=== PATIENT | male | born 1945 | race Caucasian/White ===

== ENCOUNTER 2016-07-10 12:30 | Emergency (ER) | payer OTHER ==
[~2016-07-10] VITALS: Ht 177.8 cm; Wt 77.1 kg
[~2016-07-10 12:30] MED LIST: /MIRT30TA OR; ALLE25CA OR; AMBI10TA OR; ATEN50TA2 OR; CELE40TA OR; CLARITIN; CLARITIN OR; COLA100C2 OR; FLEXERIL PO; HYDR10TA2 OR; HYDR25TA6 OR; LISI40TA OR; MELOPOW XX; METH750T OR; MILKSUS OR; MULTIVIT PO; NICO21DI4 TD; OMEP20TA7 OR; PREVPACK; RISP3TAB16 OR; SENO8.6T5 OR; TERA10CA3 OR; TRAZ50TA OR; VICO5TAB OR; VITAMIN B12 PO; ZITH250T OR; gabapentin PO; tramadol PO
[2016-07-10] MEDS ORDERED: TERA10CA3 PO (12:51)
[2016-07-10] MEDS ORDERED: VITA50003 PO (12:51)
[2016-07-10] MEDS ORDERED: AMLO5TAB2 PO (12:51)
[2016-07-10] MEDS ORDERED: SIMV20TA2 PO (12:51)
[2016-07-10] MEDS ORDERED: VITA100072 PO (12:51)
[2016-07-10] MEDS ORDERED: STOO100C PO (12:51)
[2016-07-10] MEDS ORDERED: RISPERIDONE (12:51)
[2016-07-10] MEDS ORDERED: METOCLOPRAMIDE 10 MG TAB PO ONE (13:30)
[2016-07-10 13:51] LABS: BASO % 0.2 % (0.0-1.0); EOS # 0.1 K/mm3 (0.0-0.50); EOS % 1.6 % (0.0-3.0); LARGE UNSTAINED CELL # 0.1 K/mm3 (0.0-0.4); LARGE UNSTAINED CELL % 1.9 % (0.0-4.0); LYMPH # 1.6 K/mm3 (1.5-4.5); LYMPH % 22.6 % (24.0-44.0); MEAN CORPUSCULAR HEMOGLOBIN 32.8 pg (27.0-33.0); MEAN CORPUSCULAR HGB CONC 33.1 g/dl (32.0-36.5); MEAN CORPUSCULAR VOLUME 99.2 fl (80.0-96.0); MONO # 0.4 K/mm3 (0.0-0.8); MONO % 5.3 % (0.0-5.0); NEUTROPHILS # 4.5 K/mm3 (1.8-7.7); NEUTROPHILS % 68.3 % (36.0-66.0); PLATELET COUNT, AUTOMATED 237 k/mm3 (150-450); RED CELL DISTRIBUTION WIDTH 13.3 % (11.5-14.5); WHITE BLOOD COUNT 6.6 K/mm3 (4.0-10.0)
[2016-07-10 14:06] LABS: ANION GAP 5 MEQ/L (8-16); BLOOD UREA NITROGEN 11 MG/DL (7-18); CALCIUM LEVEL 8.2 MG/DL (8.8-10.2); CARBON DIOXIDE LEVEL 29 MEQ/L (21-32); CHLORIDE LEVEL 103 MEQ/L (98-107); CREATININE FOR GFR 0.68 MG/DL (0.70-1.30); GLOMERULAR FILTRATION RATE > 60.0 (>49); GLUCOSE, FASTING 158 MG/DL (80-110); POTASSIUM SERUM 3.9 MEQ/L (3.5-5.1); SODIUM LEVEL 137 MEQ/L (136-145)
[2016-07-10 14:09] LABS: ALBUMIN 3.8 GM/DL (3.2-5.2); ALBUMIN/GLOBULIN RATIO 1.41 (1.00-1.93); ALKALINE PHOSPHATASE 117 U/L (45-117); ALT/SGPT 21 U/L (12-78); AST/SGOT 14 U/L (15-37); BILIRUBIN,DIRECT < 0.1 MG/DL (0.0-0.2); BILIRUBIN,TOTAL 0.2 MG/DL (0.2-1.0); TOTAL PROTEIN 6.5 GM/DL (6.4-8.2)
--- NOTE | 2016-07-10 15:02 | REP ---
REASON: Abdominal pain. Comparison chest 04/11/2010 The accompanying frontal view of the chest showed marked emphysematous changes which have worsened from the prior exam with a large bulla on the right lower lobe. There is a new nodule in the right lower lobe but this could be secondary to compressive changes due to the large right lower lobe bullous changes. Supine and upright views of the abdomen show the intestinal gas pattern to be nonspecific. Gas and stool is seen throughout the colon and within the rectosigmoid region. There is no evidence of intestinal obstruction or free air. A few scattered, nondilated, gas-filled bowel loops are seen in no particular fashion. The osseous structures show the bones to be demineralized with chronic changes. IMPRESSION: Pulmonary findings as described above. There is no evidence of acute intra-abdominal disease. Consider chest CT to better assess the small nodule in the right lung field. Signed by Larry Nichole DO 07/10/2016 03:52 P
[2016-07-10] MEDS ORDERED: ZOFR4TAB3 PO (15:12)
[2016-07-10 15:20] VITALS: BP 160/80
--- NOTE | 2016-07-10 16:37 | ED PDOC ---
Post-Departure Follow-Up dr bj bernabe faxed formal report of abdl series for fu taylorg Inna Mora MD Jul 10, 2016 16:37
== END 2016-07-10 15:25 | disposition home or self-care (01) ==
LOC: M ED 13:46
DX: R53.81 Other malaise (principal)
CPT/HCPCS: 36415; 74022; 80048; 80076; 85025; 99282; G0480

== ENCOUNTER 2017-05-18 08:33 | Emergency (ER) | payer OTHER ==
[2017-05-18 10:32] LABS: HEMATOCRIT 36.7 % (42.0-52.0); HEMOGLOBIN 12.7 g/dl (14.0-18.0); MEAN CORPUSCULAR HEMOGLOBIN 34.4 pg (27.0-33.0); MEAN CORPUSCULAR HGB CONC 34.6 g/dl (32.0-36.5); MEAN CORPUSCULAR VOLUME 99.5 fl (80.0-96.0); PLATELET COUNT, AUTOMATED 204 10^3/uL (150-450); RED BLOOD COUNT 3.69 10^6/uL (4.30-6.10); RED CELL DISTRIBUTION WIDTH 12.9 % (11.5-14.5); WHITE BLOOD COUNT 7.8 10^3/uL (4.0-10.0)
[2017-05-18 11:14] LABS: ACETAMINOPHEN LEVEL 2.8 UG/ML (10.0-30.0); ALBUMIN 3.8 GM/DL (3.2-5.2); ALBUMIN/GLOBULIN RATIO 1.52 (1.00-1.93); ALKALINE PHOSPHATASE 80 U/L (45-117); ALT/SGPT 19 U/L (12-78); ANION GAP 7 MEQ/L (8-16); AST/SGOT 14 U/L (7-37); BILIRUBIN,DIRECT 0.1 MG/DL (0.0-0.2); BILIRUBIN,TOTAL 0.3 MG/DL (0.2-1.0); BLOOD UREA NITROGEN 17 MG/DL (7-18); CALCIUM LEVEL 8.3 MG/DL (8.8-10.2); CARBON DIOXIDE LEVEL 28 MEQ/L (21-32); CHLORIDE LEVEL 105 MEQ/L (98-107); CREATININE FOR GFR 0.66 MG/DL (0.70-1.30); GLOMERULAR FILTRATION RATE > 60.0 (>42); GLUCOSE, FASTING 122 MG/DL (70-100); SODIUM LEVEL 140 MEQ/L (136-145); TOTAL PROTEIN 6.3 GM/DL (6.4-8.2)
[2017-05-18 11:21] LABS: ETHYL ALCOHOL (ETHANOL) < 0.003 % (0.000-0.010)
[2017-05-18 13:38] LABS: AMPHETAMINES LEVEL URINE NEGATIVE (NEGATIVE); BARBITURATES URINE NEGATIVE (NEGATIVE); BENZODIAZEPINES URINE NEGATIVE (NEGATIVE); CANNABINOIDS URINE NEGATIVE (NEGATIVE); COCAINE METABOLITE URINE NEGATIVE (NEGATIVE); METHADONE URINE NEGATIVE (NEGATIVE); OPIATES URINE NEGATIVE (NEGATIVE); PHENCYCLIDINE URINE NEGATIVE (NEGATIVE)
== END 2017-05-18 15:16 | disposition home or self-care (01) ==
LOC: M ED 08:33
DX: F34.1 Dysthymic disorder (principal); F31.9 Bipolar disorder, unspecified; I10 Essential (primary) hypertension; J44.9 Chronic obstructive pulmonary disease, unspecified; F17.210 Nicotine dependence, cigarettes, uncomplicated; Z79.899 Other long term (current) drug therapy; Z88.8 Allergy status to other drugs, medicaments and biological substances; Z86.2 Personal history of diseases of the blood and blood-forming organs and certain disorders involving the immune mechanism
CPT/HCPCS: G0480

== ENCOUNTER 2018-01-02 09:38 | Emergency (ER) | payer OTHER ==
[2018-01-02] MEDS: NS 1,000 ML IV (10:00)
[2018-01-02 10:38] LABS: BASO % 0.2 % (0.0-1.0); EOS # 0.1 10^3/uL (0.0-0.50); EOS % 1.1 % (0.0-3.0); HEMATOCRIT 37.4 % (42.0-52.0); HEMOGLOBIN 12.8 g/dl (13.5-17.5); IMMATURE GRANULOCYTE % 0.2 % (0-3.0); LYMPH # 0.8 10^3/uL (1.5-4.5); MEAN CORPUSCULAR HEMOGLOBIN 32.4 pg (27.0-33.0); MEAN CORPUSCULAR HGB CONC 34.2 g/dl (32.0-36.5); MEAN CORPUSCULAR VOLUME 94.7 fl (80.0-96.0); MONO # 0.6 10^3/uL (0.0-0.8); MONO % 9.7 % (0.0-5.0); NEUTROPHILS # 4.8 10^3/uL (1.8-7.7); NEUTROPHILS % 75.8 % (36.0-66.0); PLATELET COUNT, AUTOMATED 288 10^3/uL (150-450); RED BLOOD COUNT 3.95 10^6/uL (4.30-6.10); RED CELL DISTRIBUTION WIDTH 13.8 % (11.5-14.5); WHITE BLOOD COUNT 6.3 10^3/uL (4.0-10.0)
[2018-01-02 11:14] LABS: MAGNESIUM LEVEL 2.3 MG/DL (1.8-2.4)
[2018-01-02 11:14] LABS: ETHYL ALCOHOL (ETHANOL) < 0.003 % (0.000-0.010); FOLATE > 24.0 NG/ML (>5.4)
[2018-01-02] MEDS: ACETAMINOPHEN 325 MG TAB PO (11:18)
[2018-01-02] MEDS: LIDOCAINE 5% (LIDODERM) PATCH TD (11:18)
[2018-01-02 12:34] LABS: ALBUMIN 3.7 GM/DL (3.2-5.2); ALBUMIN/GLOBULIN RATIO 1.12 (1.00-1.93); ALKALINE PHOSPHATASE 122 U/L (45-117); ALT/SGPT 23 U/L (12-78); ANION GAP 6 MEQ/L (8-16); AST/SGOT 19 U/L (7-37); BILIRUBIN,DIRECT 0.1 MG/DL (0.0-0.2); BILIRUBIN,TOTAL 0.4 MG/DL (0.2-1.0); BLOOD UREA NITROGEN 12 MG/DL (7-18); CARBON DIOXIDE LEVEL 28 MEQ/L (21-32); CHLORIDE LEVEL 97 MEQ/L (98-107); CPK CREATINE PHOSPHOKINASE 47 U/L (39-308); CREATININE FOR GFR 0.65 MG/DL (0.70-1.30); FREE THYROXINE INDEX 3.6 % (1.4-3.8); GLOMERULAR FILTRATION RATE > 60.0 (>42); GLUCOSE, FASTING 117 MG/DL (70-100); LIPASE 102 U/L (73-393); MB/CK RELATIVE INDEX 2.34 (< OR =4); POTASSIUM SERUM 4.2 MEQ/L (3.5-5.1); SODIUM LEVEL 131 MEQ/L (136-145); T UPTAKE 37 % (33-40); THYROXINE (T4) 9.6 UG/DL (4.5-12.0); TROPONIN I < 0.02 NG/ML (< 0.10)
[2018-01-02 13:28] LABS: AMPHETAMINES LEVEL URINE NEGATIVE (NEGATIVE)
[2018-01-02 13:29] LABS: BARBITURATES URINE NEGATIVE (NEGATIVE); BENZODIAZEPINES URINE NEGATIVE (NEGATIVE); CANNABINOIDS URINE NEGATIVE (NEGATIVE); COCAINE METABOLITE URINE NEGATIVE (NEGATIVE); METHADONE URINE NEGATIVE (NEGATIVE); OPIATES URINE NEGATIVE (NEGATIVE); PHENCYCLIDINE URINE NEGATIVE (NEGATIVE)
[2018-01-02] MEDS: LABETALOL HCL 100 MG/20 ML VIAL IV (14:11)
[2018-01-02] MEDS: NS 500 ML IV (15:15)
[2018-01-02] MEDS ORDERED: **NOTE PATIENT COMMENT** MISC XX (21:00)
== END 2018-01-02 15:41 | disposition home or self-care (01) ==
LOC: M ED 09:38
DX: I10 Essential (primary) hypertension (principal); R53.81 Other malaise; R53.83 Other fatigue; K59.04 Chronic idiopathic constipation; M54.9 Dorsalgia, unspecified; M51.9 Unspecified thoracic, thoracolumbar and lumbosacral intervertebral disc disorder; G62.9 Polyneuropathy, unspecified; Z87.891 Personal history of nicotine dependence; Z87.19 Personal history of other diseases of the digestive system; Z88.6 Allergy status to analgesic agent; Z79.899 Other long term (current) drug therapy
CPT/HCPCS: 71046

== ENCOUNTER 2018-10-06 15:01 | Inpatient (IN) | payer OTHER ==
[~2018-10-06] VITALS: Ht 177.8 cm; Wt 80.5 kg
[~2018-10-06 15:01] MED LIST changes: -/MIRT30TA OR; +AMLO5TAB6 PO; +MIRT1TAB21 OR; +MM S100C PO; +RISPERIDONE; +SIMV20TA2 PO; +TERA10CA3 PO; +VITA100018 PO; +VITA50005 PO; +ZOFR4TAB14 PO
[2018-10-06] MEDS ORDERED: PERCOCET 5MG/325MG TAB PO ONE (19:00)
[2018-10-06 19:19] LABS: BASO % 0.3 % (0.0-1.0); EOS # 0.1 10^3/uL (0.0-0.50); EOS % 1.3 % (0.0-3.0); HEMATOCRIT 36.5 % (42.0-52.0); HEMOGLOBIN 12.4 g/dl (13.5-17.5); LYMPH # 2.1 10^3/uL (1.5-4.5); LYMPH % 21.6 % (24.0-44.0); MEAN CORPUSCULAR HEMOGLOBIN 33.9 pg (27.0-33.0); MEAN CORPUSCULAR VOLUME 99.7 fl (80.0-96.0); MONO # 0.9 10^3/uL (0.0-0.8); MONO % 8.9 % (0.0-5.0); NEUTROPHILS # 6.4 10^3/uL (1.8-7.7); NEUTROPHILS % 67.7 % (36.0-66.0); PLATELET COUNT, AUTOMATED 250 10^3/uL (150-450); RED BLOOD COUNT 3.66 10^6/uL (4.30-6.10); WHITE BLOOD COUNT 9.5 10^3/uL (4.0-10.0)
[2018-10-06 20:00] LABS: ALBUMIN 3.8 GM/DL (3.2-5.2); ALT/SGPT 18 U/L (12-78); BILIRUBIN,DIRECT 0.1 MG/DL (0.0-0.2); BILIRUBIN,TOTAL 0.4 MG/DL (0.2-1.0); BLOOD UREA NITROGEN 17 MG/DL (7-18); CALCIUM LEVEL 8.6 MG/DL (8.8-10.2); CARBON DIOXIDE LEVEL 29 MEQ/L (21-32); CHLORIDE LEVEL 105 MEQ/L (98-107); CK-MB VALUE MASS < 1.0 NG/ML (<3.6); CPK CREATINE PHOSPHOKINASE 54 U/L (39-308); CREATININE FOR GFR 0.83 MG/DL (0.70-1.30); GLOMERULAR FILTRATION RATE > 60.0 (>42); GLUCOSE, FASTING 82 MG/DL (70-100); LIPASE 84 U/L (73-393); MB/CK RELATIVE INDEX 1.85 (< OR =4); POTASSIUM SERUM 4.1 MEQ/L (3.5-5.1); SODIUM LEVEL 138 MEQ/L (136-145); TOTAL PROTEIN 6.5 GM/DL (6.4-8.2); TROPONIN I < 0.02 NG/ML (< 0.10)
--- NOTE | 2018-10-06 20:20 | REPVR ---
EXAM: CT Lumbar Spine Without Contrast EXAM DATE/TIME: 10/06/2018 7:47 PM CLINICAL HISTORY: 72 years old, male; Low back pain TECHNIQUE: Imaging protocol: Axial computed tomography images of the lumbar spine without intravenous contrast. Coronal and sagittal reformatted images were created and reviewed. Radiation optimization: All CT scans at this facility use at least one of these dose optimization techniques: automated exposure control; mA and/or kV adjustment per patient size (includes targeted exams where dose is matched to clinical indication); or iterative reconstruction. COMPARISON: No relevant prior studies available. FINDINGS: Vertebrae: The sclerotic area in the right pedicle of L5 with brush borders consistent with a bone island. L1-L2: Mild interspace narrowing with degenerative vacuum phenomenon in mild retrolisthesis. There is minimal facet arthropathy and no spinal stenosis. There is borderline right neural foraminal stenosis. L2-L3: Moderate interspace narrowing with degenerative vacuum phenomenon and mild retrolisthesis and minimal facet arthropathy. There is low normal size of the spinal canal and mild bilateral neural foraminal stenosis. L3-L4: Mild interspace narrowing degenerative vacuum phenomenon and slight retrolisthesis with minimal disc bulge. There is mild facet arthropathy and borderline spinal and right neural foraminal stenosis. L4-L5: Slight interspace narrowing degenerative disc change and vacuum phenomenon with minimal broad-based posterior protrusion. There is mild facet arthropathy and borderline spinal stenosis and borderline bilateral neural foraminal stenosis. L5-S1: Slight interspace narrowing with minimal posterior protrusion and minimal facet arthropathy. The spinal canal is of adequate size. There is borderline left and mild right neural foraminal stenosis. Soft tissues: Unremarkable. IMPRESSION: 1. Multilevel degenerative changes with some borderline spinal stenosis and varying degrees of neural foraminal stenosis as described. 2. No acute fracture or subluxation. Electronically signed by: Jay Jay Espinal On 10/06/2018 20:20:45 PM
[2018-10-06] MEDS ORDERED: KETOROLAC 30 MG/ML VIAL (J1885) IV ONE (20:45)
[2018-10-06] MEDS: RAMELTEON 8 MG TAB (ROZEREM) PO SCH (21:00)
[2018-10-06] MEDS ORDERED: **hydrALAZINE HCL** 25 MG TAB PO ONE (22:45)
[2018-10-06] MEDS ORDERED: oxyCODONE 5MG TAB PO ONE (23:15)
[2018-10-07] MEDS ORDERED: GABA600T4 PO (01:06)
[2018-10-07] MEDS ORDERED: TERA10CA3 PO (01:06)
[2018-10-07] MEDS ORDERED: LATU120T PO (01:06)
[2018-10-07] MEDS ORDERED: MIRA3350 PO (01:06)
[2018-10-07] MEDS ORDERED: SENN1TAB8 PO (01:06)
[2018-10-07] MEDS ORDERED: OMEP20CA4 PO (01:06)
[2018-10-07] MEDS ORDERED: DOCU100T8 PO (01:06)
[2018-10-07] MEDS ORDERED: FINA5TAB2 PO (01:06)
[2018-10-07] MEDS ORDERED: MULTTAB62 PO (01:06)
[2018-10-07] MEDS ORDERED: LIDO5OIN19 TOP (01:06)
[2018-10-07] MEDS ORDERED: DICL50TAB PO (01:06)
[2018-10-07] MEDS ORDERED: VENTAER INH (01:06)
[2018-10-07] MEDS ORDERED: MELATAB2 PO (01:06)
[2018-10-07] MEDS ORDERED: SERT-138 PO (01:06)
[2018-10-07] MEDS ORDERED: QC A650T3 PO (01:06)
[2018-10-07] MEDS ORDERED: PATIENT COMMENTS (01:08)
[2018-10-07] MEDS ORDERED: ALBUTEROL 90 MCG/ACT 8GM HFA INHALER INH PRN (01:15)
--- NOTE | 2018-10-07 03:26 | HPEPDOC ---
General Date of Admission Oct 07, 2018 at 01:15 Date of Service: Oct 07, 2018 Chief Complaint The patient is a 72-year-old male admitted with a reason for visit of Back Pain. History of Present Illness 72-year-old male with past medical history of hypertension, arthritis, BPH, peripheral neuropathy, and chronic back pain presents to the ER with a chief complaint of worsening back pain. The patient states that he lives by himself, and that over the last several weeks he has had more difficulty caring for himself as his back pain precludes him from performing activities of daily living. He denies any recent trauma, or strains. He states that it is getting harder for him to walk with a single-point cane, and that his current medication regimen is not alleviating his discomfort. He denies any complaints of numbness in his genital area, fecal/urinary incontinence or retention, or any other signs of cauda equina. In the ER, the patient had difficulty ambulating, and was unable to be discharged home. He will be admitted to the hospitalist service for further evaluation and management. Home Medications Scheduled Docusate Sodium (Docusate Sodium) 100 Mg Tablet, 100 MG PO BID, (Reported) Finasteride (Finasteride) 5 Mg Tablet, 5 MG PO DAILY, (Reported) Gabapentin (Gabapentin) 600 Mg Tablet, 600 MG PO TID, (Reported) Lidocaine (Lidocaine) 120 Gm Oint...g., 1 APPLIC TOP BID, (Reported) APPLY TO AFFECTED AREAS Lurasidone HCl (Latuda) 120 Mg Tablet, 120 MG PO QPM, (Reported) Multivitamin with Minerals (Multivitamins with Minerals) 1 Each Tablet, 1 TAB PO DAILY, (Reported) Omeprazole (Omeprazole) 20 Mg Capsule.dr, 20 MG PO DAILY, (Reported) Polyethylene Glycol 3350 (Miralax) 119 Gm Powder, 17 GRAM PO DAILY, (Reported) Sennosides (Senna) 8.6 Mg Tablet, 17.2 MG PO BID, (Reported) Sertraline HCl (Sertraline HCl) 100 Mg Tablet, 200 MG PO DAILY, (Reported) Terazosin Hcl (Terazosin HCl) 10 Mg Capsule, 20 MG PO QHS, (Reported) Scheduled PRN Acetaminophen (Acetaminophen 8 Hour) 650 Mg Tablet.er, 650 MG PO Q6H PRN for PAIN, (Reported) Albuterol Sulfate (Ventolin Hfa) 18 Gm Hfa.aer.ad, 2 PUFF INH DAILY PRN for wheezing, (Reported) Diclofenac Sodium (Diclofenac Sodium) 50 Mg Tablet.dr, 50 MG PO BID PRN for PAIN, (Reported) Melatonin (Melatonin) 3 Mg Tablet, 6 MG PO QHS PRN for INSOMNIA, (Reported) Miscellaneous Medications [Patient Comments] , (Reported) PATIENT DID NOT APPEAR TO KNOW HIS MEDICATIONS. ACTIVE MEDICATION LIST [facility]IFIED WITH [facility] [place] Allergies Coded Allergies: aspirin (Verified Allergy, Unknown, 10/06/18) Past Medical History Medical History As noted in HPI. Surgical History Appendectomy Social History * Smoker: Denies Alcohol: Denies Drugs: denies Review of Systems Other systems 10 point review of systems negative unless otherwise specified in HPI. Physical Examination General Exam: Positive: Alert, Cooperative, Mild Distress (2/2 back pain) ENT Exam: Positive: Atraumatic, Mucous membr. moist/pink Neck Exam: Negative: JVD Chest Exam: Positive: Clear to auscultation, Normal air movement Heart Exam: Positive: Rate Normal, Normal S1, Normal S2 Abdomen Exam: Positive: Soft; Negative: Tenderness Extremity Exam: Negative: Tenderness, Swelling Neuro Exam: Positive: Strength at 5/5 X4 ext, Normal Tone, Sensation Intact, Other (range of motion limited on back extension/flexion due to pain. Patient with difficulty with leg raising test.) Psych Exam: Positive: Oriented x 3 Vital Signs Vital Signs Date Time Temp Pulse Resp B/P (MAP) Pulse Ox O2 Delivery O2 Flow Rate FiO2 10/07/18 01:31 53 18 96 Room Air 10/07/18 00:11 98.7 186/84 (118) Laboratory Data Labs 24H Laboratory Tests 2 10/06/18 19:05: Immature Granulocyte % (Auto) 0.2, White Blood Count 9.5, Red Blood Count 3.66L, Hemoglobin 12.4L, Hematocrit 36.5L, Mean Corpuscular Volume 99.7H, Mean Corpuscular Hemoglobin 33.9H, Mean Corpuscular Hemoglobin Concent 34.0, Red Cell Distribution Width 13.8, Platelet Count 250, Neutrophils (%) (Auto) 67.7H, Lymphocytes (%) (Auto) 21.6L, Monocytes (%) (Auto) 8.9H, Eosinophils (%) (Auto) 1.3, Basophils (%) (Auto) 0.3, Neutrophils # (Auto) 6.4, Lymphocytes # (Auto) 2.1, Monocytes # (Auto) 0.9H, Eosinophils # (Auto) 0.1, Basophils # (Auto) 0.0, Nucleated Red Blood Cells % (auto) 0.0, Urine Color STRAW, Urine Appearance CLEAR, Urine pH 7.0, Urine Specific [place] 1.006, Urine Protein NEGATIVE, Urine Glucose (UA) NEGATIVE, Urine Ketones NEGATIVE, Urine Blood NEGATIVE, Urine Nitrite NEGATIVE, Urine Bilirubin NEGATIVE, Urine Urobilinogen 0.2, Urine Leukocyte Esterase NEGATIVE, Urine WBC (Auto) 1, Urine RBC (Auto) 3, Urine Hyaline Casts (Auto) 0, Urine Bacteria (Auto) 1+H, Urine Squamous Epithelial Cells 0, Urine Sperm (Auto) , Anion Gap 4L, Glomerular Filtration Rate > 60.0, Calcium Level 8.6L, Aspartate Amino Transf (AST/SGOT) 19, Alanine Am inotransferase (ALT/SGPT) 18, Alkaline Phosphatase 92, Total Bilirubin 0.4, Direct Bilirubin 0.1, Total Creatine Kinase 54, Creatine Kinase MB < 1.0, Creatine Kinase MB Relative Index 1.85, Troponin I < 0.02, Total Protein 6.5, Albumin 3.8, Albumin/Globulin Ratio 1.41, Lipase 84 CBC/BMP Laboratory Tests 10/06/18 19:05 Red Blood Count 3.66 L, Mean Corpuscular Volume 99.7 H, Mean Corpuscular Hemoglobin 33.9 H, Mean Corpuscular Hemoglobin Concent 34.0, Red Cell Distribution Width 13.8, Neutrophils (%) (Auto) 67.7 H, Lymphocytes (%) (Auto) 21.6 L, Monocytes (%) (Auto) 8.9 H, Eosinophils (%) (Auto) 1.3, Basophils (%) (Auto) 0.3, Neutrophils # (Auto) 6.4, Lymphocytes # (Auto) 2.1, Monocytes # (Auto) 0.9 H, Eosinophils # (Auto) 0.1, Basophils # (Auto) 0.0 Plan / VTE VTE Prophylaxis Ordered?: Yes Plan Plan Acute on Chronic Back Pain CT L-Spine with no acute findings No signs or symptoms to suggest cauda equina PT/OT ordered for functional optimization Pain medications as ordered We'll continue to monitor the patient's progress Accelerated hypertension Continue Terazosin Hydralazine prn ordered Anxiety/depression Continue sertraline, Latuda Neuropathy Continue gabapentin GERD PPI DVT prophylaxis Lovenox subcutaneous LELAND JIMENEZ MD Oct 07, 2018 03:26
[2018-10-07] MEDS: ENOXAPARIN 40 MG/0.4 ML SYRINGE (J1650) SC SCH (05:12)
[2018-10-07] MEDS: **hydrALAZINE HCL** 25 MG TAB PO SCH ×2 (05:13→09:02)
[2018-10-07] MEDS: PERCOCET 5MG/325MG TAB PO PRN ×3 (05:13→20:40)
[2018-10-07] MEDS ORDERED: hydrALAZINE INJ 20 MG/ML VIAL IV STA (08:06)
[2018-10-07] MEDS: SENNA 8.6 MG TAB (SENOKOT) PO SCH ×2 (09:00→20:41)
[2018-10-07] MEDS: DOCUSATE SODIUM 100 MG CAP PO SCH ×3 (09:00→20:41)
[2018-10-07] MEDS: OMEPRAZOLE 20 MG CAP PO SCH (09:01)
[2018-10-07] MEDS: GABAPENTIN 300 MG CAP PO SCH ×3 (09:02→20:40)
[2018-10-07] MEDS: FINASTERIDE 5 MG TAB PO SCH (09:12)
[2018-10-07] MEDS: SERTRALINE 100 MG TAB PO SCH (09:14)
[2018-10-07] MEDS: LIDOCAINE 5% (LIDODERM) PATCH TD SCH (09:14)
[2018-10-07] MEDS ORDERED: METOPROLOL 5 MG/5 ML VIAL IV STA (11:00)
[2018-10-07 14:19] VITALS: BP 170/68
[2018-10-07] MEDS: traMADol 50 MG TAB PO PRN (14:49)
[2018-10-07] MEDS: METHOCARBAMOL 500 MG TAB PO SCH ×2 (16:14→21:36)
[2018-10-07] MEDS: LISINOPRIL 5 MG TAB PO SCH (16:16)
--- NOTE | 2018-10-07 16:31 | IPNPDOC ---
Text Note Date of Service The patient was seen on 10/07/18. NOTE SUBJECTIVE: Patient examined at bedside, continues to have low back pain and requesting assistance with home placement. Otherwise denies chest pain, shortness breath, nausea, vomiting, fevers, chills. No new neuropathy or deficits. No urine/fecal incontinence. OBJECTIVE PHYSICAL EXAMINATION: VITAL SIGNS: Please see below. GENERAL: A&O3, resting comfortably in bed, sitting up speaking in complete sentences no acute distress] HEENT: [Moist mucous membranes no elevation in CVP] CARDIOVASCULAR: [S1 S2 regular no additional heart sounds appreciated.] RESPIRATORY: [Clear to auscultation bilaterally.] ABDOMINAL: [Bowel sounds present abdomen soft and non-tender] EXTREMITIES: [No clubbing cyanosis or edema] NEUROLOGICAL: [Spontaneously moves all 4 extremities cranial 2 through 12 grossly intact no gross focal deficits appreciated] MUSCULOSKELETAL: Strength intact in all extremities. Tenderness to lumbar spine. Ambulating room without difficulty PSYCHOLOGICAL: [Appropriate] LABORATORY DATA, MICROBIOLOGY: Please see below. IMAGING STUDIES: 10/06/[address]: 1. Multilevel degenerative changes with some borderline spinal stenosis and varying degrees of neural foraminal stenosis as described. 2. No acute fracture or subluxation. ASSESSMENT AND PLAN: This is a 72-year-old male with worsening chronic low back pain and social living situation. PROBLEMS: 1. Worsening chronic lumbago. Patient denies any recent injuries, however admits to multiple falls with a past few years. Continue pain control with lidocaine patch, muscle relaxant, gabapentin, tramadol, Percocet. Encourage working with PT. Will likely require placement, for which PFS has been consulted. 2. Hypertension: Continue Terazosin. BP uncontrolled. I suspect this is partially due to his pain. Will add Lisinopril and monitor. Currently asymptomatic otherwise. 3. Depression: Continue sertraline & Latuda. 4. GERD: Continue home PPI. 5. BPH: Continue Proscar DVT prophylaxis: Lovenox subcutaneous DISPOSITION: Pending PT and PFS. Will likely require long-term placement.. VS,Fishbone, I+O VS, Fishbone, I+O Laboratory Tests 10/06/18 19:05 Red Blood Count 3.66 L, Mean Corpuscular Volume 99.7 H, Mean Corpuscular Hemoglobin 33.9 H, Mean Corpuscular Hemoglobin Concent 34.0, Red Cell Distribution Width 13.8, Neutrophils (%) (Auto) 67.7 H, Lymphocytes (%) (Auto) 21.6 L, Monocytes (%) (Auto) 8.9 H, Eosinophils (%) (Auto) 1.3, Basophils (%) (Auto) 0.3, Neutrophils # (Auto) 6.4, Lymphocytes # (Auto) 2.1, Monocytes # (Auto) 0.9 H, Eosinophils # (Auto) 0.1, Basophils # (Auto) 0.0 Vital Signs Date Time Temp Pulse Resp B/P (MAP) Pulse Ox O2 Delivery O2 Flow Rate FiO2 10/07/18 16:16 176/74 10/07/18 15:49 16 10/07/18 14:19 97.0 60 96 10/07/18 14:03 Room Air PINO BAUMAN Oct 07, 2018 16:31
[2018-10-07] MEDS: RAMELTEON 8 MG TAB (ROZEREM) PO SCH (20:40)
[2018-10-07] MEDS: **NOTE PATIENT COMMENT** MISC XX SCH (21:08)
[2018-10-07] MEDS: LURASIDONE HCL 40 MG TAB (LATUDA) PO SCH (21:36)
[2018-10-07] MEDS: TERAZOSIN 5 MG CAP PO SCH (21:37)
[2018-10-07 22:00] VITALS: BP 179/80
[2018-10-08 02:00] VITALS: BP 114/54
[2018-10-08] MEDS: PERCOCET 5MG/325MG TAB PO PRN ×2 (05:18→15:29)
[2018-10-08] MEDS: ENOXAPARIN 40 MG/0.4 ML SYRINGE (J1650) SC SCH (05:18)
[2018-10-08 05:57] LABS: HEMOGLOBIN 12.1 g/dl (13.5-17.5); MEAN CORPUSCULAR HEMOGLOBIN 34.7 pg (27.0-33.0); MEAN CORPUSCULAR HGB CONC 33.6 g/dl (32.0-36.5); MEAN CORPUSCULAR VOLUME 103.2 fl (80.0-96.0); PLATELET COUNT, AUTOMATED 207 10^3/uL (150-450); RED BLOOD COUNT 3.49 10^6/uL (4.30-6.10)
[2018-10-08 06:00] VITALS: BP 148/70
[2018-10-08 06:26] LABS: BLOOD UREA NITROGEN 22 MG/DL (7-18); CALCIUM LEVEL 8.6 MG/DL (8.8-10.2); CARBON DIOXIDE LEVEL 28 MEQ/L (21-32); CHLORIDE LEVEL 103 MEQ/L (98-107); CREATININE FOR GFR 0.81 MG/DL (0.70-1.30); GLOMERULAR FILTRATION RATE > 60.0 (>42); GLUCOSE, FASTING 103 MG/DL (70-100); MAGNESIUM LEVEL 2.1 MG/DL (1.8-2.4); POTASSIUM SERUM 3.6 MEQ/L (3.5-5.1); SODIUM LEVEL 138 MEQ/L (136-145)
[2018-10-08] MEDS: LIDOCAINE 5% (LIDODERM) PATCH TD SCH (08:08)
[2018-10-08] MEDS: GABAPENTIN 300 MG CAP PO SCH ×3 (08:09→20:10)
[2018-10-08] MEDS: LISINOPRIL 5 MG TAB PO SCH (08:09)
[2018-10-08] MEDS: OMEPRAZOLE 20 MG CAP PO SCH (08:09)
[2018-10-08] MEDS: FINASTERIDE 5 MG TAB PO SCH (08:10)
[2018-10-08] MEDS: DOCUSATE SODIUM 100 MG CAP PO SCH ×2 (08:10→20:10)
[2018-10-08] MEDS: METHOCARBAMOL 500 MG TAB PO SCH ×3 (08:10→20:10)
[2018-10-08] MEDS: SENNA 8.6 MG TAB (SENOKOT) PO SCH ×2 (08:10→20:08)
[2018-10-08] MEDS: ACETAMINOPHEN TAB 650MG DOSE (2X325MG) PO PRN ×2 (08:11→15:29)
[2018-10-08] MEDS: SERTRALINE 100 MG TAB PO SCH (08:13)
[2018-10-08] MEDS: traMADol 50 MG TAB PO PRN (09:50)
[2018-10-08] MEDS: DICLOFENAC EPOLAMINE 1.3 % PATCH TOP SCH ×2 (12:00→20:08)
[2018-10-08 14:00] VITALS: BP 178/77
[2018-10-08] MEDS: LURASIDONE HCL 40 MG TAB (LATUDA) PO SCH (20:10)
[2018-10-08] MEDS: RAMELTEON 8 MG TAB (ROZEREM) PO SCH (20:10)
[2018-10-08] MEDS: TERAZOSIN 5 MG CAP PO SCH (20:19)
[2018-10-08] MEDS: **NOTE PATIENT COMMENT** MISC XX SCH (20:20)
[2018-10-08 22:00] VITALS: BP_SYST 120; BP_SYST 134; BP_DIAS 60; BP_DIAS 71
--- NOTE | 2018-10-09 00:32 | IPNPDOC ---
Subjective Date Seen The patient was seen on 10/08/18. Subjective Chief Complaint/HPI Today patient complains of low back pain and neck pain. This he says worsened after working with PT. Denies any fever or chills, denies any abdominal pain , nausea or vomiting or diarrhea. Says has problem in bending forward and has difficulty in walking with a cane. Is being evaluated by PT. Objective Physical Examination General Exam: Positive: Alert, Cooperative, Mild Distress (2/2 back pain) ENT Exam: Positive: Atraumatic, Mucous membr. moist/pink Neck Exam: Negative: JVD Chest Exam: Positive: Clear to auscultation, Normal air movement Heart Exam: Positive: Rate Normal, Normal S1, Normal S2 Abdomen Exam: Positive: Soft; Negative: Tenderness Extremity Exam: Negative: Tenderness, Swelling Neuro Exam: Positive: Strength at 5/5 X4 ext, Normal Tone, Sensation Intact, Other (range of motion limited on back extension/flexion due to pain. Patient with difficulty with leg raising test.) Psych Exam: Positive: Oriented x 3 Assessment /Plan Assessment 72-year-old male with past medical history of hypertension, arthritis, BPH, peripheral neuropathy, and chronic back pain presents to the ER with a chief complaint of worsening back pain. The patient states that he lives by himself, and that over the last several weeks he has had more difficulty caring for himself as his back pain precludes him from performing activities of daily living. He was admitted for back pain and difficulty in ambulation. Worsening chronic lumbago. CT lumber spine personally visualized, and report reviewed shows degenerative changes and some foraminal stenosis in different levels. Patient denies any recent injuries, however admits to multiple falls with a past few years. Continue pain control with lidocaine patch, muscle relaxant, gabapentin, tramadol, Percocet. Encourage working with PT. PFS consulted as will probably need services or placement in [place] situation. will also add diclofenac patch. Continue PT and OT Hypertension: Better controlled today Continue Terazosin, lisinopril. Depression: Continue sertraline & Latuda. GERD: Continue home PPI. BPH: Continue Proscar, terazosin Plan/VTE VTE Prophylaxis Ordered?: Yes VS, I&O, 24H, Fishbone Vital Signs/I&O Vital Signs Date Time Temp Pulse Resp B/P (MAP) Pulse Ox O2 Delivery O2 Flow Rate FiO2 10/08/18 10:50 16 10/08/18 08:09 145/66 10/08/18 06:00 97.0 54 95 10/07/18 14:03 Room Air I&O- Last 24 Hours up to 6 AM 10/08/18 06:00 Intake Total 560 ml Output Total 150 ml Balance 410 ml Laboratory Data 24H LABS Laboratory Tests 2 10/08/18 05:45: Nucleated Red Blood Cells % (auto) 0.0, Anion Gap 7L, Glomerular Filtration Rate > 60.0, Blood Urea Nitrogen 22H, Creatinine 0.81, Sodium Level 138, Potassium Level 3.6, Chloride Level 103, Carbon Dioxide Level 28, Calcium Level 8.6L, Magnesium Level 2.1 CBC/BMP Laboratory Tests 10/08/18 05:45 Red Blood Count 3.49 L, Mean Corpuscular Volume 103.2 H, Mean Corpuscular Hemoglobin 34.7 H, Mean Corpuscular Hemoglobin Concent 33.6, Red Cell Distribution Width 14.0, Calcium Level 8.6 L JIGNESH RUFFIN MD Oct 08, 2018 12:25
[2018-10-09] MEDS: ENOXAPARIN 40 MG/0.4 ML SYRINGE (J1650) SC SCH (04:45)
[2018-10-09] MEDS: PERCOCET 5MG/325MG TAB PO PRN (04:45)
[2018-10-09 06:00] VITALS: BP 99/50
[2018-10-09] MEDS: OMEPRAZOLE 20 MG CAP PO SCH (08:03)
[2018-10-09] MEDS: DOCUSATE SODIUM 100 MG CAP PO SCH (08:03)
[2018-10-09] MEDS: FINASTERIDE 5 MG TAB PO SCH (08:03)
[2018-10-09] MEDS: SENNA 8.6 MG TAB (SENOKOT) PO SCH (08:03)
[2018-10-09 08:06] VITALS: BP 120/60
[2018-10-09] MEDS: LISINOPRIL 5 MG TAB PO SCH (08:06)
[2018-10-09] MEDS: SERTRALINE 100 MG TAB PO SCH (08:06)
[2018-10-09] MEDS: GABAPENTIN 300 MG CAP PO SCH (08:06)
[2018-10-09] MEDS: DICLOFENAC EPOLAMINE 1.3 % PATCH TOP SCH (08:06)
[2018-10-09] MEDS: LIDOCAINE 5% (LIDODERM) PATCH TD SCH (08:07)
[2018-10-09] MEDS: METHOCARBAMOL 500 MG TAB PO SCH (11:59)
[2018-10-09] MEDS ORDERED: LISI-542 PO (13:09)
[2018-10-09] MEDS ORDERED: METH1TAB40 PO ×2 (13:09→13:42)
--- NOTE | 2018-10-09 18:04 | DS.PDOC ---
Discharge Summary General Date of Admission Oct 07, 2018 at 01:15 Date of Discharge 10/09/18 Attending Physician: JIGNESH RUFFIN MD Discharge Summary PROCEDURES PERFORMED DURING STAY: None ADMITTING DIAGNOSES: 1. Worsening chronic lumbago DISCHARGE DIAGNOSES: 1. Worsening chronic lumbago 2. Deconditioning 3. Uncontrolled HTN 4. Anxiety/depression 5. Neuropathy 6. GERD 7. BPH COMPLICATIONS/CHIEF COMPLAINT: Back Pain. HISTORY OF PRESENT ILLNESS: 71-year-old male with chronic low back pain presents to the ER stating he is unable to care for himself due to his worsening low back pain. Denies any recent injuries or falls, however has a history of multiple falls at home with loss of balance. No fevers chills nausea vomiting or new paresthesias. No loss of bowel bladder. HOSPITAL COURSE: In the ER, patient had difficulty ambulating, thus admitted. Imaging was negative for any acute concerns. Patient worked with PT and OT, clearing both. pharmacy services director consulted for possible home nursing versus long-term placement, however patient refused both. He has a history of turning [facility] home services in the past, and thus per PT, OT, PFS, patient was recommended to be discharged home. Patient on medically stable. His brother requested to take Mr. Guillen home and oversee his care, as pt refused adult living. Of note, he was noted to have elevated blood pressures during his stay that improved after the sample was added to his turn Zosyn. Pain medication and Lisinopril were sent to pharmacy. DISCHARGE MEDICATIONS: Please see below. ALLERGIES: Please see below. PHYSICAL EXAMINATION ON DISCHARGE: VITAL SIGNS: Please see below. GENERAL: NAD, A&Ox3 HEENT: nc, at, EOMI NECK: supple, no JVD CARDIOVASCULAR EXAMINATION: RRR, normal S1 S2 RESPIRATORY EXAMINATION: CTAB, no w/r/r ABDOMINAL EXAMINATION: soft, nt/nd, normoactive bowel sounds EXTREMITIES: 2+ pulses b/l, no cyanosis or edema SKIN: no visible rash or lesions, warm, dry NEUROLOGICAL EXAMINATION: no focal deficits, able to move all extremities LABORATORY DATA: Please see below. IMAGIN10/06/[address]: 1. Multilevel degenerative changes with some borderline spinal stenosis and varying degrees of neural foraminal stenosis as described. 2. No acute fracture or subluxation. PROGNOSIS: good ACTIVITY: As tolerated. DIET: 2g sodium DISPOSITION: home DISCHARGE INSTRUCTIONS: 1. Follow-up with PCP within a week 2. Return to ER for emergency DISCHARGE CONDITION: Stable. TIME SPENT ON DISCHARGE: Greater than 35 minutes. Vital Signs/I&Os Vital Signs Date Time Temp Pulse Resp B/P (MAP) Pulse Ox O2 Delivery O2 Flow Rate FiO2 10/09/18 08:06 120/60 10/09/18 06:00 97.1 61 18 94 10/07/18 14:03 Room Air I&O- Last 24 Hours up to 6 AM 10/09/18 06:00 Intake Total 870 ml Balance 870 ml Laboratory Data Labs 24H Laboratory Tests 2 10/09/18 05:28: Bedside Glucose (Misc Panel) 118H FSBS Laboratory Tests Test 10/09/18 05:28 Range/Units Bedside Glucose (Misc Panel) 118 83-110 MG/DL Discharge Medications Scheduled Docusate Sodium (Docusate Sodium) 100 Mg Tablet, 100 MG PO BID, (Reported) Finasteride (Finasteride) 5 Mg Tablet, 5 MG PO DAILY, (Reported) Gabapentin (Gabapentin) 600 Mg Tablet, 600 MG PO TID, (Reported) Lidocaine (Lidocaine) 120 Gm Oint...g., 1 APPLIC TOP BID, (Reported) APPLY TO AFFECTED AREAS Lisinopril (Lisinopril) 5 Mg Tablet, 15 MG PO DAILY Lurasidone HCl (Latuda) 120 Mg Tablet, 120 MG PO QPM, (Reported) Methocarbamol (Methocarbamol) 500 Mg Tablet, 500 MG PO TID Methocarbamol (Methocarbamol) 500 Mg Tablet, 500 MG PO TID Multivitamin with Minerals (Multivitamins with Minerals) 1 Each Tablet, 1 TAB PO DAILY, (Reported) Omeprazole (Omeprazole) 20 Mg Capsule.dr, 20 MG PO DAILY, (Reported) Polyethylene Glycol 3350 (Miralax) 119 Gm Powder, 17 GRAM PO DAILY, (Reported) Sennosides (Senna) 8.6 Mg Tablet, 17.2 MG PO BID, (Reported) Sertraline HCl (Sertraline HCl) 100 Mg Tablet, 200 MG PO DAILY, (Reported) Terazosin Hcl (Terazosin HCl) 10 Mg Capsule, 20 MG PO QHS, (Reported) Scheduled PRN Acetaminophen (Acetaminophen 8 Hour) 650 Mg Tablet.er, 650 MG PO Q6H PRN for PAIN, (Reported) Albuterol Sulfate (Ventolin Hfa) 18 Gm Hfa.aer.ad, 2 PUFF INH DAILY PRN for wheezing, (Reported) Diclofenac Sodium (Diclofenac Sodium) 50 Mg Tablet.dr, 50 MG PO BID PRN for PAIN, (Reported) Melatonin (Melatonin) 3 Mg Tablet, 6 MG PO QHS PRN for INSOMNIA, (Reported) Miscellaneous Medications [Patient Comments] , (Reported) PATIENT DID NOT APPEAR TO KNOW HIS MEDICATIONS. ACTIVE MEDICATION LIST VERIFIED WITH [facility] Allergies Coded Allergies: aspirin (Verified Allergy, Unknown, 10/06/18) GME ATTESTATION GME ATTESTATION My faculty preceptor for this patient encounter was physically present during the encounter and was fully available. All aspects of the patient interview, examination, medical decision making process, and medical care plan development were reviewed and approved by the faculty preceptor. The faculty preceptor is aware and concurs with the plan as stated in the body of this note and will attest to such by his/her cosignature. ATTENDING NOTE I saw and examined the patient. I agree with the finding and the plan of care as documented in the resident's note. I spent 35 mins in counselling the patient and coordinating his discharge. PINO BAUMAN DO Oct 09, 2018 18:04 JIGNESH RUFFIN MD Oct 10, 2018 00:16
== END 2018-10-09 13:38 | disposition home or self-care (01) | DRG 552 ==
LOC: M ED 15:01 → M ED INP 10-07 01:15 → M MSPAV 10-07 14:26
PROVIDERS: ADMIT Internal Medicine; ATTEND Internal Medicine Nephrology
DX: M54.5 Low back pain (principal); I10 Essential (primary) hypertension; G62.9 Polyneuropathy, unspecified; M19.90 Unspecified osteoarthritis, unspecified site; F32.9 Major depressive disorder, single episode, unspecified; F41.9 Anxiety disorder, unspecified; K21.9 Gastro-esophageal reflux disease without esophagitis; N40.0 Benign prostatic hyperplasia without lower urinary tract symptoms; M54.2 Cervicalgia; M48.061 Spinal stenosis, lumbar region without neurogenic claudication; M51.36 Other intervertebral disc degeneration, lumbar region; Z88.6 Allergy status to analgesic agent; Z79.899 Other long term (current) drug therapy; Z90.49 Acquired absence of other specified parts of digestive tract

== ENCOUNTER 2018-11-08 15:15 | Observation (INO) | payer OTHER ==
[~2018-11-08] VITALS: Ht 177.8 cm; Wt 75.2 kg
[~2018-11-08 15:15] MED LIST changes: +DICL50TAB PO; +DOCU100T8 PO; +FINA5TAB2 PO; +GABA600T4 PO; +LATU120T PO; +LIDO5OIN19 TOP; +LISI-542 PO; +MELATAB2 PO; +METH1TAB40 PO; +MIRA3350 PO; +MULTTAB62 PO; +OMEP20CA4 PO; +PATIENT COMMENTS; +QC A650T3 PO; +SENN1TAB8 PO; +SERT-138 PO; +VENTAER INH
[2018-11-08] MEDS ORDERED: CYCLOBENZAPRINE 5MG TABLET PO ONE (17:30)
[2018-11-08] MEDS ORDERED: NS 1,000 ML IV ONE (17:45)
[2018-11-08 18:37] LABS: HEMATOCRIT 35.2 % (42.0-52.0); HEMOGLOBIN 11.9 g/dl (13.5-17.5); MEAN CORPUSCULAR HEMOGLOBIN 35.5 pg (27.0-33.0); MEAN CORPUSCULAR HGB CONC 33.8 g/dl (32.0-36.5); MEAN CORPUSCULAR VOLUME 105.1 fl (80.0-96.0); PLATELET COUNT, AUTOMATED 198 10^3/uL (150-450); RED BLOOD COUNT 3.35 10^6/uL (4.30-6.10)
[2018-11-08 19:23] LABS: ACETAMINOPHEN LEVEL 2.2 UG/ML (10.0-30.0); ALBUMIN 3.4 GM/DL (3.2-5.2); ALT/SGPT 24 U/L (12-78); BILIRUBIN,DIRECT < 0.1 MG/DL (0.0-0.2); BILIRUBIN,TOTAL < 0.1 MG/DL (0.2-1.0); ETHYL ALCOHOL (ETHANOL) < 0.003 % (0.000-0.010); SALICYLATE LEVEL < 1.7 MG/DL (5.0-30.0); THYROID STIMULATING HORMONE 0.391 uIU/ML (0.358-3.740); TOTAL PROTEIN 6.5 GM/DL (6.4-8.2)
[2018-11-08] MEDS ORDERED: PERCOCET 5MG/325MG TAB PO ONE (20:15)
[2018-11-08 20:35] LABS: AMPHETAMINES LEVEL URINE NEGATIVE (NEGATIVE); BARBITURATES URINE NEGATIVE (NEGATIVE); BENZODIAZEPINES URINE NEGATIVE (NEGATIVE); CANNABINOIDS URINE NEGATIVE (NEGATIVE); COCAINE METABOLITE URINE NEGATIVE (NEGATIVE); METHADONE URINE NEGATIVE (NEGATIVE); OPIATES URINE NEGATIVE (NEGATIVE); PHENCYCLIDINE URINE NEGATIVE (NEGATIVE)
[2018-11-08] MEDS ORDERED: amLODIPine 5 MG TAB PO ONE (20:45)
--- NOTE | 2018-11-08 22:40 | HPEPDOC ---
[facility] Medical History & Physical Date of Admission Nov 08, 2018 Date of Service: Nov 09, 2018 Primary Care Physician: A Other Provider Chiara Pearson Attending Physician: TELLY NGUYEN MD History and Physical Time of service 12:05 AM CHIEF COMPLAINT: Back pain HISTORY OF PRESENT ILLNESS: Mr. Guillen is a 73-year-old male who presents with complaints of "progressively worsening "back pain that makes it difficult for him to eat him to sleep. As a result of the pain he fell down 3 times yesterday and reports hitting his head. He came to the ED primarily to get help in managing his back pain. His brother helps him with his medications but only comes once a day in the morning. He also endorses having chest pain at his breast bone, which he attributes to the position that his lying down in, dyspnea, weakness, lightheadedness, headaches caused by neck pain, blurry vision, and weight loss. Per discussion with the ED attending the patient's blood pressure is been very high with a systolic greater than 200. He received amlodipine and cyclobenzaprine with minimal effect. REVIEW OF SYSTEMS: Point review of systems negative except as listed in HPI PAST MEDICAL /SURGICAL HISTORY: 1. Chronic hypertension 2. Chronic back and neck pain. 3. BPH. 4. Peripheral neuropathy 5. History of chronic macrocytic anemia. 6. History of exploratory laparotomy SOCIAL HISTORY: Current smoker. 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 Diabetes ALLERGIES: Please see below. HOME MEDICATIONS: Please see below. PHYSICAL EXAMINATION: VITAL SIGNS: Temperature 90.2, pulse 54, respiratory rate 18, blood pressure 200 2406, pulse oximetry 94% room air GENERAL APPEARANCE: Well-nourished, well-developed, does not appear in acute distress, does not appear toxic INTEGUMENT: The patient has multiple tattoos HEENT: No cephalic, atraumatic, mucous members are moist and pink CARDIOVASCULAR: Regular rate and rhythm, no murmurs, rubs or gallops, no pulses are bounding him a left sternal chest pain is reproducible with palpation of the chest LUNGS: Equal air entry bilaterally, the lungs are clear to auscultation bilaterally, the patient developed dyspnea after readjusting himself in the bed ABDOMEN: Hypoactive bowel sounds, abdomen is soft and nontender on palpation EXTREMITIES: There is left lotion edema NEUROLOGICAL: Numerous 2-12 grossly intact. Speech is not dysarthric PSYCHIATRIC: Alert and oriented, able to understand and follow commands LABORATORY DATA: CBC is remarkable for hemoglobin of 11.9 with MCV 105 Chemistries remarkable for a BUN of 32, creatinine 1.4, glucose of 110, and AST 101. Tox screen is negative IMAGING: None MICROBIOLOGY: Please see below. ASSESSMENT: Mr. Guillen is a 73-year-old male with a past medical history of hypertension, chronic back and neck pain, peripheral neuropathy, and prior history of GI bleed who is admitted for management of hypertensive urgency . PLAN: 1. Hypertensive Urgency The patient is complaining of pleuritic chest pain and worsening of his chronic back pain is difficult to determine if these symptoms are due to hypertensive urgency or missing some of his medications. Plan: Admit to PCU/follow-up troponin, EKG, and chest x-ray/add amlodipine and chlorthalidone / consult clinical application specialist disease with [facility] clinical [facility] to help this patient obtain a home RN and home health aide, the patient reports his brother helps him manage his medications, but is unable to answer questions about whether he has missed any doses of his meds recently, based on the reconciled list there are not any anti-hypertensives / will consult Pharmacy to see if they can reach out to the [facility] pharmac[facility] to double check the patient's meds 2. Chest pain. Likely musculoskeletal in nature as is reproducible with palpation of the chest. Plan: Follow up chest x-ray to rule out fracture/resume home pain meds / able to give aspirin because of allergy/follow-up troponin and EKG 3. Multiple falls / Chronic Back Pain Plan: Follow up CT of the head to rule out stroke and x-ray of the cervical spine / Physical therapy / resume home meds 4.KATH Baseline creatine is 0.81, today it is 1.4 Plan: f/u UA & ulytes for FENa or FEUrea, renal US /will hold off IVF bc of high BP / hold NSAIDs (meloxican) 5 .Chronic Macrocytic Anemia Plan follow-up CBC 6.Obesity BMI 33.1 Plan: can f/u w PCP for bore mill operator for plastic consult / recommend cardiovascular exercise for 40 min 4-5 days a week DVT prophylaxis with SCDs. Disposition pending clinical course Vital Signs Vital Signs Date Time Temp Pulse Resp B/P (MAP) Pulse Ox O2 Delivery O2 Flow Rate FiO2 11/08/18 22:31 64 18 224/106 (145) 94 Room Air 11/08/18 15:26 98.2 Laboratory Data CBC/BMP Laboratory Tests 11/08/18 18:27 Red Blood Count 3.35 L, Mean Corpuscular Volume 105.1 H, Mean Corpuscular Hemoglobin 35.5 H, Mean Corpuscular Hemoglobin Concent 33.8, Red Cell Distribution Width 13.4 Home Medications Scheduled Docusate Sodium (Docusate Sodium) 100 Mg Tablet, 100 MG PO BID Finasteride (Finasteride) 5 Mg Tablet, 5 MG PO DAILY Gabapentin (Gabapentin) 600 Mg Tablet, 600 MG PO TID Lurasidone HCl (Latuda) 120 Mg Tablet, 120 MG PO QHS Melatonin (Melatonin) 3 Mg Tablet, 6 MG PO QHS Meloxicam (Meloxicam) 15 Mg Tablet, 15 MG PO DAILY Multivitamin with Minerals (Multivitamins with Minerals) 1 Each Tablet, 1 TAB PO DAILY Nicotine (Nicotine Patch) 21 Mg/24 Hr Patch.td24, 21 MG TD DAILY HAS NOT STARTED YET Omeprazole (Omeprazole) 20 Mg Capsule.dr, 20 MG PO DAILY Polyethylene Glycol 3350 (Miralax) 17 Gm Powd.pack, 17 GM PO DAILY Sennosides (Senna) 8.6 Mg Tablet, 2 TAB PO BID Sertraline HCl (Sertraline HCl) 100 Mg Tablet, 200 MG PO DAILY Terazosin Hcl (Terazosin HCl) 10 Mg Capsule, 20 MG PO QHS Scheduled PRN Acetaminophen (Acetaminophen 8 Hour) 650 Mg Tablet.er, 650 MG PO Q6H PRN for PAIN Diclofenac Sodium (Diclofenac Sodium) 50 Mg Tablet.dr, 50 MG PO BID PRN for PAIN Nicotine Polacrilex (Nicotine Gum) 4 Mg Gum, 4 MG PO Q2H PRN for SMOKING CESSATION HAS NOT STARTED YET Allergies Coded Allergies: aspirin (Verified Allergy, Unknown, 10/06/18) A-FIB/CHADSVASC A-FIB History Current/History of A-Fib/PAF?: No Current PO Anticoag Therapy: No TELLY NGUYEN MD Nov 08, 2018 22:40
[2018-11-08] MEDS: amLODIPine 5 MG TAB PO SCH (23:09)
[2018-11-08] MEDS: CHLORTHALIDONE 12.5MG PER 1/2 TABLET PO SCH (23:09)
[2018-11-08] MEDS ORDERED: MIRA1POW3 PO (23:44)
[2018-11-08] MEDS ORDERED: NICO1DIS11 TD (23:45)
[2018-11-08] MEDS ORDERED: SENN8.6T58 PO (23:45)
[2018-11-08] MEDS ORDERED: MELO15TA28 PO (23:45)
[2018-11-08] MEDS ORDERED: NICO4GUM29 PO (23:45)
[2018-11-09] MEDS ORDERED: NICOTINE POLACRILEX 2 MG GUM PO PRN (02:15)
[2018-11-09] MEDS: ACETAMINOPHEN 500 MG TAB PO PRN ×2 (02:59→16:18)
[2018-11-09 03:30] VITALS: BP 192/88
[2018-11-09] MEDS ORDERED: SLF 3 ML SYR IV PRN (04:15)
[2018-11-09] MEDS ORDERED: **hydrALAZINE HCL** 25 MG TAB PO ONE (05:15)
[2018-11-09] MEDS: SLF 3 ML SYR IV SCH ×3 (05:25→21:38)
[2018-11-09] MEDS ORDERED: traMADol 50 MG TAB PO ONE (05:30)
[2018-11-09 06:30] VITALS: BP 162/80
[2018-11-09 07:59] LABS: BLOOD UREA NITROGEN 20 MG/DL (7-18); CALCIUM LEVEL 8.2 MG/DL (8.8-10.2); CARBON DIOXIDE LEVEL 31 MEQ/L (21-32); CHLORIDE LEVEL 105 MEQ/L (98-107); CREATININE FOR GFR 0.85 MG/DL (0.70-1.30); GLOMERULAR FILTRATION RATE > 60.0 (>42); GLUCOSE, FASTING 105 MG/DL (70-100); POTASSIUM SERUM 3.5 MEQ/L (3.5-5.1); SODIUM LEVEL 142 MEQ/L (136-145)
[2018-11-09 08:00] VITALS: BP 169/84
[2018-11-09 08:12] LABS: HEMATOCRIT 37.7 % (42.0-52.0); HEMOGLOBIN 12.6 g/dl (13.5-17.5); MEAN CORPUSCULAR HEMOGLOBIN 35.2 pg (27.0-33.0); MEAN CORPUSCULAR HGB CONC 33.4 g/dl (32.0-36.5); MEAN CORPUSCULAR VOLUME 105.3 fl (80.0-96.0); PLATELET COUNT, AUTOMATED 212 10^3/uL (150-450); RED BLOOD COUNT 3.58 10^6/uL (4.30-6.10); WHITE BLOOD COUNT 6.8 10^3/uL (4.0-10.0)
[2018-11-09] MEDS: CHLORTHALIDONE 12.5MG PER 1/2 TABLET PO SCH (08:25)
[2018-11-09] MEDS: OMEPRAZOLE 20 MG CAP PO SCH (08:26)
[2018-11-09] MEDS: FINASTERIDE 5 MG TAB PO SCH (08:26)
[2018-11-09] MEDS: SERTRALINE 100 MG TAB PO SCH (08:26)
[2018-11-09] MEDS: SENNA 8.6 MG TAB (SENOKOT) PO SCH ×2 (08:26→21:34)
[2018-11-09] MEDS: GABAPENTIN 300 MG CAP PO SCH ×3 (08:27→21:33)
[2018-11-09] MEDS: amLODIPine 5 MG TAB PO SCH (08:27)
[2018-11-09] MEDS: ENOXAPARIN 40 MG/0.4 ML SYRINGE (J1650) SC SCH (08:27)
[2018-11-09] MEDS: DOCUSATE SODIUM 100 MG CAP PO SCH ×2 (08:27→21:34)
[2018-11-09] MEDS: MIRALAX *UNIT DOSE* 17GM PACKET PO SCH (08:28)
[2018-11-09] MEDS ORDERED: MELOXICAM (MOBIC) 7.5 MG TAB PO SCH (09:00)
[2018-11-09 09:35] LABS: BLOOD UREA NITROGEN 18 MG/DL (7-18); CARBON DIOXIDE LEVEL 32 MEQ/L (21-32); CHLORIDE LEVEL 104 MEQ/L (98-107); CREATININE FOR GFR 0.77 MG/DL (0.70-1.30); GLOMERULAR FILTRATION RATE > 60.0 (>42); GLUCOSE, FASTING 112 MG/DL (70-100); POTASSIUM SERUM 3.3 MEQ/L (3.5-5.1); SODIUM LEVEL 141 MEQ/L (136-145)
[2018-11-09 09:36] LABS: CALCIUM LEVEL 8.5 MG/DL (8.8-10.2); TROPONIN I < 0.02 NG/ML (< 0.10)
--- NOTE | 2018-11-09 10:38 | REP ---
REASON FOR EXAM: Pleuritic chest pain. Chronic lung field changes are present status quo. There is evidence of emphysematous change and fibrotic change which appears stable. No acute patchy parenchymal opacities or pleural effusions have developed on this limited single frontal view of the chest. Chronic changes are again seen involving the imaged spine status quo. Limited evaluation of the osseous structures showed no significant changes from the prior exam. IMPRESSION:Stable appearing chronic changes as described above. Electronically Signed by Larry Nichole DO 11/09/2018 03:29 P
--- NOTE | 2018-11-09 10:48 | REP ---
AXIAL CT OF THE HEAD WITHOUT CONTRAST: Clinical indication: Fall, evaluate for CVA. Comparison: None Findings: There is no visible soft tissue swelling or calvarial fracture. There is no evidence of acute intracranial hemorrhage, midline shift or mass effect. There is no hydrocephalus. Cunningham-white matter differentiation is maintained. There is symmetric hyperdensity involving the vascular structures, likely representing calcification. There is calcification of the cavernous carotid arteries. There is asymmetric hypodensity within the right cerebellar hemisphere, parallel to the right transverse sinus, which may be artifactual secondary to beam hardening. There is no extra-axial fluid collection. The orbital contents are intact. Visualized paranasal sinuses are clear. Impression: 1. No acute intracranial hemorrhage. 2. Linear hypodensity within the right cerebellar hemisphere which could be secondary to beam hardening artifact or infarct. MRI is recommended for further evaluation as indicated. Electronically Signed by Ophelia Florez MD 11/09/2018 01:54 P
--- NOTE | 2018-11-09 11:10 | REP ---
REASON FOR EXAM: Fall. Limited plain film examination of the cervical spine shows flexion and extension to be limited radiographically. Hypertrophic degenerative facet and uncovertebral joint changes are present bilaterally. There is disc space narrowing posteriorly at every level. There is an anterolisthesis of C5 on C6 of approximately 6 mm which does not appear to change significantly during flexion, however, extension reduces this to approximately 4 mm. The facet joints appear to remain in line bilaterally. There is mild foraminal narrowing at every level. Plain radiography cannot rule out a cervical spine fracture compared to CT. In addition, the dens cannot be adequately evaluated due to the superimposition of osseous structures on all views. IMPRESSION: 1. The exam is abnormal. I cannot rule out an acute cervical spine fracture. CT is recommended. Neurosurgical consultation is recommended due to the anterolisthesis. A phone call was placed to Lyla Hurtado to discuss these findings and to inform her that a CT is recommended. Electronically Signed by Larry Nichole DO 11/09/2018 03:30 P
[2018-11-09 12:00] VITALS: BP 158/82
[2018-11-09] MEDS ORDERED: LIDOCAINE 5% (LIDODERM) PATCH TD ONE (14:00)
[2018-11-09] MEDS ORDERED: MORPHINE 4 MG/ML 1ML VIAL/SYRINGE (J2270) IV ONE (14:00)
--- NOTE | 2018-11-09 14:10 | IPNPDOC ---
Date Seen The patient was seen on 11/09/18. Progress Note SUBJECTIVE: Patient is a 73-year-old white male with past medical history of chronic hypertension, chronic back and neck pain, BPH, Peripheral neuropathy, history of chronic macrocytic anemia presented to the ER with back pain. Patient states that this back pain has become progressively worse and has made it difficult for him to sleep and eat. Mr. Guillen states that he fell down 3 times yesterday because the pain was so bad. He had also had chest pain around his breast bone; this pain is made worse when he lies down. He had a high blood pressure on admission with SBP >200. Mr. Guillen received amlodipine and cyclobenzaprine in the ER. Patient examined at bedside. He states that he is currently experiencing 10/10 lower back pain. He states that his pain has been so intense that he does not sleep more than 3 hours a night. Patient denies having chest pain unless he is laying on his side. He has shortness of breath during ambulation and attributes this to his extensive smoking history. He smokes 1/2 pack a day and dips chewing tobacco. There was no papilledema noted on examination. He does admit to feeling confused yesterday and attributes this to the pain he has been experiencing. When he gets tired, his eyes begin to tear up excessively and he states that he loses vision in both eyes and only regains vision if he places a warm cloth over his eyes. He admits to having night sweats and chills. He denies nausea, vomiting, diarrhea, or syncope. OBJECTIVE PHYSICAL EXAMINATION: VITAL SIGNS: Please see below. GENERAL: A 73 year old male sitting on the side of his bed. He is speaking comfortably in full sentences but is in pain due to his back. HEENT: NC, AT. No papilledema noted. Poor dentition appreciated. Mucous membranes moist. CARDIOVASCULAR: regular rate and rhythm. Tender to palpation over sternum. RESPIRATORY: equal air intake bilaterally, patient became dizzy while auscultating his lungs. ABDOMINAL: soft, normal bowel sounds. 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 no cyanosis or clubbing noted. Intact sensation bilaterally. NEUROLOGICAL: no focal deficits PSYCHOLOGICAL: appropriate affect LABORATORY DATA, IMAGING STUDIES, MICROBIOLOGY: Please see below. 1. Cervical spine x-ray 11/09/18: 1. The exam is abnormal. I cannot rule out an acute cervical spine fracture. CT is recommended. Neurosurgical consultation is recommended due to the anterolisthesis. 2. Chest x-ray 11/09/18: Chronic lung field changes are present status quo. There is evidence of emphysematous change and fibrotic change which appears stable. No acute patchy parenchymal opacities or pleural effusions have developed on this limited single frontal view of the chest. Chronic changes are again seen involving the imaged spine status quo. Limited evaluation of the osseous structures showed no significant changes from the prior exam. 3. Head CT 11/09/18: 1. No acute intracranial hemorrhage. 2. Hypodensity within the right cerebellar hemisphere which could be artifactual or represent an infarct. Recommend MRI for further evaluation. 4. Renal ultrasound 11/09/18: No evidence of renal artery stenosis. Echogenic focus in the lower pole right kidney could be a tiny intrarenal calculus. No hydronephrosis seen. DVT prophylaxis ordered?: Yes, Lovenox ASSESSMENT AND PLAN: Patient is a 73-year-old white male with past medical his tory of chronic hypertension, chronic back and neck pain, BPH, Peripheral neuropathy, history of chronic macrocytic anemia PROBLEMS: 1. Hypertensive Urgency -highest recorded BP: 236/102; BP Today is 158/82 -On 2 gram sodium diet -given chlorthalidone, hydralazine, and amlodipine in ER -Chest x-ray had no significant changes from previous imaging 2. Chest pain -trending troponin: 0.02 today -48 hour telemetry 3. Falls/ back pain -CT of head results above. An MRI is recommended -c/w lidocaine patch and acetaminophen for pain -scheduled for a brain MRI without contrast. 4. Acute Kidney injury -creatinine currently 0.77 5. Chronic hypertension -blood pressure currently 158/82 6. BPH -c/w terazosin 7. Peripheral neuropathy -c/w gabapentin 8. Chronic macrocytic anemia -MCV 105.3 9. Chronic smoker -c/w nicotine patch 10. Hypokalemia -potassium 3.3 today DISPOSITION: Patient is stable and prognosis is fair. Patient is scheduled for a brain MRI without contrast. Patient working with PT and OT. assurance services manager health care has been contacted to aid in living arrangements. I saw and evaluated the patient. I agree with the findings and plan of care as documented in the above note VS, I&O, 24H, [facility] Vital Signs/I&O Vital Signs Date Time Temp Pulse Resp B/P (MAP) Pulse Ox O2 Delivery O2 Flow Rate FiO2 11/09/18 12:00 96.4 61 18 158/82 (107) 98 1.0 11/09/18 00:15 Room Air I&O- Last 24 Hours up to 6 AM 11/09/18 06:00 Intake Total 1000 ml Balance 1000 ml Laboratory Data 24H LABS Laboratory Tests 2 11/08/18 16:46: POC Glucose (Misc Panel) 110H, POC Sodium (Misc Panel) 140, POC Potassium (Misc Panel) 3.8, POC Chloride (Misc Panel) 101, POC Total CO2 (Misc Panel) 26.0, POC Blood Urea Nitrogen (Misc Panel 32H, POC Ionized Calcium (Misc Panel) 4.7, POC Creatinine (Misc Panel) 1.4H, POC Hematocrit (Misc Panel) 35.0L 11/08/18 18:27: Nucleated Red Blood Cells % (auto) 0.0, Aspartate Amino Transf (AST/SGOT) 101H, Alanine Aminotransferase (ALT/SGPT) 24, Alkaline Phosphatase 87, Total Bilirubin < 0.1L, Direct Bilirubin < 0.1, Total Protein 6.5, Albumin 3.4, Albumin/Globulin Ratio 1.10, Thyroid Stimulating Hormone (TSH) 0.391, Salicylates Level < 1.7L, Acetaminophen Level 2.2L, Ethyl Alcohol Level < 0.003 11/08/18 20:05: Urine Amphetamines Screen NEGATIVE, Urine Benzodiazepines Screen NEGATIVE, Urine Opiates Screen NEGATIVE, Urine Methadone Screen NEGATIVE, Urine Barbiturates Screen NEGATIVE, Urine Phencyclidine Screen NEGATIVE, Urine Cocaine Metabolite Screen NEGATIVE, Urine Cannabinoids Screen NEGATIVE 11/09/18 03:58: Nucleated Red Blood Cells % (auto) 0.0, Anion Gap 6L, Glomerular Filtration Rate > 60.0, Blood Urea Nitrogen 20H, Creatinine 0.85, Sodium Level 142, Potassium Level 3.5, Chloride Level 105, Carbon Dioxide Level 31, Calcium Level 8.2L, Magnesium Level 2.0, Troponin I < 0.02 11/09/18 07:53: Anion Gap 5L, Glomerular Filtration Rate > 60.0, Blood Urea Nitrogen 18, Creatinine 0.77, Sodium Level 141, Potassium Level 3.3L, Chloride Level 104, Carbon Dioxide Level 32, Calcium Level 8.5L, Troponin I < 0.02 CBC/BMP Laboratory Tests 11/08/18 18:27 Red Blood Count 3.35 L, Mean Corpuscular Volume 105.1 H, Mean Corpuscular Hemoglobin 35.5 H, Mean Corpuscular Hemoglobin Concent 33.8, Red Cell Distribution Width 13.4 11/09/18 03:58 Red Blood Count 3.58 L, Mean Corpuscular Volume 105.3 H, Mean Corpuscular Hemoglobin 35.2 H, Mean Corpuscular Hemoglobin Concent 33.4, Red Cell Distribution Width 13.2, Calcium Level 8.2 L 11/09/18 07:53 Calcium Level 8.5 L RICK LIGHT S-3 Nov 09, 2018 14:10 GERRY FREEMAN MD Nov 11, 2018 16:06
--- NOTE | 2018-11-09 14:39 | REP ---
RENAL SONOGRAPHY AND RENAL ARTERY DOPPLER FLOW ASSESSMENT: HISTORY: Acute renal insufficiency, accelerated hypertension. MORPHOLOGIC FINDINGS: Renal cortical echogenicity pattern is normal and contours are smooth. No hydronephrosis is seen. Right kidney measures 11.5 x 5.2 x 5.8 cm left renal dimensions are 10.7 x 6.0 x 5.7 cm. There is a 3 mm echogenic focus at the corticomedullary junction of the lower pole on the right which could be a tiny intrarenal calculus. RENAL ARTERY DOPPLER FLOW ASSESSMENT: Peak systolic flow velocity in the abdominal aorta at the level of the main renal arteries is normal at 123 cm/s. Peak systolic flow velocity in the left main renal artery is 81 cm/s and that in the right 104 cm/s. Renal to aortic flow velocity ratios are therefore normal and 0.8 on the right and 0.7 on the left. Resistive indices and acceleration times are measured in the upper, mid and lower pole arteries of each kidney and these values are normal bilaterally. IMPRESSION: No evidence of renal artery stenosis. Echogenic focus in the lower pole right kidney could be a tiny intrarenal calculus. No hydronephrosis seen. Electronically Signed by Royal Valadez MD 11/09/2018 05:34 P
--- NOTE | 2018-11-09 15:22 | REP ---
CT OF THE CERVICAL SPINE WITHOUT CONTRAST: INDICATION: Fall. COMPARISON: Eight view cervical spine series 11/09/2018. TECHNIQUE: Axial CT of the cervical spine was performed without contrast. Bone reformatted images in the axial, coronal and sagittal planes are provided. FINDINGS: There is diffuse bone demineralization. There is no acute fracture. There is exaggeration cervical lordosis. There is 2 mm anterolisthesis of C5 on C6. There is levoscoliotic curvature of the cervical spine. There is disc osteophyte formation and facet joint hypertrophy. There is multilevel disc vacuum disc phenomenon. There is endplate irregularity at C6 superiorly. Degenerative changes result in spinal canal stenosis and neural foraminal narrowing, most notably at C5-C6 and C6-C7. IMPRESSION: 1. No acute fracture of the cervical spine. 2. Grade 1 anterolisthesis of C5 on C6. 3. Multilevel cervical spondylosis, most notably at C5-C6 and C6-C7 with spinal canal stenosis and neural foraminal narrowing. 4. Irregular endplate irregularity at superior endplate of C6 may be due to degenerative changes however, an inflammatory or infectious process could have a similar appearance. Electronically Signed by Ophelia Florez MD 11/09/2018 05:50 P
[2018-11-09 16:00] VITALS: BP 146/86
[2018-11-09 19:09] VITALS: BP 167/79
[2018-11-09] MEDS ORDERED: TERAZOSIN 5 MG CAP PO SCH (21:00)
[2018-11-09] MEDS ORDERED: **NOTE PATIENT COMMENT** MISC XX SCH (21:00)
[2018-11-09] MEDS ORDERED: LURASIDONE HCL 40 MG TAB (LATUDA) PO SCH (21:00)
[2018-11-10] VITALS: BP 160/78
[2018-11-10 04:00] VITALS: BP 120/60
--- NOTE | 2018-11-10 04:37 | CR ---
DATE OF CONSULTATION: 11/09/2018 REASON FOR CONSULT: Dr. Charles requested consult concerning chronic low back pain with radiculopathy. HISTORY OF PRESENT ILLNESS: 73-year-old male presented to the emergency room (ER) with complaints of worsening back pain. He states that he has fallen x 3, and has difficulty eating and sleeping related to the pain. When asked, the patient admits to being on Vicodin in the past to help manage his pain and that this was helpful. PAST MEDICAL HISTORY: Significant for hypertension, back and neck pain, benign prostatic hypertrophy (BPH), peripheral neuropathy and macrocytic anemia. SURGICAL HISTORY: Significant for exploratory laparotomy. ALLERGIES: He does have allergies to aspirin. REVIEW OF SYSTEMS: Denies abdominal pain, nausea, vomiting, diarrhea, does endorse headaches with sensitivity to light, low back pain with radiculopathy, shortness of breath at times related to cigarette smoking. PHYSICAL EXAMINATION: Alert and oriented with a pleasant affect. Heart rate regular, lung sounds are diminished, point tender along lumbar spine, surrounding skin showed no erythema, ecchymosis, increased warmth and/or skin eruptions. PLAN: Given presenting symptoms and results of physical examination, recommended the use of Vicodin 7.5/325 three times a day as needed for pain. Thank you for allowing us to participate in the care of your patient. Should you have any questions or concerns, please feel free to contact us at the pain center.
[2018-11-10] MEDS: SLF 3 ML SYR IV SCH ×2 (06:01→08:38)
[2018-11-10] MEDS ORDERED: POTASSIUM CHLORIDE 10 MEQ SR TABLET PO ONE (07:00)
[2018-11-10 08:00] VITALS: BP 116/59
[2018-11-10] MEDS: CHLORTHALIDONE 12.5MG PER 1/2 TABLET PO SCH (08:35)
[2018-11-10] MEDS: SERTRALINE 100 MG TAB PO SCH (08:36)
[2018-11-10] MEDS: OMEPRAZOLE 20 MG CAP PO SCH (08:36)
[2018-11-10] MEDS: SENNA 8.6 MG TAB (SENOKOT) PO SCH (08:36)
[2018-11-10] MEDS: FINASTERIDE 5 MG TAB PO SCH (08:36)
[2018-11-10] MEDS: GABAPENTIN 300 MG CAP PO SCH (08:36)
[2018-11-10 08:37] VITALS: BP 120/60
[2018-11-10] MEDS: ENOXAPARIN 40 MG/0.4 ML SYRINGE (J1650) SC SCH (08:37)
[2018-11-10] MEDS: DOCUSATE SODIUM 100 MG CAP PO SCH (08:37)
[2018-11-10] MEDS: MIRALAX *UNIT DOSE* 17GM PACKET PO SCH (08:37)
[2018-11-10] MEDS: amLODIPine 5 MG TAB PO SCH (08:37)
--- NOTE | 2018-11-10 11:11 | REP ---
MRI OF THE BRAIN WITHOUT CONTRAST: CLINICAL INDICATION: Abnormal CT head, infarct. COMPARISON: CT head without contrast of 11/09/2018. TECHNIQUE: MRI of the brain was performed without contrast utilizing sagittal T1 FLAIR, axial T1, T2, FLAIR, DWI and GRE imaging. FINDINGS: There is no restricted diffusion to suggest acute ischemia or infarction. The ventricles and sulci are symmetric. There are scattered T2 hyperintensities within the periventricular subcortical white matter, which is nonspecific but suggestive of moderate small vessel ischemic disease. There is no evidence of hemorrhage. There is no extra-axial fluid collection. The visualized flow voids are patent. The orbital contents are intact. The visualized paranasal sinuses are clear. There is minimal fluid within the mastoid air cells bilaterally. IMPRESSION: 1. No acute intracranial abnormality. Abnormality seen on CT head consistent with artifact. 2. Nonspecific white matter changes suggestive of moderate microvascular ischemic disease. Electronically Signed by Ophelia Florez MD 11/10/2018 11:23 A
[2018-11-10 12:00] VITALS: BP 124/89
[2018-11-10] MEDS ORDERED: CHLO125TA PO (12:07)
[2018-11-10] MEDS ORDERED: AMLO5TAB6 PO (12:07)
[2018-11-10] MEDS ORDERED: VICO7.5T11 PO (12:08)
--- NOTE | 2018-11-10 13:44 | DS.PDOC ---
Discharge Summary General Date of Admission Nov 08, 2018 at 15:16 Date of Discharge 11/10/2018 Discharge Summary DISCHARGE DIAGNOSIS: Hypertensive urgency SECONDARY DIAGNOSIS: 1. Noncompliance 2.Chronic back pain 3.BPH 4. Peripheral neuropathy 5 macrocytic anemia 6 tobacco abuse PROCEDURES PERFORMED DURING STAY: None. CONSULTANTS: Pain clinic HOSPITAL COURSE: Patient is a 73-year-old man who was recently hospitalized for chronic back pain and hypertensive urgency at the time his blood pressure was easily controlled with by mouth medications and he was cleared by physical therapy occupational therapy for disposition home he was quite independent at that time. During his stay here he complained of back pain once again as well as difficulties with falls he was once again demonstrated to be quite independent in the room. Patient appears to have been simply noncompliant with medical therapies and recommendations once again he was easily controlled on by mouth medications once again. In regards to his chronic back pain he had numerous imaging studies completed none of which revealed significant new findings he was seen by pain management who recommended Vicodin 3 times a day which will be discharged with. Given [facility] them in the past PFS did see the patient will begin working on a Medicaid potential application for him for potential future services. He is interested in assisted living facilities and will pursue that on the outpatient setting with his family one possibility is [facility] DISCHARGE MEDICATIONS: Please see below. ALLERGIES: Please see below. SUBJECTIVE: Patient reports his back pain is improved at this time he is a reasonable to easily ambulate and is eager to learn more about potential placement options for him in the outpatient setting otherwise patient denies chest pain, shortness, breath, nausea, vomiting, fevers, chills OBJECTIVE: PHYSICAL EXAMINATION: VITAL SIGNS: Please see below. GENERAL: Pleasant disheveled elderly man sitting up in bed awake alert oriented speaking in complete sentences no acute distress he appears quite poor hygiene HEENT: Moist mucous membranes no elevation and CVP CARDIOVASCULAR: S1 S2 regular no additional heart sounds appreciated. RESPIRATORY: Clear to auscultation bilaterally. ABDOMINAL: Bowel sounds present abdomen soft and nontender EXTREMITIES: No clubbing, cyanosis, edema NEUROLOGICAL: Spontaneously moves all 4 extremities cranial 2 through 12 grossly intact, no gross focal deficits appreciated PSYCHOLOGICAL: Appropriate LABORATORY DATA, MICROBIOLOGY: Please see below. IMAGING STUDIES: Renal ultrasound:No evidence of renal artery stenosis. Echogenic focus in the lower pole right kidney could be a tiny intrarenal calculus. No hydronephrosis seen. CT head:1. No acute intracranial hemorrhage. 2. Linear hypodensity within the right cerebellar hemisphere which could be secondary to beam hardening artifact or infarct. MRI is recommended for further evaluation as indicated. Chest x-ray:Stable appearing chronic changes as described above. Cervical spine x-ray:1. The exam is abnormal. I cannot rule out an acute cervical spine fracture. CT is recommended. Neurosurgical consultation is recommended due to the anterolisthesis. A phone call was placed to Lyla Hurtado to discuss these findings and to inform her that a CT is recommended. Cervical spine CT:1. No acute fracture of the cervical spine. 2. Grade 1 anterolisthesis of C5 on C6. 3. Multilevel cervical spondylosis, most notably at C5-C6 and C6-C7 with spinal canal stenosis and neural foraminal narrowing. 4. Irregular endplate irregularity at superior endplate of C6 may be due to degenerative changes however, an inflammatory or infectious process could have a similar appearance. Brain MRI:1. No acute intracranial abnormality. Abnormality seen on CT head consistent with artifact. 2. Nonspecific white matter changes suggestive of moderate microvascular ischemic disease. DVT prophylaxis ordered: Lovenox ASSESSMENT AND PLAN: This is a 73-year-old man with hypertensive urgency. PROBLEMS: 1. Hypertensive urgency: Fairly easily controlled with amlodipine 5 mg daily and chlorthalidone 12-1/2 mg daily. Strict compliance and adherence was described as the patient. He is normotensive with advised him to have a 2 g sodium diet 2. Chest pain: Possibly secondary to his hypertensive urgency his troponins were unremarkable as was his telemetry chest pain resolved with control of his blood pressure. 3. Chronic back pain: And long-standing for many years complains of falls but demonstrates good independence in the room but easily ambulation throughout the halls once again recently worked with an cleared physical therapy occupational therapy. Was recently evaluated by numerous custodial facilities reportedly felt to be a candidate for custodial placement however potentially future resident at [facility]. Pain management consult appreciated to be discharged on Vicodin 4. Acute kidney injury: Unlikely reveal was a [id number] test which was abnormal repeats on a regular basic metabolic panel were within normal limits 5. BPH: Continue with Zosyn. 6. Peripheral neuropathy: Continue with gabapentin 7. Tobacco abuse: Cessation counseling provided DISPOSITION: Home to self-care. DISCHARGE CONDITION: Improved and Stable. [FOLLOW UP: PCP within 7 days pain clinic within 1 month ACTIVITY: As prior to admission. DIET: As prior to admission TIME SPENT ON DISCHARGE: 50 minutes Vital Signs/I&Os Vital Signs Date Time Temp Pulse Resp B/P (MAP) Pulse Ox O2 Delivery O2 Flow Rate FiO2 11/10/18 12:00 97.8 64 18 124/89 (101) 91 11/09/18 19:09 1.0 11/09/18 00:15 Room Air I&O- Last 24 Hours up to 6 AM 11/10/18 06:00 Intake Total 620 ml Output Total 1400 ml Balance -780 ml Discharge Medications Scheduled Amlodipine Besylate (Amlodipine Besylate) 5 Mg Tablet, 5 MG PO DAILY Chlorthalidone (Chlorthalidone) 25 Mg Tablet, 12.5 MG PO DAILY Docusate Sodium (Docusate Sodium) 100 Mg Tablet, 100 MG PO BID, (Reported) Finasteride (Finasteride) 5 Mg Tablet, 5 MG PO DAILY, (Reported) Gabapentin (Gabapentin) 600 Mg Tablet, 600 MG PO TID, (Reported) Lurasidone HCl (Latuda) 120 Mg Tablet, 120 MG PO QHS, (Reported) Melatonin (Melatonin) 3 Mg Tablet, 6 MG PO QHS, (Reported) Meloxicam (Meloxicam) 15 Mg Tablet, 15 MG PO DAILY, (Reported) Multivitamin with Minerals (Multivitamins with Minerals) 1 Each Tablet, 1 TAB PO DAILY, (Reported) Nicotine (Nicotine Patch) 21 Mg/24 Hr Patch.td24, 21 MG TD DAILY, (Reported) HAS NOT STARTED YET Omeprazole (Omeprazole) 20 Mg Capsule.dr, 20 MG PO DAILY, (Reported) Polyethylene Glycol 3350 (Miralax) 17 Gm Powd.pack, 17 GM PO DAILY, (Reported) Sennosides (Senna) 8.6 Mg Tablet, 2 TAB PO BID, (Reported) Sertraline HCl (Sertraline HCl) 100 Mg Tablet, 200 MG PO DAILY, (Reported) Terazosin Hcl (Terazosin HCl) 10 Mg Capsule, 20 MG PO QHS, (Reported) Scheduled PRN Acetaminophen (Acetaminophen 8 Hour) 650 Mg Tablet.er, 650 MG PO Q6H PRN for PAIN, (Reported) Diclofenac Sodium (Diclofenac Sodium) 50 Mg Tablet.dr, 50 MG PO BID PRN for PAIN, (Reported) Hydrocodone/Acetaminophen (Vicodin Es 7.5-300 mg Tablet) 1 Each Tablet, 1 TAB PO TIDP PRN for PAIN OR DYSPNEA Nicotine Polacrilex (Nicotine Gum) 4 Mg Gum, 4 MG PO Q2H PRN for SMOKING CESSATION, (Reported) HAS NOT STARTED YET Allergies Coded Allergies: aspirin (Verified Allergy, Unknown, 10/06/18) GERRY FREEMAN MD Nov 10, 2018 13:44
[2018-11-10] MEDS: ACETAMINOPHEN 500 MG TAB PO PRN (14:13)
[2018-11-10] MEDS ORDERED: LURASIDONE HCL 40 MG TAB (LATUDA) PO SCH (18:00)
== END 2018-11-10 15:32 | disposition home or self-care (01) ==
LOC: EDBD 15:15 → M ED 15:15 → M ED INP 15:16 → M PCU 11-09 03:25
PROVIDERS: ADMIT Internal Medicine; ATTEND Internal Medicine
DX: I16.0 Hypertensive urgency (principal); Z91.14 Patient's other noncompliance with medication regimen; N17.9 Acute kidney failure, unspecified; I10 Essential (primary) hypertension; M54.16 Radiculopathy, lumbar region; M54.2 Cervicalgia; N40.0 Benign prostatic hyperplasia without lower urinary tract symptoms; Z91.81 History of falling; G62.9 Polyneuropathy, unspecified; F17.210 Nicotine dependence, cigarettes, uncomplicated; D50.8 Other iron deficiency anemias; Z79.899 Other long term (current) drug therapy
CPT/HCPCS: 36415; 70450; 70551; 71045; 72052; 72125; 76775; 80047; 80048; 80076; 80307; 83735; 84443; 84484; 85027; 93975; 96361; 96372; 96374; 99285; G0378; G0480; J1650; J2270

== ENCOUNTER 2018-11-16 13:41 | Observation (INO) | payer OTHER ==
[~2018-11-16] VITALS: Ht 180.3 cm; Wt 77.1 kg
[~2018-11-16 13:41] MED LIST changes: +CHLO125TA PO; +MELO15TA28 PO; +MIRA1POW3 PO; +NICO1DIS11 TD; +NICO4GUM29 PO; +SENN8.6T58 PO; +VICO7.5T11 PO
--- NOTE | 2018-11-16 14:38 | REP ---
PA and lateral chest: Comparison is 01/02/2018. There are focal areas of chronic parenchymal scarring, unchanged. There are no infiltrates or pleural effusions. There are no masses or nodules. Cardiac size is normal. The eunice, mediastinum, skeletal structures are unchanged. Impression: There are no acute cardiopulmonary findings. There are zones of chronic parenchymal scarring, unchanged. There is no free subdiaphragmatic air. Electronically Signed by Mykel Patel MD 11/16/2018 02:29 P
[2018-11-16] MEDS ORDERED: LIDOCAINE 5% (LIDODERM) PATCH TD ONE (15:00)
[2018-11-16] MEDS ORDERED: ACETAMINOPHEN 500 MG TAB PO ONE (15:00)
[2018-11-16 15:02] LABS: BASO % 0.2 % (0.0-1.0); EOS # 0.1 10^3/uL (0.0-0.50); EOS % 1.2 % (0.0-3.0); HEMATOCRIT 34.7 % (42.0-52.0); HEMOGLOBIN 12.1 g/dl (13.5-17.5); LYMPH % 15.3 % (24.0-44.0); MEAN CORPUSCULAR HEMOGLOBIN 35.5 pg (27.0-33.0); MEAN CORPUSCULAR HGB CONC 34.9 g/dl (32.0-36.5); MEAN CORPUSCULAR VOLUME 101.8 fl (80.0-96.0); MONO # 0.7 10^3/uL (0.0-0.8); MONO % 11.4 % (0.0-5.0); NEUTROPHILS # 4.6 10^3/uL (1.8-7.7); NEUTROPHILS % 71.7 % (36.0-66.0); PLATELET COUNT, AUTOMATED 242 10^3/uL (150-450); RED BLOOD COUNT 3.41 10^6/uL (4.30-6.10); WHITE BLOOD COUNT 6.4 10^3/uL (4.0-10.0)
[2018-11-16 15:12] LABS: INR 0.99; PROTHROMBIN TIME 12.8 SECONDS (11.8-14.0)
[2018-11-16 15:13] LABS: PARTIAL THROMBOPLASTIN TIME 34.6 SECONDS (25.0-38.4)
[2018-11-16] MEDS ORDERED: NS 1,000 ML IV ONE (15:15)
[2018-11-16 15:33] LABS: ALBUMIN 3.7 GM/DL (3.2-5.2); ALT/SGPT 19 U/L (12-78); BILIRUBIN,DIRECT < 0.1 MG/DL (0.0-0.2); BILIRUBIN,TOTAL 0.2 MG/DL (0.2-1.0); BLOOD UREA NITROGEN 18 MG/DL (7-18); CALCIUM LEVEL 8.7 MG/DL (8.8-10.2); CARBON DIOXIDE LEVEL 28 MEQ/L (21-32); CHLORIDE LEVEL 103 MEQ/L (98-107); CK-MB VALUE MASS < 1.0 NG/ML (<3.6); CPK CREATINE PHOSPHOKINASE 43 U/L (39-308); CREATININE FOR GFR 0.84 MG/DL (0.70-1.30); FREE T4 1.02 NG/DL (0.76-1.46); GLOMERULAR FILTRATION RATE > 60.0 (>42); GLUCOSE, FASTING 117 MG/DL (70-100); MB/CK RELATIVE INDEX 2.33 (< OR =4); POTASSIUM SERUM 3.8 MEQ/L (3.5-5.1); SODIUM LEVEL 137 MEQ/L (136-145); THYROID STIMULATING HORMONE 0.653 uIU/ML (0.358-3.740); TOTAL PROTEIN 6.3 GM/DL (6.4-8.2); TROPONIN I < 0.02 NG/ML (< 0.10)
[2018-11-16] MEDS ORDERED: KETAMINE IV ONE (19:30)
[2018-11-16] MEDS ORDERED: GABAPENTIN 300 MG CAP PO ONE (19:30)
[2018-11-16] MEDS ORDERED: DILUENT IV ONE (19:30)
[2018-11-16] MEDS ORDERED: NACL IV ONE (19:30)
[2018-11-16] MEDS ORDERED: NICOTINE 21MG/24HR 1 EA TRANSDERMAL TD ONE (20:30)
[2018-11-16] MEDS ORDERED: MULTIVITAMINS/MINERALS THERAP 1 TAB PO ONE (20:30)
[2018-11-16] MEDS: LURASIDONE HCL 40 MG TAB (LATUDA) PO SCH (21:00)
[2018-11-16 23:05] VITALS: BP 250/96
[2018-11-16] MEDS ORDERED: hydrALAZINE INJ 20 MG/ML VIAL IV STA (23:41)
[2018-11-16] MEDS ORDERED: NORCO, ANEXSIA 5/325MG TABLET (HYDROcodone/ACETAMINOPHEN) PO ONE (23:45)
[2018-11-17] VITALS (11 sets, daily range): BP systolic 105–234; BP diastolic 59–98
[2018-11-17] MEDS: **hydrALAZINE** 50 MG TAB PO SCH ×4 (00:17→21:24)
[2018-11-17] MEDS: SENNA 8.6 MG TAB (SENOKOT) PO SCH ×3 (00:21→21:24)
[2018-11-17] MEDS: GABAPENTIN 300 MG CAP PO SCH ×4 (00:21→21:24)
[2018-11-17] MEDS: DOCUSATE SODIUM 100 MG CAP PO SCH ×3 (00:22→21:24)
[2018-11-17] MEDS: TERAZOSIN 5 MG CAP PO SCH ×2 (00:37→21:23)
--- NOTE | 2018-11-17 03:09 | HPEPDOC ---
[facility] Medical History & Physical Date of Admission Nov 16, 2018 Date of Service: Nov 16, 2018 History and Physical CHIEF COMPLAINT: [intractable back pain ] HISTORY OF PRESENT ILLNESS: [This is a 73 yo male who was recently dc from our hospital for back pain, who came back because his back pain 10/10 radiate down both legs, sharp in nature. He denied urinary and bowel symptoms. denied fever, chills, chest pain or sob] PAST MEDICAL /SURGICAL HISTORY: 1. Chronic hypertension 2. Chronic back and neck pain. 3. BPH. 4. Peripheral neuropathy 5. History of chronic macrocytic anemia. 6. History of exploratory laparotomy 7. dm2 not on meds 8. 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 Diabetes ALLERGIES: Please see below. HOME MEDICATIONS: Please see below. LABORATORY DATA: See below. IMAGING: [ PA and lateral chest: Comparison is 01/02/2018. There are focal areas of chronic parenchymal scarring, unchanged. There are no infiltrates or pleural effusions. There are no masses or nodules. Cardiac size is normal. The eunice, mediastinum, skeletal structures are unchanged. Impression: There are no acute cardiopulmonary findings. There are zones of chronic parenchymal scarring, unchanged. There is no free subdiaphragmatic air.] MICROBIOLOGY: Please see below. ROS - all 10 point review of system is negative except for whats listed in HPI Physical exam Gen: NAD, healthy appearing , HEENT: normocephalic, atraumatic, no discharge from ears or nose, no orophary ngeal erythema or exudate, neck is supple, no lymphadenopathy, trachea midline CVS: RRR, normal S1n S2, no murmur, rubs, or gallops, no edema, no jvd Resp: LCTAB, no rhonchi, wheezes or crackles Abd : soft nontender, normal bowel sounds, no rebound tenderness or guarding MSK: no swelling, full range of motion, strength 5/5, positive straight leg raise b/l Neuro: AOAx3, no confusion, no focal deficit Psych: normal mood and affect, good judgment ASSESSMENT AND PLAN Intractable back pain -c/o of 10/10 lower back pain, - but not much pain elicited on palpation of back, but moderate on straight leg raise test b/l -vicodin - x1 -rehab/PT eval -c/w gabapentin HTN urgency patient said he took his morning meds - bp could be 2/2 pain - c/w home meds - started hydralazine 50mg tid - stat hydralazine 10mg iv - monitor in pcu dvt ppx gi ppx said he wants to be full code now, was dnr/dni in the past but would like it change it Vital Signs Vital Signs Date Time Temp Pulse Resp B/P (MAP) Pulse Ox O2 Delivery O2 Flow Rate FiO2 11/17/18 00:40 69 186/88 (120) 11/17/18 00:18 18 96 11/17/18 00:00 97.3 11/16/18 13:54 Room Air Laboratory Data Labs 24H Laboratory Tests 2 11/16/18 14:32: Immature Granulocyte % (Auto) 0.2, White Blood Count 6.4, Red Blood Count 3.41L, Hemoglobin 12.1L, Hematocrit 34.7L, Mean Corpuscular Volume 101.8H, Mean Corpuscular Hemoglobin 35.5H, Mean Corpuscular Hemoglobin Concent 34.9, Red Cell Distribution Width 12.8, Platelet Count 242, Neutrophils (%) (Auto) 71.7H, Lymphocytes (%) (Auto) 15.3L, Monocytes (%) (Auto) 11.4H, Eosinophils (%) (Auto) 1.2, Basophils (%) (Auto) 0.2, Neutrophils # (Auto) 4.6, Lymphocytes # (Auto) 1.0L, Monocytes # (Auto) 0.7, Eosinophils # (Auto) 0.1, Basophils # (Auto) 0.0, Nucleated Red Blood Cells % (auto) 0.0, Prothrombin Time 12.8, Prothromb Time International Ratio 0.99, Activated Partial Thromboplast Time 34.6, Anion Gap 6L, Glomerular Filtration Rate > 60.0, Calcium Level 8.7L, Aspartate Amino Transf (AST/SGOT) 16, Alanine Aminotransferase (ALT/SGPT) 19, Alkaline Phosphatase 89, Total Bilirubin 0.2, Direct Bilirubin < 0.1, Total Creatine Kinase 43, Creatine Kinase MB < 1.0, Creatine Kinase MB Relative Index 2.33, Troponin I < 0.02, Total Protein 6.3L, Albumin 3.7, Albumin/Globulin Ratio 1.42, Prealbumin 30.0, Thyroid Stimulating Hormone (TSH) 0.653, Free Thyroxine 1.02 11/16/18 17:07: Urine Color YELLOW, Urine Appearance CLEAR, Urine pH 6.0, Urine Specific Schurz 1.017, Urine Protein NEGATIVE, Urine Glucose (UA) NEGATIVE, Urine Ketones NEGATIVE, Urine Blood NEGATIVE, Urine Nitrite NEGATIVE, Urine Bilirubin NEGATIVE, Urine Urobilinogen 0.2, Urine Leukocyte Esterase NEGATIVE, Urine WBC (Auto) 1, Urine RBC (Auto) 1, Urine Hyaline Casts (Auto) 0, Urine Bacteria (Auto) NEGATIVE, Urine Squamous Epithelial Cells 0, Urine Mucus (Auto) SMALL, Urine Sperm (Auto) CBC/BMP Laboratory Tests 11/16/18 14:32 Red Blood Count 3.41 L, Mean Corpuscular Volume 101.8 H, Mean Corpuscular Hemoglobin 35.5 H, Mean Corpuscular Hemoglobin Concent 34.9, Red Cell Distribution Width 12.8, Neutrophils (%) (Auto) 71.7 H, Lymphocytes (%) (Auto) 15.3 L, Monocytes (%) (Auto) 11.4 H, Eosinophils (%) (Auto) 1.2, Basophils (%) (Auto) 0.2, Neutrophils # (Auto) 4.6, Lymphocytes # (Auto) 1.0 L, Monocytes # (Auto) 0.7, Eosinophils # (Auto) 0.1, Basophils # (Auto) 0.0 Home Medications Scheduled Amlodipine Besylate (Amlodipine Besylate) 5 Mg Tablet, 5 MG PO DAILY Chlorthalidone (Chlorthalidone) 25 Mg Tablet, 12.5 MG PO DAILY Docusate Sodium (Docusate Sodium) 100 Mg Tablet, 100 MG PO BID Finasteride (Finasteride) 5 Mg Tablet, 5 MG PO DAILY Gabapentin (Gabapentin) 600 Mg Tablet, 600 MG PO TID Lurasidone HCl (Latuda) 120 Mg Tablet, 120 MG PO QHS Melatonin (Melatonin) 3 Mg Tablet, 6 MG PO QHS Meloxicam (Meloxicam) 15 Mg Tablet, 15 MG PO DAILY Multivitamin with Minerals (Multivitamins with Minerals) 1 Each Tablet, 1 TAB PO DAILY Nicotine (Nicotine Patch) 21 Mg/24 Hr Patch.td24, 21 MG TD DAILY APPLIED TO LEFT SHOULDER Omeprazole (Omeprazole) 20 Mg Capsule.dr, 20 MG PO DAILY Polyethylene Glycol 3350 (Miralax) 17 Gm Powd.pack, 17 GM PO DAILY Sennosides (Senna) 8.6 Mg Tablet, 2 TAB PO BID Sertraline HCl (Sertraline HCl) 100 Mg Tablet, 200 MG PO DAILY Terazosin Hcl (Terazosin HCl) 10 Mg Capsule, 20 MG PO QHS Scheduled PRN Acetaminophen (Acetaminophen 8 Hour) 650 Mg Tablet.er, 650 MG PO Q6H PRN for PAIN Diclofenac Sodium (Diclofenac Sodium) 50 Mg Tablet.dr, 50 MG PO BID PRN for PAIN Nicotine Polacrilex (Nicotine Gum) 4 Mg Gum, 4 MG PO Q2H PRN for SMOKING CESSATION Allergies Coded Allergies: aspirin (Verified Allergy, Unknown, 10/06/18) A-FIB/CHADSVASC A-FIB History Current/History of A-Fib/PAF?: No Current PO Anticoag Therapy: No Age/Risk Factor Scoring CHADSVASC: CHADSVASC Response (Comments) Value Age Risk Factor Age 65-74 years old 1 Gender Risk Factor Male 0 Hx of HTN No 0 Hx of Stroke/TIA/or VTE No 0 Hx of Diabetes Yes 1 Hx of Vascular Disease No 0 Total 2 Treatment Treatment ordered: NONE ALAYNA GOMES MD Nov 17, 2018 02:34
--- NOTE | 2018-11-17 05:16 | ECGEPIP ---
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
[2018-11-17] MEDS: HEPARIN SOD (PORCINE) 5000 UNITS/ML VIAL SC SCH ×3 (05:36→21:22)
[2018-11-17 05:52] LABS: HEMATOCRIT 34.5 % (42.0-52.0); HEMOGLOBIN 11.8 g/dl (13.5-17.5); MEAN CORPUSCULAR HEMOGLOBIN 33.8 pg (27.0-33.0); MEAN CORPUSCULAR HGB CONC 34.2 g/dl (32.0-36.5); MEAN CORPUSCULAR VOLUME 98.9 fl (80.0-96.0); PLATELET COUNT, AUTOMATED 243 10^3/uL (150-450); RED BLOOD COUNT 3.49 10^6/uL (4.30-6.10); WHITE BLOOD COUNT 5.8 10^3/uL (4.0-10.0)
[2018-11-17 06:24] LABS: BLOOD UREA NITROGEN 14 MG/DL (7-18); CALCIUM LEVEL 8.3 MG/DL (8.8-10.2); CARBON DIOXIDE LEVEL 28 MEQ/L (21-32); CHLORIDE LEVEL 105 MEQ/L (98-107); CREATININE FOR GFR 0.72 MG/DL (0.70-1.30); GLOMERULAR FILTRATION RATE > 60.0 (>42); GLUCOSE, FASTING 102 MG/DL (70-100); POTASSIUM SERUM 3.1 MEQ/L (3.5-5.1); SODIUM LEVEL 137 MEQ/L (136-145)
[2018-11-17] MEDS: ACETAMINOPHEN TAB 650MG DOSE (2X325MG) PO PRN ×2 (07:32→15:58)
--- NOTE | 2018-11-17 09:17 | ECGEPIP ---
[facility] Test Date: 2018-11-17 Pat Name: KIERRA VILLELA Department: Room: [place] [address] Gender: Male Department Clinician: : 1945 Requested By: ALAYNA GOMES Order Number: [id number] Reading MD: Mahamed Morgan Measurements Intervals [place] Rate: 57 P: MO: 0 QRS: -30 QRSD: 91 T: 25 QT: 431 QTc: 423 Interpretive Statements SINUS BRADYCARDIA WITH FIRST DEGREE AV BLOCK WITH PAC'S BORDERLINE LEFT AXIS DEVIATION NONSPECIFIC T-WAVE ABNORMALITY ABNORMAL RHYTHM ECG SIMILAR TO 11/16/18 Electronically Signed on 11-17-2018 9:16:44 EDT by Mahamed Morgan
[2018-11-17] MEDS: SERTRALINE 100 MG TAB PO SCH (09:26)
[2018-11-17] MEDS: CHLORTHALIDONE 12.5MG PER 1/2 TABLET PO SCH (09:26)
[2018-11-17] MEDS: FINASTERIDE 5 MG TAB PO SCH (09:26)
[2018-11-17] MEDS: amLODIPine 5 MG TAB PO SCH (09:27)
[2018-11-17] MEDS: OMEPRAZOLE 20 MG CAP PO SCH (09:27)
[2018-11-17] MEDS: MELOXICAM (MOBIC) 7.5 MG TAB PO SCH (09:28)
[2018-11-17] MEDS ORDERED: POTASSIUM CHLORIDE 10 MEQ SR TABLET PO ONE (10:00)
[2018-11-17] MEDS: NICOTINE 21MG/24HR 1 EA TRANSDERMAL TD SCH (10:42)
[2018-11-17] MEDS ORDERED: SLF 3 ML SYR IV PRN (12:30)
[2018-11-17] MEDS: SLF 3 ML SYR IV SCH ×2 (15:06→21:25)
--- NOTE | 2018-11-17 17:47 | IPNPDOC ---
Text Note Date of Service The patient was seen on 11/17/18. NOTE Armando Guillen is readmitted with ongoing back pain and reported inability to take care of himself. He lives alone. Physical exam HENT: Neck is supple, no adenopathy or thyromegaly, oral mucosa is moist. Cardiovascular exam: Regular rate and rhythm with a normal S1 and S2 and no appreciable murmur or bruit. Respiratory: Clear to auscultation with good air movement. Abdomen: Soft, flat, nontender, bowel tones are present. Back: I do not elicit pain to palpation of the vertebral spine, I do elicit minimal right sided sacroiliac muscle spasm. Extremities: No peripheral edema, pedal pulses palpable. Neuro: No focal neuromotor deficit, any mobility is limited by pain Psych: Depressed affect. Skin: No acute lesions or jaundice, patient has some tattoos Assessment/plan: I do not identify any acute clinical process. His pain appears chronic. He has not had any acute injury. Pain relief. We will increase his mobility most likely. Patient states he is looking for placement. Initial discussion with case management indicates this may not be possible as he does not qualify. VS,Fishbone, I+O VS, Fishbone, I+O Laboratory Tests 11/17/18 05:33 Red Blood Count 3.49 L, Mean Corpuscular Volume 98.9 H, Mean Corpuscular Hemoglobin 33.8 H, Mean Corpuscular Hemoglobin Concent 34.2, Red Cell Distribution Width 12.7, Calcium Level 8.3 L Vital Signs Date Time Temp Pulse Resp B/P (MAP) Pulse Ox O2 Delivery O2 Flow Rate FiO2 11/17/18 15:10 97.2 72 18 153/59 (90) 98 11/16/18 13:54 Room Air I&O- Last 24 Hours up to 6 AM 11/17/18 06:00 Intake Total 1000 ml Output Total 0 ml Balance 1000 ml HILARIO MOSQUERA MD Nov 17, 2018 17:47
[2018-11-17] MEDS: LIDOCAINE 5% (LIDODERM) PATCH TD SCH (17:53)
[2018-11-17] MEDS: LURASIDONE HCL 40 MG TAB (LATUDA) PO SCH (21:24)
[2018-11-17] MEDS: **NOTE PATIENT COMMENT** MISC XX SCH (21:25)
[2018-11-18 04:00] VITALS: BP 138/63
[2018-11-18] MEDS: HEPARIN SOD (PORCINE) 5000 UNITS/ML VIAL SC SCH ×3 (06:14→21:18)
[2018-11-18] MEDS: **hydrALAZINE** 50 MG TAB PO SCH ×3 (06:14→21:17)
[2018-11-18] MEDS: SLF 3 ML SYR IV SCH ×3 (06:15→21:19)
[2018-11-18 08:00] VITALS: BP 143/65
[2018-11-18] MEDS: CHLORTHALIDONE 12.5MG PER 1/2 TABLET PO SCH (08:38)
[2018-11-18] MEDS: SENNA 8.6 MG TAB (SENOKOT) PO SCH ×2 (08:38→21:00)
[2018-11-18] MEDS: DOCUSATE SODIUM 100 MG CAP PO SCH ×2 (08:38→21:15)
[2018-11-18] MEDS: FINASTERIDE 5 MG TAB PO SCH (08:38)
[2018-11-18] MEDS: OMEPRAZOLE 20 MG CAP PO SCH (08:38)
[2018-11-18] MEDS: GABAPENTIN 300 MG CAP PO SCH ×3 (08:38→21:16)
[2018-11-18] MEDS: SERTRALINE 100 MG TAB PO SCH (08:38)
[2018-11-18] MEDS: LIDOCAINE 5% (LIDODERM) PATCH TD SCH (08:39)
[2018-11-18] MEDS: NICOTINE 21MG/24HR 1 EA TRANSDERMAL TD SCH (08:39)
[2018-11-18] MEDS: MELOXICAM (MOBIC) 7.5 MG TAB PO SCH (08:39)
[2018-11-18] MEDS: amLODIPine 5 MG TAB PO SCH (08:39)
[2018-11-18] MEDS: ACETAMINOPHEN TAB 650MG DOSE (2X325MG) PO PRN ×2 (10:07→17:36)
[2018-11-18 12:00] VITALS: BP 114/55
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
[2018-11-18] MEDS ORDERED: TUBERCULIN PPD 5 UNITS/0.1 ML ID ONE (17:00)
[2018-11-18 20:00] VITALS: BP 156/68
[2018-11-18] MEDS: TERAZOSIN 5 MG CAP PO SCH (21:16)
[2018-11-18] MEDS: **NOTE PATIENT COMMENT** MISC XX SCH (21:18)
[2018-11-18] MEDS: LURASIDONE HCL 40 MG TAB (LATUDA) PO SCH (21:18)
[2018-11-19 04:00] VITALS: BP 123/59
[2018-11-19] MEDS: HEPARIN SOD (PORCINE) 5000 UNITS/ML VIAL SC SCH ×3 (05:50→22:38)
[2018-11-19] MEDS: **hydrALAZINE** 50 MG TAB PO SCH ×3 (05:51→22:00)
[2018-11-19] MEDS: SLF 3 ML SYR IV SCH ×3 (05:51→22:39)
[2018-11-19 08:00] VITALS: BP 149/67
[2018-11-19] MEDS: OMEPRAZOLE 20 MG CAP PO SCH (08:35)
[2018-11-19] MEDS: amLODIPine 5 MG TAB PO SCH (08:35)
[2018-11-19] MEDS: SENNA 8.6 MG TAB (SENOKOT) PO SCH ×2 (08:35→20:32)
[2018-11-19] MEDS: ACETAMINOPHEN TAB 650MG DOSE (2X325MG) PO PRN ×3 (08:35→22:38)
[2018-11-19] MEDS: DOCUSATE SODIUM 100 MG CAP PO SCH ×2 (08:36→20:32)
[2018-11-19] MEDS: CHLORTHALIDONE 12.5MG PER 1/2 TABLET PO SCH (08:36)
[2018-11-19] MEDS: NICOTINE 21MG/24HR 1 EA TRANSDERMAL TD SCH (08:36)
[2018-11-19] MEDS: GABAPENTIN 300 MG CAP PO SCH ×3 (08:36→20:32)
[2018-11-19] MEDS: SERTRALINE 100 MG TAB PO SCH (08:36)
[2018-11-19] MEDS: FINASTERIDE 5 MG TAB PO SCH (08:36)
[2018-11-19] MEDS: MELOXICAM (MOBIC) 7.5 MG TAB PO SCH (08:36)
[2018-11-19] MEDS: LIDOCAINE 5% (LIDODERM) PATCH TD SCH (08:37)
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
[2018-11-19 16:00] VITALS: BP 131/60
[2018-11-19 20:00] VITALS: BP 152/6
[2018-11-19] MEDS: LURASIDONE HCL 40 MG TAB (LATUDA) PO SCH (20:32)
[2018-11-19] MEDS: TERAZOSIN 5 MG CAP PO SCH (20:33)
[2018-11-19] MEDS: **NOTE PATIENT COMMENT** MISC XX SCH (20:35)
[2018-11-20 04:00] VITALS: BP 165/82
[2018-11-20] MEDS: **hydrALAZINE** 50 MG TAB PO SCH ×3 (06:13→21:07)
[2018-11-20] MEDS: HEPARIN SOD (PORCINE) 5000 UNITS/ML VIAL SC SCH ×3 (06:13→21:07)
[2018-11-20] MEDS: SLF 3 ML SYR IV SCH ×3 (06:13→21:08)
[2018-11-20 08:00] VITALS: BP 136/62
[2018-11-20] MEDS: DOCUSATE SODIUM 100 MG CAP PO SCH ×2 (08:47→21:04)
[2018-11-20] MEDS: MELOXICAM (MOBIC) 7.5 MG TAB PO SCH (08:47)
[2018-11-20] MEDS: CHLORTHALIDONE 12.5MG PER 1/2 TABLET PO SCH (08:47)
[2018-11-20] MEDS: amLODIPine 5 MG TAB PO SCH (08:48)
[2018-11-20] MEDS: GABAPENTIN 300 MG CAP PO SCH ×3 (08:48→21:04)
[2018-11-20] MEDS: OMEPRAZOLE 20 MG CAP PO SCH (08:49)
[2018-11-20] MEDS: SENNA 8.6 MG TAB (SENOKOT) PO SCH ×2 (08:49→21:04)
[2018-11-20] MEDS: LIDOCAINE 5% (LIDODERM) PATCH TD SCH (08:49)
[2018-11-20] MEDS: SERTRALINE 100 MG TAB PO SCH (08:49)
[2018-11-20] MEDS: FINASTERIDE 5 MG TAB PO SCH (08:49)
[2018-11-20] MEDS: NICOTINE 21MG/24HR 1 EA TRANSDERMAL TD SCH (08:50)
[2018-11-20] MEDS: ACETAMINOPHEN TAB 650MG DOSE (2X325MG) PO PRN ×2 (08:51→14:26)
[2018-11-20 12:00] VITALS: BP 142/74
[2018-11-20 16:00] VITALS: BP 152/82
[2018-11-20] MEDS ORDERED: PPD DOCUMENTATION ENTRY MISC XX ONE (17:00)
--- NOTE | 2018-11-20 20:46 | IPNPDOC ---
Text Note Date of Service The patient was seen on 11/20/18. NOTE Subjective: Continues to endorse pain, is occasionally ambulatory with his walker. Requesting placement. Blood pressure noted to be slightly uncontrolled. GEN: elderly male, in bed, NAD HEENT: EOMI, MMM Cardio: RRR, no m/r/ Lungs: CTA b/l Abd: s, nd, nd, bs present Ext: tenderness to palpation of right hip Neuro No focal deficits MSK: no edema, pulses palpable. ASSESSMENT/PLAN: Assessment/Plan: The patient has a history of chronic back and neck pain. Peripheral neuropathy is contributory. The patient has otherwise not had any acute injury or event. He remains hopeful of placement. PT/OT eval. HTN: Amlodipine increased to 10mg daily. PPD has been placed to his right upper extremity. It is nonreactive thus far. The patient does have uzl-smrpgmm-eqjwekhdo diabetes mellitus. He has reasonably good control, will continue current management. The patient does have tobacco dependency and is making use of nicotine patch while in the hospital. Vital Signs Date Time Temp Pulse Resp B/P (MAP) Pulse Ox O2 Delivery O2 Flow Rate FiO2 11/20/18 16:00 97.5 81 18 152/82 (105) 98 11/20/18 14:06 145/77 11/20/18 12:00 97.0 66 17 142/74 (96) 93 11/20/18 08:48 73 136/62 11/20/18 08:00 97.4 62 18 136/62 (86) 91 11/20/18 06:13 165/82 11/20/18 04:00 97.6 60 20 165/82 (109) 94 11/19/18 22:00 113/58 Intake & Output 11/20/18 06:00 Intake Total 780 ml Output Total 500 ml Balance 280 ml Current Medications Medications (Trade) Dose Ordered Sig/Danilo Route PRN Reason Start Time Stop Time Status Last Admin Dose Admin Acetaminophen (Tylenol Tab) 650 mg Q4H PRN PO PAIN OR FEVER 11/16/18 20:30 11/20/18 14:26 650 MG Chlorthalidone (Hygroton, Chlorthalidone) 12.5 mg DAILY PO 11/17/18 09:00 11/20/18 08:47 12.5 MG Docusate Sodium (Colace) 100 mg BID PO 11/16/18 21:00 11/20/18 08:47 100 MG Finasteride (Proscar) 5 mg DAILY PO 11/17/18 09:00 11/20/18 08:49 5 MG Gabapentin (Neurontin) 600 mg TID PO 11/16/18 21:00 11/20/18 16:44 600 MG Heparin Sodium (Porcine) (Heparin) 5,000 units Q8H SC 11/17/18 06:00 11/20/18 14:06 5,000 UNITS Hydralazine HCl (Apresoline) 50 mg Q8H PO 11/16/18 22:00 11/20/18 14:06 50 MG Lidocaine (Lidoderm Patch) 1 patch DAILY TD 11/17/18 09:00 11/20/18 08:49 1 PATCH Lurasidone HCl (Latuda) 120 mg QHS PO 11/16/18 21:00 11/19/18 20:32 120 MG Meloxicam (Mobic) 15 mg DAILY PO 11/17/18 09:00 11/20/18 08:47 15 MG Nicotine (Nicoderm Cq 21mg) 1 patch DAILY TD 11/17/18 09:00 11/20/18 08:50 1 PATCH Non-Formulary Medication ( See Comment Field Below ) REMOVE LIDODERM PATCH DAILY@21 XX 11/17/18 21:00 11/18/18 21:18 1 Omeprazole (PriLOSEC) 20 mg DAILY PO 11/17/18 09:00 11/20/18 08:49 20 MG Senna (Senokot) 2 tab BID PO 11/16/18 21:00 11/20/18 08:49 2 TAB Sertraline HCl (Zoloft) 200 mg DAILY PO 11/17/18 09:00 11/20/18 08:49 200 MG Sodium Chloride (Saline Lock Flush) 2 ml SLF IV 11/17/18 14:00 11/20/18 14:06 2 ML Terazosin HCl (Hytrin) 20 mg QHS PO 11/16/18 21:00 11/19/18 20:33 20 MG VS,Fishbone, I+O VS, Fishbone, I+O Vital Signs Date Time Temp Pulse Resp B/P (MAP) Pulse Ox O2 Delivery O2 Flow Rate FiO2 11/20/18 16:00 97.5 81 18 152/82 (105) 98 11/16/18 13:54 Room Air I&O- Last 24 Hours up to 6 AM 11/20/18 06:00 Intake Total 780 ml Output Total 500 ml Balance 280 ml MONIE TALBOT MD Nov 20, 2018 20:46
[2018-11-20] MEDS: **NOTE PATIENT COMMENT** MISC XX SCH (21:08)
[2018-11-20] MEDS: TERAZOSIN 5 MG CAP PO SCH (21:17)
[2018-11-20] MEDS: LURASIDONE HCL 40 MG TAB (LATUDA) PO SCH (21:17)
[2018-11-20 23:59] VITALS: BP 150/72
[2018-11-21] MEDS: HEPARIN SOD (PORCINE) 5000 UNITS/ML VIAL SC SCH (05:41)
[2018-11-21] MEDS: **hydrALAZINE** 50 MG TAB PO SCH (05:43)
[2018-11-21] MEDS: SLF 3 ML SYR IV SCH (05:44)
[2018-11-21 08:00] VITALS: BP 144/82
[2018-11-21] MEDS: CHLORTHALIDONE 12.5MG PER 1/2 TABLET PO SCH (08:49)
[2018-11-21] MEDS: MELOXICAM (MOBIC) 7.5 MG TAB PO SCH (08:49)
[2018-11-21] MEDS: DOCUSATE SODIUM 100 MG CAP PO SCH (08:49)
[2018-11-21 08:50] VITALS: BP 146/77
[2018-11-21] MEDS: FINASTERIDE 5 MG TAB PO SCH (08:50)
[2018-11-21] MEDS: GABAPENTIN 300 MG CAP PO SCH (08:50)
[2018-11-21] MEDS: SENNA 8.6 MG TAB (SENOKOT) PO SCH (08:50)
[2018-11-21] MEDS: OMEPRAZOLE 20 MG CAP PO SCH (08:50)
[2018-11-21] MEDS: LIDOCAINE 5% (LIDODERM) PATCH TD SCH (08:51)
[2018-11-21] MEDS: NICOTINE 21MG/24HR 1 EA TRANSDERMAL TD SCH (08:51)
[2018-11-21] MEDS: SERTRALINE 100 MG TAB PO SCH (08:51)
[2018-11-21] MEDS: ACETAMINOPHEN TAB 650MG DOSE (2X325MG) PO PRN (08:52)
[2018-11-21] MEDS ORDERED: amLODIPine 10 MG TAB PO SCH (09:00)
[2018-11-21 09:30] LABS: HEMOGLOBIN 11.5 g/dl (13.5-17.5); MEAN CORPUSCULAR HEMOGLOBIN 35.5 pg (27.0-33.0); MEAN CORPUSCULAR HGB CONC 33.8 g/dl (32.0-36.5); MEAN CORPUSCULAR VOLUME 104.9 fl (80.0-96.0); PLATELET COUNT, AUTOMATED 203 10^3/uL (150-450); RED BLOOD COUNT 3.24 10^6/uL (4.30-6.10); WHITE BLOOD COUNT 4.4 10^3/uL (4.0-10.0)
[2018-11-21 10:01] LABS: BLOOD UREA NITROGEN 25 MG/DL (7-18); CALCIUM LEVEL 8.4 MG/DL (8.8-10.2); CARBON DIOXIDE LEVEL 31 MEQ/L (21-32); CHLORIDE LEVEL 104 MEQ/L (98-107); CREATININE FOR GFR 0.75 MG/DL (0.70-1.30); GLOMERULAR FILTRATION RATE > 60.0 (>42); GLUCOSE, FASTING 112 MG/DL (70-100); POTASSIUM SERUM 4.1 MEQ/L (3.5-5.1); SODIUM LEVEL 140 MEQ/L (136-145)
--- NOTE | 2018-11-22 07:38 | DS.PDOC ---
Discharge Summary General Date of Admission Nov 16, 2018 at 13:42 Date of Discharge 11/21/18 Attending Physician: VAHE NETTLES DO Discharge Summary PROCEDURES PERFORMED DURING STAY: none ADMITTING DIAGNOSES: 1. chronic back and neck pain. 2. Peripheral neuropathy 3. HTN DISCHARGE DIAGNOSES: 1. chronic back and neck pain. 2. Peripheral neuropathy 3. essential HTN 4. NIDDM - not on intermediate project manager insulin 5. tobacco dependency COMPLICATIONS/CHIEF COMPLAINT: Chronic Back Pain/ Orthostsatic Hypotension. HISTORY OF PRESENT ILLNESS: This is a 73 yo male who was recently dc from our hospital for back pain, who came back because his back pain 10/10 radiate down both legs, sharp in nature. He denied urinary and bowel symptoms. denied fever, chills, chest pain or sob HOSPITAL COURSE: Patient was placed under observation. PT/OT consulted and w orked with patient while in hospital. Patient has been cleared by PT/OT. He does not meet acute rehab needs. He is being discharged home with services DISCHARGE MEDICATIONS: Please see below. ALLERGIES: Please see below. PHYSICAL EXAMINATION ON DISCHARGE: VITAL SIGNS: Please see below. GENERAL: pleasant, NAD AAOx3 HRRR LCTA LABORATORY DATA: Please see below. ACTIVITY: as tolerated DIET: consistent carb DISCHARGE PLAN: home with services DISCHARGE INSTRUCTIONS: 1. follow up with PCP in 5-7 days DISCHARGE CONDITION: stable and improved TIME SPENT ON DISCHARGE: 25 minutes. Vital Signs/I&Os Vital Signs Date Time Temp Pulse Resp B/P (MAP) Pulse Ox O2 Delivery O2 Flow Rate FiO2 11/21/18 08:50 79 146/77 11/21/18 08:00 97.5 20 93 11/16/18 13:54 Room Air I&O- Last 24 Hours up to 6 AM 11/21/18 06:00 Intake Total 1000 ml Output Total 650 ml Balance 350 ml Laboratory Data Labs 24H Laboratory Tests 2 11/21/18 09:15: Nucleated Red Blood Cells % (auto) 0.0, Anion Gap 5L, Glomerular Filtration Rate > 60.0, Blood Urea Nitrogen 25H, Creatinine 0.75, Sodium Level 140, Potassium Level 4.1, Chloride Level 104, Carbon Dioxide Level 31, Calcium Level 8.4L CBC/BMP Laboratory Tests 11/21/18 09:15 Red Blood Count 3.24 L, Mean Corpuscular Volume 104.9 H, Mean Corpuscular Hemoglobin 35.5 H, Mean Corpuscular Hemoglobin Concent 33.8, Red Cell Distribution Width 13.5, Calcium Level 8.4 L Discharge Medications Scheduled Amlodipine Besylate (Amlodipine Besylate) 5 Mg Tablet, 5 MG PO DAILY Chlorthalidone (Chlorthalidone) 25 Mg Tablet, 12.5 MG PO DAILY Docusate Sodium (Docusate Sodium) 100 Mg Tablet, 100 MG PO BID, (Reported) Finasteride (Finasteride) 5 Mg Tablet, 5 MG PO DAILY, (Reported) Gabapentin (Gabapentin) 600 Mg Tablet, 600 MG PO TID, (Reported) Lurasidone HCl (Latuda) 120 Mg Tablet, 120 MG PO QHS, (Reported) Melatonin (Melatonin) 3 Mg Tablet, 6 MG PO QHS, (Reported) Meloxicam (Meloxicam) 15 Mg Tablet, 15 MG PO DAILY, (Reported) Multivitamin with Minerals (Multivitamins with Minerals) 1 Each Tablet, 1 TAB PO DAILY, (Reported) Nicotine (Nicotine Patch) 21 Mg/24 Hr Patch.td24, 21 MG TD DAILY, (Reported) APPLIED TO LEFT SHOULDER Omeprazole (Omeprazole) 20 Mg Capsule.dr, 20 MG PO DAILY, (Reported) Polyethylene Glycol 3350 (Miralax) 17 Gm Powd.pack, 17 GM PO DAILY, (Reported) Sennosides (Senna) 8.6 Mg Tablet, 2 TAB PO BID, (Reported) Sertraline HCl (Sertraline HCl) 100 Mg Tablet, 200 MG PO DAILY, (Reported) Terazosin Hcl (Terazosin HCl) 10 Mg Capsule, 20 MG PO QHS, (Reported) Scheduled PRN Acetaminophen (Acetaminophen 8 Hour) 650 Mg Tablet.er, 650 MG PO Q6H PRN for PAIN, (Reported) Diclofenac Sodium (Diclofenac Sodium) 50 Mg Tablet.dr, 50 MG PO BID PRN for PAIN, (Reported) Nicotine Polacrilex (Nicotine Gum) 4 Mg Gum, 4 MG PO Q2H PRN for SMOKING CESSATION, (Reported) Allergies Coded Allergies: aspirin (Verified Allergy, Unknown, 10/06/18) VAHE NETTLES DO Nov 21, 2018 10:33
== END 2018-11-21 12:50 | disposition home health service (06) ==
LOC: M ED 13:41 → EDBD 13:41 → M ED INP 13:42 → UNDOADMOB 20:28 → M MSPAV 23:05 → M PCU 23:55
PROVIDERS: ADMIT Internal Medicine; ATTEND Family Medicine
DX: M54.9 Dorsalgia, unspecified (principal); G89.29 Other chronic pain; I16.0 Hypertensive urgency; G62.9 Polyneuropathy, unspecified; E11.9 Type 2 diabetes mellitus without complications; F17.200 Nicotine dependence, unspecified, uncomplicated; N40.0 Benign prostatic hyperplasia without lower urinary tract symptoms; D53.9 Nutritional anemia, unspecified; H26.9 Unspecified cataract; I95.1 Orthostatic hypotension; Z79.899 Other long term (current) drug therapy; Z88.6 Allergy status to analgesic agent
CPT/HCPCS: 36415; 71046; 80048; 80076; 81001; 82550; 82553; 83735; 84134; 84439; 84443; 84484; 85025; 85027; 85610; 85730; 93005; 93041; 94760; 96372; 96374; 96375; 97116; 97161; 97165; 99285; G0378

== ENCOUNTER 2019-02-12 13:32 | Inpatient (IN) | payer OTHER ==
[~2019-02-12] VITALS: Ht 177.8 cm; Wt 74.8 kg
[2019-02-12] MEDS: LURASIDONE HCL 40 MG TAB (LATUDA) PO SCH (01:00)
[~2019-02-12 13:32] MED LIST changes: -VICO7.5T11 PO; +VICO7.5T12 PO
[2019-02-12] MEDS ORDERED: IPRATROPIUM 0.5MG/ALBUTEROL 2.5MG INH SOL UD 3ML (DUONEB)(J7620) NEB ONE (14:15)
[2019-02-12] MEDS ORDERED: dexameTHASONE 20 MG/5 ML VIAL (J1100) IV ONE (14:15)
[2019-02-12] MEDS ORDERED: ALBUTEROL SULFATE 2.5 MG/0.5 ML INH NEB SOLN INH ONE (14:15)
--- NOTE | 2019-02-12 15:18 | REP ---
Single view chest: 02/12/2019. Indication: Dyspnea. Cough. Comparison: 11/16/2018. Findings: Prominent interstitial markings and small right middle and left lower lobe scarring are redemonstrated. There are no areas of airspace consolidation, pleural effusion or pneumothorax. The lungs are hyperinflated. Cardiac silhouette is unremarkable. Impression: New no acute cardiopulmonary process. Chronic interstitial changes and scarring. Stable. Electronically Signed by Celso Johnson DO 02/12/2019 03:09 P
[2019-02-12 15:43] LABS: BASO % 0.5 % (0.0-1.0); EOS # 0.1 10^3/uL (0.0-0.5); EOS % 1.1 % (0.0-3.0); HEMATOCRIT 35.2 % (42.0-52.0); HEMOGLOBIN 11.5 g/dl (13.5-17.5); LYMPH # 1.3 10^3/uL (1.5-5.0); LYMPH % 23.3 % (24.0-44.0); MEAN CORPUSCULAR HEMOGLOBIN 33.8 pg (27.0-33.0); MEAN CORPUSCULAR HGB CONC 32.7 g/dl (32.0-36.5); MEAN CORPUSCULAR VOLUME 103.5 fl (80.0-96.0); MONO # 0.5 10^3/uL (0.0-0.8); MONO % 9.1 % (0.0-5.0); NEUTROPHILS # 3.7 10^3/uL (1.5-8.5); NEUTROPHILS % 65.8 % (36.0-66.0); PLATELET COUNT, AUTOMATED 251 10^3/uL (150-450); WHITE BLOOD COUNT 5.6 10^3/uL (4.0-10.0)
[2019-02-12 16:14] LABS: BLOOD UREA NITROGEN 21 MG/DL (7-18); CALCIUM LEVEL 8.6 MG/DL (8.8-10.2); CARBON DIOXIDE LEVEL 27 MEQ/L (21-32); CHLORIDE LEVEL 102 MEQ/L (98-107); CK-MB VALUE MASS 1.1 NG/ML (<3.6); CPK CREATINE PHOSPHOKINASE 33 U/L (39-308); CREATININE FOR GFR 0.85 MG/DL (0.70-1.30); GLOMERULAR FILTRATION RATE > 60.0 (>42); GLUCOSE, FASTING 100 MG/DL (70-100); MB/CK RELATIVE INDEX 3.33 (< OR =4); NT-PRO BNP 450 PG/ML (<125); POTASSIUM SERUM 3.7 MEQ/L (3.5-5.1); SODIUM LEVEL 137 MEQ/L (136-145); TROPONIN I < 0.02 NG/ML (< 0.10)
[2019-02-12 16:52] VITALS: O2SAT 95
[2019-02-12] MEDS ORDERED: ACETAMINOPHEN TAB 650MG DOSE (2X325MG) PO ONE (17:15)
[2019-02-12] MEDS ORDERED: PRED10TA2 PO (17:34)
[2019-02-12] MEDS ORDERED: KETOROLAC 30 MG/ML VIAL (J1885) IV ONE (18:00)
--- NOTE | 2019-02-12 18:46 | ECGEPIP ---
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
[2019-02-12] MEDS ORDERED: FUROSEMIDE 40 MG/4 ML VIAL (J1940) IV ONE (19:30)
[2019-02-12] MEDS ORDERED: ENALAPRILAT INJ 2.5MG/2ML VIAL IV ONE (19:45)
[2019-02-12] MEDS ORDERED: NITROGLYCERIN 2% OINT 1 GM *U/D* PKT TOP ONE (19:45)
[2019-02-12] MEDS ORDERED: LIDO4CRE4 TOP (19:56)
[2019-02-12 20:34] LABS: VENOUS BASE EXCESS 1.3 (-2.0-2.0); VENOUS O2 SATURATION 89.8 % (60.0-80.0); VENOUS PARTIAL PRESSURE CO2 41.5 mmHg (38.0-50.0); VENOUS PARTIAL PRESSURE O2 54.3 mmHg (30.0-50.0); VENOUS PH 7.415 UNITS (7.330-7.430); VENOUS STANDARD HCO3 25.5 MEQ/L; VENOUS TOTAL CO2 27.3 MEQ/L (24.0-28.0)
[2019-02-12 20:41] LABS: PHOSPHORUS LEVEL 3.7 MG/DL (2.5-4.9)
[2019-02-12] MEDS ORDERED: NICOTINE POLACRILEX 2 MG GUM PO PRN (20:45)
[2019-02-12] MEDS ORDERED: amLODIPine 5 MG TAB PO ONE (22:00)
--- NOTE | 2019-02-12 22:00 | HPEPDOC ---
General Date of Admission Feb 12, 2019 at 19:43 Date of Service: Feb 12, 2019 Other Providers PCP: Dr. Montejo Psychiatrist: Dr. Garcia Attending Physician: TELLY NGUYEN MD Chief Complaint Dyspnea. History of Present Illness 73-year-old male presenting to the ER for gradually worsening shortness of breath has progressed over the past 1 week. He reports being diagnosed with a chest cold 1 week ago at an urgent care center, was given amoxicillin and in haler, which he reports having used on and off without any improvement. He reports increasing yellow phlegm, wheezing, chills, along with fatigue for the past 6 months. He reports "I'm too tired to do anything." Also reports mid chest tightness, rhinorrhea, sore throat, sinus congestion, headache over the past 1 week as well. His brother and [id number] also had a cold around the same time. He denies any outside travels, recent changes in meds, or long period of immobilization. Home Medications Scheduled Docusate Sodium (Docusate Sodium) 100 Mg Tablet, 100 MG PO DAILY, (Reported) Finasteride (Finasteride) 5 Mg Tablet, 5 MG PO DAILY, (Reported) Gabapentin (Gabapentin) 600 Mg Tablet, 600 MG PO TID, (Reported) Lurasidone HCl (Latuda) 120 Mg Tablet, 120 MG PO QHS, (Reported) Melatonin (Melatonin) 3 Mg Tablet, 6 MG PO QHS, (Reported) Meloxicam (Meloxicam) 15 Mg Tablet, 15 MG PO DAILY, (Reported) Multivitamin with Minerals (Multivitamins with Minerals) 1 Each Tablet, 1 TAB PO DAILY, (Reported) Nicotine (Nicotine Patch) 21 Mg/24 Hr Patch.td24, 21 MG TD DAILY, (Reported) APPLIED TO LEFT SHOULDER Omeprazole (Omeprazole) 20 Mg Capsule.dr, 20 MG PO DAILY, (Reported) Sennosides (Senna) 8.6 Mg Tablet, 2 TAB PO BID, (Reported) Sertraline HCl (Sertraline HCl) 100 Mg Tablet, 200 MG PO DAILY, (Reported) UNABLE TO VERIFY IF PATIENT IS STILL TAKING THIS MEDICATION Terazosin Hcl (Terazosin HCl) 10 Mg Capsule, 20 MG PO QHS, (Reported) UNABLE TO VERIFY IF PATIENT IS STILL TAKING THIS MEDICATION Scheduled PRN Acetaminophen (Acetaminophen 8 Hour) 650 Mg Tablet.er, 650 MG PO Q6H PRN for PAIN, (Reported) Diclofenac Sodium (Diclofenac Sodium) 50 Mg Tablet.dr, 50 MG PO DAILY PRN for PAIN, (Reported) Lidocaine (Lidocaine) 15 Gm Cream..g., 1 DOSE TOP DAILY PRN for PAIN, (Reported) Nicotine Polacrilex (Nicotine Gum) 4 Mg Gum, 4 MG PO Q2H PRN for SMOKING CESSATION, (Reported) Polyethylene Glycol 3350 (Miralax) 17 Gm Powd.pack, 17 GM PO DAILY PRN for CONSTIPATION, (Reported) Allergies Coded Allergies: aspirin (Verified Allergy, Unknown, 10/06/18) Past Medical History Medical History Chronic low back & neck pain Chronic HTN Bipolar disorder, depression Gastritis BPH Peripheral Neuropathy hx of noncompliance Surgical History s/p appendectomy s/p ex lap Family History Reports cancer and heart disease in both sides, however unable to further clarify Social History Smokes half pack to 1 pack per day since age of 20 Rare alcohol usage Denies ever using illicit substances or IV drugs 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 DNR/DNI status A-FIB/CHADSVASC A-FIB History Current/History of A-Fib/PAF?: No Current PO Anticoag Therapy: No Review of Systems Other systems Constitutional: Denies fever, night sweats. Admits weight loss over past 6 months-unable to quantify. Admits fatigue & chills Eyes: Denies eye pain, vision change ENT: Admits headaches, rhinorrhea, sore throat, nasal congestion. Denies ear pain, dysphagia Pulmonary: Admits productive cough yellow sputum, shortness of breath, and wheezing Cardiac: Denies chest pain, palpitations, orthopnea, PND, edema, lightheadedness GI: Denies nausea, vomiting, abdominal pain, diarrhea, constipation, melena, hematochezia Endocrine: Denies heat or cold intolerance MSK: Admits chronic low back pain and diffuse arthralgias Neurologic: Admits to generalized weakness, no numbness/tingling Psych: Admits history of depression and psych disorders Physical Examination Other physical findings General exam: Alert and cooperative, A&O 3, NAD, disheveled Eye exam: PERRLA, EOMI, anicteric sclera ENT: Atraumatic, normocephalic, mucous membranes moist, poor dentition Neck: Supple, no adenopathy or thyromegaly Cardiac: RRR, normal S1 & S2, no murmurs Respiratory: CTAB, decreased air entry bilaterally, no wheezing, rhonchi, or rales, there are decreased breath sounds bilateraly Abdomen: soft, normoactive bowel sounds, nontender, nondistended, no pulsations or masses Extremity: 2+ radial and dorsalis pedis pulses, no edema, clubbing, cyanosis, or tenderness Skin: [place], warm, dry, no jaundice Neuro: no focal deficit, sensation equal & intact MSK: equal 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 strength b/l, refusing to participate in remainder exam stating he feels too weak, but noted to be independent with activity Psych: flat affect, apathetic Vital Signs Vital Signs Date Time Temp Pulse Resp B/P (MAP) Pulse Ox O2 Delivery O2 Flow Rate FiO2 02/12/19 20:04 188/88 02/12/19 16:52 95 Room Air 02/12/19 13:44 99.1 64 20 Laboratory Data Labs 24H Laboratory Tests 2 02/12/19 15:32: Immature Granulocyte % (Auto) 0.2, Neutrophils (%) (Auto) 65.8, Lymphocytes (%) (Auto) 23.3L, Monocytes (%) (Auto) 9.1H, Eosinophils (%) (Auto) 1.1, Basophils (%) (Auto) 0.5, Neutrophils # (Auto) 3.7, Lymphocytes # (Auto) 1.3L, Monocytes # (Auto) 0.5, Eosinophils # (Auto) 0.1, Basophils # (Auto) 0.0, Nucleated Red Blood Cells % (auto) 0.0, Anion Gap 8, Glomerular Filtration Rate > 60.0, Calcium Level 8.6L, Phosphorus Level 3.7, Magnesium Level 2.0, Total Creatine Kinase 33L, Creatine Kinase MB 1.1, Creatine Kinase MB Relative Index 3.33, Troponin I < 0.02, XT-Rye-U-Type Natriuretic Peptide 450H 02/12/19 20:24: D-Dimer, Quantitative 279.16, Blood Gas Puncture Site UNKNOWN, Blood Gas Bicarbonate Standard 25.5, Venous Blood pH 7.415, Venous Blood Partial Pressure CO2 41.5, Venous Blood Partial Pressure O2 54.3H, Venous Blood Total Carbon Inocencio xide 27.3, Venous Blood HCO3 26.0, Venous Blood Oxygen Saturation 89.8H, Venous Blood Base Excess 1.3 CBC/BMP Laboratory Tests 02/12/19 15:32 Microbiology Microbiology 02/12/19 Blood Culture, Received Pending 02/12/19 Blood Culture, Received Pending Assessment/Plan is a 73 yr old M w a PMH of Chronic HTN, BPH, GERD, Chronic Back pain and Peripheral neuropathy who will be admitted for evaluation of dyspnea. Dyspnea Likely viral, positive sick contact with family members positive for cold vs 2/2 flash pulm edema in the setting of hypertensive crisis afebrile, no leukocytosis, VBG acceptable, CXR without infiltrate or effusion, d-dimer and cardiac markers normal. Cardiac and Pulmonary exam benign Respiratory panel, VBG sputum culture Continue supportive care, Acapella, and incentive spirometer Hypertensive Crisis BP 180s over 90s on admission, patient reports not having taken his meds today Asymptomatic Received IV enalaprilat and nitro in the ER Started on amlodipine, continue close monitoring Generalized malaise and fatigue With reported decreased appetite and unqualifiable weight loss over the past 6 months Patient unsure about his screening and preventative care. This warrants further investigation and workup, including colonoscopy, lung cancer and other malignancy screening Continue supportive care, PT OT Deconditioning Lives alone at home and states he feels too weak to continue ADLs Placed on fall risk precautions PFS consulted for assistance, PT and OT Chronic low neck & back pain Takes daily meloxicam, however has history of gastritis. Place on hold Topical lidocaine, PT, OT, gabapentin Chronic gastritis Continue daily PPI. H&H stable Bipolar Disorder/Depression Continue home Latuda & Sertraline No thoughts to harm self or others Elevated BNP He doesn't have signs of fluid overload The chest xray showed hyperinflation of the lungs and flattening of the ribs but no pulmonary edema He can follow up with his PCP for an Echo on an out patient basis Tobacco use disorder 26.5 pack-year history Smoking cessation discussed with patient Continue nicotine patch and gum and lung cancer screening BPH Continue home meds DVT prophylaxis: Lovenox CODE STATUS: DNR/DNI Disposition: Admit to general medical floor, pending results. Will require PT, OT, PFS assistance, requiring >2 midnights. Plan / VTE VTE Prophylaxis Ordered?: Yes GME ATTESTATION GME ATTESTATION My faculty preceptor for this patient encounter was physically present during the encounter and was fully available. All aspects of the patient interview, examination, medical decision making process, and medical care plan development were reviewed and approved by the faculty preceptor. The faculty preceptor is aware and concurs with the plan as stated in the body of this note and will attest to such by his/her cosignature. ATTENDING NOTE I examined Mr. Guillen, at 7:58 PM, discussed as the case with Dr. Horton and agreed her findings as documented PINO HORTON DO Feb 12, 2019 21:59 TELLY NGUYEN MD Feb 12, 2019 23:34
[2019-02-12 22:40] VITALS: BP 160/61
[2019-02-12] MEDS: NICOTINE 21MG/24HR 1 EA TRANSDERMAL TD SCH (23:00)
[2019-02-12] MEDS: ENOXAPARIN 40 MG/0.4 ML SYRINGE (J1650) SC SCH (23:14)
[2019-02-12] MEDS: LIDOCAINE 5% (LIDODERM) PATCH TD SCH (23:14)
[2019-02-13] MEDS: ACETAMINOPHEN 650MG ER TAB (TYLENOL ARTHRITIS) PO PRN ×2 (03:47→13:26)
[2019-02-13 06:00] VITALS: BP 149/65
[2019-02-13 06:46] LABS: HEMATOCRIT 35.5 % (42.0-52.0); HEMOGLOBIN 11.9 g/dl (13.5-17.5); MEAN CORPUSCULAR HEMOGLOBIN 33.7 pg (27.0-33.0); MEAN CORPUSCULAR HGB CONC 33.5 g/dl (32.0-36.5); MEAN CORPUSCULAR VOLUME 100.6 fl (80.0-96.0); PLATELET COUNT, AUTOMATED 291 10^3/uL (150-450); RED BLOOD COUNT 3.53 10^6/uL (4.30-6.10); WHITE BLOOD COUNT 4.7 10^3/uL (4.0-10.0)
[2019-02-13 07:17] LABS: BLOOD UREA NITROGEN 18 MG/DL (7-18); CALCIUM LEVEL 8.7 MG/DL (8.8-10.2); CARBON DIOXIDE LEVEL 28 MEQ/L (21-32); CHLORIDE LEVEL 103 MEQ/L (98-107); CK-MB VALUE MASS < 1.0 NG/ML (<3.6); CPK CREATINE PHOSPHOKINASE 27 U/L (39-308); CREATININE FOR GFR 0.81 MG/DL (0.70-1.30); GLOMERULAR FILTRATION RATE > 60.0 (>42); GLUCOSE, FASTING 97 MG/DL (70-100); SODIUM LEVEL 137 MEQ/L (136-145); THYROID STIMULATING HORMONE 0.316 uIU/ML (0.358-3.740); TROPONIN I < 0.02 NG/ML (< 0.10)
--- NOTE | 2019-02-13 08:14 | IPNPDOC ---
Subjective Date Seen The patient was seen on 02/13/19. Subjective Chief Complaint/HPI Patient doesn't feel well, positive coughing, reports sinus pressure Objective Physical Examination Other physical findings PHYSICAL EXAMINATION: VITAL SIGNS: Please see below. GENERAL: No distress HEENT: Normocephalic, atraumatic, moist mucous membranes, tenderness to palpation in the frontal and maxillary sinuses bilaterally NECK: Supple CARDIOVASCULAR EXAMINATION: S1, S2 RESPIRATORY EXAMINATION: Diminished breath sounds bilaterally ABDOMINAL EXAMINATION: Soft, nontender, nondistended, positive bowel sounds EXTREMITIES: no edema SKIN: No rash NEUROLOGICAL EXAMINATION: Alert and oriented 3, no focal deficits PSYCHIATRIC EXAMINATION: Calm and cooperative, flat affect Assessment /Plan Assessment Pt is a 73 yoM w/ PMH of Chronic HTN, BPH, GERD, Chronic Back pain and Peripheral neuropathy who will be admitted for evaluation of dyspnea and found to be positive for human rhinovisus/enterovirus. # human rhinovisus/enterovirus: Continue symptomatic treatment #sinusitis: pt reports sinusitis for more than 10 days and was treated with amoxicillin, will treat with Augmentin for 10 days. #HTN: not on home BP meds, Cr wnl, received IV enalaprilat and nitro in the ER, started on amlodipine 5mg QD, consider increasing to 10mg at DC vs outpt manag ement #Generalized malaise and fatigue with weight loss, follow-up as outpt, pts current symptoms, likely secondary to infection, pt declined PT x2, home health vs rehab, continue fall precautions #Chronic low neck & back pain: hold home meloxicam due to gastritis, continue home topical lidocaine, gabapentin #Chronic gastritis: Continue home PPI #Bipolar Disorder/Depression: Continue home Latuda & Sertraline #Elevated BNP,450, asx, neg CXR f/u outpt #Tobacco use disorder, 26.5 pack-year history, possible underlying COPD, counselled on Smoking cessation, Continue nicotine patch and gum, outpt f/u on lung cancer screening #BPH: Continue home meds DVT prophylaxis: Lovenox CODE STATUS: DNR/DNI Disposition: consider dc home health vs rehab, f/u with PT 02/14 Plan/VTE VTE Prophylaxis Ordered?: Yes VS, I&O, 24H, Fishbone Vital Signs/I&O Vital Signs Date Time Temp Pulse Resp B/P (MAP) Pulse Ox O2 Delivery O2 Flow Rate FiO2 02/13/19 06:00 98.4 80 19 149/65 (93) 95 02/12/19 22:40 Room Air I&O- Last 24 Hours up to 6 AM 02/13/19 06:00 Intake Total 0 ml Output Total 0 ml Balance 0 ml Laboratory Data 24H LABS Laboratory Tests 2 02/12/19 15:32: Immature Granulocyte % (Auto) 0.2, Neutrophils (%) (Auto) 65.8, Lymphocytes (%) (Auto) 23.3L, Monocytes (%) (Auto) 9.1H, Eosinophils (%) (Auto) 1.1, Basophils (%) (Auto) 0.5, Neutrophils # (Auto) 3.7, Lymphocytes # (Auto) 1.3L, Monocytes # (Auto) 0.5, Eosinophils # (Auto) 0.1, Basophils # (Auto) 0.0, Nucleated Red Blood Cells % (auto) 0.0, Anion Gap 8, Glomerular Filtration Rate > 60.0, Calcium Level 8.6L, Phosphorus Level 3.7, Magnesium Level 2.0, Total Creatine Kinase 33L, Creatine Kinase MB 1.1, Creatine Kinase MB Relative Index 3.33, Troponin I < 0.02, VP-Uyn-N-Type Natriuretic Peptide 450H 02/12/19 20:24: D-Dimer, Quantitative 279.16, Blood Gas Puncture Site UNKNOWN, Blood Gas Bicarbonate Standard 25.5, Venous Blood pH 7.415, Venous Blood Partial Pressure CO2 41.5, Venous Blood Partial Pressure O2 54.3H, Venous Blood Total Carbon Dioxide 27.3, Venous Blood HCO3 26.0, Venous Blood Oxygen Saturation 89.8H, Venous Blood Base Excess 1.3 02/13/19 06:19: Nucleated Red Blood Cells % (auto) 0.0, Anion Gap 6L, Glomerular Filtration Rate > 60.0, Calcium Level 8.7L, Total Creatine Kinase 27L, Creatine Kinase MB < 1.0, Creatine Kinase MB Relative Index 3.70, Troponin I < 0.02, Thyroid Stimulating Hormone (TSH) 0.316L CBC/BMP Laboratory Tests 02/12/19 15:32 02/13/19 06:19 Microbiology Microbiology 02/12/19 Blood Culture, Received Pending 02/12/19 Blood Culture, Received Pending GAVIN DRAPER MD Feb 13, 2019 08:14
[2019-02-13] MEDS: NICOTINE 21MG/24HR 1 EA TRANSDERMAL TD SCH (08:18)
[2019-02-13] MEDS: DOCUSATE SODIUM 100 MG CAP PO SCH (08:28)
[2019-02-13] MEDS: OMEPRAZOLE 20 MG CAP PO SCH (08:28)
[2019-02-13] MEDS: amLODIPine 5 MG TAB PO SCH (08:28)
[2019-02-13] MEDS: GABAPENTIN 300 MG CAP PO SCH ×3 (08:29→20:30)
[2019-02-13] MEDS: **NOTE PATIENT COMMENT** MISC XX SCH (08:29)
[2019-02-13] MEDS: FINASTERIDE 5 MG TAB PO SCH (08:29)
[2019-02-13] MEDS: AUGMENTIN 875 MG TAB PO SCH ×2 (13:26→20:30)
[2019-02-13] MEDS: guaiFENesin ER 600 MG TAB PO SCH ×2 (13:27→20:30)
[2019-02-13 14:00] VITALS: BP 167/70
[2019-02-13] MEDS: IPRATROPIUM 0.5MG/ALBUTEROL 2.5MG INH SOL UD 3ML (DUONEB)(J7620) NEB PRN (15:12)
[2019-02-13] MEDS: LURASIDONE HCL 40 MG TAB (LATUDA) PO SCH (20:30)
[2019-02-13] MEDS: LIDOCAINE 5% (LIDODERM) PATCH TD SCH (20:31)
[2019-02-13] MEDS: ENOXAPARIN 40 MG/0.4 ML SYRINGE (J1650) SC SCH (20:31)
[2019-02-13 21:45] VITALS: BP 145/70
[2019-02-14 06:00] VITALS: BP 139/68
[2019-02-14 06:49] LABS: HEMATOCRIT 37.8 % (42.0-52.0); HEMOGLOBIN 12.2 g/dl (13.5-17.5); MEAN CORPUSCULAR HEMOGLOBIN 33.4 pg (27.0-33.0); MEAN CORPUSCULAR HGB CONC 32.3 g/dl (32.0-36.5); MEAN CORPUSCULAR VOLUME 103.6 fl (80.0-96.0); PLATELET COUNT, AUTOMATED 290 10^3/uL (150-450); RED BLOOD COUNT 3.65 10^6/uL (4.30-6.10); WHITE BLOOD COUNT 4.9 10^3/uL (4.0-10.0)
[2019-02-14 07:16] LABS: BLOOD UREA NITROGEN 32 MG/DL (7-18); CALCIUM LEVEL 8.4 MG/DL (8.8-10.2); CARBON DIOXIDE LEVEL 28 MEQ/L (21-32); CHLORIDE LEVEL 103 MEQ/L (98-107); CREATININE FOR GFR 0.88 MG/DL (0.70-1.30); GLOMERULAR FILTRATION RATE > 60.0 (>42); GLUCOSE, FASTING 96 MG/DL (70-100); POTASSIUM SERUM 4.3 MEQ/L (3.5-5.1); SODIUM LEVEL 137 MEQ/L (136-145)
[2019-02-14] MEDS: NICOTINE 21MG/24HR 1 EA TRANSDERMAL TD SCH (09:30)
[2019-02-14] MEDS: DOCUSATE SODIUM 100 MG CAP PO SCH (09:30)
[2019-02-14 09:31] VITALS: BP 139/68
[2019-02-14] MEDS: guaiFENesin ER 600 MG TAB PO SCH (09:31)
[2019-02-14] MEDS: FINASTERIDE 5 MG TAB PO SCH (09:31)
[2019-02-14] MEDS: amLODIPine 5 MG TAB PO SCH (09:31)
[2019-02-14] MEDS: AUGMENTIN 875 MG TAB PO SCH (09:31)
[2019-02-14] MEDS: OMEPRAZOLE 20 MG CAP PO SCH (09:31)
[2019-02-14] MEDS: GABAPENTIN 300 MG CAP PO SCH (09:31)
[2019-02-14] MEDS: **NOTE PATIENT COMMENT** MISC XX SCH (09:32)
[2019-02-14] MEDS: IPRATROPIUM 0.5MG/ALBUTEROL 2.5MG INH SOL UD 3ML (DUONEB)(J7620) NEB PRN (09:55)
[2019-02-14] MEDS ORDERED: MUCI600T31 PO (11:33)
[2019-02-14] MEDS ORDERED: AMOX875T2 PO (11:33)
--- NOTE | 2019-02-14 11:34 | DS.PDOC ---
Discharge Summary General Date of Admission Feb 12, 2019 at 19:43 Date of Discharge 02/14/19 Discharge Summary PROCEDURES PERFORMED DURING STAY: Echo: EF 70s%. ADMITTING DIAGNOSES: 1., Generalized weakness. DISCHARGE DIAGNOSES: 1. Rhinovirus/enterovirus/bacterial sinusitis. COMPLICATIONS/CHIEF COMPLAINT: Dyspnea. HISTORY OF PRESENT ILLNESS: Pt is a 73 yoM w/ PMH of Chronic HTN, BPH, GERD, Chronic Back pain and Peripheral neuropathy who will be admitted for evaluation of dyspnea and found to be positive for human rhinovisus/enterovirus. Patient did not require physical therapy, still reports fatigue, but is ready to go home for systematic treatment. Educated patient on systematic treatment, will discharge patient home with 10 day course of Augmentin for bacterial sinusitis. Patient is to follow up with his primary care physician in one to 2 weeks. All questions were answered. DISCHARGE MEDICATIONS: Please see below. ALLERGIES: Please see below. PHYSICAL EXAMINATION ON DISCHARGE: VITAL SIGNS: Please see below. GENERAL: No distress HEENT: Normocephalic, atraumatic, moist mucous membranes, tenderness to palpation in the frontal and maxillary sinuses NECK: Supple CARDIOVASCULAR EXAMINATION: S1, S2 RESPIRATORY EXAMINATION: CTAB ABDOMINAL EXAMINATION: Soft, nontender, nondistended, positive bowel sounds EXTREMITIES: no edema, bruising on lateral hips, nontender to palpation SKIN: No rash NEUROLOGICAL EXAMINATION: Alert and oriented 3, no focal deficits PSYCHIATRIC EXAMINATION: Patient has capacity LABORATORY DATA: Please see below. IMAGING: CXR: no acute findings PROGNOSIS: good ACTIVITY: As tolerated. DIET: heart healthy DISCHARGE PLAN: home DISPOSITION: home. DISCHARGE INSTRUCTIONS: 1. see above. ITEMS TO FOLLOWUP ON ON OUTPATIENT: 1. see above. DISCHARGE CONDITION: Stable. TIME SPENT ON DISCHARGE: 35 minutes. Vital Signs/I&Os Vital Signs Date Time Temp Pulse Resp B/P (MAP) Pulse Ox O2 Delivery O2 Flow Rate FiO2 02/14/19 09:31 64 139/68 02/14/19 06:00 98.0 20 95 Room Air I&O- Last 24 Hours up to 6 AM 02/14/19 06:00 Intake Total 1570 ml Output Total 525 ml Balance 1045 ml Laboratory Data Labs 24H Laboratory Tests 2 02/14/19 06:22: Nucleated Red Blood Cells % (auto) 0.0, Anion Gap 6L, Glomerular Filtration Rate > 60.0, Calcium Level 8.4L CBC/BMP Laboratory Tests 02/14/19 06:22 Microbiology Microbiology 02/13/19 Respiratory Virus Panel (PCR) ([facility]) - Final, Complete Human Rhinovirus/Enterovirus 02/12/19 Blood Culture - Preliminary, Resulted No growth after 24 hours . All specim... 02/12/19 Blood Culture - Preliminary, Resulted No growth after 24 hours . All specim... Discharge Medications Scheduled Amoxicillin/Potassium Clav (Amox-Clav 875-125 mg Tablet) 1 Each Tablet, 875 MG PO BID Docusate Sodium (Docusate Sodium) 100 Mg Tablet, 100 MG PO DAILY, (Reported) Finasteride (Finasteride) 5 Mg Tablet, 5 MG PO DAILY, (Reported) Gabapentin (Gabapentin) 600 Mg Tablet, 600 MG PO TID, (Reported) Guaifenesin (Mucinex) 600 Mg Tab.er.12h, 600 MG PO BID prn Lurasidone HCl (Latuda) 120 Mg Tablet, 120 MG PO QHS, (Reported) Melatonin (Melatonin) 3 Mg Tablet, 6 MG PO QHS, (Reported) Meloxicam (Meloxicam) 15 Mg Tablet, 15 MG PO DAILY, (Reported) Multivitamin with Minerals (Multivitamins with Minerals) 1 Each Tablet, 1 TAB PO DAILY, (Reported) Nicotine (Nicotine Patch) 21 Mg/24 Hr Patch.td24, 21 MG TD DAILY, (Reported) APPLIED TO LEFT SHOULDER Omeprazole (Omeprazole) 20 Mg Capsule.dr, 20 MG PO DAILY, (Reported) Sennosides (Senna) 8.6 Mg Tablet, 2 TAB PO BID, (Reported) Sertraline HCl (Sertraline HCl) 100 Mg Tablet, 200 MG PO DAILY, (Reported) UNABLE TO VERIFY IF PATIENT IS STILL TAKING THIS MEDICATION Terazosin Hcl (Terazosin HCl) 10 Mg Capsule, 20 MG PO QHS, (Reported) UNABLE TO VERIFY IF PATIENT IS STILL TAKING THIS MEDICATION Scheduled PRN Acetaminophen (Acetaminophen 8 Hour) 650 Mg Tablet.er, 650 MG PO Q6H PRN for PAIN, (Reported) Diclofenac Sodium (Diclofenac Sodium) 50 Mg Tablet.dr, 50 MG PO DAILY PRN for PAIN, (Reported) Lidocaine (Lidocaine) 15 Gm Cream..g., 1 DOSE TOP DAILY PRN for PAIN, (Reported) Nicotine Polacrilex (Nicotine Gum) 4 Mg Gum, 4 MG PO Q2H PRN for SMOKING CESSATION, (Reported) Polyethylene Glycol 3350 (Miralax) 17 Gm Powd.pack, 17 GM PO DAILY PRN for CONSTIPATION, (Reported) Allergies Coded Allergies: aspirin (Verified Allergy, Unknown, 10/06/18) GAVIN DRAPER MD Feb 14, 2019 11:34
--- NOTE | 2019-02-14 16:03 | ECHO ---
DATE OF PROCEDURE: 02/13/2019 AGE: 73. GENDER: Male. HEIGHT: 66 inches. WEIGHT: 108 pounds. BODY SURFACE AREA: 1.54 sq m. [facility]: [id number]. REFERRING PHYSICIAN: Dr. Stan Lugo INDICATION: Dyspnea. MEASUREMENTS: 2D measurements: RV - 4.0 cm LV - 4.3 cm Septum 1.2 cm Posterior wall 1.1 cm Aortic root 3.8 cm LA - 3.9 cm LVEF 75% Doppler measurements: AV - 1.34 m/s LVOT - 0.93 m/s LVOT diameter 2.3 cm MV-E 65, A 112 E/A ratio 0.6 Early mitral deceleration time 313 ms E prime medial 6.4 A prime medial 10.4 E prime lateral 6.5 E/E prime average 10 PCWP 14.4 mmHg PV - 0.8 m/s Pulmonary artery acceleration time 152 ms PASP: 9 mmHg IVC - 1.6 cm COMMENTS: Normal sinus rhythm without intraventricular conduction disturbance. M-mode and two-dimensional echocardiography was performed with pulsed, continuous wave, color flow and tissue Doppler studies. Left ventricular size upper limits of normal with hyperkinetic wall motion. Left atrial size upper limits of normal with grade one LV diastolic dysfunction and mildly elevated estimated mean left atrial pressure. Normal right heart chamber sizes and motion and estimated pulmonary arterial pressure. Normal IVC size and collapse against an elevated central venous pressure. Mild aortic valvular sclerosis without functional abnormality. Moderately severe mitral annular calcification without inflow tract obstruction and no more than trace insufficiency. Normal appearing and functioning tricuspid valve. No apparent intracardiac mass or pericardial effusion. Normal aortic dimensions.
== END 2019-02-14 14:20 | disposition home or self-care (01) | DRG 153 ==
LOC: M ED 13:32 → M ED INP 19:43 → M MSPAV 22:38 → M MS5PR 02-13 21:41
PROVIDERS: ADMIT Internal Medicine; ATTEND Family Medicine
DX: J32.9 Chronic sinusitis, unspecified (principal); Z79.899 Other long term (current) drug therapy; Z88.6 Allergy status to analgesic agent; I10 Essential (primary) hypertension; Z91.19 Patient's noncompliance with other medical treatment and regimen; N40.0 Benign prostatic hyperplasia without lower urinary tract symptoms; F31.9 Bipolar disorder, unspecified; M54.5 Low back pain; M54.2 Cervicalgia; G62.9 Polyneuropathy, unspecified; F17.200 Nicotine dependence, unspecified, uncomplicated; K21.9 Gastro-esophageal reflux disease without esophagitis; Z66 Do not resuscitate; B97.10 Unspecified enterovirus as the cause of diseases classified elsewhere; B97.89 Other viral agents as the cause of diseases classified elsewhere

== ENCOUNTER → 2019-07-18 | Outpatient (REF) | payer OTHER ==
[~2019-07-18] MED LIST changes: +AMOX875T2 PO; +LIDO4CRE4 TOP; +MUCI600T31 PO; +OMEP1CAP73 PO; -OMEP20CA4 PO; +PRED10TA2 PO; +SENN-80 PO; -SENN1TAB8 PO; -SIMV20TA2 PO; +SIMV20TA22 PO
[2019-07-19 15:03] LABS: APPEARANCE, URINE CLEAR (CLEAR); BACTERIA, URINE AUTO 1+ (NEGATIVE); BILIRUBIN, URINE AUTO NEGATIVE (NEGATIVE); BLOOD, URINE BLOOD NEGATIVE (NEGATIVE); COLOR, URINE STRAW (YELLOW); GLUCOSE, URINE (UA) AUTO 1+ mg/dL (NEGATIVE); KETONE, URINE AUTO NEGATIVE (NEGATIVE); LEUKOCYTE ESTERASE, URINE AUTO NEGATIVE (NEGATIVE); MUCUS, URINE SMALL (NEGATIVE); NITRITE, URINE AUTO NEGATIVE (NEGATIVE); PROTEIN, URINE AUTO NEGATIVE (NEGATIVE); RBC, URINE AUTO 0 /HPF (0-3); SPECIFIC GRAVITY URINE AUTO 1.006 (1.002-1.035); SQUAMOUS EPITHELIAL CELL UR AU 0 /HPF (0-6); UROBILINOGEN, URINE AUTO 0.2 mg/dL (0.0-2.0); WBC, URINE AUTO 0 /HPF (0-3)
== END ==
LOC: M SMT 14:25
PROVIDERS: ATTEND Nurse Practitioner Women's Health
DX: R35.0 Frequency of micturition (principal)
CPT/HCPCS: 51798; 81001; 87086; G0463

== ENCOUNTER 2019-08-31 10:48 | Emergency (ER) | payer OTHER ==
[~2019-08-31] VITALS: Ht 177.8 cm; Wt 63.8 kg
[~2019-08-31 10:48] MED LIST changes: -NICO4GUM29 PO; +[UNRECOGNIZED DRUG - CODE] PO
[2019-08-31] MEDS ORDERED: VENTAER INH (11:37)
[2019-08-31] MEDS ORDERED: GABA-843 PO (11:37)
[2019-08-31] MEDS ORDERED: CELE100C PO (11:37)
[2019-08-31] MEDS ORDERED: DOCU100C16 PO (11:37)
[2019-08-31] MEDS ORDERED: LISI10TA4 PO (11:37)
[2019-08-31 11:51] LABS: BASO % 0.2 % (0.0-1.0); EOS % 0.7 % (0.0-3.0); HEMATOCRIT 39.9 % (42.0-52.0); HEMOGLOBIN 13.4 g/dl (13.5-17.5); LYMPH # 0.8 10^3/uL (1.5-5.0); LYMPH % 15.2 % (24.0-44.0); MEAN CORPUSCULAR HEMOGLOBIN 33.3 pg (27.0-33.0); MEAN CORPUSCULAR HGB CONC 33.6 g/dl (32.0-36.5); MONO # 0.4 10^3/uL (0.0-0.8); MONO % 6.6 % (0.0-5.0); NEUTROPHILS # 4.1 10^3/uL (1.5-8.5); NEUTROPHILS % 77.1 % (36.0-66.0); PLATELET COUNT, AUTOMATED 220 10^3/uL (150-450); RED BLOOD COUNT 4.03 10^6/uL (4.30-6.10); WHITE BLOOD COUNT 5.3 10^3/uL (4.0-10.0)
[2019-08-31 12:17] LABS: ALBUMIN 3.8 GM/DL (3.2-5.2); ALT/SGPT 23 U/L (12-78); BILIRUBIN,DIRECT 0.1 MG/DL (0.0-0.2); BILIRUBIN,TOTAL 0.5 MG/DL (0.2-1.0); BLOOD UREA NITROGEN 15 MG/DL (7-18); CARBON DIOXIDE LEVEL 30 MEQ/L (21-32); CHLORIDE LEVEL 101 MEQ/L (98-107); CREATININE FOR GFR 0.72 MG/DL (0.70-1.30); GLOMERULAR FILTRATION RATE > 60.0 (>42); GLUCOSE, FASTING 141 MG/DL (70-100); POTASSIUM SERUM 3.9 MEQ/L (3.5-5.1); SODIUM LEVEL 137 MEQ/L (136-145); TOTAL PROTEIN 6.7 GM/DL (6.4-8.2)
[2019-08-31 15:08] VITALS: BP 160/73
== END 2019-08-31 15:45 | disposition home or self-care (01) ==
LOC: M ED 10:48
DX: G89.29 Other chronic pain (principal); M54.9 Dorsalgia, unspecified; H81.10 Benign paroxysmal vertigo, unspecified ear; F17.200 Nicotine dependence, unspecified, uncomplicated; Z79.51 Long term (current) use of inhaled steroids; Z79.899 Other long term (current) drug therapy; Z88.6 Allergy status to analgesic agent

== ENCOUNTER 2020-05-07 17:30 | Inpatient (IN) | payer OTHER ==
[~2020-05-07] VITALS: Ht 170.2 cm; Wt 71.3 kg
[~2020-05-07 17:30] MED LIST changes: +AMLO1TAB24 PO; -AMLO5TAB6 PO; +CELE100C PO; +DOCU100C16 PO; +GABA-282 PO; -LISI-542 PO; +LISI-898 PO; +LISI10TA22 PO; +MELA3TAB10 PO; -MELATAB2 PO; +METH-1164 PO; -METH1TAB40 PO
--- OUTSIDE RECORDS SUMMARY | 2020-05-07 17:38 | CCD ---
Author Author [facility] Organization [facility] Address Unknown Phone Unavailable Support Name Relationship Address Phone KIERRA VILLELA Next [place] [address] [place] [address] DISABLED Next Of Kin Unknown Unavailable CARLOS VILLELA Next Of Kin [address] [place] [address] RE Next Of Kin Unknown Unavailable YUE VILLELA Next Of Kin [address] [place] [address] TIKAMILLIE MAJOR Next Of Kin [address] [place] [address] TIKAYUE MAJOR [facility] [address] [place] [address] Unavailable Re-disclosure Warning The records that you are about to access may contain information from federally-assisted alcohol or drug abuse programs. If such information is present, then the following federally mandated warning applies: This information has been disclosed to you from records protected by federal confidentiality rules (42 CFR part 2). The federal rules prohibit you from making any further disclosure of this information unless further disclosure is expressly permitted by the written consent of the person to whom it pertains or as otherwise permitted by 42 CFR part 2. A general authorization for the release of medical or other information is NOT sufficient for this purpose. The Federal rules restrict any use of the information to criminally investigate or prosecute any alcohol or drug abuse patient.The records that you are about to access may contain highly sensitive health information, the redisclosure of which is protected by Article 27-F of the [facility] Public Health law. If you continue you may have access to information: Regarding HIV / AIDS; Provided by facilities licensed or operated by the [facility] Office of Mental Health; or Provided by the [facility] Office for People With Developmental Disabilities. If such information is present, then the following [facility] mandated warning applies: This information has been disclosed to you from confidential records which are protected by state law. State law prohibits you from making any further disclosure of this information without the specific written consent of the person to whom it pertains, or as otherwise permitted by law. Any unauthorized further disclosure in violation of state law may result in a fine or mcfp sentence or both. A general authorization for the release of medical or other information is NOT sufficient authorization for further disc losure. Allergies and Adverse Reactions Type Description Substance Reaction Status Data Source(s ) Aspirin Aspirin Aspirin bleeding ulcer Active eCW1 ([facility]) Encounters Encounter Providers Location Date Indications Data Source(s ) [facility] Urology [address] [place] [phone] 07/20/2019 12:00:00 AM EDT eCW1 (Critical access hospital) [facility] Urology [address] [place] [phone] 07/18/2019 12:00:00 AM EDT eCW1 (Critical access hospital) [facility] Urology [address] [place] [phone] 07/18/2019 12:00:00 AM EDT eCW1 (Critical access hospital) Outpatient 04/24/2019 09:00:00 AM EST [facility] Medications Medication Brand Name Start Date Product Form Dose Route Admi nistrative Instructions Pharmacy Instructions Status Indications Reaction Description Data Source(s) Sulfamethoxazole 800 MG / Trimethoprim 1 60 MG Oral Tablet [Bactrim] Bactrim DS 800-160 MG Bactrim DS 800-160 MG 07/18/2019 12:00:00 AM EDT active 1 tablet eCW1 ([facility] hospital) Insurance Providers Payer name Policy type / Coverage type Policy ID Covered libertarian ID Covered libertarian's relationship to fang Policy Fang Plan Information 'S ADMINISTRATION [id number] SP [id number] [facility] [id number] SP [id number] [facility] [id number] SP [id number] [facility] O [id number] S [id number] 52 'S ADMINISTRATION [id number] SP [id number] [facility] O [id number] S [id number] [address] [id number] SP [id number] SELF PAY UNAVAILABLE SP UNAVAILA BLE [address] [id number] SP [id number] Problems, Conditions, and Diagnoses Code Display Name Description Problem Type Effective Dates Data Source(s) N40.0 Benign prostatic hypertrophy without out flow obstruction Benign prostatic hyperplasia without lower urinary tract symptoms Problem 07/17 12:00:00 AM EDT eCW1 ([facility]) Surgeries/Procedures Procedure Description Date Indications Data Source(s) US URINE CAPACITY MEASURE 07/18/2019 12:00:00 AM EDT eCW1 ([facility]) Vital Signs ID Date Data Source UNK Name Value Range Interpretation Code Description Data Source(s) Diastolic blood pressure 92 mm[Hg] 92 mm[Hg] eCW1 ([facility]) Systolic blood pressure 170 mm[Hg] 170 mm[Hg] e CW1 ([facility]) Body temperature 95.0 [degF] 95.0 [degF] eCW1 ( [facility]) Respiratory rate 20 /min 20 /min eCW1 ([facility]) Heart rate 66 /min 66 /min eCW1 ([facility]) Body mass index (BMI) [Ratio] 23.24 kg/m2 23.24 kg/m2 W1 ([facility]) Body height 70 [in_us] 70 [in_us] eCW1 ([facility]) Body weight Measured 162 [lb_av] 162 [lb_av] eC W1 ([facility]) Patient Treatment Plan of Care Planned Activity Planned Date Details Description Data Source (s) Sulfamethoxazole 800 MG / Trimethoprim 160 MG Oral Tab let [Bactrim] 07/18/2019 12:00:00 AM EDT eCW1 ([facility])
[2020-05-07 18:28] LABS: ABG BASE EXCESS -0.5 (-2.0-2.0); ABG HCO3 24.9 MEQ/L (22.0-26.0); ABG O2 SATURATION 95.5 % (95.0-99.0); ABG PARTIAL PRESSURE O2 78.4 mmHg (75.0-100.0); ABG TOTAL CO2 26.3 MEQ/L (23.0-31.0); ABG pH (ARTERIAL) 7.371 UNITS (7.350-7.450)
[2020-05-07 18:58] LABS: BASO % 0.1 % (0.0-1.0); EOS % 0.1 % (0.0-3.0); HEMATOCRIT 36.6 % (42.0-52.0); LYMPH # 0.6 10^3/uL (1.5-5.0); LYMPH % 4.8 % (24.0-44.0); MEAN CORPUSCULAR HEMOGLOBIN 32.2 pg (27.0-33.0); MEAN CORPUSCULAR HGB CONC 32.8 g/dl (32.0-36.5); MEAN CORPUSCULAR VOLUME 98.1 fl (80.0-96.0); MONO # 0.6 10^3/uL (0.0-0.8); MONO % 5.1 % (0.0-5.0); NEUTROPHILS # 11.1 10^3/uL (1.5-8.5); NEUTROPHILS % 89.5 % (36.0-66.0); PLATELET COUNT, AUTOMATED 261 10^3/uL (150-450); RED BLOOD COUNT 3.73 10^6/uL (4.30-6.10); WHITE BLOOD COUNT 12.4 10^3/uL (4.0-10.0)
[2020-05-07 19:10] LABS: INR 0.92; PROTHROMBIN TIME 12.6 SECONDS (12.5-14.3)
[2020-05-07 19:28] LABS: ALBUMIN 3.7 GM/DL (3.2-5.2); ALT/SGPT 23 U/L (12-78); BILIRUBIN,DIRECT 0.1 MG/DL (0.0-0.2); BILIRUBIN,TOTAL 0.3 MG/DL (0.2-1.0); BLOOD UREA NITROGEN 32 MG/DL (7-18); CALCIUM LEVEL 8.8 MG/DL (8.8-10.2); CARBON DIOXIDE LEVEL 27 MEQ/L (21-32); CHLORIDE LEVEL 101 MEQ/L (98-107); CK-MB VALUE MASS 2.3 NG/ML (<3.6); CPK CREATINE PHOSPHOKINASE 53 U/L (39-308); CREATININE FOR GFR 1.25 MG/DL (0.70-1.30); FREE T4 1.08 NG/DL (0.76-1.46); GLOMERULAR FILTRATION RATE > 60.0 (>42); GLUCOSE, FASTING 124 MG/DL (70-100); LIPASE 47 U/L (73-393); MB/CK RELATIVE INDEX 4.34 (< OR =4); NT-PRO BNP 1358 PG/ML (<125); POTASSIUM SERUM 4.4 MEQ/L (3.5-5.1); SODIUM LEVEL 136 MEQ/L (136-145); THYROID STIMULATING HORMONE 0.649 uIU/ML (0.358-3.740); TOTAL PROTEIN 6.7 GM/DL (6.4-8.2); TROPONIN I < 0.02 NG/ML (< 0.10)
--- NOTE | 2020-05-07 19:56 | REP ---
INDICATION: CHEST PAIN COMPARISON: 02/12/2019 TECHNIQUE: Portable AP view of the chest FINDINGS: Large left tension pneumothorax with contralateral mediastinal shift. Underlying diffuse chronic interstitial changes. No effusion. Cardiac silhouette is normal. IMPRESSION: Large left tension pneumothorax. <Electronically signed by Magnus Ott > 05/07/201951
--- NOTE | 2020-05-07 20:03 | ECGEPIP ---
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
[2020-05-07] MEDS ORDERED: MORPHINE 2 MG/ML 1ML VIAL (J2270) IV ONE (20:30)
--- NOTE | 2020-05-07 20:34 | REPVR ---
PROCEDURE INFORMATION: Exam: CT Cervical Spine Without Contrast Exam date and time: 05/07/2020 8:02 PM Age: 74 years old Clinical indication: Injury or trauma; Fall; Blunt trauma TECHNIQUE: Imaging protocol: Computed tomography images of the cervical spine without contrast. Radiation optimization: All CT scans at this facility use at least one of these dose optimization techniques: automated exposure control; mA and/or kV adjustment per patient size (includes targeted exams where dose is matched to clinical indication); or iterative reconstruction. COMPARISON: CT Spine,cervical w/o contrast 11/09/2018 2:37 PM FINDINGS: Bones/joints: Grade 1 anterolisthesis of C5 on C6. Vertebral body heights are preserved. Moderate degenerative change about the dens. Mild to moderate prevertebral osteophytosis. There are facet joint degenerative changes greater on the right. Discs/Spinal canal/Neural foramina: Central canal stenosis greatest at C4-C5, at least mild. Lungs: Lung apices are normal. Pleural spaces: Left-sided pneumothorax is incompletely visualized. Soft tissues: Soft tissue gas involving the left neck. IMPRESSION: 1. No acute cervical spine fracture. 2. Large left-sided pneumothorax, incompletely visualized. Electronically signed by: Deniz Zhang On 05/07/2020 20:34:01 PM
--- NOTE | 2020-05-07 20:37 | REPVR ---
PROCEDURE INFORMATION: Exam: CT Head Without Contrast Exam date and time: 05/07/2020 8:02 PM Age: 74 years old Clinical indication: Injury or trauma; Fall; Blunt trauma (contusions or hematomas) TECHNIQUE: Imaging protocol: Computed tomography of the head without contrast. Radiation optimization: All CT scans at this facility use at least one of these dose optimization techniques: automated exposure control; mA and/or kV adjustment per patient size (includes targeted exams where dose is matched to clinical indication); or iterative reconstruction. COMPARISON: CT Head without contrast 11/09/2018 9:23 AM FINDINGS: Limitations: Patient motion. Brain: Decreased attenuation of the supratentorial white matter is likely secondary to chronic microvascular ischemia. No definite acute intracranial hemorrhage. Cerebral ventricles: Ventricular and subarachnoid spaces are age appropriate. Bones/joints: No definite acute calvarial fracture. Paranasal sinuses: Visualized sinuses are unremarkable. No fluid levels. Mastoid air cells: Visualized mastoid air cells are well aerated. Vasculature: Intracranial vascular calcification. Soft tissues: Unremarkable. IMPRESSION: Patient motion without definite acute intracranial abnormality. Electronically signed by: Deniz Zhang On 05/07/2020 20:37:03 PM
--- OUTSIDE RECORDS SUMMARY | 2020-05-07 20:55 | CCD ---
Author Author [facility] Organization [facility] Address Unknown Phone Unavailable Support Name Relationship Address Phone KIERRA VILLELA Next Of Kin [address] [place] [address] DISABLED Next Of Kin Unknown Unavailable CARLOS VILLELA Next Of Kin [address] [place] [address] RE Next Of Kin Unknown Unavailable YUE VILLELA Next Of Kin [address] [place] [address] TIKAMILLIE MAJOR Next Of Kin [address] [place] [address] TIKAYUE MAJOR [facility] [address] [place] [address] Unavailable Re-disclosure Warning The records that you [...] is protected by Article 27-F of the [facility] Public Health law. If you continue you may have access to information: Regarding HIV / AIDS; Provided by facilities licensed or operated by the [facility] Office of Mental Health; or Provided by the [facility] Office for People With Developmental Disabilities. If such information is present, then the following [facility] mandated warning applies: This information has been [...] law may result in a fine or alf sentence or both. A general authorization for the release of medical or other information is NOT sufficient authorization for further disc losure. Allergies and Adverse Reactions Type Description Substance Reaction Status Data Source(s ) Aspirin Aspirin Aspirin bleeding ulcer Active eCW1 ([facility]) Encounters Encounter Providers Location Date Indications Data Source(s ) [facility] Urology [address] [place] [phone] 07/20/2019 12:00:00 AM EDT eCW1 ([facility]) [facility] Urology [address] [place] [phone] 07/18/2019 12:00:00 AM EDT eCW1 ([facility]) [facility] Urology [address] [place] [phone] 07/18/2019 12:00:00 AM EDT eCW1 ([facility]) Outpatient 04/24/2019 09:00:00 AM EST [facility] Medications Medication Brand Name Start Date Product Form Dose Route Admi nistrative Instructions Pharmacy Instructions Status Indications Reaction Description Data Source(s) Sulfamethoxazole 800 MG / Trimethoprim 1 60 MG Oral Tablet [Bactrim] Bactrim DS 800-160 MG Bactrim DS 800-160 MG 07/18/2019 12:00:00 AM EDT active 1 tablet eCW1 ([facility]) Insurance Providers Payer name Policy type / Coverage type Policy ID Covered libertarian ID Covered libertarian's relationship to fang Policy Fang Plan Information 'S ADMINISTRATION [id number] SP [id number] [facility] [id number] SP [id number] [facility] [id number] SP [id number] [facility] O [id number] S [id number] 52 'S ADMINISTRATION [id number] SP [id number] [facility] O [id number] S [id number] [address] [id number] SP [id number] SELF PAY UNAVAILABLE SP UNAVAILA BLE [address] [id number] SP [id number] Problems, Conditions, and Diagnoses Code Display Name Description Problem Type Effective Dates Data Source(s) N40.0 Benign prostatic hypertrophy without out flow obstruction Benign prostatic hyperplasia without lower urinary tract symptoms Problem 07/17 12:00:00 AM EDT eCW1 ([facility]) Surgeries/Procedures Procedure Description Date Indications Data Source(s) US URINE CAPACITY MEASURE 07/18/2019 12:00:00 AM EDT eCW1 ([facility]) Vital Signs ID Date Data Source UNK Name Value Range Interpretation Code Description Data Source(s) Diastolic blood pressure 92 mm[Hg] 92 mm[Hg] eCW1 ([facility]) Systolic blood pressure 170 mm[Hg] 170 mm[Hg] e CW1 ([facility]) Body temperature 95.0 [degF] 95.0 [degF] eCW1 ( [facility]) Respiratory rate 20 /min 20 /min eCW1 ([facility]) Heart rate 66 /min 66 /min eCW1 ([facility]) Body mass index (BMI) [Ratio] 23.24 kg/m2 23.24 kg/m2 W1 ([facility]) Body height 70 [in_us] 70 [in_us] eCW1 ([facility]) Body weight Measured 162 [lb_av] 162 [lb_av] eC W1 ([facility]) Patient Treatment Plan of Care Planned Activity Planned Date Details Description Data Source (s) Sulfamethoxazole 800 MG / Trimethoprim 160 MG Oral Tab let [Bactrim] 07/18/2019 12:00:00 AM EDT eCW1 ([facility])
[2020-05-07 20:56] VITALS: BP 136/62
--- OUTSIDE RECORDS SUMMARY | 2020-05-07 20:56 | CCD ---
Author Author [facility] Organization [facility] Address Unknown Phone Unavailable Support Name Relationship Address Phone KIERRA VILLELA Next Of Kin [address] [place] [address] DISABLED Next Of Kin Unknown Unavailable CARLOS VILLELA Next Of Kin [address] [place] [address] RE Next Of Kin Unknown Unavailable YUE VILLELA Next Of Kin [address] [place] [address] TIKAMILLIE MAJOR Next Of Kin [address] [place] [address] TIKAYUE MAJOR [facility] [address] [place] [address] Unavailable Re-disclosure Warning The records that you [...] is protected by Article 27-F of the [facility] Public Health law. If you continue you may have access to information: Regarding HIV / AIDS; Provided by facilities licensed or operated by the [facility] Office of Mental Health; or Provided by the [facility] Office for People With Developmental Disabilities. If such information is present, then the following [facility] mandated warning applies: This information has [...] law may result in a fine or longterm sentence or both. A general authorization for the release of medical or other information is NOT sufficient authorization for further disc losure. Allergies and Adverse Reactions Type Description Substance Reaction Status Data Source(s ) Aspirin Aspirin Aspirin bleeding ulcer Active eCW1 ([facility]) Encounters Encounter Providers Location Date Indications Data Source(s ) [facility] [address] [place] [id number] 07/20/2019 12:00:00 AM EDT eCW1 ([facility]) [facility] [address] [place] [id number] 07/18/2019 12:00:00 AM EDT eCW1 ([facility]) [facility] [address] [place] [phone] 07/18/2019 12:00:00 AM EDT eCW1 ([facility]) Outpatient 04/24/2019 09:00:00 AM EST [facility] Medications Medication Brand Name Start Date Product Form Dose Route Admi nistrative Instructions Pharmacy Instructions Status Indications Reaction Description Data Source(s) Sulfamethoxazole 800 MG / Trimethoprim 1 60 MG Oral Tablet [Bactrim] Bactrim DS 800-160 MG Bactrim DS 800-160 MG 07/18/2019 12:00:00 AM EDT active 1 tablet eCW1 ([facility]) Insurance Providers Payer name Policy type / Coverage type Policy ID Covered green party ID Covered green party's relationship to fang Policy Fang Plan Information 'S ADMINISTRATION [id number] SP [id number] [facility] [id number] SP [id number] [facility] [id number] SP [id number] [facility] O [id number] S [id number] 'S ADMINISTRATION [id number] SP [id number] [facility] O [id number] S [id number] [address] [id number] SP [id number] SELF PAY UNAVAILABLE SP UNAVAILA BLE [address] [id number] SP [id number] Problems, Conditions, and Diagnoses Code Display Name Description Problem Type Effective Dates Data Source(s) N40.0 Benign prostatic hypertrophy without out flow obstruction Benign prostatic hyperplasia without lower urinary tract symptoms Problem 07/17 12:00:00 AM EDT eCW1 ([facility]) Surgeries/Procedures Procedure Description Date Indications Data Source(s) US URINE CAPACITY MEASURE 07/18/2019 12:00:00 AM EDT eCW1 ([facility]) Vital Signs ID Date Data Source UNK Name Value Range Interpretation Code Description Data Source(s) Diastolic blood pressure 92 mm[Hg] 92 mm[Hg] eCW1 ([facility]) Systolic blood pressure 170 mm[Hg] 170 mm[Hg] e CW1 ([facility]) Body temperature 95.0 [degF] 95.0 [degF] eCW1 ( [facility]) Respiratory rate 20 /min 20 /min eCW1 ([facility]) Heart rate 66 /min 66 /min eCW1 ([facility]) Body mass index (BMI) [Ratio] 23.24 kg/m2 23.24 kg/m2 W1 ([facility]) Body height 70 [in_us] 70 [in_us] eCW1 ([facility]) Body weight Measured 162 [lb_av] 162 [lb_av] eC W1 ([facility]) Patient Treatment Plan of Care Planned Activity Planned Date Details Description Data Source (s) Sulfamethoxazole 800 MG / Trimethoprim 160 MG Oral Tab let [Bactrim] 07/18/2019 12:00:00 AM EDT eCW1 ([facility])
[2020-05-07] MEDS ORDERED: GABAPENTIN 300 MG CAP PO SCH (21:00)
[2020-05-07] MEDS ORDERED: TERAZOSIN 5 MG CAP PO SCH (21:00)
[2020-05-07] MEDS: LURASIDONE HCL 40 MG TAB (LATUDA) PO SCH (21:00)
[2020-05-07] MEDS ORDERED: flumazeniL 0.5 MG/5 ML VIAL As Ordered ONE (21:05)
[2020-05-07] MEDS ORDERED: LIDOCAINE 1% MDV 20ML VIAL As Ordered ONE (21:06)
[2020-05-07] MEDS ORDERED: MIDAZOLAM INJ 2MG/2ML VIAL (J2250 PER 1MG) As Ordered ONE (21:06)
[2020-05-07] MEDS ORDERED: ZOLO100T PO (21:15)
[2020-05-07 21:33] VITALS: BP 162/74
[2020-05-07 21:35] VITALS: BP 145/68
[2020-05-07 21:37] VITALS: BP 139/70
[2020-05-07 21:39] VITALS: BP 146/71
[2020-05-07 21:41] VITALS: BP 129/65
[2020-05-07] MEDS ORDERED: ACETAMINOPHEN TAB 650MG DOSE (2X325MG) PO PRN (21:45)
[2020-05-07] MEDS ORDERED: LEVALBUTEROL 1.25 MG/0.5 ML CONCENTRATE NEB NEB PRN (21:45)
[2020-05-07] MEDS ORDERED: ONDANSETRON 4MG/2ML VIAL IV PRN (21:45)
[2020-05-07] MEDS ORDERED: BISACODYL 10 MG SUPP PR PRN (21:45)
[2020-05-07] MEDS ORDERED: KCL 20MEQ IN D5/NS 1000ML 1,000 ML IV SCH (21:45)
[2020-05-07] MEDS ORDERED: ASPI-264 PO (22:42)
[2020-05-07] MEDS ORDERED: LIDO1PAD TOP (22:42)
--- NOTE | 2020-05-07 22:42 | HPEPDOC ---
General Date of Admission May 07, 2020 at 20:46 Date of Service: May 07, 2020 Chief Complaint The patient is a 74-year-old male admitted with a reason for visit of Dyspnea,Fall,Hypoxia,Orthostatic Hypotension,Pneum. Source: Patient Exam Limitations: Mild cognitive slowing, Garbled speech, Other (memory) Timing/Duration: Day(s) (1) Severity: Moderate Associated Symptoms: Malaise, Shortness of breath, Weakness, Dizziness, Mechanical fall History of Present Illness Patient is a 74 yo male with hx of HTN, bipolar disorder, and reported COPD presented to [facility] due to dyspnea after 2 falls today. He reported that he has generalized weakness starting this morning, reported that he measured his blood pressure at home, and the blood pressure was low. However patient was unable to recall the blood pressure measurement. He reported that he is taking the medications as prescribed. Denies any recent medication changes. He reported that he also feel dizzy, and felt that he was going to pass out but denied actually having syncope event. Lightheadedness worse with standing. He reported that he fell twice today, once in the bedroom(AM) and once in the bathroom. He reported with the falls he only hit left rib cage and did not hit any other parts of his body. He reported that he usually uses either a cane/walker at home, and he was using a walker today. He reported shortly after the fall, he started having dyspnea, and reported having hyperventilation. Pt also reported having sweating and hot flashes, he reported productive cough with phlegm without blood in sputum. Home Medications Scheduled Aspirin (Aspirin) 325 Mg Tablet, 162.5 MG PO DAILY, (Reported) Celecoxib (Celebrex) 100 Mg Capsule, 100 MG PO BID, (Reported) Docusate Sodium (Docusate Sodium) 100 Mg Capsule, 100 MG PO DAILY, (Reported) Finasteride (Finasteride) 5 Mg Tablet, 5 MG PO DAILY, (Reported) Gabapentin (Gabapentin) 300 Mg Capsule, 600 MG PO TID, (Reported) Lisinopril (Lisinopril) 10 Mg Tablet, 10 MG PO DAILY, (Reported) Lurasidone HCl (Latuda) 120 Mg Tablet, 120 MG PO QHS, (Reported) Melatonin (Melatonin) 3 Mg Tablet, 6 MG PO QHS, (Reported) Multivitamin with Minerals (Multivitamins with Minerals) 1 Each Tablet, 1 TAB PO DAILY, (Reported) Omeprazole (Omeprazole) 20 Mg Capsule.dr, 20 MG PO DAILY, (Reported) Sennosides (Senna) 8.6 Mg Tablet, 2 TAB PO BID, (Reported) Sertraline Hcl (Zoloft) 100 Mg Tablet, 200 MG PO DAILY, (Reported) Terazosin Hcl (Terazosin HCl) 10 Mg Capsule, 20 MG PO QHS, (Reported) Scheduled PRN Albuterol Sulfate (Ventolin Hfa) 18 Gm Hfa.aer.ad, 2 PUFFS INH Q4H PRN for SHORTNESS OF BREATH, (Reported) Lidocaine (Lidocaine) 5% Adh..patch, 1 PATCH TOP DAILY PRN for PAIN, (Reported) USES ON BACK Allergies Coded Allergies: aspirin (Verified Adverse Reaction, Unknown, BLEEDING ULCER, 08/31/19) Past Medical History Medical History BPH DM type 2(not on medications) GERD Peripheral neuropathy Hypertension back and neck pain macrocytic anemia Surgical History Appendectomy 1970s exploratory laparotomy Social History * Smoker: current smoker Alcohol: Denies (Reported very occasional drink with his last drink was years ago) A-FIB/CHADSVASC A-FIB History Current/History of A-Fib/PAF?: No Review of Systems Constitutional: Reports: Weakness, Fatigue; Denies: Chills, Fever Eyes: Reports: Other (cataracts) ENT: Reports: Sore Throat (reported as scratchy) Skin: Reports: Lesions (Left shoulder sore) Pulmonary: Reports: Dyspnea, Cough Cardiovascular: Reports: Chest Pain (chest wall pain 2/2 fall) Gastrointestinal: Denies: Nausea, Vomiting, Abdominal Pain Genitourinary: Reports: Dysuria Hematologic: Denies: Bruising Neurological: Denies: Numbness Psych: Reports: Anxiety, Depression Physical Examination General Exam: Positive: Alert, Cooperative, Mild Distress Eye Exam: Positive: Conjunctiva & lids normal, EOMI; Negative: Sclera icteric ENT Exam: Positive: Atraumatic, Mucous membr. moist/pink Chest Exam: Positive: Diminished, Other (mildly restricted air movement due to pain. Chest tube in place in left sided chest wall); Negative: Rales, Rhonchi, Wheezing Heart Exam: Positive: Rate Normal, Regular Rhythm, Normal S1, Normal S2 Abdomen Exam: Positive: Normal bowel sounds, Soft; Negative: Tenderness Extremity Exam: Negative: Cyanosis, Edema, Swelling Skin Exam: Positive: Nl turgor and temperature Neuro Exam: Positive: Strength at 5/5 X4 ext, Normal Tone, Cranial Nerves 3-12 NL, Other (garbled/slurred speech) Psych Exam: Positive: Mental status NL, Mood NL, Memory Intact Vital Signs Vital Signs Date Time Temp Pulse Resp B/P (MAP) Pulse Ox O2 Delivery O2 Flow Rate FiO2 05/07/20 20:28 20 Nasal Cannula 2.0 05/07/20 19:30 85 131/58 (82) 96 05/07/20 17:30 97.1 Laboratory Data Labs 24H Laboratory Tests 2 05/07/20 18:16: Blood Gas Bicarbonate Standard 24.0, Arterial Blood pH 7.371, Arterial Blood Partial Pressure CO2 44.0, Arterial Blood Partial Pressure O2 78.4, Arterial Blood Total CO2 26.3, Arterial Blood HCO3 24.9, Arterial Blood Base Excess -0.5, Arterial Blood Oxygen Saturation 95.5 05/07/20 18:25: Immature Granulocyte % (Auto) 0.4, Neutrophils (%) (Auto) 89.5H, Lymphocytes (%) (Auto) 4.8L, Monocytes (%) (Auto) 5.1H, Eosinophils (%) (Auto) 0.1, Basophils (%) (Auto) 0.1, Neutrophils # (Auto) 11.1H, Lymphocytes # (Auto) 0.6L, Monocytes # (Auto) 0.6, Eosinophils # (Auto) 0.0, Basophils # (Auto) 0.0, Nucleated Red Blood Cells % (auto) 0.0, Prothrombin Time 12.6, Prothromb Time International Ratio 0.92, Activated Partial Thromboplast Time 33.0, Anion Gap 8, Glomerular Filtration Rate > 60.0, Calcium Level 8.8, Total Bilirubin 0.3, Direct Bilirubin 0.1, Aspartate Amino Transf (AST/SGOT) 19, Alanine Aminotransferase (ALT/SGPT) 23, Alkaline Phosphatase 133H, Total Creatine Kinase 53, Creatine Kinase MB 2.3, Creatine Kinase MB Relative Index 4.34H, Troponin I < 0.02, ER-Izn-C-Type Natriuretic Peptide 1358H, Total Protein 6.7, Albumin 3.7, Albumin/Globulin Ratio 1.2, Lipase 47L, Thyroid Stimulating Hormone (TSH) 0.649, Free Thyroxine 1.08 05/07/20 18:33: Influenza A Immunofluorescence NEGATIVE, Influenza B Immunofluorescence NEGATIVE CBC/BMP Laboratory Tests 05/07/20 18:25 Microbiology Microbiology 05/07/20 Respiratory Virus Panel (PCR) ([facility]) - Final, Complete Assessment/Plan 1. Large left side tension pneumothorax, s/p chest tube insertion -Xopenex, incentive spirometry. Follow up with CXR and ABG. CT chest w/o contrast 05/08/2020 AM -Tylenol/pain control 2. Fall due to weakness/near syncope. -Patient is noted to be orthostatic hypotensive. Possibly 2/2 to pneumothorax vs medications (terazosin) -D/c gabapentin, terazosin, lisinopril -PT, fall precaution -IVF -Orthostatic vitals in AM 3. HTN. Discontinue terazosin and lisinopril. May need to add lisinopril back if blood pressure increases. 4. Bipolar Disorder. Continue home Latuda and Zoloft 5. Tobacco use. Tobacco cessation counseling. May consider nicotine replacement patch 6. BPH. Continue Finasteride. Hold Terazosin due to orthostatic hypotension 7. DM type 2. Patient reported not on outpatient DM medication. Will have patient on glucose checks, insulin SS, hypoglycemia protocols. DVT ppx: SCD Plan / VTE VTE Prophylaxis Ordered?: Yes GME ATTESTATION My faculty preceptor for this patient encounter was physically present during the encounter and was fully available. All aspects of the patient interview, examination, medical decision making process, and medical care plan development were reviewed and approved by the faculty preceptor. The faculty preceptor is a evans and concurs with the plan as stated in the body of this note and will attest to such by his/her cosignature. ATTENDING NOTE I, Randy Verdin DO, performed a history and physical examination of the patient and discussed his/her management with the resident, Tariq Stallworth DO. I reviewed the resident's note and agree with the documented findings and plan of care TARIQ STALLWORTH DO May 07, 2020 22:42 RANDY VERDIN DO May 08, 2020 05:47
[2020-05-07] MEDS ORDERED: LIDOCAINE 5% (LIDODERM) PATCH TOP PRN (23:00)
[2020-05-08] VITALS (19 sets, daily range): BP systolic 106–160; BP diastolic 54–80; O2SAT 80–97
[2020-05-08] MEDS: KETOROLAC 30 MG/ML 1ML VIAL IV SCH ×5 (00:20→21:05)
[2020-05-08] MEDS: RAMELTEON 8 MG TAB (ROZEREM) PO SCH ×2 (00:21→20:53)
[2020-05-08] MEDS: DOCUSATE SODIUM 100MG CAPSULE PO SCH ×3 (00:21→20:53)
[2020-05-08] MEDS: SENNA 8.6 MG TAB (SENOKOT) PO SCH ×3 (00:21→20:53)
[2020-05-08] MEDS: PERCOCET 5MG/325MG TAB PO PRN ×2 (00:22→12:17)
[2020-05-08] MEDS ORDERED: MIDAZOLAM INJ 2MG/2ML VIAL (J2250 PER 1MG) IV STA (00:43)
[2020-05-08] MEDS ORDERED: LIDOCAINE 1% MDV 20ML VIAL SC ONE (00:45)
[2020-05-08] MEDS ORDERED: GLUCAGON INJ 1MG VIAL SC PRN (02:30)
[2020-05-08] MEDS ORDERED: GLUCOSE 4GM CHEW TABLET PO PRN (02:30)
[2020-05-08] MEDS ORDERED: DEXTROSE 50% 50 ML SYRINGE IV PRN (02:30)
[2020-05-08 05:28] LABS: BASO % 0.2 % (0.0-1.0); EOS % 0.3 % (0.0-3.0); HEMATOCRIT 31.4 % (42.0-52.0); HEMOGLOBIN 10.4 g/dl (13.5-17.5); LYMPH # 1.1 10^3/uL (1.5-5.0); LYMPH % 10.5 % (24.0-44.0); MEAN CORPUSCULAR HEMOGLOBIN 32.4 pg (27.0-33.0); MEAN CORPUSCULAR HGB CONC 33.1 g/dl (32.0-36.5); MEAN CORPUSCULAR VOLUME 97.8 fl (80.0-96.0); MONO % 9.8 % (0.0-5.0); NEUTROPHILS % 78.8 % (36.0-66.0); PLATELET COUNT, AUTOMATED 216 10^3/uL (150-450); RED BLOOD COUNT 3.21 10^6/uL (4.30-6.10)
[2020-05-08 05:33] LABS: WHITE BLOOD COUNT 10.1 10^3/uL (4.0-10.0)
[2020-05-08 05:52] LABS: CREATININE FOR GFR 1.33 MG/DL (0.70-1.30); GLOMERULAR FILTRATION RATE 56.1 (>42); POTASSIUM SERUM 4.2 MEQ/L (3.5-5.1)
[2020-05-08 06:30] LABS: ABG BASE EXCESS -0.3 (-2.0-2.0); ABG HCO3 24.6 MEQ/L (22.0-26.0); ABG O2 SATURATION 98.1 % (95.0-99.0); ABG PARTIAL PRESSURE CO2 41.2 mmHg (35.0-45.0); ABG STANDARD HCO3 24.3 MEQ/L (22.0-26.0); ABG TOTAL CO2 25.9 MEQ/L (23.0-31.0); ABG pH (ARTERIAL) 7.394 UNITS (7.350-7.450)
[2020-05-08] MEDS: LEVALBUTEROL 1.25 MG/0.5 ML CONCENTRATE NEB NEB SCH ×3 (07:20→19:54)
[2020-05-08] MEDS ORDERED: HumaLOG INSULIN (NovoLOG) PER UNIT SC SCH ×2 (07:30→21:00)
--- NOTE | 2020-05-08 07:49 | REP ---
INDICATION: Chest tube Placement, Will call when ready COMPARISON: 05/07/2020 TECHNIQUE: Portable AP view of the chest FINDINGS: Left-sided chest tube has been placed and the left-sided pneumothorax is significantly improved now measuring roughly 10-15% volume and with re-establishment of normal mediastinal position. Underlying diffuse chronic fibrosis and emphysematous changes again noted bilaterally along with areas of atelectasis in the left upper lobe and possible small amount of right basilar atelectasis/pleural reaction. IMPRESSION: 1. Decreased left pneumothorax with normal repositioning to the mediastinum. 2. Left upper lobe and right basilar atelectasis and possible small right pleural reaction. 3. Underlying chronic emphysematous changes and scattered fibrosis. <Electronically signed by Magnus Ott > 05/08/20 [id number]
--- NOTE | 2020-05-08 08:17 | REP ---
INDICATION: pneumothorax COMPARISON: 05/07/2020 TECHNIQUE: PA and lateral. FINDINGS: The left-sided pneumothorax has now increased from prior examination measuring roughly 40-50% volume. Underlying bilateral chronic emphysematous changes/fibrosis and superimposed perihilar and lower lobe atelectasis noted. IMPRESSION: Enlargement of the left pneumothorax from 05/07/2020 <Electronically signed by Magnus Ott > 05/08/20 [id number]
--- NOTE | 2020-05-08 08:32 | REP ---
INDICATION: pneumothorax s/p chest tube insertion on left COMPARISON: None TECHNIQUE: Axial noncontrast images from the thoracic inlet to the upper abdomen with coronal and sagittal reformations. This CT examination was performed using the following dose reduction techniques: Automated exposure control, adjustment of mA and/or kv according to the patient's size, and use of iterative reconstruction technique. FINDINGS: A left-sided chest tube is identified extending to the anterior mid pleural space with a small residual anterior apical pneumothorax significantly improved when compared with x-ray dated 05/08/2020 at 7:51 a.m.. There is complete collapse to the left upper lobe. Chronic advanced COPD/emphysematous changes with scattered fibrosis and scarring including small area of somewhat nodular/linear scarring in the right lower lobe with a small central nodular component measuring roughly 17 mm. No pleural effusion. The mediastinum demonstrates atherosclerotic changes to the thoracic aorta and coronary arteries without aortic aneurysm or cardiomegaly. No pericardial effusion. No obvious axillary, hilar, or mediastinal adenopathy appreciated. Surrounding musculoskeletal structures demonstrate age-related changes. Moderate amount of subcutaneous emphysema along the left chest wall related to chest tube placement. IMPRESSION: 1. Complete collapse to the left upper lobe. 2. Small residual left anterofundal apical pneumothorax. 3. Diffuse advanced COPD/emphysematous changes with fibrosis and scarring as described above. <Electronically signed by Magnus Ott > 05/08/20 [id number]
[2020-05-08] MEDS ORDERED: PANTOPRAZOLE 40MG TAB (PROTONIX) PO SCH (09:00)
[2020-05-08] MEDS: HEPARIN SOD (PORCINE) 5000UNITS/ML 1ML VIAL/SYRINGE SC SCH ×2 (09:13→20:54)
[2020-05-08] MEDS: MOM 30ML SUSPENSION UDC PO SCH (09:14)
[2020-05-08] MEDS: MULTIVITAMINS/MINERALS THERAP 1 TAB PO SCH (09:14)
[2020-05-08] MEDS: FINASTERIDE 5 MG TAB PO SCH (09:14)
[2020-05-08] MEDS: SERTRALINE 100 MG TAB PO SCH (09:14)
[2020-05-08] MEDS: OMEPRAZOLE 20 MG CAP PO SCH (09:14)
[2020-05-08] MEDS: ASPIRIN 81 MG CHEW TABLET PO SCH (09:14)
--- NOTE | 2020-05-08 09:22 | RO ---
OPERATIVE NOTE DATE OF OPERATION: 05/07/2020 PREOPERATIVE DIAGNOSIS: Left pneumothorax, 100% with mediastinal shift. POSTOPERATIVE DIAGNOSIS: Left pneumothorax, 100% with mediastinal shift. PROCEDURE: Insertion of left lateral chest tube. SURGEON: Dr. Adolfo Peralta FINDINGS: The patient has insisted on keeping his hips flexed, and I really could not get good visualization of the 1st intercostal space above the 2nd rib anteriorly, and therefore I placed a left lateral chest tube aimed anteriorly. DESCRIPTION OF PROCEDURE: Under satisfactory monitored sedation achieved with 2 mg of Versed, patient was prepped and draped in the usual sterile fashion. The approximate 6th intercostal space was infiltrated with 1% lidocaine from the skin to the pleura. Incision was made, and a tunnel was created in the chest without difficulty. A #24 chest tube was placed and aimed anteriorly. Chest tube was secured to the chest wall with a #2 Tevdek suture and connected to the Pleur-evac. He had a huge gush of air initially but then continued to have an air leak afterward. The patient tolerated the procedure well, and a chest x-ray is pending.
--- NOTE | 2020-05-08 09:39 | IPNPDOC ---
Subjective Date Seen The patient was seen on 05/08/20. Subjective Chief Complaint/HPI Complains of chest pain at the site of the chest tube and difficulty in moving due to the pain. No fever or chills. Objective Physical Examination General Exam: Positive: Alert, Cooperative, No Acute Distress Eye Exam: Positive: Conjunctiva & lids normal, EOMI; Negative: Sclera icteric ENT Exam: Positive: Atraumatic, Mucous membr. moist/pink Chest Exam: Positive: Rhonchi, Diminished, Other (mildly restricted air movement due to pain. Chest tube in place in left sided chest wall) Heart Exam: Positive: Rate Normal, Regular Rhythm, Normal S1, Normal S2; Negative: Gallops, Murmurs Abdomen Exam: Positive: Normal bowel sounds, Soft; Negative: Tenderness Extremity Exam: Negative: Cyanosis, Edema, Swelling Skin Exam: Positive: Nl turgor and temperature Neuro Exam: Positive: Normal Speech, Strength at 5/5 X4 ext, Normal Tone, Cranial Nerves 3-12 NL Psych Exam: Positive: Mental status NL, Mood NL, Memory Intact Assessment /Plan Assessment 74 year old patient with COPD and emphysema, BPH, DM type 2(not on medications), GERD, Peripheral neuropathy, Hypertension chronic back and neck pain, macrocytic anemia presented to the ED for SOB after 2 falls at home. He was found to have left sided tension pneumothorax as well as collapsed left upper lobe. Left sided tension pneumothorax now with chest tube placed on 05/07/20 SOB better. pain control with toradol, norco and percocet. Acute respiratory failure spo2 87 on arrival with rr of 24 due to tension pneumothorax. now improved Left collapsed upper lobe will possibly need a bronchoscopy, may have mucous plugging vs endobronchial tumor causing obstruction will consult pulmonary. Nodular linear scarring on the right lower lobe needs follow up. Cervical canal stenosis/ chronic low back pain/Neuropathy on toradol, norco Lisinopril will continue lisinopril BPH Hytrin Depression sertraline, latuda. Plan/VTE VTE Prophylaxis Ordered?: Yes VS, I&O, 24H, Fishbone Vital Signs/I&O Vital Signs Date Time Temp Pulse Resp B/P (MAP) Pulse Ox O2 Delivery O2 Flow Rate FiO2 05/08/20 07:38 96.8 62 19 118/55 (76) 97 05/08/20 07:00 Nasal Cannula 2.0 I&O- Last 24 Hours up to 6 AM 05/08/20 06:00 Intake Total 360 ml Output Total 300 ml Balance 60 ml Laboratory Data 24H LABS Laboratory Tests 2 05/07/20 18:16: Blood Gas Bicarbonate Standard 24.0, Arterial Blood pH 7.371, Arterial Blood Partial Pressure CO2 44.0, Arterial Blood Partial Pressure O2 78.4, Arterial Blood Total CO2 26.3, Arterial Blood HCO3 24.9, Arterial Blood Base Excess -0.5, Arterial Blood Oxygen Saturation 95.5 05/07/20 18:25: Immature Granulocyte % (Auto) 0.4, Neutrophils (%) (Auto) 89.5H, Lymphocytes (%) (Auto) 4.8L, Monocytes (%) (Auto) 5.1H, Eosinophils (%) (Auto) 0.1, Basophils (%) (Auto) 0.1, Neutrophils # (Auto) 11.1H, Lymphocytes # (Auto) 0.6L, Monocytes # (Auto) 0.6, Eosinophils # (Auto) 0.0, Basophils # (Auto) 0.0, Nucleated Red Blood Cells % (auto) 0.0, Prothrombin Time 12.6, Prothromb Time International Ratio 0.92, Activated Partial Thromboplast Time 33.0, Anion Gap 8, Glomerular Filtration Rate > 60.0, Calcium Level 8.8, Total Bilirubin 0.3, Direct Bilirubin 0.1, Aspartate Amino Transf (AST/SGOT) 19, Alanine Aminotransferase (ALT/SGPT) 23, Alkaline Phosphatase 133H, Total Creatine Kinase 53, Creatine Kinase MB 2.3, Creatine Kinase MB Relative Index 4.34H, Troponin I < 0.02, PU-Hkg-F-Type Natriuretic Peptide 1358H, Total Protein 6.7, Albumin 3.7, Albumin/Globulin Ratio 1.2, Lipase 47L, Thyroid Stimulating Hormone (TSH) 0.649, Free Thyroxine 1.08 05/07/20 18:33: Influenza A Immunofluorescence NEGATIVE, Influenza B Immunofluorescence NEGATIVE 05/08/20 05:08: Immature Granulocyte % (Auto) 0.4, Neutrophils (%) (Auto) 78.8H, Lymphocytes (%) (Auto) 10.5L, Monocytes (%) (Auto) 9.8H, Eosinophils (%) (Auto) 0.3, Basophils (%) (Auto) 0.2, Neutrophils # (Auto) 8.0, Lymphocytes # (Auto) 1.1L, Monocytes # (Auto) 1.0H, Eosinophils # (Auto) 0.0, Basophils # (Auto) 0.0, Nucleated Red Blood Cells % (auto) 0.0, Anion Gap 9, Glomerular Filtration Rate 56.1, Calcium Level 8.0L 05/08/20 06:06: Blood Gas Bicarbonate Standard 24.3, Arterial Blood pH 7.394, Arterial Blood Partial Pressure CO2 41.2, Arterial Blood Partial Pressure O2 107.0H, Arterial Blood Total CO2 25.9, Arterial Blood HCO3 24.6, Arterial Blood Base Excess -0.3, Arterial Blood Oxygen Saturation 98.1 CBC/BMP Laboratory Tests 05/07/20 18:25 05/08/20 05:08 Microbiology Microbiology 05/07/20 Respiratory Virus Panel (PCR) ([facility]) - Final, Complete JIGNESH RUFFIN MD May 08, 2020 09:39
[2020-05-08] MEDS ORDERED: SLF 3 ML SYR IV PRN (09:45)
--- NOTE | 2020-05-08 09:49 | CR ---
CONSULTATION DATE: 05/07/2020 Patient seen at the request of Dr. Simons of the emergency room and Dr. Verdin of the hospitalist service for pneumothorax and shortness of breath. HISTORY OF PRESENT ILLNESS: Patient is a 74-year-old white male whose history is rather difficult to get. He is short of breath; however, he is not absolutely coherent. His answers are vague and rambling. Nonetheless, he states that he has been short of breath the last couple days, and today he has gotten even worse. It got dramatically worse this afternoon. He became short of breath with chest pain. He then felt dizzy and faint and broke out in a sweat. He then fell and hit his left side in the inferior lateral chest. He was then brought to the emergency room. He is kind of vague with regard to having a cough prior to this episode. He denies sputum production of hemoptysis. He states that he weighed 300 pounds 25 years ago and now weighs 150 pounds. It looks as though his weight, however, has been stable over the last few years. He has no dysphagia, although he has a decreased appetite. I think the decreased appetite is just referable to today rather than before, although, again, it is difficult to get a cogent answer. PAST MEDICAL ILLNESSES: According to the patient, he has arthritis and five herniated discs. He says he also sees a psychiatrist, and he is listed in the medical record as having bipolar disorder. He most likely has chronic obstructive pulmonary disease (COPD) judging from his physiognomy. He has BPH. Also diabetes. SURGICAL HISTORY: Appendectomy with an exploratory laparotomy. ALLERGIES: ASPIRIN. HOME MEDICATIONS: - Tylenol 650 mg every 6 hours as needed for pain - Ventolin two puffs every 4 hours as needed for shortness of breath - Celebrex 100 mg by mouth twice a day - docusate 100 mg daily - finasteride 5 mg daily - gabapentin 600 mg three times a day - lidocaine cream topical as needed for pain - lisinopril 10 mg daily - Latuda 120 mg every night - melatonin 6 mg every night - multivitamin one daily - omeprazole 20 mg daily - senna two tablets twice a day - Zoloft 200 mg daily - terazosin 20 mg every night HABITS: States that he smokes too much, but he cannot really give me a good answer as to how much he smokes. Denies alcohol use at this point in time, although it sounds as though he has a problem with alcohol in the past. Denies illicit drugs. TRAVEL HISTORY: Not obtained. OCCUPATIONAL HISTORY: Not obtained. REVIEW OF SYSTEMS: CONSTITUTIONAL: See history of present illness (HPI). EYES: Without diplopia, without amaurosis fugax. Has had cataracts done. States that he is seeing less and less and thinking that he needs his cataracts redone. NOSE: Denies epistaxis. MOUTH: Is edentulous. RESPIRATORY: See history of present illness (HPI). CARDIAC: See history of present illness (HPI). He states that his feet swell. He also has palpitations that no one has been able to address and treat. GASTROINTESTINAL: With diarrhea, chronic. Has chronic abdominal pain, he states. Without melena, hematochezia, hematemesis. NEUROLOGIC: He is able to ambulate at home. Denies paresthesias, paralyses. MUSCULOSKELETAL: Has constant back, neck, and hip pain. PSYCHIATRIC: Is recorded as having bipolar disorder. PHYSICAL EXAMINATION: Again, relatively difficult. Vital signs: Temperature is 97.1, pulse is 88 in a sinus rhythm, respiratory rate of 20-18 without the use of accessory muscles, blood pressure 137/65. He is 97% saturated on 2 liters nasal cannula. Head: Normocephalic. Eyes: Pupils equal and reactive to light. Extraocular muscles intact. Sclerae anicteric. Nose without deformity. Mouth shows the mucous membranes to be pink and moist. Lips and commissures without lesions. No thrush. He is edentulous. Neck shows that he is wearing a collar, but it is supple. Trachea is midline. There is no subcutaneous emphysema, and there is no jugular venous distention. There is no lymphadenopathy or thyromegaly. Cardiac shows distant heart sounds. I do not appreciate murmurs, clicks, gallops, or rubs, and I cannot feel his point of maximal impulse (PMI). Lungs show a barrel chest with markedly decreased breath sounds on the left side with expiratory wheezing on the right side. I could not sit him up, and I could only auscultate anteriorly and laterally. Percussion note is hyperresonant on the left. Abdomen is soft and nontender. Bowel sounds are positive. There is no hepatomegaly. I could not test for costovertebral angle (CVA) tenderness. Extremities show no pretibial edema, no ankle edema. There is no calf tenderness. There is no differential swelling of the upper extremities. Skin is warm, dry, and perfused without cyanosis or mottling, including that of the nailbeds and knees. Neurologic shows II-XII intact. Normal gross motor, gross sensation intact. Gait is not tested. Psychiatric shows him to be awake, somewhat confused. DIAGNOSTIC INVESTIGATIONS: His white count is 12.4 with a hemoglobin and hematocrit of 12.0 and 36.6, respectively. Platelet count is 261. Differential shows 89% neutrophils, 4% lymphocytes, 5% monocytes. There are no immature forms or toxic granulations. Electrolytes are normal with a BUN and creatinine of 32 and 1.25 with a glucose of 124 and a calcium of 8.8 with a corresponding albumin of 3.7. Troponin less than 0.02. TSH is 0.65. AST and ALT are normal at 19 and 23, respectively. His PT/INR are 12.6 and 0.92 with a PTT of 33 seconds. Influenza A and B are negative. I do not see a COVID determination. His chest x-ray shows a complete pneumothorax on the left side with a mediastinal shift to the right. There is some subcutaneous emphysema at the base of the neck and along the lateral chest wall. He has very flat diaphragms. He has crowding of vessels on the right side. IMPRESSION: 1. A 100% pneumothorax. 2. Status post fall. 3. Sounds like fainting and hypotension. 4. Diabetes. 5. Arthritis. 6. Multiple herniated discs. 7. Hypertension. PLAN AND DISCUSSION: I will immediately place a chest tube. My suspicion is that he developed a spontaneous pneumothorax. In fact, on the chest x-ray I think I can see a bulla on the right side laterally. I suspect that he has ruptured a bleb or a bulla, which then led to shortness of breath with hypotension and sweating, causing a fall.
[2020-05-08] MEDS: SLF 3 ML SYR IV SCH ×2 (15:07→20:55)
[2020-05-08] MEDS: NORCO, ANEXSIA 5/325MG TABLET (HYDROcodone/ACETAMINOPHEN) PO PRN (18:06)
[2020-05-08] MEDS: LURASIDONE HCL 40 MG TAB (LATUDA) PO SCH (20:54)
[2020-05-08] MEDS ORDERED: **NOTE PATIENT COMMENT** MISC XX PRN (21:00)
[2020-05-09] VITALS (14 sets, daily range): BP systolic 124–182; BP diastolic 59–82; O2SAT 88–97
[2020-05-09] MEDS: LEVALBUTEROL 1.25 MG/0.5 ML CONCENTRATE NEB NEB SCH ×4 (02:00→19:48)
[2020-05-09] MEDS: PERCOCET 5MG/325MG TAB PO PRN ×2 (04:04→14:40)
[2020-05-09] MEDS: SLF 3 ML SYR IV SCH ×3 (05:29→21:45)
[2020-05-09 05:35] LABS: BASO % 0.3 % (0.0-1.0); EOS # 0.1 10^3/uL (0.0-0.5); EOS % 1.3 % (0.0-3.0); HEMATOCRIT 33.8 % (42.0-52.0); HEMOGLOBIN 10.9 g/dl (13.5-17.5); LYMPH # 0.9 10^3/uL (1.5-5.0); LYMPH % 11.2 % (24.0-44.0); MEAN CORPUSCULAR HEMOGLOBIN 32.2 pg (27.0-33.0); MEAN CORPUSCULAR HGB CONC 32.2 g/dl (32.0-36.5); MONO # 0.7 10^3/uL (0.0-0.8); MONO % 8.6 % (0.0-5.0); NEUTROPHILS # 6.1 10^3/uL (1.5-8.5); NEUTROPHILS % 78.2 % (36.0-66.0); PLATELET COUNT, AUTOMATED 223 10^3/uL (150-450); RED BLOOD COUNT 3.38 10^6/uL (4.30-6.10); WHITE BLOOD COUNT 7.8 10^3/uL (4.0-10.0)
[2020-05-09 05:56] LABS: CALCIUM LEVEL 7.8 MG/DL (8.8-10.2); CREATININE FOR GFR 1.3 MG/DL (0.70-1.30); GLOMERULAR FILTRATION RATE 57.6 (>42); POTASSIUM SERUM 4.2 MEQ/L (3.5-5.1)
[2020-05-09] MEDS: SERTRALINE 100 MG TAB PO SCH (07:31)
[2020-05-09] MEDS: OMEPRAZOLE 20 MG CAP PO SCH (07:31)
[2020-05-09] MEDS: MULTIVITAMINS/MINERALS THERAP 1 TAB PO SCH (07:31)
[2020-05-09] MEDS: NORCO, ANEXSIA 5/325MG TABLET (HYDROcodone/ACETAMINOPHEN) PO PRN (07:31)
[2020-05-09] MEDS: DOCUSATE SODIUM 100MG CAPSULE PO SCH ×2 (07:32→21:44)
[2020-05-09] MEDS: ASPIRIN 81 MG CHEW TABLET PO SCH (07:32)
[2020-05-09] MEDS: FINASTERIDE 5 MG TAB PO SCH (07:32)
[2020-05-09] MEDS: SENNA 8.6 MG TAB (SENOKOT) PO SCH ×2 (07:32→21:45)
[2020-05-09] MEDS: HEPARIN SOD (PORCINE) 5000UNITS/ML 1ML VIAL/SYRINGE SC SCH ×2 (07:33→21:44)
--- NOTE | 2020-05-09 08:55 | REP ---
INDICATION: pneumothorax COMPARISON: 05/08/2020 TECHNIQUE: PA and lateral. FINDINGS: Left chest tube in stable position. There appears to be re-expansion to the left lung with near complete resolution of the pneumothorax. Moderate amount of subcutaneous emphysema is noted. Left hilar opacity may again represent partial collapse to the left upper lobe and or mass cannot be excluded. Underlying diffuse bilateral chronic interstitial changes and emphysematous disease again noted. IMPRESSION: Decreased near complete resolution to the left pneumothorax. Left hilar opacity may represent residual left upper lobe collapse versus mass. <Electronically signed by Magnus Ott > 05/09/20 [id number]
[2020-05-09] MEDS: MOM 30ML SUSPENSION UDC PO SCH (09:00)
--- NOTE | 2020-05-09 10:31 | IPNPDOC ---
Subjective Date Seen The patient was seen on 05/09/20. Subjective Chief Complaint/HPI complains of chest pain at the side of the chest rube. Difficulty in moving. no doing the incentive spirometry much n fever or chills. Objective Physical Examination General Exam: Positive: Alert, Cooperative, No Acute Distress Eye Exam: Positive: Conjunctiva & lids normal, EOMI; Negative: Sclera icteric ENT Exam: Positive: Atraumatic, Mucous membr. moist/pink Chest Exam: Positive: Rhonchi, Diminished, Other (Chest pain at the chest tube site. ) Heart Exam: Positive: Rate Normal, Regular Rhythm, Normal S1, Normal S2; Negative: Gallops, Murmurs Abdomen Exam: Positive: Normal bowel sounds, Soft; Negative: Tenderness Extremity Exam: Negative: Cyanosis, Edema, Swelling Skin Exam: Positive: Nl turgor and temperature Neuro Exam: Positive: Normal Speech, Strength at 5/5 X4 ext, Normal Tone, Cranial Nerves 3-12 NL Psych Exam: Positive: Mental status NL, Mood NL, Memory Intact Assessment /Plan Assessment 74 year old patient with COPD and emphysema, BPH, DM type 2(not on medications), GERD, Peripheral neuropathy, Hypertension chronic back and neck pain, macrocytic anemia presented to the ED for SOB after 2 falls at home. He was found to have left sided tension pneumothorax as well as collapsed left upper lobe. Left sided tension pneumothorax chest tube placed on 05/07/20 SOB better. pain control with toradol, norco and percocet. PT/OT Acute respiratory failure spo2 87 on arrival with rr of 24 due to tension pneumothorax. now improved Left collapsed upper lobe/ left hilar mass will possibly need a bronchoscopy, may have mucous plugging vs endobronchial tumor causing obstruction will consult pulmonary. Nodular linear scarring on the right lower lobe needs follow up. Cervical canal stenosis/ chronic low back pain/Neuropathy on toradol, norco Lisinopril will continue lisinopril BPH Hytrin Depression sertraline, latuda. Plan/VTE VTE Prophylaxis Ordered?: Yes VS, I&O, 24H, Fishbone Vital Signs/I&O Vital Signs Date Time Temp Pulse Resp B/P (MAP) Pulse Ox O2 Delivery O2 Flow Rate FiO2 05/09/20 07:59 98.0 66 22 124/59 (80) 91 Nasal Cannula 2.0 I&O- Last 24 Hours up to 6 AM 05/09/20 06:00 Intake Total 1930 ml Output Total 352 ml Balance 1578 ml Laboratory Data 24H LABS Laboratory Tests 2 05/08/20 16:27: Bedside Glucose (Misc Panel) 117H 05/09/20 04:49: Immature Granulocyte % (Auto) 0.4, Neutrophils (%) (Auto) 78.2H, Lymphocytes (%) (Auto) 11.2L, Monocytes (%) (Auto) 8.6H, Eosinophils (%) (Auto) 1.3, Basophils (%) (Auto) 0.3, Neutrophils # (Auto) 6.1, Lymphocytes # (Auto) 0.9L, Monocytes # (Auto) 0.7, Eosinophils # (Auto) 0.1, Basophils # (Auto) 0.0, Nucleated Red Blood Cells % (auto) 0.0, Anion Gap 9, Glomerular Filtration Rate 57.6, Calcium Level 7.8L CBC/BMP Laboratory Tests 05/09/20 04:49 Microbiology Microbiology 05/07/20 Respiratory Virus Panel (PCR) ([facility]) - Final, Complete JIGNESH RUFFIN MD May 09, 2020 09:47
--- NOTE | 2020-05-09 11:24 | IPN ---
PROGRESS NOTE DATE: 05/08/2020 SUBJECTIVE: Mr. Guillen is breathing a lot better today after his pneumothorax resolved over the chest tube. He does complain of pain at the chest tube insertion site. VITAL SIGNS: His vital signs show a T-max of 98.2 with a heart rate that ranges between 62 and 88 and sinus rhythm, respiratory rate 18 to 20 without the use accessory muscles, who is 93 to 100% saturated on 2 liters of nasal cannula of O2. Blood pressure is ranging between 160/80 to 106/54. INTAKE AND OUTPUT: His intake and output has been recorded this morning, 1350 in and 300 out for a positivity of a liter. There has been nothing at the chest tube. He still has an air leak, however. Weight today is 71.5 kilos, was 75.91 kilos yesterday. PHYSICAL EXAMINATION: His lungs now show equal breath sounds on either side. I hear scattered rhonchi throughout both inspiration and expiration. Percussion is full to diaphragm. Cardiac exam is without murmurs, clicks, gallops or rubs. I cannot feel his PMI. S1 and S2 are normal. Abdomen is soft, nontender. Bowel sounds are positive. There is no hepatomegaly, no CVA tenderness. Extremities show no pretibial edema, no calf tenderness, no differential swelling of the upper extremities. Skin is warm, dry and perfused without cyanosis or mottling including that of the nailbeds and knees. Neck is supple. There is no jugular venous distention. No subcutaneous emphysema. Trachea is midline. Mouth shows the mucous membranes to be pink and moist. Lips and commissures without lesions or thrush. Eyes show his pupils to be equal and reactive. Extraocular motion intact. Sclerae anicteric. Neurologic shows II-XII intact. Normal gross motor, gross sensation intact. Gait is not tested. Psychiatric shows him to be awake, alert, and oriented times three with appropriate mood and affect and conversational. LABORATORY DATA: His white count today is 10.1 with a hemoglobin and hematocrit of 10.4 and 31.4 respectively. Platelet count is 216,000 and differential shows 78% neutrophils, 10% lymphocytes, 9% monocytes. There are no immature forms or toxic granulations. His electrolytes are normal with a BUN and creatinine however of 38 and 1.33. Glucose 164 and calcium of 8.3. I will discontinue his Toradol. His chest x-ray today shows his lung fully expanded to the chest wall. Chest tube is directed anteriorly on the lateral film. It looks to be a consolidated mass just above the heart. He has multiple lucencies in the right lower hemithorax and the left lower hemithorax. I did obtain a chest CT on him today which did not quite correlate with his chest x-ray. He does have a pancaked left upper lobe which is indeed above the heart but it is directed more anteriorly. I think I see an endobronchial lesion in the apical segment of the segmental bronchus. He has multiple bullae in both lower lobes with extensive emphysematous disease in the lower lobes and the upper lobes. It is done without contrast. I do not see convincing mediastinal lymphadenopathy paratracheally. There may be lymphadenopathy in the AP window. IMPRESSION: 1. Spontaneous pneumothorax left side probably from ruptured bulla. 2. Consolidated obstructed left upper lobe segment maybe with an endobronchial lesion. 3. Status post fall. 4. Hypotension. 5. Diabetes. 6. Arthritis. 7. Multiple herniated discs. 8. Hypertension. 9. Developing renal insufficiency. PLAN AND DISCUSSION: I will keep his chest tube to suction. I have spoken to Dr. Alcantara, his Hospitalist and recommended that Pulmonary see him to evaluate the upper lobe bronchus. I will discontinue his Toradol. I think that the left upper lobe consolidation represents postobstructive atelectasis and not an underlying pneumonia. I do not think the pneumothorax and the postobstructive atelectasis are related.
--- NOTE | 2020-05-09 12:19 | IPN ---
PROGRESS NOTE DATE: 05/09/2020 Mr. Guillen is lying in bed, still complaining of pain at the chest tube insertion site. He claims that he is very weak, and he will not get up out of bed, although the nursing staff did finally get him to the chair. He ambulates at home. He has a very strange affect. 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 His vital signs show a maximum temperature of 98.0 with a heart rate that ranges between 66-80 in a sinus rhythm, respiratory rate of 17-22 without the use of accessory muscles, who is 98%-97% saturated on 2 liters nasal cannula and whose blood pressure is ranging between 124/59 to 129/60. His intake and output for the past 24 hours have been recorded as 2190 in and 3042 out, for a positivity of 1848 mL. He has put out 40 mL from the chest tube, and there is still an air leak. It is on the large side. Weight today is 72.3 kg compared to 71.5 kg yesterday. PHYSICAL EXAMINATION: I hear breath sounds on either side. He has coarse rhonchi and rales, not all of which clear with coughing. Percussion note is full to the diaphragm. Cardiac exam is without murmurs, clicks, gallops, or rubs. I cannot feel his point of maximal impulse (PMI). S1 and S2 are normal. Abdomen is soft and nontender. Bowel sounds are positive. There is no hepatomegaly. No costovertebral angle (CVA) tenderness. Extremities show no pretibial edema, no calf tenderness, no differential swelling of the upper extremities. Skin is warm, dry, and perfused without cyanosis or mottling, including that of the nailbeds and knees. Neck is supple. There is no jugular venous distention. No subcutaneous emphysema. Trachea is midline. Mouth shows the mucous membranes to be pink and moist. Lips and commissures without lesions. No thrush. Eyes show his pupils to be equal and reactive. Extraocular motion intact. Sclerae anicteric. Neurologic shows II-XII intact. Normal gross motor, gross sensation intact. Gait is not tested. Psychiatric shows him to be awake and alert, oriented times three, but, again, as noted above, a bit on the logically confused side. His white count today is 7.8 with a hemoglobin and hematocrit of 10.9 and 33.8, respectively. Platelet count is 223. Differential shows 78% neutrophils, 11% lymphocytes, 8% monocytes. There are no immature forms or toxic granulations. His electrolytes are normal with a BUN and creatinine of 47 and 1.3. Glucose is 180 with a calcium 7.8. I am going to restart his Toradol. His chest x-ray today shows the lung now fully expanded to the chest wall. There is significant subcutaneous emphysema on the lateral chest wall at the base of the neck. I do note see any infiltrates. I do see the consolidated atelectatic portion of the lungs above the hilum. IMPRESSION: 1. Spontaneous pneumothorax. 2. Chronic obstructive pulmonary disease (COPD) and bullous disease. 3. Spontaneous pneumothorax, left side. 4. Consolidated obstructive left upper lobe segment, maybe with an endobronchial lesion. 5. Status post fall. 6. Hypotension. 7. Diabetes. 8. Arthritis. 9. Multiple herniated discs. 10. Hypertension. 11. Renal insufficiency, resolving. PLAN AND DISCUSSION: He still has an air leak, and therefore the chest tube needs to stay in. Dr. Reyes is going to see him with regard to consideration a bronchoscopy to look a possible endobronchial lesion in the left upper lobe segment. I have encouraged him to get up and start walking. The nursing staff tells me that he is not all the weak, and they did get him to a chair. They do state that he is unsteady on his feet. I will retreat his Toradol for his pain.
[2020-05-09] MEDS: KETOROLAC 30 MG/ML 1ML VIAL IV SCH ×2 (12:50→19:03)
--- NOTE | 2020-05-09 13:55 | ECHO ---
DATE OF PROCEDURE: 05/08/2020 Age: 74 Gender: Male Height: 67 inches Weight: 159 pounds Body Surface Area: 1.83 m2 PATIENT LOCATION: Inpatient PCU Room 3212. REFERRING PHYSICIAN: Kirsty Leary DO. INDICATION: Dyspnea. MEASUREMENTS: 2D Measurements: RV 3.6 cm. LV 4.4 cm Aortic Root 3.7 cm LA 4.0 cm LVEF 75% Doppler Measurements: AV 1.21 m/s LVOT - 0.74 m/s MV-E 52, A 102, EA ratio 0.5 Early mitral deceleration time 245 msec PV unfortunately unable to perform because of his rib fracture and chest tube RVSP again technically not capable IVC 1.8 cm COMMENTS: Normal sinus rhythm without intraventricular conduction disturbance. Technically challenging study in light of the patient's chest injury, but diagnostically useful information was still obtained. M-mode and 2-dimensional echocardiography was performed with pulse, continuous wave, and color flow Doppler, but tissue Doppler could not be performed adequately. Mild concentric left ventricular hypertrophy with hyperkinetic wall motion. Borderline dilated left atrium with grade 1 LV diastolic dysfunction. Normal appearing right heart chamber sizes and motion and normal IVC size and collapse against an elevated central venous pressure. Normal aortic dimensions. Three equal size aortic cusps with mildly thickened cusp edges but adequate cusp separation. No aortic insufficiency. Mild mitral annular thickening with normal leaflet thickness and excursion with no more than trace insufficiency. No apparent intracardiac mass or pericardial effusion. MTDD
[2020-05-09] MEDS: PIPERACILLIN/TAZOBACTAM SOD 3.375 GM in D5W MINI-BAG PLUS 50 ML IV SCH ×2 (17:06→21:45)
--- NOTE | 2020-05-09 17:27 | CR ---
CONSULTATION DATE: 05/09/2020 HISTORY OF PRESENT ILLNESS: Mr. Guillen is a 74-year-old smoker who presented to the hospital with a spontaneous pneumothorax and left upper lobe abnormality. Dr. Peralta has consulted me for the abnormal chest CT for concern of potential underlying malignancy in the left upper lobe, question of need for bronchoscopy. On my arrival to the room, the patient is confused. He states he is not a smoker. I asked when he quit, and he states right before he came into the hospital, which is likely to be true. There are some parts of his history he is able to provide me. Other times he is preoccupied with urinating despite having a [place] catheter in. He at this point in time is not fully understanding my reasoning for being there. He expressed that he understood that I was a lung doctor. I explained there were abnormalities that were concerning on the CT scan; however, he states he would not want a procedure. I am not sure he is able to make decisions with his current clinical status. He states he coughs sometimes. He is not sure if he produces mucus. He is not sure if he has had hemoptysis, but there are no reports of hemoptysis. He has no chest discomfort. He continues to have an air leak through his chest tube. The history is very limited in what I am able to ascertain from questioning the patient. MEDICAL HISTORY: Significant for: 1. Emphysema. 2. Hypertension. 3. Bipolar disease. 4. BPH. 5. Type 2 diabetes with peripheral neuropathy. 6. Gastroesophageal reflux. 7. Neck and back pain. 8. Appendectomy. 9. History of exploratory laparotomy, unclear indication. Patient unable to provide any information in regard to this. The remainder of the questions is unavailable. Patient is not answering questions accurately at this point in time. As mentioned above, he did admit to smoking up until admission. Other that, I cannot obtain an adequate history or review of systems at this time. I will try to re approach this on further visits. PHYSICAL EXAMINATION: Temperature is 98.0, pulse 74, respiratory rate 20, blood pressure 178/80 with a mean arterial pressure of 112, 92% on 2.0 liters of oxygen. Intake and output: 2190 in, 342 out, net positive 1.8 liters. There is a blowing air leak through the chest tube. GENERAL: Patient confused but is alert and oriented times three. HEENT: Sclerae are clear and anicteric. He is wearing a soft collar around his neck, which appears unkempt and dirty. Tongue is midline. I did not remove the soft collar for a visual inspection. There is no supraclavicular adenopathy. No axillary adenopathy. CARDIAC: Regular S1, S2 without audible murmur, rub, or gallop. Point of maximal impulse (PMI) is difficult to palpate. PULMONARY: Decreased breath sounds in general bilaterally, but I hear adequate breath sounds on both sides. There are few coarse rhonchi on the left base; otherwise, no significant dullness to percussion. ABDOMEN: Soft, nontender, nondistended. Bowel sounds are active. No discernible hepatosplenomegaly. GENITOURINARY: There is a condom catheter in place with normal yellow urine. EXTREMITIES: No cyanosis, clubbing, or edema. SKIN: Warm and dry without mottling. There is some subcutaneous emphysema along the left chest wall. No rashes, jaundice, or bruising. NEUROLOGIC: Some confusion but is alert and oriented times three. He moves both arms and legs without difficulty, but he is slightly leaning to the right. Gait was not tested because of patient's confusion. MUSCULOSKELETAL: Some minimal muscle wasting. No joint effusions or obvious fracture. LABORATORY EVALUATION: White blood cell count 7.8, hemoglobin 10.9, platelet count 223. Sodium 137, potassium 4.2, chloride 105, bicarbonate 23, BUN 47, creatinine 1.3, glucose 180, calcium 7.8. BNP is 1358. Arterial blood gas shows a pH of 7.39, pCO2 of 41, paO2 of 107. Chest CT from 05/08/2020 shows significant emphysema with bullous disease. There is a chest tube on the right. There is consolidation in a wedge-shaped anterior upper lobe distribution. It does appear that are air bronchograms there. I do not see a discrete lesion; however, there is dense consolidation. There is significant bullous emphysema bilaterally; therefore, if biopsy were required it may be beneficial to perform this while patient has a chest tube in. Chest imaging: Chest x-ray from this morning shows improvement of the left upper lobe abnormality. There is definite left hilar fullness just above where the left atrial border should be. There is apical clearing. Chest tube is in place with minimal pneumothorax and some significant subcutaneous emphysema. IMPRESSION: Abnormal chest CT, possibly pneumonia, dense infiltrate. I have added antibiotics to his therapeutic regimen. Will obtain sputum both for culture and sensitivities and for cytology. Will re-image on Tuesday to see if there is improvement of the upper lobe abnormality. If there is significant resolution, we will likely follow this as an outpatient. If there is continued suspicion for airway disease and possible malignancy, will re approach the subject of bronchoscopy with the patient. Hopefully at that point in time he will have more mental clarity. Patient's prognosis remains guarded. Will continue to follow. Thank you for this consultation. ALONDRA
[2020-05-09] MEDS: RAMELTEON 8 MG TAB (ROZEREM) PO SCH (21:44)
[2020-05-09] MEDS: LURASIDONE HCL 40 MG TAB (LATUDA) PO SCH (21:45)
[2020-05-10] VITALS (10 sets, daily range): BP systolic 148–178; BP diastolic 70–90; O2SAT 84–97
[2020-05-10] MEDS: KETOROLAC 30 MG/ML 1ML VIAL IV SCH ×4 (00:14→18:15)
[2020-05-10] MEDS: LEVALBUTEROL 1.25 MG/0.5 ML CONCENTRATE NEB NEB SCH ×4 (01:09→19:49)
[2020-05-10] MEDS: PIPERACILLIN/TAZOBACTAM SOD 3.375 GM in D5W MINI-BAG PLUS 50 ML IV SCH ×4 (04:46→23:00)
[2020-05-10] MEDS: SLF 3 ML SYR IV SCH ×3 (04:47→22:00)
[2020-05-10 04:56] LABS: BASO % 0.5 % (0.0-1.0); EOS # 0.2 10^3/uL (0.0-0.5); EOS % 2.9 % (0.0-3.0); HEMATOCRIT 32.2 % (42.0-52.0); HEMOGLOBIN 10.6 g/dl (13.5-17.5); LYMPH # 0.8 10^3/uL (1.5-5.0); LYMPH % 12.9 % (24.0-44.0); MEAN CORPUSCULAR HEMOGLOBIN 32.9 pg (27.0-33.0); MEAN CORPUSCULAR HGB CONC 32.9 g/dl (32.0-36.5); MONO # 0.6 10^3/uL (0.0-0.8); MONO % 9.1 % (2.0-8.0); NEUTROPHILS # 4.8 10^3/uL (1.5-8.5); NEUTROPHILS % 74.3 % (36.0-66.0); PLATELET COUNT, AUTOMATED 219 10^3/uL (150-450); RED BLOOD COUNT 3.22 10^6/uL (4.30-6.10); WHITE BLOOD COUNT 6.5 10^3/uL (4.0-10.0)
[2020-05-10 05:16] LABS: BLOOD UREA NITROGEN 42 MG/DL (7-18); CALCIUM LEVEL 8.6 MG/DL (8.8-10.2); CARBON DIOXIDE LEVEL 29 MEQ/L (21-32); CHLORIDE LEVEL 104 MEQ/L (98-107); CREATININE FOR GFR 1.04 MG/DL (0.70-1.30); GLOMERULAR FILTRATION RATE > 60.0 (>42); GLUCOSE, FASTING 96 MG/DL (70-100); POTASSIUM SERUM 4.7 MEQ/L (3.5-5.1); SODIUM LEVEL 138 MEQ/L (136-145)
--- NOTE | 2020-05-10 08:50 | REP ---
INDICATION: pneumothorax. COMPARISON: Comparison chest x-ray May 09, 2020. TECHNIQUE: Two views.. FINDINGS: Left chest tube remains in place witha small residual pneumothorax visible superiorly. This is essentially unchanged. There is moderate amount of extra thoracic soft tissue emphysema along the left chest wall extending into the left neck as before. There is soft tissue fullness projecting over the right hilus on the frontal view and anteriorly on the lateral film representing the collapsed left upper lobe. There are 1 or 2 air bronchograms within this. This finding is unchanged from yesterday's radiograph as well. Diffuse interstitial lung fibrosis seen on the right with emphysematous changes and bowl I in the right upper lobe and right lower lobe respectively unchanged. There is some coarse platelike atelectasis in the right base. Heart is not enlarged. IMPRESSION: Persistent small left-sided pneumothorax with essentially lobar collapse left upper lobe again noted. Advanced COPD changes. Platelike atelectasis right base.. <Electronically signed by Ken Valadez > 05/10/20 [id number]
--- NOTE | 2020-05-10 09:31 | IPNPDOC ---
Subjective Date Seen The patient was seen on 05/10/20. Subjective Chief Complaint/HPI Patient seen this morning sitting up in wheelchair alert and oriented. He reports his pain is still very bad. I asked if he had seen the lung specialist. He reported that he had and reported that he was told he may have a cancer in the lung. When i asked about a procedure or a biopsy he asked to know how that is done. When i explained both bronchoscopy and CT guided biopsy he said he did not want them done. He says " My body is falling apart i am 74 years old i dont want to go through any procedure" I further asked that wouldn't he like to know if he had cancer and get treatment. He said "No". Will hae to approach this again at a later time. He was most concerned about the pain and coughing. Objective Physical Examination General Exam: Positive: Alert, Cooperative, No Acute Distress Eye Exam: Positive: Conjunctiva & lids normal, EOMI; Negative: Sclera icteric ENT Exam: Positive: Atraumatic, Mucous membr. moist/pink Chest Exam: Positive: Rhonchi, Diminished, Other (Chest pain at the chest tube site. subcutaneous emphysema int eh neck past the midline and int eh back around the tube site. ) Heart Exam: Positive: Rate Normal, Regular Rhythm, Normal S1, Normal S2; Negative: Gallops, Murmurs Abdomen Exam: Positive: Normal bowel sounds, Soft; Negative: Tenderness Extremity Exam: Negative: Cyanosis, Edema, Swelling Skin Exam: Positive: Nl turgor and temperature Neuro Exam: Positive: Normal Speech, Strength at 5/5 X4 ext, Normal Tone Psych Exam: Positive: Mental status NL, Mood NL, Memory Intact Assessment /Plan Assessment 74 year old patient with COPD and emphysema, BPH, DM type 2(not on medications), GERD, Peripheral neuropathy, Hypertension chronic back and neck pain, macrocytic anemia presented to the ED for SOB after 2 falls at home. He was found to have left sided tension pneumothorax as well as collapsed left upper lobe. Left sided tension pneumothorax chest tube placed on 05/07/20 SOB better. Continues to have persistent air leak and has subcutaneous emphysema. pain control with toradol, norco and percocet. PT/OT Acute respiratory failure spo2 87 on arrival with rr of 24 due to tension pneumothorax. now improved Left collapsed upper lobe/ left hilar mass and Nodular linear scarring on the right lower lobe will possibly need a bronchoscopy, may have mucous plugging vs endobronchial tumor causing obstruction Started on antibiotics empirically to see if it is infective and if there is any improvement. On Zosyn Rpt CT on 05/11/20 Cervical canal stenosis/ chronic low back pain/Neuropathy on toradol, norco Hypertension will continue lisinopril BPH Hytrin Depression/Bipolar sertraline, latuda. Plan/VTE VTE Prophylaxis Ordered?: Yes VS, I&O, 24H, Fishbone Vital Signs/I&O Vital Signs Date Time Temp Pulse Resp B/P (MAP) Pulse Ox O2 Delivery O2 Flow Rate FiO2 05/10/20 08:00 97.8 67 18 158/82 (107) 89 Nasal Cannula 2.0 I&O- Last 24 Hours up to 6 AM 05/10/20 05:59 Intake Total 1080 ml Output Total 972 ml Balance 108 ml Laboratory Data 24H LABS Laboratory Tests 2 05/09/20 16:59: Bedside Glucose (Misc Panel) 112H 05/10/20 04:24: Immature Granulocyte % (Auto) 0.3, Neutrophils (%) (Auto) 74.3H, Lymphocytes (%) (Auto) 12.9L, Monocytes (%) (Auto) 9.1H, Eosinophils (%) (Auto) 2.9, Basophils (%) (Auto) 0.5, Neutrophils # (Auto) 4.8, Lymphocytes # (Auto) 0.8L, Monocytes # (Auto) 0.6, Eosinophils # (Auto) 0.2, Basophils # (Auto) 0.0, Nucleated Red Blood Cells % (auto) 0.0, Anion Gap 5L, Glomerular Filtration Rate > 60.0, Calcium Level 8.6L CBC/BMP Laboratory Tests 05/10/20 04:24 Microbiology Microbiology 05/07/20 Respiratory Virus Panel (PCR) ([facility]) - Final, Complete JIGNESH RUFFIN MD May 10, 2020 09:31
[2020-05-10] MEDS: FINASTERIDE 5 MG TAB PO SCH (09:46)
[2020-05-10] MEDS: ASPIRIN 81 MG CHEW TABLET PO SCH (09:47)
[2020-05-10] MEDS: SENNA 8.6 MG TAB (SENOKOT) PO SCH ×2 (09:47→21:00)
[2020-05-10] MEDS: NORCO, ANEXSIA 5/325MG TABLET (HYDROcodone/ACETAMINOPHEN) PO PRN (09:47)
[2020-05-10] MEDS: SERTRALINE 100 MG TAB PO SCH (09:47)
[2020-05-10] MEDS: OMEPRAZOLE 20 MG CAP PO SCH (09:48)
[2020-05-10] MEDS: HEPARIN SOD (PORCINE) 5000UNITS/ML 1ML VIAL/SYRINGE SC SCH ×2 (09:48→21:00)
[2020-05-10] MEDS: DOCUSATE SODIUM 100MG CAPSULE PO SCH ×2 (09:48→21:00)
[2020-05-10] MEDS: MOM 30ML SUSPENSION UDC PO SCH (09:48)
[2020-05-10] MEDS: MULTIVITAMINS/MINERALS THERAP 1 TAB PO SCH (09:48)
--- NOTE | 2020-05-10 11:44 | IPN ---
PROGRESS NOTE DATE: 05/10/2020 SUBJECTIVE: Mr. Guillen is sitting up comfortably today. I do not see an air leak today with forceful coughing. His pain is being fairly well-controlled at the chest tube insertion site. OBJECTIVE: VITAL SIGNS: Show a T-max of 98.2 with a heart rate that ranges between 75 and 67 in sinus rhythm. Respiratory rate of 17 to 20 without the use of accessory muscles who was 89% to 92% saturated on 2 liters nasal cannula and whose blood pressure is ranging between 160/74 to 158/82. INTAKE AND OUTPUT: Over the past 24 hours has been recorded as 1180 in and 982 out for a positivity of 198 mL. His chest tube has put out 82 mL and as noted above, there is no air leak. He weighs 72.8 kg today compared to 72.3 kg yesterday. RESPIRATORY: He has equal breath sounds on either side. I hear coarse rhonchi most of which clear with coughing. Percussion notes are full to the diaphragm. CARDIAC: Without murmurs, clicks, gallops, or rubs. I cannot feel his PMI. S1 and S2 are normal. ABDOMEN: Soft and nontender. Bowel sounds are positive. There is no hepatomegaly. No CVA tenderness. EXTREMITIES: Show no pretibial edema. No calf tenderness. No differential swelling of the upper extremities. SKIN: Warm, dry, and perfused without cyanosis or mottling, including that of the nail beds and knees. NECK: Supple. There is no jugular venous distention. No subcutaneous emphysema. Trachea is midline. MOUTH: Shows the mucous membranes to be pink and moist. Lips and gums without lesions and no thrush. EYES: Show his pupils equal and reactive. Extraocular movements are intact. Sclerae nonicteric. NEUROLOGIC: Shows II through XII intact. Normal gross motor, gross sensation intact. Gait is not tested. PSYCHIATRIC: Shows him to be awake, alert, and oriented x3 with appropriate mood and affect today. DIAGNOSTIC STUDIES: His white count today is 6.5 with hemoglobin and hematocrit of 10.6 and 32.2 respectively. Platelet count is 219,000 and differential shows 74% neutrophils, 12% lymphocytes, and 9% monocytes. There are no immature forms and no toxic granulations. Electrolytes are normal with a BUN and creatinine of 48 and 1.04. He remains on Toradol. Glucose is 96 with a calcium of 8.6. His chest x-ray today shows a small airspace in the apical portion of the left hemithorax. There is subcutaneous air, which is starting to dissipate. Otherwise lungs are fully expanded to the chest wall. IMPRESSION: 1. Spontaneous pneumothorax. 2. 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 3. Consolidated obstructive left upper lobe segment maybe with an endobronchial lesion. 4. Status post fall. 5. Hypotension, resolved. 6. Diabetes. 7. Arthritis. 8. Multiple herniated discs. 9. Hypertension. 10. Renal insufficiency, resolved. PLAN AND DISCUSSION: Dr. Reyes saw him yesterday and we are going to repeat the CT scan tomorrow to see if the lung opens up. I have spoken to him today regarding the need for a bronchoscopy if the chest CT does not show any improvement in his lung. He understands and tells me he is going to undergo the procedure sometime early next week per Dr. Reyes. I will discontinue his chest tube suction today.
[2020-05-10] MEDS: PERCOCET 5MG/325MG TAB PO PRN (16:22)
[2020-05-10] MEDS: RAMELTEON 8 MG TAB (ROZEREM) PO SCH (21:00)
[2020-05-10] MEDS: LURASIDONE HCL 40 MG TAB (LATUDA) PO SCH (21:00)
[2020-05-11] VITALS (8 sets, daily range): BP systolic 148–242; BP diastolic 70–100
[2020-05-11] MEDS: LEVALBUTEROL 1.25 MG/0.5 ML CONCENTRATE NEB NEB SCH ×4 (01:17→20:00)
[2020-05-11 06:04] LABS: BASO % 0.3 % (0.0-1.0); EOS # 0.3 10^3/uL (0.0-0.5); EOS % 3.8 % (0.0-3.0); HEMATOCRIT 31.6 % (42.0-52.0); HEMOGLOBIN 10.4 g/dl (13.5-17.5); LYMPH # 0.8 10^3/uL (1.5-5.0); LYMPH % 12.3 % (24.0-44.0); MEAN CORPUSCULAR HEMOGLOBIN 32.8 pg (27.0-33.0); MEAN CORPUSCULAR HGB CONC 32.9 g/dl (32.0-36.5); MEAN CORPUSCULAR VOLUME 99.7 fl (80.0-96.0); MONO # 0.6 10^3/uL (0.0-0.8); MONO % 9.7 % (2.0-8.0); NEUTROPHILS # 4.8 10^3/uL (1.5-8.5); NEUTROPHILS % 73.6 % (36.0-66.0); PLATELET COUNT, AUTOMATED 209 10^3/uL (150-450); RED BLOOD COUNT 3.17 10^6/uL (4.30-6.10); WHITE BLOOD COUNT 6.5 10^3/uL (4.0-10.0)
[2020-05-11] MEDS: SLF 3 ML SYR IV SCH ×3 (06:19→22:00)
[2020-05-11] MEDS: KETOROLAC 30 MG/ML 1ML VIAL IV SCH ×4 (06:19→17:06)
[2020-05-11] MEDS: PIPERACILLIN/TAZOBACTAM SOD 3.375 GM in D5W MINI-BAG PLUS 50 ML IV SCH ×4 (06:19→23:00)
[2020-05-11 06:31] LABS: BLOOD UREA NITROGEN 30 MG/DL (7-18); CALCIUM LEVEL 8.3 MG/DL (8.8-10.2); CARBON DIOXIDE LEVEL 30 MEQ/L (21-32); CHLORIDE LEVEL 103 MEQ/L (98-107); CREATININE FOR GFR 0.99 MG/DL (0.70-1.30); GLOMERULAR FILTRATION RATE > 60.0 (>42); GLUCOSE, FASTING 113 MG/DL (70-100); POTASSIUM SERUM 4.6 MEQ/L (3.5-5.1); SODIUM LEVEL 138 MEQ/L (136-145)
[2020-05-11] MEDS: TIOTROPIUM INHALER/CAPSULE (SPIRIVA) INH SCH (08:00)
[2020-05-11] MEDS: ADVAIR HFA 230/21MCG INHALER INH SCH ×2 (08:00→20:00)
--- NOTE | 2020-05-11 08:24 | REP ---
INDICATION: pneumothorax. COMPARISON: Comparison radiographs May 10, 2020. TECHNIQUE: Two views.. FINDINGS: Left chest tube remains in place laterally. The previously noted small left apical pneumothorax is no longer visible. Soft tissue emphysema is observed along the lateral chest wall extending into the neck and supraclavicular soft tissues as before. Emphysematous and bullous changes are noted in the right lung unchanged. There is considerable improvement in the previously noted left upper lobe collapse. There is still some atelectatic change in the left upper lobe or overlying the infrahilar region anteriorly. EKG monitoring electrodes and oxygen delivery tubing are seen. IMPRESSION: Near complete reinflation of the left upper lobe. Previously noted left-sided pneumothorax resolved.. <Electronically signed by Ken Valadez > 05/11/20 [id number]
--- NOTE | 2020-05-11 08:34 | REP ---
INDICATION: left upper lobe abnormality, spontaneous pneumothorax. COMPARISON: Comparison chest CT study May 08, 2020.. TECHNIQUE: Helical scanning is acquired. 3 mm axial images are generated. Coronal and sagittal MPR and coronal MIP images are generated. FINDINGS: Left chest tube remains in place. There is extensive soft tissue emphysema in the extra thoracic soft tissues about the left chest as before. Pneumomediastinum is seen. This is a little more extensive than on the prior study. There is no significant pleural air on the left side. The left upper lobe has largely reinflated with some residual platelike atelectatic change in the lingula. There is a tiny 5 mm lingular nodule visible on page 04/18/2063 and series 201 of today's study. There is also 5 mm noncalcified nodule in the left lower lobe visible on page 70 of the same series. No evidence of left upper lobe are hilar mass is seen. No endobronchial lesion is appreciated. No hilar or mediastinal adenopathy or mass lesion is seen. Vascular calcification is observed. There are small bilateral effusions. Air-fluid levels are seen in some of the bulla lie in the bases. Advanced emphysematous COPD changes are noted bilaterally. IMPRESSION: The left upper lobe is largely reinflated with some residual lingular platelike atelectasis. There are 2 5 mm nodules on the left. Advanced COPD. No endobronchial or central lesion is appreciated. <Electronically signed by Ken Valadez > 05/11/20 [id number]
[2020-05-11] MEDS: MOM 30ML SUSPENSION UDC PO SCH (09:21)
[2020-05-11] MEDS: OMEPRAZOLE 20 MG CAP PO SCH (09:21)
[2020-05-11] MEDS: HEPARIN SOD (PORCINE) 5000UNITS/ML 1ML VIAL/SYRINGE SC SCH ×2 (09:21→19:47)
[2020-05-11] MEDS: DOCUSATE SODIUM 100MG CAPSULE PO SCH ×2 (09:22→19:45)
[2020-05-11] MEDS: SERTRALINE 100 MG TAB PO SCH (09:22)
[2020-05-11] MEDS: ASPIRIN 81 MG CHEW TABLET PO SCH (09:22)
[2020-05-11] MEDS: SENNA 8.6 MG TAB (SENOKOT) PO SCH ×2 (09:22→19:44)
[2020-05-11] MEDS: MULTIVITAMINS/MINERALS THERAP 1 TAB PO SCH (09:22)
[2020-05-11] MEDS: FINASTERIDE 5 MG TAB PO SCH (09:22)
--- NOTE | 2020-05-11 10:55 | IPN ---
PROGRESS NOTE DATE: 05/11/2020 SUBJECTIVE: Mr. Guillen has been doing well. Has an intermittent cough with minimal sputum production. Still has some altered mental status. He is sitting at his bedside with a chair alarm, as he will attempt to get out of bed and walk on his own. He still has some significant weakness. He seems to have more mental clarity today. I discussed the results of the chest CT as outlined below that there has been near improvement of over 80% of the abnormalities that were seen in the left upper lobe on chest CT that was performed this morning. Therefore, I do not believe this requires bronchoscopy. He expresses understanding. I have explained to him that malignancy is not entirely excluded, but it is less likely and at this point in time, there is no indication for bronchoscopy; however, it is recommended that he follows up in one month to ensure resolution of the remaining minimal abnormalities. He expresses understanding, asked where my office is and I explained where it was, and that he will be given directions at the time of discharge. He has had no fevers. No new chest discomfort. No increase in shortness of breath. He is not on long-acting inhaled therapy in the hospital. I have added this to his regimen in the form of Spiriva and Advair. OBJECTIVE: VITAL SIGNS: Temperature 98.9, pulse 65, respiratory rate 20, blood pressure 154/70 with a mean arterial pressure of 98 with an oxygen saturation of 98% on 2 liters. GENERAL: Occasionally confused, but is alert and oriented x3. Expresses more understanding than on prior conversations. HEENT: Sclerae clear, anicteric. Pupils are equal and reactive to light. Mucous membranes are moist without lesions. Tongue is midline. NECK: Supple. No tracheal deviation or mass. LYMPH: No cervical, supraclavicular, or axillary adenopathy. CARDIAC: Distant S1, S2 without audible murmur, rub, or gallop. No elevated JVP. No peripheral edema. PULMONARY: Decreased breath sounds throughout. Prolongation in the expiratory phase. Chest tube site on the left. Minimal amount of rhonchi that cleared with coughing. No dullness to percussion. No E:A changes. ABDOMEN: Soft, nontender, and nondistended. No hepatosplenomegaly. No masses or hernia. EXTREMITIES: No cyanosis, clubbing, or edema. LABORATORY DATA: Evaluation shows a white blood cell count of 6.5, hemoglobin 10.4, platelet count of 209,000 with sodium of 138, potassium 4.6, chloride 103, bicarb of 30, BUN of 30, creatinine of 0.99. PROBLEMS: 1. Chest CT performed this morning shows that the left upper lobe is mostly reinflated with some residual lingular plate-like atelectasis. There are two 5 mm nodules on the left. Advanced emphysema throughout both lung rueda with large bullae. I agree with the radiologist there is no endobronchial center lesions suspected. Will ensure that the area of the plate-like atelectasis resolves in one month on follow-up CT, as this could obscure an underlying malignancy. 2. Abnormal chest CT improved greater than 80%. This needs to be followed to resolution as mentioned above. Will follow in one month with chest CT. No spiral due to recent pneumothorax. 3. Probable pneumonia. Continue antibiotics for seven days. Can switch to p.o. when the patient is able to tolerate. 4. Emphysema. I have added Spiriva and Advair to his regimen, and recommend that he be discharged on a similar combination of LAMA/LABA inhaled steroid.
--- NOTE | 2020-05-11 10:58 | IPNPDOC ---
Subjective Date Seen The patient was seen on 05/11/20. Subjective Chief Complaint/HPI Feeling better, No Air leak, subcutaneous emphysema still present. Pain controlled this am. No fever or chills. Chest tube will be removed to day. Objective Physical Examination General Exam: Positive: Alert, Cooperative, No Acute Distress Eye Exam: Positive: Conjunctiva & lids normal, EOMI; Negative: Sclera icteric ENT Exam: Positive: Atraumatic, Mucous membr. moist/pink Chest Exam: Positive: Rhonchi, Diminished, Other (Chest pain at the chest tube site. subcutaneous emphysema int eh neck past the midline and int eh back around the tube site. ) Heart Exam: Positive: Rate Normal, Regular Rhythm, Normal S1, Normal S2; Negative: Gallops, Murmurs Abdomen Exam: Positive: Normal bowel sounds, Soft; Negative: Tenderness Extremity Exam: Negative: Cyanosis, Edema, Swelling Skin Exam: Positive: Nl turgor and temperature Neuro Exam: Positive: Normal Speech, Strength at 5/5 X4 ext, Normal Tone Psych Exam: Positive: Mental status NL, Mood NL, Memory Intact Assessment /Plan Assessment 74 year old patient with COPD and emphysema, BPH, DM type 2(not on medications), GERD, Peripheral neuropathy, Hypertension chronic back and neck pain, macrocytic anemia presented to the ED for SOB after 2 falls at home. He was found to have left sided tension pneumothorax as well as collapsed left upper lobe. Spontaneous Left sided tension pneumothorax/ Subcutaneous Emphysema likely from ruptured bulla chest tube placed on 05/07/20 SOB better. Continues to have persistent air leak and has subcutaneous emphysema. pain control with toradol, norco and percocet. PT/OT Acute respiratory failure spo2 87 on arrival with rr of 24 due to tension pneumothorax. now resolved. Left collapsed upper lobe CT chest 05/11/20 shows it has improved. Pneumonia / mucus plugging. On Zosyn Cervical canal stenosis/ chronic low back pain/Neuropathy/ disc bulges on toradol, norco Hypertension will continue lisinopril BPH Hytrin Depression/Bipolar sertraline, latuda. Plan/VTE VTE Prophylaxis Ordered?: Yes VS, I&O, 24H, Fishbone Vital Signs/I&O Vital Signs Date Time Temp Pulse Resp B/P (MAP) Pulse Ox O2 Delivery O2 Flow Rate FiO2 05/11/20 08:00 98.9 65 20 154/70 (98) 98 Nasal Cannula 2.0 I&O- Last 24 Hours up to 6 AM 05/11/20 06:00 Intake Total 960 ml Output Total 620 ml Balance 340 ml Laboratory Data 24H LABS Laboratory Tests 2 05/11/20 05:44: Immature Granulocyte % (Auto) 0.3, Neutrophils (%) (Auto) 73.6H, Lymphocytes (%) (Auto) 12.3L, Monocytes (%) (Auto) 9.7H, Eosinophils (%) (Auto) 3.8H, Basophils (%) (Auto) 0.3, Neutrophils # (Auto) 4.8, Lymphocytes # (Auto) 0.8L, Monocytes # (Auto) 0.6, Eosinophils # (Auto) 0.3, Basophils # (Auto) 0.0, Nucleated Red Blood Cells % (auto) 0.0, Anion Gap 5L, Glomerular Filtration Rate > 60.0, Calcium Level 8.3L CBC/BMP Laboratory Tests 05/11/20 05:44 Microbiology Microbiology 05/07/20 Respiratory Virus Panel (PCR) ([facility]) - Final, Complete JIGNESH RUFFIN MD May 11, 2020 10:58
--- NOTE | 2020-05-11 12:10 | IPN ---
PROGRESS NOTE DATE: 05/11/2020 SUBJECTIVE: Mr. Guillen is lying in bed comfortably and breathing well. There is no air leak. His chest CT is markedly improved; see below for discussion. OBJECTIVE: VITAL SIGNS: Show a T-max of 98.9 with a heart rate that ranges between 65 and 69 in a sinus rhythm. With a respiratory rate that varies between 18 and 20 without the use of accessory muscles and who is 94% to 98% saturated on 2 liters nasal cannula and whose blood pressure is ranging between 148/80 to 178/80. INTAKE AND OUTPUT: Over the past 24 hours has been recorded as 660 in and 340 out for a positivity of 320 mL. He has put 40 mL out the chest tube. His weight is 71.4 kg today compared to 72.8 kg yesterday. RESPIRATORY: He has equal breath sounds on either side. I essentially hear normal vesicular sounds without wheezes, rhonchi, or rales. Percussion notes are full to the diaphragm. I do hear subcutaneous emphysema on the right anterior and lateral chest. CARDIAC: Without murmurs, clicks, gallops, or rubs. I cannot feel his PMI. S1 and S2 are normal. ABDOMEN: Soft and nontender. Bowel sounds are positive. There is no hepatomegaly. No CVA tenderness. EXTREMITIES: Show no pretibial edema. No calf tenderness. No differential swelling of the upper extremities. SKIN: Warm, dry, and perfused without cyanosis or mottling, including that of the nail beds and knees. NECK: Supple. There is subcutaneous emphysema at the base of the neck. Trachea is midline. There is no jugular venous distention. MOUTH: Shows the mucous membranes to be pink and moist. Lips and gums without lesions and no thrush. EYES: Show his pupils equal and reactive. Extraocular movements are intact. Sclerae nonicteric. NEUROLOGIC: Shows II through XII intact. Normal gross motor, gross sensation intact. Gait is not tested. PSYCHIATRIC: Shows him to be awake, alert, and oriented x3 with appropriate mood and affect and conversational. LABORATORY DATA: His white count today is 6.5 with a hemoglobin and hematocrit of 10.4 and 31.5 respectively. Platelet count is 209,000 and differential shows 78% neutrophils, 12% lymphocytes, and 9% monocytes. There are no immature forms and no toxic granulations. Chemistries today show normal electrolytes with a BUN and creatinine of 30 and 0.99, glucose of 113, and a calcium of 8.3. IMAGING DATA: His chest x-ray today shows the lungs fully expand to the chest wall. There is subcutaneous emphysema at the base of the neck and on the lateral left chest wall. Diaphragms are flat and he has a barrel chested physiognomy. His chest CT shows expansion of the left upper lobe segment, which is in marked contrast to the initial CT scan where he was found to have atelectatic collapse. I thought I had originally seen an endobronchial lesion that may have been a mucous plug. Today it is much improved. He still has the diffuse bullous disease mainly in the lower lobes. There are fibrotic changes in the left lower lobe that may still be secondary to post-expansion pulmonary edema, however. Chest tube is anterior in good place. IMPRESSION: 1. Spontaneous pneumothorax. 2. 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 3. Consolidated obstructive left upper lobe segment now resolved. 4. Mucous plugging. 5. Status post fall. 6. Hypertension, resolved. 7. Diabetes. 8. Arthritis. 9. Multiple herniated discs. 10. Renal insufficiency, resolved. PLAN AND DISCUSSION: I will remove his chest tube today. We will follow him up as an outpatient to continue to observe that left upper lobe region. It certainly is markedly changed. I suspect he had a mucous plug.
[2020-05-11] MEDS: RAMELTEON 8 MG TAB (ROZEREM) PO SCH (19:45)
[2020-05-11] MEDS: LURASIDONE HCL 40 MG TAB (LATUDA) PO SCH (19:45)
[2020-05-11] MEDS: PERCOCET 5MG/325MG TAB PO PRN (19:53)
[2020-05-11] MEDS ORDERED: hydrALAZINE 20MG/ML 1ML VIAL (J0360 PER 20MG) IV STA (20:03)
[2020-05-11] MEDS: hydrALAZINE 20MG/ML 1ML VIAL (J0360 PER 20MG) IV PRN (21:41)
[2020-05-12] VITALS: BP 151/65
[2020-05-12] MEDS: LEVALBUTEROL 1.25 MG/0.5 ML CONCENTRATE NEB NEB SCH ×3 (01:19→13:26)
[2020-05-12 04:00] VITALS: BP 192/84
[2020-05-12 04:22] LABS: BASO % 0.2 % (0.0-1.0); EOS # 0.2 10^3/uL (0.0-0.5); EOS % 2.3 % (0.0-3.0); HEMOGLOBIN 11.4 g/dl (13.5-17.5); LYMPH # 0.9 10^3/uL (1.5-5.0); LYMPH % 9.9 % (24.0-44.0); MEAN CORPUSCULAR HEMOGLOBIN 32.3 pg (27.0-33.0); MEAN CORPUSCULAR HGB CONC 33.5 g/dl (32.0-36.5); MEAN CORPUSCULAR VOLUME 96.3 fl (80.0-96.0); MONO # 0.8 10^3/uL (0.0-0.8); NEUTROPHILS # 6.9 10^3/uL (1.5-8.5); NEUTROPHILS % 78.4 % (36.0-66.0); PLATELET COUNT, AUTOMATED 270 10^3/uL (150-450); RED BLOOD COUNT 3.53 10^6/uL (4.30-6.10); WHITE BLOOD COUNT 8.8 10^3/uL (4.0-10.0)
[2020-05-12] MEDS: PIPERACILLIN/TAZOBACTAM SOD 3.375 GM in D5W MINI-BAG PLUS 50 ML IV SCH ×3 (04:24→11:00)
[2020-05-12] MEDS: SLF 3 ML SYR IV SCH (04:24)
[2020-05-12] MEDS: KETOROLAC 30 MG/ML 1ML VIAL IV SCH ×3 (04:24→11:19)
[2020-05-12 04:50] LABS: BLOOD UREA NITROGEN 21 MG/DL (7-18); CALCIUM LEVEL 8.2 MG/DL (8.8-10.2); CARBON DIOXIDE LEVEL 27 MEQ/L (21-32); CHLORIDE LEVEL 101 MEQ/L (98-107); CREATININE FOR GFR 0.83 MG/DL (0.70-1.30); GLOMERULAR FILTRATION RATE > 60.0 (>42); GLUCOSE, FASTING 120 MG/DL (70-100); POTASSIUM SERUM 4.4 MEQ/L (3.5-5.1); SODIUM LEVEL 136 MEQ/L (136-145)
[2020-05-12] MEDS: hydrALAZINE 20MG/ML 1ML VIAL (J0360 PER 20MG) IV PRN (05:57)
[2020-05-12 06:30] VITALS: BP 140/80
[2020-05-12] MEDS: TIOTROPIUM INHALER/CAPSULE (SPIRIVA) INH SCH (07:22)
[2020-05-12] MEDS: ADVAIR HFA 230/21MCG INHALER INH SCH (07:23)
[2020-05-12 08:00] VITALS: BP 145/64
--- NOTE | 2020-05-12 08:13 | REP ---
INDICATION: pneumothorax. COMPARISON: Comparison chest x-ray May 11, 2020. TECHNIQUE: Two views.. FINDINGS: The left chest tube is been removed. Subcutaneous emphysema persists around the left chest extending up into the left neck. There is a small left apical pneumothorax, decreased in size from the 10 May 2020 study. a Diffuse interstitial fibrosis pattern persists in the lung rueda. There is coarse linear fibrosis in the right base. There is a oval-shaped nodular opacity in the left base which is felt to be discoid atelectasis as it was not present previously. There is very slight blunting of the posterior pleural angles on the lateral radiograph. IMPRESSION: Left chest tube removal. The left apical pneumothorax is a little smaller than it was on the May 10, 2020 study.. <Electronically signed by Ken Valadez > 05/12/20 0844
[2020-05-12] MEDS: DOCUSATE SODIUM 100MG CAPSULE PO SCH (09:01)
[2020-05-12] MEDS: SERTRALINE 100 MG TAB PO SCH (09:02)
[2020-05-12 09:03] VITALS: BP 145/64
[2020-05-12] MEDS: ASPIRIN 81 MG CHEW TABLET PO SCH (09:03)
[2020-05-12] MEDS: MULTIVITAMINS/MINERALS THERAP 1 TAB PO SCH (09:03)
[2020-05-12] MEDS: FINASTERIDE 5 MG TAB PO SCH (09:04)
[2020-05-12] MEDS: SENNA 8.6 MG TAB (SENOKOT) PO SCH (09:04)
[2020-05-12] MEDS: OMEPRAZOLE 20 MG CAP PO SCH (09:04)
[2020-05-12] MEDS: MOM 30ML SUSPENSION UDC PO SCH (09:04)
[2020-05-12] MEDS: PERCOCET 5MG/325MG TAB PO PRN (09:05)
[2020-05-12] MEDS: HEPARIN SOD (PORCINE) 5000UNITS/ML 1ML VIAL/SYRINGE SC SCH (09:06)
[2020-05-12] MEDS ORDERED: LISI10TA22 PO (10:30)
[2020-05-12] MEDS ORDERED: AUGM875T28 PO (10:30)
[2020-05-12] MEDS ORDERED: ADVA230A INH (10:35)
[2020-05-12] MEDS ORDERED: TIOT18INH INH (10:35)
[2020-05-12] MEDS ORDERED: PERCOCET PO (10:36)
[2020-05-12 12:00] VITALS: BP 146/72
[2020-05-12] MEDS ORDERED: TREL1AER PO ×2 (12:32→13:53)
--- NOTE | 2020-05-12 15:09 | DS.PDOC ---
Discharge Summary General Date of Admission May 07, 2020 at 20:46 Date of Discharge 05/12/20 Discharge Summary PROCEDURES PERFORMED DURING STAY: Left chest tube placement DISCHARGE DIAGNOSES: Spontaneous Left sided tension pneumothorax Acute respiratory failure Left upper lobe pneumonia with collapse Advanced COPD with emphysema Cervical canal stenosis/ chronic low back pain/Neuropathy/ disc bulges HTN BPH Depression Bipolar. COMPLICATIONS/CHIEF COMPLAINT: Dyspnea,Fall,Hypoxia,Orthostatic Hypotension, Pneum. HOSPITAL COURSE: 74 year old patient with COPD and emphysema, BPH, DM type 2(not on medications), GERD, Peripheral neuropathy, Hypertension chronic back and neck pain, macrocytic anemia presented to the ED for SOB after 2 falls at home. He was found to have left sided tension pneumothorax as well as collapsed left upper lobe. Sandyn had chest tube placed with improvement of the pneumothorax. He was started on zosyn for his collapsed upper lobe which was felt to be either pneumonia or malignancy related collapse. After empiric antibiotic repeat CT chest showed improvement of the collapsed lobe so it was concluded that this was pneumonia. Antibiotic was continued. Spontaneous Left sided tension pneumothorax/ Subcutaneous Emphysema likely from ruptured bulla chest tube placed on 05/07/20 SOB better. Continues to have persistent air leak and has subcutaneous emphysema. pain control with toradol, norco and percocet. PT/OT Acute respiratory failure spo2 87 on arrival with rr of 24 due to tension pneumothorax. now resolved. Left Upper lobe Pneumonia CT chest 05/11/20 shows it has improved. Pneumonia / mucus plugging. discharged with Augmentin. COPD with Emphysema sent script for Trelegy to his pharmacy in [facility]. continue albuterol prn. Cervical canal stenosis/ chronic low back pain/Neuropathy/ disc bulges celebrex, percocet. Hypertension will continue lisinopril, dose increased from 10 to 20 BPH Hytrin Depression/Bipolar sertraline, latuda. DISCHARGE MEDICATIONS: Please see below. ALLERGIES: Please see below. PHYSICAL EXAMINATION ON DISCHARGE: VITAL SIGNS: Please see below. General Exam: Positive: Alert, Cooperative, No Acute Distress Eye Exam: Positive: Conjunctiva & lids normal, EOMI; Negative: Sclera icteric ENT Exam: Positive: Atraumatic, Mucous membr. moist/pink Chest Exam: Positive: Rhonchi, Diminished, Other (Chest pain at the chest tube site. subcutaneous emphysema int eh neck past the midline and int eh back around the tube site. ) Heart Exam: Positive: Rate Normal, Regular Rhythm, Normal S1, Normal S2; Negative: Gallops, Murmurs Abdomen Exam: Positive: Normal bowel sounds, Soft; Negative: Tenderness Extremity Exam: Negative: Cyanosis, Edema, Swelling Skin Exam: Positive: Nl turgor and temperature Neuro Exam: Positive: Normal Speech, Strength at 5/5 X4 ext, Normal Tone Psych Exam: Positive: Mental status NL, Mood NL, Memory Intact LABORATORY DATA: Please see below. IMAGING: CT chest on 05/08/20 IMPRESSION: 1. Complete collapse to the left upper lobe. 2. Small residual left anterofundal apical pneumothorax. 3. Diffuse advanced COPD/emphysematous changes with fibrosis and scarring as described above. CT chest on 05/11/20 The left upper lobe is largely reinflated with some residual lingular platelike atelectasis. There are 2 5 mm nodules on the left. Advanced COPD. No endo bronchial or central lesion is appreciated. ACTIVITY: [As tolerated]. DIET: As tolerated DISCHARGE PLAN: DISPOSITION: [address] [place] [address] [facility] DISCHARGE INSTRUCTIONS: Follow up Dr Peralta in 1 week Pulmonary in 1 to 2 weeks PMD in 2 weeks. DISCHARGE CONDITION: [Stable]. TIME SPENT ON DISCHARGE: 35 minutes. Vital Signs/I&Os Vital Signs Date Time Temp Pulse Resp B/P (MAP) Pulse Ox O2 Delivery O2 Flow Rate FiO2 05/12/20 12:00 96.1 80 20 146/72 (96) 95 Room Air 05/11/20 08:00 2.0 I&O- Last 24 Hours up to 6 AM 05/12/20 05:59 Intake Total 990 ml Output Total 600 ml Balance 390 ml Laboratory Data Labs 24H Laboratory Tests 2 05/12/20 04:01: Immature Granulocyte % (Auto) 0.2, Neutrophils (%) (Auto) 78.4H, Lymphocytes (%) (Auto) 9.9L, Monocytes (%) (Auto) 9.0H, Eosinophils (%) (Auto) 2.3, Basophils (%) (Auto) 0.2, Neutrophils # (Auto) 6.9, Lymphocytes # (Auto) 0.9L, Monocytes # (Auto) 0.8, Eosinophils # (Auto) 0.2, Basophils # (Auto) 0.0, Nucleated Red Blood Cells % (auto) 0.0, Anion Gap 8, Glomerular Filtration Rate > 60.0, Calci um Level 8.2L CBC/BMP Laboratory Tests 05/12/20 04:01 Microbiology Microbiology 05/07/20 Respiratory Virus Panel (PCR) ([facility]) - Final, Complete Discharge Medications Scheduled Amoxicillin/Potassium Clav (Augmentin 875-125 Tablet) 1 Each Tablet, 1 TAB PO BID Aspirin (Aspirin) 325 Mg Tablet, 162.5 MG PO DAILY, (Reported) Celecoxib (Celebrex) 100 Mg Capsule, 100 MG PO BID, (Reported) Docusate Sodium (Docusate Sodium) 100 Mg Capsule, 100 MG PO DAILY, (Reported) Finasteride (Finasteride) 5 Mg Tablet, 5 MG PO DAILY, (Reported) Fluticasone/Umeclidin/Vilanter (Trelegy Ellipta 100-62.5-25) 1 Each Blst.w.dev, 1 PUFF PO DAILY Gabapentin (Gabapentin) 300 Mg Capsule, 600 MG PO TID, (Reported) Lisinopril (Lisinopril) 10 Mg Tablet, 20 MG PO DAILY Lurasidone HCl (Latuda) 120 Mg Tablet, 120 MG PO QHS, (Reported) Melatonin (Melatonin) 3 Mg Tablet, 6 MG PO QHS, (Reported) Multivitamin with Minerals (Multivitamins with Minerals) 1 Each Tablet, 1 TAB PO DAILY, (Reported) Omeprazole (Omeprazole) 20 Mg Capsule.dr, 20 MG PO DAILY, (Reported) Sennosides (Senna) 8.6 Mg Tablet, 2 TAB PO BID, (Reported) Sertraline Hcl (Zoloft) 100 Mg Tablet, 200 MG PO DAILY, (Reported) Terazosin Hcl (Terazosin HCl) 10 Mg Capsule, 20 MG PO QHS, (Reported) Scheduled PRN Albuterol Sulfate (Ventolin Hfa) 18 Gm Hfa.aer.ad, 2 PUFFS INH Q4H PRN for SHORTNESS OF BREATH, (Reported) Lidocaine (Lidocaine) 5% Adh..patch, 1 PATCH TOP DAILY PRN for PAIN, (Reported) USES ON BACK Oxycodone/Acetaminophen (Oxycodone-Acetaminophen 5-325) 1 Each Tablet, 1-2 TAB PO Q8H PRN for SEVERE PAIN (PS 8-10) Allergies Coded Allergies: aspirin (Verified Adverse Reaction, Unknown, BLEEDING ULCER, 08/31/19) JIGNESH RUFFIN MD May 12, 2020 15:08
--- NOTE | 2020-05-13 10:13 | IPN ---
PROGRESS NOTE DATE: 05/12/2020 SUBJECTIVE: Mr. Guillen now has had his chest tube out for 24 hours and his chest x-ray shows just minimal residual airspace on the left side. He is breathing well, feeling well, and is eager to go home. OBJECTIVE: VITAL SIGNS: Show a T-max of 97.6 with a heart rate that ranges between 80 and 110 in sinus rhythm. Respiratory rate of 18 to 20 without the use of accessory muscles who was 95% to 96% saturated on room air and whose blood pressure is ranging between 140/80 to 192/84. INTAKE AND OUTPUT: Over the past 24 hours has been recorded as 1050 in and 750 out for a positivity of 300 mL. His chest tube was removed yesterday. He weighs 71.3 kg today compared to 71.4 kg yesterday. RESPIRATORY: His lungs show equal breath sounds on either side. Percussion notes are full to the diaphragm on either side. I do not hear a pleural friction rub. CARDIAC: Without murmurs, clicks, gallops, or rubs. I cannot feel his PMI. S1 and S2 are normal. ABDOMEN: Soft and nontender. Bowel sounds are positive. There is no hepatomegaly. No CVA tenderness. EXTREMITIES: Show no pretibial edema. No calf tenderness. No differential swelling of the upper extremities. SKIN: Warm, dry, and perfused without cyanosis or mottling, including that of the nail beds and knees. NECK: Supple. There is no jugular venous distention. No subcutaneous emphysema. Trachea is midline. MOUTH: Shows the mucous membranes to be pink and moist. Lips and gums without lesions and no thrush. EYES: Show his pupils equal and reactive. Extraocular movements are intact. Sclerae nonicteric. NEUROLOGIC: Shows II through XII intact. Normal gross motor, gross sensation intact. Gait is not tested. PSYCHIATRIC: Shows him to be awake, alert, and oriented x3 with appropriate mood and affect and conversational. LABORATORY DATA: His white count today is 8.8 with hemoglobin and hematocrit of 11.4 and 34.0 respectively improved from 10.4 and 31.6 yesterday. Platelet count is 270,000 and stable. Differential shows 78% neutrophils, 9% lymphocytes, and 9% monocytes. There are no immature forms and no toxic granulations. His electrolytes are normal with a BUN and creatinine of 21 and 0.83 with a glucose of 120 and a calcium of 8.2. IMAGING DATA: His chest x-ray is as discussed above. There is a very small apical airspace at the top of the lung on the left side. Subcutaneous emphysema is dissipating. Other than the very small airspace, the lungs fully expand to the chest wall. I see no infiltrates. IMPRESSION: 1. Spontaneous pneumothorax left side. 2. 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 3. Consolidated and obstructive left upper lobe segment now resolved. 4. Mucous plugging. 5. Status post fall. 6. Hypertension, resolved. 7. Diabetes. 8. Arthritis. 9. Multiple herniated discs. 10. Renal insufficiency, resolved. PLAN AND DISCUSSION: I can see no reason why he cannot go home today. I have removed his dressing. His wound is minimally weeping. I have placed a light dressing to protect his clothes. He will return to see me in one week with a chest x-ray in follow-up. I have advised him not to do any heavy lifting or strenuous activity. I have certainly advised him to stop smoking.
== END 2020-05-12 14:37 | disposition home health service (06) | DRG 199 ==
LOC: M ED 17:30 → M ED INP 20:46 → M PCU 20:56
PROVIDERS: ADMIT Internal Medicine; ATTEND Internal Medicine Nephrology
PROC: 0W9B00Z Drainage of Left Pleural Cavity with Drainage Device, Open Approach (ICD-10-PCS; principal; 2020-05-07)
DX: J93.0 Spontaneous tension pneumothorax (principal); J96.00 Acute respiratory failure, unspecified whether with hypoxia or hypercapnia; J18.9 Pneumonia, unspecified organism; J98.11 Atelectasis; I10 Essential (primary) hypertension; F31.9 Bipolar disorder, unspecified; J43.9 Emphysema, unspecified; R53.1 Weakness; R29.6 Repeated falls; I95.1 Orthostatic hypotension; D53.9 Nutritional anemia, unspecified; N40.0 Benign prostatic hyperplasia without lower urinary tract symptoms; K21.9 Gastro-esophageal reflux disease without esophagitis; E11.42 Type 2 diabetes mellitus with diabetic polyneuropathy; F41.9 Anxiety disorder, unspecified; R91.8 Other nonspecific abnormal finding of lung field; Z87.891 Personal history of nicotine dependence; Z90.49 Acquired absence of other specified parts of digestive tract; Z79.82 Long term (current) use of aspirin; Z79.899 Other long term (current) drug therapy; Z88.6 Allergy status to analgesic agent

== ENCOUNTER 2020-11-02 13:39 | Inpatient (IN) | payer OTHER ==
[~2020-11-02] VITALS: Ht 177.8 cm; Wt 75.2 kg
[~2020-11-02 13:39] MED LIST changes: +ADVA230A INH; +ASPI-264 PO; +AUGM875T28 PO; +LIDO1PAD TOP; +PERCOCET PO; +TIOT18INH INH; +TREL1AER PO; +ZOLO100T PO
[2020-11-02 15:32] LABS: VENOUS BASE EXCESS -0.4 (-2.0-2.0); VENOUS HCO3 25.3 MEQ/L (23.0-27.0); VENOUS O2 SATURATION 89.4 % (60.0-80.0); VENOUS PARTIAL PRESSURE CO2 45.8 mmHg (38.0-50.0); VENOUS PARTIAL PRESSURE O2 59.9 mmHg (30.0-50.0); VENOUS TOTAL CO2 26.7 MEQ/L (24.0-28.0)
[2020-11-02 15:45] LABS: BASO % 0.1 % (0.0-1.0); EOS % 0.1 % (0.0-3.0); HEMATOCRIT 31.1 % (42.0-52.0); HEMOGLOBIN 10.3 g/dl (13.5-17.5); LYMPH # 0.7 10^3/uL (1.5-5.0); LYMPH % 8.3 % (24.0-44.0); MEAN CORPUSCULAR HEMOGLOBIN 32.3 pg (27.0-33.0); MEAN CORPUSCULAR HGB CONC 33.1 g/dl (32.0-36.5); MEAN CORPUSCULAR VOLUME 97.5 fl (80.0-96.0); MONO # 0.7 10^3/uL (0.0-0.8); NEUTROPHILS # 7.4 10^3/uL (1.5-8.5); NEUTROPHILS % 83.2 % (36.0-66.0); PLATELET COUNT, AUTOMATED 380 10^3/uL (150-450); RED BLOOD COUNT 3.19 10^6/uL (4.30-6.10)
[2020-11-02] MEDS ORDERED: IPRATROPIUM 0.5MG/ALBUTEROL 2.5MG INH SOL UD 3ML (DUONEB) NEB ONE (16:05)
[2020-11-02] MEDS ORDERED: methylPREDNISolone 125MG 2ML VIAL IV ONE (16:05)
[2020-11-02] MEDS ORDERED: ALBUTEROL SULFATE 2.5 MG/0.5 ML INH NEB SOLN INH ONE (16:05)
[2020-11-02 16:14] LABS: RSV AMPLIFICATION NEGATIVE (NEGATIVE)
--- NOTE | 2020-11-02 16:15 | REP ---
INDICATION: DYSPNEA/COUGH. COMPARISON: PA and lateral chest dated 05/12/2020. TECHNIQUE: Portable AP chest with the patient upright. FINDINGS: The lung rueda are chronically hyperinflated, unchanged. There is diffuse bilateral interstitial coarsening as an interval change. There are no focal infiltrates. There are bilateral pleural effusions as an interval change. The patient is rotated. The cardiac size is normal. IMPRESSION: Diffuse bilateral interstitial coarsening and bilateral pleural effusions as interval changes. Chronic hyperinflation. Patient is rotated. <Electronically signed by Mykel Patel > 11/02/20 0295
[2020-11-02 16:53] LABS: ALBUMIN 3.2 GM/DL (3.2-5.2); ALT/SGPT 52 U/L (12-78); BILIRUBIN,DIRECT 0.1 MG/DL (0.0-0.2); BILIRUBIN,TOTAL 0.3 MG/DL (0.2-1.0); BLOOD UREA NITROGEN 21 MG/DL (7-18); CALCIUM LEVEL 7.9 MG/DL (8.8-10.2); CARBON DIOXIDE LEVEL 25 MEQ/L (21-32); CHLORIDE LEVEL 96 MEQ/L (98-107); CK-MB VALUE MASS 1.9 NG/ML (<3.6); CPK CREATINE PHOSPHOKINASE 51 U/L (39-308); CREATININE FOR GFR 0.76 MG/DL (0.70-1.30); GLOMERULAR FILTRATION RATE > 60.0 (>42); GLUCOSE, FASTING 165 MG/DL (70-100); MB/CK RELATIVE INDEX 3.73 (< OR =4); NT-PRO BNP 6443 PG/ML (<125); POTASSIUM SERUM 4.7 MEQ/L (3.5-5.1); SODIUM LEVEL 127 MEQ/L (136-145); THYROID STIMULATING HORMONE 0.612 uIU/ML (0.358-3.740); TOTAL PROTEIN 6.2 GM/DL (6.4-8.2); TROPONIN I 0.32 NG/ML (< 0.10)
[2020-11-02] MEDS ORDERED: FUROSEMIDE 40MG/4ML VIAL (J1940) IV ONE (17:25)
[2020-11-02] MEDS ORDERED: CYCL-707 PO (17:49)
[2020-11-02] MEDS ORDERED: LISI10TA22 PO (17:49)
[2020-11-02] MEDS ORDERED: ACET650T15 PO (17:50)
[2020-11-02] MEDS ORDERED: TREL1AER PO (17:50)
[2020-11-02] MEDS ORDERED: CLOPIDOGREL 300 MG TAB (PLAVIX) PO STA (17:52)
[2020-11-02] MEDS ORDERED: HOME MED LIST COMPLETE! XX SCH (17:55)
[2020-11-02] MEDS ORDERED: MOM 30ML SUSPENSION UDC PO PRN (18:00)
[2020-11-02] MEDS ORDERED: MAALOX 30 ML SUSP *UDC PO PRN (18:00)
[2020-11-02] MEDS ORDERED: ALBUTEROL 90 MCG/ACT 8GM HFA INHALER INH PRN (18:00)
--- NOTE | 2020-11-02 18:18 | HPEPDOC ---
[facility] Medical History & Physical Date of Admission Nov 02, 2020 Date of Service: Nov 02, 2020 Attending Physician: DEE DEE HOWARD DO History and Physical CHIEF COMPLAINT: Shortness of breath HISTORY OF PRESENT ILLNESS: Patient is a 75-year-old male who presented to the emergency department today with shortness of breath. Patient is also complaining of low back pain. Patient states that over the past few days he has been having some difficulty breathing. Patient states he been coughing more and coughing up clear phlegm. Patient is wondering if he has infection such as pneumonia and is asking what antibiotics he will be getting in order to help with the pneumonia. Patient endorsed chest pain when he first arrived to the emergency department however, this has cleared up. Patient denies any chest pain at the current time. Patient says that he feels like he is huffing and puffing especially when he is doing any movement. Patient complains of back pain because he has 6 herniated disks. Patient is otherwise feeling well. Patient denies any fevers or chills. Patient denies any increased urination or pain with urination. Patient had a mildly elevated troponin and transfer to [facility] for cardiac catheterization was offered to the patient but the patient declined. Patient filled out a MOLST form for DO NOT RESUSCITATE and DO NOT INTUBATE in the emergency department. Patient's home health care aides contacted the emergency department as they were the ones who help facilitate the patient coming to the emergency department and stated that they would no longer be able to care for him as he lives in "deplorable conditions" PAST MEDICAL HISTORY: 1. BPH. 2. Type 2 diabetes not on medications. 3. GERD. 4. Peripheral neuropathy 5. Hypertension 6. 6 bulging disks 7. Macrocytic anemia PAST SURGICAL HISTORY: 1. Appendectomy. SOCIAL HISTORY: Current smoker smokes about 5 cigarettes a day. Denies any alcohol or illicit drug use. Apparently according to home health aides, they are no longer able to take care of him due to him living in "deplorable conditions." FAMILY HISTORY: Patient states that heart disease and cancer run in his family ALLERGIES: Please see below. REVIEW OF SYSTEMS: General: Patient denies fevers HEENT: Patient denies headaches Cardiovascular: Patient denies chest pain Respiratory: Patient reports shortness of breath and productive cough with clear phlegm, no hemoptysis GI: Patient denies abdominal pain, nausea, vomiting, diarrhea : Patient denies increased frequency or pain with urination Extremities: Patient reports pain and swelling in his lower extremities. Neurological: Patient denies numbness or tingling in legs Skin: Patient denies any new rashes or lesions. Musculoskeletal: Patient reports back pain Lymphatic: Patient denies any lumps lumps or bumps in neck, axilla, or groin HOME MEDICATIONS: Please see below. PHYSICAL EXAMINATION: VITAL SIGNS: Temperature 98.1, pulse 98, respiratory rate 20, blood pressure 167/89, pulse oximetry 92% on room air. General: Alert and oriented male patient who was sitting up in bed when I walked in. Patient did appear mildly disheveled. Patient did not appear to be in any acute distress. Patient did have nasal cannula oxygen on however, the actual nasal cannula part was not in his nose and was off to the side of his face. HEENT: Normocephalic, atraumatic, moist mucous membranes. Neck: No lymphadenopathy or thyromegaly Cardiac: Regular rate and rhythm, no murmurs, normal S1, normal S2 Pulm: End inspiratory crackles were heard in the lower lung rueda about snf up the lung rueda. Upper lung rueda are clear to auscultation bilaterally Abd: Nondistended, nontender to palpation, normal bowel sounds Ext: 1+ pitting edema in the bilateral lower extremities Neuro: Patient was able to move all 4 extremities equally. Patient reported sensation to light touch in upper and lower extremities bilaterally. Skin: Skin of the head, neck, upper and lower extremities, back, abdomen was examined not show any rashes LABORATORY DATA: See below. IMAGING: Chest x-ray performed on 11/02/2020 was reported to show diffuse bilateral interstitial coarsening and bilateral pleural effusions with interval changes. Chronic hyperinflation. Patient is rotated. MICROBIOLOGY: Please see below. ASSESSMENT: 75-year-old male who presented to the hospital with increasing shor tness of breath and productive cough with clear sputum who was found to have a mildly elevated troponin and was offered transfer to a cardiac catheterization center but declined. Patient will be admitted for CHF exacerbation. . PLAN: 1. Heart failure with preserved ejection fraction. Patient had echocardiogram performed on May 08, 2020 that showed an ejection fraction of 75%. Patient does appear fluid overloaded. Patient does not appear to be on any diuretics outpatient. Patient will receive 40 mg IV Lasix in the emergency department and will be on 20 mg IV Lasix every 8 hours while hospitalized. We will monitor the patient's I's and O's strictly. Patient will be placed on a 2000 cc fluid restriction. Since the patient had an echocardiogram within the last year, echocardiogram will not be performed at this time. We will continue to monitor the patient. I believe this may be the reason why the patient's troponins were mildly elevated however, we will recheck this. 2. Elevated troponin. Patient's troponin was mildly elevated at 0.32. Patient has had normal troponins in the past. These will be rechecked at the 3-hour jaime and trended throughout the night. Patient refused transfer to a cardiac catheterization center. Patient was given clopidogrel as he is in a listed allergy to aspirin. Patient received 300 mg of clopidogrel in the emergency department. If the patient's troponin continues to climb, and/or the patient develops chest pain, patient can be started on heparin drip. 3. Back pain. Patient reports that he has had 6 herniated disc. Patient is not on any opiate pain medication at home. Patient will be given Tylenol for pain control. 4. Hypertension. Continue patient's home medications. 5. Type 2 diabetes. Patient does not take any medications at home. Patient be placed on sliding scale with ACHS fingersticks. 6. BPH. Continue patient's on medications. 7. Peripheral neuropathy. Continue patient's home medications. 8. DVT prophylaxis: Teds and Lovenox 9. CODE STATUS: Patient filled out a MOLST form signed by the ED provider for DNR/DNI. Disposition: Patient will be admitted to the progressive care unit for further monitoring. Patient will have repeat troponins overnight. Patient will be diuresed. I do expect a greater than 2 midnight stay. Patient apparently lives in "deplorable conditions" according to the emergency department provider and may need placement. Vital Signs Vital Signs Date Time Temp Pulse Resp B/P (MAP) Pulse Ox O2 Delivery O2 Flow Rate FiO2 11/02/20 13:53 98.1 98 20 167/89 92 Room Air Laboratory Data Labs 24H Laboratory Tests 2 11/02/20 15:21: Immature Granulocyte % (Auto) 0.3, Neutrophils (%) (Auto) 83.2H, Lymphocytes (%) (Auto) 8.3L, Monocytes (%) (Auto) 8.0, Eosinophils (%) (Auto) 0.1, Basophils (%) (Auto) 0.1, Neutrophils # (Auto) 7.4, Lymphocytes # (Auto) 0.7L, Monocytes # (Auto) 0.7, Eosinophils # (Auto) 0.0, Basophils # (Auto) 0.0, Nucleated Red Blood Cells % (auto) 0.0, Blood Gas Bicarbonate Standard 24.0, Venous Blood pH 7.360, Venous Blood Partial Pressure CO2 45.8, Venous Blood Partial Pressure O2 59.9H, Venous Blood Total Carbon Dioxide 26.7, Venous Blood HCO3 25.3, Venous Blood Oxygen Saturation 89.4H, Venous Blood Base Excess -0.4, Anion Gap 6L, Glomerular Filtration Rate > 60.0, Lactic Acid Level 1.2, Calcium Level 7.9L, Total Bilirubin 0.3, Direct Bilirubin 0.1, Aspartate Amino Transf (AST/SGOT) 31, Alanine Aminotransferase (ALT/SGPT) 52, Alkaline Phosphatase 105, Total Creatine Kinase 51, Creatine Kinase MB 1.9, Creatine Kinase MB Relative Index 3.73, Troponin I 0.32H, HI-Cih-P-Type Natriuretic Peptide 6443H, Total Protein 6.2L, Albumin 3.2, Albumin/Globulin Ratio 1.1, Thyroid Stimulating Hormone (TSH) 0.612, Thyroxine (T4) 8.0, Coronavirus (COVID-19)(PCR) NEGATIVE, Influenza Type A (RT-PCR) NEGATIVE, Influenza Type B (RT-PCR) NEGATIVE, Respiratory Syncytial Virus (PCR) NEGATIVE CBC/BMP Laboratory Tests 11/02/20 15:21 Microbiology Microbiology 11/02/20 Blood Culture, Received Pending Home Medications Scheduled Docusate Sodium (Docusate Sodium) 100 Mg Capsule, 100 MG PO BID Finasteride (Finasteride) 5 Mg Tablet, 5 MG PO QHS Fluticasone/Umeclidin/Vilanter (Trelegy Ellipta 100-62.5-25) 1 Each Blst.w.dev, 1 PUFF PO DAILY Gabapentin (Gabapentin) 300 Mg Capsule, 600 MG PO TID Lisinopril (Lisinopril) 10 Mg Tablet, 10 MG PO DAILY Lurasidone HCl (Latuda) 120 Mg Tablet, 120 MG PO QHS Melatonin (Melatonin) 3 Mg Tablet, 6 MG PO QHS Multivitamin with Minerals (Multivitamins with Minerals) 1 Each Tablet, 1 TAB PO DAILY Omeprazole (Omeprazole) 20 Mg Capsule.dr, 20 MG PO DAILY Sennosides (Senna) 8.6 Mg Tablet, 2 TAB PO BID Sertraline Hcl (Zoloft) 100 Mg Tablet, 200 MG PO DAILY Terazosin Hcl (Terazosin HCl) 10 Mg Capsule, 20 MG PO QHS Scheduled PRN Acetaminophen (Acetaminophen ER) 650 Mg Tablet.er, 650 MG PO Q8H PRN for PAIN LEVEL 1-6 Albuterol Sulfate (Ventolin Hfa) 18 Gm Hfa.aer.ad, 2 PUFFS INH Q4H PRN for SHORTNESS OF BREATH Cyclobenzaprine HCl (Cyclobenzaprine HCl) 10 Mg Tablet, 10 MG PO BID PRN for MUSCLE SPASMS Allergies Coded Allergies: aspirin (Verified Adverse Reaction, Unknown, BLEEDING ULCER, 08/31/19) A-FIB/CHADSVASC A-FIB History Current/History of A-Fib/PAF?: No DEE DEE HOWARD DO Nov 02, 2020 18:18
[2020-11-02 19:54] LABS: CK-MB VALUE MASS 1.3 NG/ML (<3.6); MB/CK RELATIVE INDEX 2.71 (< OR =4); TROPONIN I 0.3 NG/ML (< 0.10)
--- NOTE | 2020-11-02 20:31 | ECGEPIP ---
[facility] - ED Test Date: 2020-11-02 Pat Name: KIERRA VILLELA Department: Room: - Gender: Male [employer] Processor: ANNA MARIE : 1945 Requested By: JOSE Covarrubias PA-C Order Number: [id number] Reading MD: Katey Alvarez Measurements Intervals [place] Rate: 113 P: 88 MA: 248 QRS: 151 QRSD: 94 T: 86 QT: 318 QTc: 436 Interpretive Statements Sinus tachycardia with 1st degree AV block Right axis deviation Pulmonary disease pattern NSTTW abnormalities increased rate 05/07/20 Electronically Signed on 11-02-2020 20:31:51 EDT by Katey Alvarez
[2020-11-02] MEDS: SENNA 8.6 MG TAB (SENOKOT) PO SCH (21:00)
[2020-11-02 22:15] VITALS: BP 178/102
[2020-11-02] MEDS: LURASIDONE HCL 40 MG TAB (LATUDA) PO SCH (22:45)
[2020-11-02] MEDS: TERAZOSIN 5MG CAPSULE PO SCH (22:45)
[2020-11-02] MEDS: FINASTERIDE 5 MG TAB PO SCH (22:46)
[2020-11-02] MEDS: DOCUSATE SODIUM 100MG CAPSULE PO SCH (22:47)
[2020-11-02] MEDS: GABAPENTIN 300 MG CAP PO SCH (22:47)
[2020-11-02] MEDS: CYCLOBENZAPRINE 10MG TABLET PO PRN (22:48)
[2020-11-03] VITALS (24 sets, daily range): BP systolic 125–170; BP diastolic 78–92; O2SAT 94–99
[2020-11-03] MEDS ORDERED: LABETALOL 100MG/20ML VIAL IV ONE (00:45)
[2020-11-03] MEDS ORDERED: hydrOXYzine 25 MG TAB PO ONE (00:45)
[2020-11-03 01:15] LABS: CK-MB VALUE MASS 2.2 NG/ML (<3.6); MB/CK RELATIVE INDEX 4.78 (< OR =4); TROPONIN I 0.27 NG/ML (< 0.10)
[2020-11-03] MEDS: FUROSEMIDE 20MG/2ML VIAL (J1940) IV SCH ×3 (02:25→17:52)
[2020-11-03] MEDS ORDERED: ONDANSETRON 4MG/2ML VIAL IV PRN (07:45)
[2020-11-03] MEDS: DOCUSATE SODIUM 100MG CAPSULE PO SCH ×2 (08:24→21:12)
[2020-11-03] MEDS: OMEPRAZOLE 20 MG CAP PO SCH (08:24)
[2020-11-03] MEDS: SENNA 8.6 MG TAB (SENOKOT) PO SCH ×2 (08:24→21:13)
[2020-11-03] MEDS: GABAPENTIN 300 MG CAP PO SCH ×3 (08:25→21:13)
[2020-11-03] MEDS: SERTRALINE 100 MG TAB PO SCH (08:25)
[2020-11-03 08:26] LABS: HEMATOCRIT 30.7 % (42.0-52.0); HEMOGLOBIN 10.4 g/dl (13.5-17.5); MEAN CORPUSCULAR HEMOGLOBIN 32.5 pg (27.0-33.0); MEAN CORPUSCULAR HGB CONC 33.9 g/dl (32.0-36.5); MEAN CORPUSCULAR VOLUME 95.9 fl (80.0-96.0); PLATELET COUNT, AUTOMATED 370 10^3/uL (150-450); WHITE BLOOD COUNT 7.7 10^3/uL (4.0-10.0)
[2020-11-03] MEDS: ENOXAPARIN 40MG/0.4ML SYRINGE (J1650 PER 10MG) SC SCH (08:26)
[2020-11-03 08:50] LABS: BLOOD UREA NITROGEN 21 MG/DL (7-18); CALCIUM LEVEL 8.4 MG/DL (8.8-10.2); CARBON DIOXIDE LEVEL 29 MEQ/L (21-32); CHLORIDE LEVEL 93 MEQ/L (98-107); CK-MB VALUE MASS 2.3 NG/ML (<3.6); CPK CREATINE PHOSPHOKINASE 49 U/L (39-308); CREATININE FOR GFR 0.74 MG/DL (0.70-1.30); GLOMERULAR FILTRATION RATE > 60.0 (>42); GLUCOSE, FASTING 112 MG/DL (70-100); MB/CK RELATIVE INDEX 4.69 (< OR =4); POTASSIUM SERUM 4.3 MEQ/L (3.5-5.1); SODIUM LEVEL 128 MEQ/L (136-145); TROPONIN I 0.27 NG/ML (< 0.10)
--- NOTE | 2020-11-03 11:22 | IPNPDOC ---
Text Note Date of Service The patient was seen on 11/03/20. NOTE Subjective: Patient is a 75-year-old male presented to the emergency department shortness of breath. Patient is also complaining of low back pain. Patient is feeling better but is still having shortness of breath. So she when he walks around. Patient's troponins have slowly come down. Patient denies having any chest pain at this time. Patient did not have any acute events overnight. Review of systems: General: Patient denies fevers HEENT: Patient denies headaches Cardiovascular: Patient denies chest pain Respiratory: Patient reports shortness of breath that has improved and cough that is improved but is still present. GI: Patient denies abdominal pain, nausea, vomiting, diarrhea : Patient denies increased frequency or pain with urination Extremities: Patient denies swelling or pain in extremities Neurological: Patient denies numbness or tingling in legs Physical exam: Vitals: See below General: Alert and oriented male patient who was sitting up in bedside chair when I walked in the room. Patient not appear to be in any acute distress. HEENT: Normocephalic, atraumatic, moist mucous membranes. Neck: No lymphadenopathy or thyromegaly Cardiac: Regular rate and rhythm, no murmurs, normal S1, normal S2 Pulm: Bibasilar crackles. Clear to auscultation upper lung rueda bilaterally. Abd: Nondistended, nontender to palpation, normal bowel sounds Ext: 1+ pitting edema around the ankles Labs: See below Imaging: No new imaging has been performed Assessment/plan: 75-year-old male who presented to hospital with increasing shortness of breath productive cough with clear sputum was found to have mildly elevated troponin who was offered transfer to cardiac catheterization center but declined. Patient will be admitted for CHF exacerbation. 1. Heart failure with preserved ejection fraction. Patient had echocardiogram performed on 05/08/2020 which showed an ejection fraction of 75%. Patient does appear fluid overloaded and does not take any diuretics outpatient. Patient will be on 20 mg of IV Lasix. Strict I's and O's. 2000 cc fluid restriction. Echocardiogram was performed due to the increased troponin level on top of the possible CHF exacerbation. Patient's breathing is getting better. And we will continue to monitor. 2. Elevated troponin. This is been trending down mildly. Will not continue clopidogrel as is most likely not an NSTEMI as it is more likely due to the patient's congestive heart failure. We will continue to monitor. 3. Back pain. Patient reports he has 6 herniated disks. Patient is not on opiate pain medication at home. Patient will be given Tylenol for pain control and work with physical therapy. 4. Hyponatremia. I believe this is secondary to the patient's CHF exacerbation. We will continue to monitor patient's sodium as we continue to diurese the patient. 5. Hypertension. Continue patient on medication. 6. Type 2 diabetes mellitus. Patient not take any medications at home. Monitor patient's fingersticks. 7. BPH. Continue home medications. 8. Peripheral neuropathy. Continue patient's home medications. DVT Prophylaxis: Teds and Lovenox Disposition: Pending possible placement and clinical improvement. VS,Reinierbone, I+O VS, Reinierbone, I+O Laboratory Tests 11/02/20 15:21 11/03/20 07:42 Vital Signs Date Time Temp Pulse Resp B/P (MAP) Pulse Ox O2 Delivery O2 Flow Rate FiO2 11/03/20 10:00 94 Nasal Cannula 2.0 11/03/20 08:25 154/92 11/03/20 08:00 97.8 92 22 DEE DEE HOWARD DO Nov 03, 2020 11:21
[2020-11-03] MEDS: CYCLOBENZAPRINE 10MG TABLET PO PRN ×2 (11:53→21:13)
[2020-11-03] MEDS: ACETAMINOPHEN TAB 650MG DOSE (2X325MG) PO PRN (15:58)
[2020-11-03] MEDS: TERAZOSIN 5MG CAPSULE PO SCH (21:13)
[2020-11-03] MEDS: FINASTERIDE 5 MG TAB PO SCH (21:13)
[2020-11-03] MEDS: LURASIDONE HCL 40 MG TAB (LATUDA) PO SCH (21:13)
[2020-11-04] VITALS: BP 128/91; O2SAT 95
[2020-11-04] MEDS: FUROSEMIDE 20MG/2ML VIAL (J1940) IV SCH ×3 (02:26→17:07)
[2020-11-04 04:00] VITALS: BP 122/92; O2SAT 96
[2020-11-04 05:20] LABS: HEMATOCRIT 29.4 % (42.0-52.0); MEAN CORPUSCULAR HEMOGLOBIN 32.8 pg (27.0-33.0); MEAN CORPUSCULAR VOLUME 96.4 fl (80.0-96.0); PLATELET COUNT, AUTOMATED 317 10^3/uL (150-450); RED BLOOD COUNT 3.05 10^6/uL (4.30-6.10); WHITE BLOOD COUNT 7.6 10^3/uL (4.0-10.0)
[2020-11-04 05:51] LABS: BLOOD UREA NITROGEN 22 MG/DL (7-18); CALCIUM LEVEL 7.5 MG/DL (8.8-10.2); CARBON DIOXIDE LEVEL 31 MEQ/L (21-32); CHLORIDE LEVEL 92 MEQ/L (98-107); CREATININE FOR GFR 0.69 MG/DL (0.70-1.30); GLOMERULAR FILTRATION RATE > 60.0 (>42); GLUCOSE, FASTING 82 MG/DL (70-100); MAGNESIUM LEVEL 2.1 MG/DL (1.8-2.4); POTASSIUM SERUM 3.7 MEQ/L (3.5-5.1); SODIUM LEVEL 128 MEQ/L (136-145)
--- NOTE | 2020-11-04 07:39 | ECHO ---
ECHOCARDIOGRAM DATE OF PROCEDURE: 11/03/2020 INDICATION: Congestive heart failure Age: 75 Gender: Male Height: 177 cm Weight: 83 kg IVS 1.0 cm LV 1.2 cm LV 5.5 cm LVPW 1.0 cm LA 4.1 cm Aorta 3.8 cm Left atrium volume index 39 mL/m2 IVC 2.9 FINDINGS: This study is of limited technical quality with difficult visualization, underlying sinus rhythm. Normal LV size with mild LVH. Global left ventricular systolic dysfunction with estimated LVEF 35 to 40%. Right ventricle was poorly visualized. There is bi-atrial enlargement. Aortic valve appears normal. The same applies for remaining cardiac values even though the visualization was somewhat challenging. No pericardial effusion is noted. Inferior vena cava is dilated. There is no appreciable collapses on inspiration. Aortic root is normal. Aortic arch and abdominal aorta were not well seen. Mitral inflow pattern and tissue Doppler imaging of mitral annulus are inconclusive for evaluation of diastolic function. There is effusion on mitral inflow and there are very low tissue Doppler velocities. Overall, I estimated advanced diastolic dysfunction. CONCLUSIONS: 1. Study is of fair technical quality, underlying sinus rhythm. 2. Normal LV size with borderline LVH and global left ventricular systolic dysfunction with estimated LVEF 35 to 40%, likely advanced diastolic dysfunction. 3. Right ventricle was poorly seen. 4. Moderate mitral and tricuspid insufficiency. 5. Very high central venous pressure and severe pulmonary hypertension. 6. Compared to echocardiogram from May 08, 2020, left ventricle systolic function is substantially worse on today's study. Severe pulmonary hypertension was not demonstrated during prior echocardiogram. The quality of study in April was inferior to the study today.
[2020-11-04 07:47] VITALS: BP 144/84
[2020-11-04] MEDS: DOCUSATE SODIUM 100MG CAPSULE PO SCH ×2 (08:52→20:33)
[2020-11-04] MEDS: OMEPRAZOLE 20 MG CAP PO SCH (08:52)
[2020-11-04] MEDS: GABAPENTIN 300 MG CAP PO SCH ×3 (08:53→20:34)
[2020-11-04] MEDS: SENNA 8.6 MG TAB (SENOKOT) PO SCH ×2 (08:53→20:36)
[2020-11-04] MEDS: SERTRALINE 100 MG TAB PO SCH (08:53)
[2020-11-04] MEDS: ENOXAPARIN 40MG/0.4ML SYRINGE (J1650 PER 10MG) SC SCH (08:53)
[2020-11-04] MEDS: guaiFENesin ER 600 MG TAB PO SCH ×2 (10:25→20:32)
[2020-11-04] MEDS ORDERED: metOLazone 5 MG TAB PO ONE (15:35)
--- NOTE | 2020-11-04 15:47 | IPNPDOC ---
Text Note Date of Service The patient was seen on 11/04/20. NOTE Subjective: No any acute events overnight. Patient complains of generalized weakness, dizziness when he stands up. Objective: GENERAL APPEARANCE: NAD HEENT: no scleral icterus, plus JVD, EOMI CARDIOVASCULAR: S1S2 LUNGS: Diminished lung sounds bilaterally ABDOMEN: soft & not tender w palpation MUSCULOSKELETAL: no cyanosis, no swelling INTEGUMENT: no generalized pallor NEUROLOGICAL: cranial nerve function from 2-12 intact, follows commands, speech not dysarthric Assessment and plan Patient is 75 years old male with past medical history of diastolic CHF, chronic back pain, hypertension, type 2 diabetes presented to hospital with increased shortness of breath. Also patient was found to have elevated troponin, he declined transfer to upper-level facility for cardiac catheterization. Combined systolic and diastolic CHF Echo shows Normal LV size with borderline LVH and global left ventricular systolic dysfunction with estimated LVEF 35 to 40%, likely advanced diastolic dysfunction. Right ventricle was poorly seen.Moderate mitral and tricuspid insufficiency. Severe pulmonary hypertension was not demonstrated during prior echocardiogram I will stop lisinopril patient will benefit from Entresto I will intensify diuresis with Lasix 40 mg IV every 8 hours and metolazone We will continue to monitor I's and O's Fluid restriction to 1500 cc Follow-up with sound editor in the outpatient settings I will add carvedilol and spironolactone daily We will continue to monitor BNP Elevated troponin/NSTEMI Trending down Continue to monitor Patient refused cardiac catheterization Patient has multiple risk factors and NSTEMI cannot be excluded. I will start aspirin, statin, beta-blockers and Plavix Continue to monitor EKG Appreciate/agree with cardiology's consult Hyponatremia Most likely secondary to CHF exacerbation however there is concern for SIADH Fluid restriction We will check urine and serum osmolarity and sodium in the urine Hypertension I discontinue lisinopril and will start Entresto after 36 hours Type 2 diabetes Glucose level under control Controlled with diet BPH Continue home meds Peripheral neuropathy Continue home meds Hyperlipidemia I will start statin VS,Fishbone, I+O VS, Fishbone, I+O Laboratory Tests 11/04/20 05:00 Vital Signs Date Time Temp Pulse Resp B/P (MAP) Pulse Ox O2 Delivery O2 Flow Rate FiO2 11/04/20 15:23 2.0 11/04/20 08:53 144/84 11/04/20 07:47 97.6 76 22 95 Nasal Cannula I&O- Last 24 Hours up to 6 AM 11/04/20 06:00 Intake Total 2020 ml Output Total 1670 ml Balance 350 ml JOSSY RODRIGUEZ DO Nov 04, 2020 15:47
[2020-11-04 16:00] VITALS: BP 161/85
[2020-11-04] MEDS ORDERED: ASPIRIN 81 MG CHEW TABLET PO ONE (16:00)
[2020-11-04] MEDS ORDERED: CLOPIDOGREL 75 MG TAB PO ONE (16:00)
[2020-11-04] MEDS ORDERED: ATORVASTATIN 20 MG TAB PO ONE (16:10)
[2020-11-04] MEDS: CARVedilol 3.125 MG TAB PO SCH (17:06)
--- NOTE | 2020-11-04 19:30 | CR ---
CONSULTATION DATE: 11/04/2020 REFERRING PHYSICIAN: JOSSY HERR DO REASON FOR CONSULTATION: Congestive heart failure, elevated troponin. HISTORY OF PRESENT ILLNESS: Mr. Guillen is previously unknown to me. He is a 75-year-old man who has no prior history of coronary artery disease. He presented to the Emergency Room on October 30 after approximately a one week history of progressive dyspnea with cough and wheezing and associated sensation of chest discomfort that he describes as a retrosternal pressure. During the initial evaluation in the Emergency Room, he was found to have mildly elevated troponin and even though he did not have any active chest discomfort at that time he was recommended to get transferred for an angiogram which he refused. He was kept in the hospital and an echocardiogram revealed left ventricular systolic dysfunction which is new compared to his prior echo in April. He was started on diuretics and was supposed to be discharged home but after the results of echocardiogram became available I was asked to see him in consultation by Dr. Herr. At bedside, the patient provides a rather limited history. He believes that he was feeling well until about a week ago but then the breathing started being quite bothersome. He does not recall having any prior cardiac problems or cardiac evaluation. He does tell me that in spite of using diuretics today and yesterday he really has not seen any change in his condition and he continues to be clearly short of breath. Peripheral edema is mild and persistent since admission. He denies any katharina PND. PAST MEDICAL HISTORY: 1. BPH. 2. GERD. 3. Hypertension. 4. Chronic back pain. 5. History of macrocytic anemia. 6. Peripheral neuropathy. PAST SURGICAL HISTORY: Positive for appendectomy. SOCIAL HISTORY: Patient tells me that he currently does not smoke and quit about a week ago after essentially life-long heavy smoking. He reports also a history of very severe alcohol use but of recently has been drinking only "a little." He lives alone, apparently he is a after two of his wives of cancer. He has a son who lives outside of our area. He has health care aides but they apparently refused to take care of him because he lives in "deplorable conditions" as per hospital chart. FAMILY HISTORY: Patient is not aware of what his mother of but his father of heart disease and he was a life-long smoker. He apparently has additional family members with cancer and heart disease. REVIEW OF SYSTEMS: He does not recall any katharina fever or chills, nausea, vomiting or diarrhea. He has had cough and wheezing. He denies a history of syncope. He has had episodes of chest discomfort for about a week or two, not necessarily exertionally related. He has noted peripheral edema, he believes approximately a week. OUTPATIENT MEDICATIONS: 1. Albuterol as needed. 2. Cyclobenzaprine 10 mg as needed. 3. Finasteride 5 mg at bedtime. 4. Trelegy Ellipta. 5. Gabapentin 600 t.i.d. 6. Lisinopril 10 mg a day. 7. Latuda 120 mg at bedtime. 8. Melatonin as needed. 9. Omeprazole 20 mg a day. 10.Senna two tablets twice a day. 11.Zoloft 200 mg daily. 12.Terazosin 20 mg at bedtime. ALLERGIES: He reports an allergy to aspirin but does not recall what side-effects he had. PHYSICAL EXAMINATION: Mr. Guillen is an elderly man who appears to be in no distress, although somewhat poor hygiene. He is alert and oriented and answers all questions appropriately. His JVP is not elevated to my exam. Lungs are demonstrating very diminished breath sounds. I do not appreciate wheezing, crackles or rhonchi. Heart exam also reveals somewhat distant heart sounds, probably due to underlying COPD. I do not appreciate any clear-cut murmur, gallop or rub. Abdomen is soft without obvious shifting dullness. I do not appreciate hepatomegaly. Extremities have about 1+ edema to mid shins. Peripheral pulses of poor quality. Neurologically, he is alert and oriented and appropriate. He expresses mood for quite some time. LABORATORY DATA: CBC: WBC 7.6, hemoglobin 10, hematocrit 29, platelet count 317,000. Basic metabolic panel: Sodium is 128, potassium is 3.7, BUN 22, creatinine 0.7, glucose is 82, calcium is 7.5. Troponin has been hovering around 0.3 since admission. Chest x-ray reveals hyperinflation, bilateral pleural effusions and fluid redistribution is consistent with congestive heart failure. There are several EKGs on the chart, all of them reveal sinus rhythm with first degree AV block, poor R-wave progression, right axis deviation and nonspecific ST-T abnormalities. An echocardiogram interpreted myself revealed global left ventricular systolic dysfunction with an ejection fraction in the neighborhood of 35% with moderate mitral and tricuspid insufficiency and severe pulmonary hypertension. ASSESSMENT AND PLAN: 1. Mr. Guillen is an elderly man who undoubtedly has very advanced COPD due to lifelong smoking and now presents with dyspnea which likely represents a combination of underlying COPD and now congestive heart failure. Echocardiogram reveals new left ventricular systolic dysfunction and severe pulmonary hypertension. His prior echocardiogram in April revealed preserved LV systolic function but pulmonary artery pressure was not determined so it is possible that the severe pulmonary hypertension is not new since then. When I talked to him about his wishes, he clearly confirms that he wants to be a DNI/DNR, he does not want any heroic measures and he actually tells me that he is actively praying that he dies soon because he is tired of life. It is probably a case that his poor social conditions contribute to his attitude. I do believe that he needs to be modestly diuresed, he was already started on furosemide, spironolactone and metolazone. I am going to discontinue metolazone and cut down on the dose of spironolactone because he is not grossly volume overloaded. Also, his blood pressure is relatively high so he should be able to tolerate additional medications. He was started on low dose Carvedilol and I am going to put him Lisinopril which he was on or at least has been listed as one of his home medications. I would plan on overall very conservative management consistent with his wishes. As far as the troponin elevation is concerned, there is no appreciable trend and his EKG does not indicate any obvious evolution. Consequently, I believe it is more likely secondary to congestive heart failure and does not represent acute coronary event. On the other hand, he certainly very likely has advanced arteriosclerosis and has no new LV systolic dysfunction. He does not want to pursue any invasive management, consequently chronic administration of Plavix is recommended. Unfortunately, he has an allergic to aspirin and I am going to discontinue the medication. Overall, his prognosis is certainly poor, not only due to purely medical reasons but also due to poor social situation. Please contact me if further assistance is desired.
[2020-11-04 20:00] VITALS: BP 125/86
[2020-11-04] MEDS: FINASTERIDE 5 MG TAB PO SCH (20:33)
[2020-11-04] MEDS: SPIRONOLACTONE 12.5MG PER 1/2 TABLET PO SCH (20:33)
[2020-11-04] MEDS: LURASIDONE HCL 40 MG TAB (LATUDA) PO SCH (20:34)
[2020-11-04] MEDS: TERAZOSIN 5MG CAPSULE PO SCH (20:35)
[2020-11-04] MEDS: ACETAMINOPHEN TAB 650MG DOSE (2X325MG) PO PRN (20:35)
[2020-11-05] MEDS: FUROSEMIDE 20MG/2ML VIAL (J1940) IV SCH ×2 (03:06→10:00)
[2020-11-05 04:00] VITALS: BP 120/62
[2020-11-05] MEDS: CYCLOBENZAPRINE 10MG TABLET PO PRN (05:17)
[2020-11-05 05:22] LABS: HEMATOCRIT 32.5 % (42.0-52.0); HEMOGLOBIN 11.1 g/dl (13.5-17.5); MEAN CORPUSCULAR HEMOGLOBIN 32.6 pg (27.0-33.0); MEAN CORPUSCULAR HGB CONC 34.2 g/dl (32.0-36.5); MEAN CORPUSCULAR VOLUME 95.3 fl (80.0-96.0); PLATELET COUNT, AUTOMATED 360 10^3/uL (150-450); RED BLOOD COUNT 3.41 10^6/uL (4.30-6.10); WHITE BLOOD COUNT 7.9 10^3/uL (4.0-10.0)
[2020-11-05 05:52] LABS: BLOOD UREA NITROGEN 21 MG/DL (7-18); CALCIUM LEVEL 7.9 MG/DL (8.8-10.2); CARBON DIOXIDE LEVEL 34 MEQ/L (21-32); CHLORIDE LEVEL 87 MEQ/L (98-107); CREATININE FOR GFR 0.85 MG/DL (0.70-1.30); GLOMERULAR FILTRATION RATE > 60.0 (>42); GLUCOSE, FASTING 102 MG/DL (70-100); POTASSIUM SERUM 3.1 MEQ/L (3.5-5.1); SODIUM LEVEL 127 MEQ/L (136-145)
[2020-11-05 06:14] LABS: OSMOLALITY URINE 274 MOSM/KG (50-1400); SODIUM,RANDOM URINE 113 MEQ/L
[2020-11-05] MEDS ORDERED: POTASSIUM CHLORIDE 10 MEQ SR TABLET PO ONE (08:15)
[2020-11-05] MEDS: SERTRALINE 100 MG TAB PO SCH (08:22)
[2020-11-05] MEDS: guaiFENesin ER 600 MG TAB PO SCH ×2 (08:22→21:42)
[2020-11-05] MEDS: metOLazone 5 MG TAB PO SCH (08:22)
[2020-11-05] MEDS: OMEPRAZOLE 20 MG CAP PO SCH (08:22)
[2020-11-05] MEDS: ATORVASTATIN 20 MG TAB PO SCH (08:23)
[2020-11-05] MEDS: GABAPENTIN 300 MG CAP PO SCH ×3 (08:23→21:42)
[2020-11-05] MEDS: DOCUSATE SODIUM 100MG CAPSULE PO SCH ×2 (08:23→21:41)
[2020-11-05] MEDS: SENNA 8.6 MG TAB (SENOKOT) PO SCH ×2 (08:23→21:42)
[2020-11-05] MEDS: CLOPIDOGREL 75 MG TAB PO SCH (08:23)
[2020-11-05] MEDS: ACETAMINOPHEN TAB 650MG DOSE (2X325MG) PO PRN ×2 (08:24→15:24)
[2020-11-05] MEDS: ENOXAPARIN 40MG/0.4ML SYRINGE (J1650 PER 10MG) SC SCH (08:24)
[2020-11-05 08:34] VITALS: BP 116/56
[2020-11-05] MEDS: CARVedilol 3.125 MG TAB PO SCH (08:34)
--- NOTE | 2020-11-05 08:39 | ECGEPIP ---
[facility] Test Date: 2020-11-04 Pat Name: KIERRA VILLELA Department: Room: [place] [address] Gender: Male Cst: MIGEL : 1945 Requested By: JOSSY RODRIGUEZ Order Number: [id number] Reading MD: Fernie Draper Measurements Intervals [place] Rate: 88 P: 90 AL: 238 QRS: -41 QRSD: 90 T: 108 QT: 416 QTc: 503 Interpretive Statements normal sinus rhythm LA conduction disturbance with first-degree AV block Left axis deviation-left anterior hemiblock Low limb voltageswith somewhat slow precoordial R wave progression and persistent S S waves V5 and V6; body habitus versus pulmonary disease. lateral ST/T wave abnormalities Nonsignificantly change from 11/02/20 Electronically Signed on 11-05-2020 8:39:21 EDT by Fernie Draper
[2020-11-05] MEDS ORDERED: SPIRONOLACTONE 12.5MG PER 1/2 TABLET PO SCH (09:00)
[2020-11-05] MEDS ORDERED: ASPIRIN 81 MG CHEW TABLET PO SCH (09:00)
[2020-11-05 09:15] LABS: NT-PRO BNP 5252 PG/ML (<125)
[2020-11-05 16:02] VITALS: BP 142/64
--- NOTE | 2020-11-05 16:19 | IPNPDOC ---
Text Note Date of Service The patient was seen on 11/05/20. NOTE Subjective: No any acute events overnight. Patient refused IV Lasix. Objective: GENERAL APPEARANCE: NAD HEENT: no scleral icterus, plus JVD, EOMI CARDIOVASCULAR: S1S2 LUNGS: Diminished lung sounds bilaterally ABDOMEN: soft & not tender w palpation MUSCULOSKELETAL: no cyanosis, +1 swelling INTEGUMENT: no generalized pallor NEUROLOGICAL: cranial nerve function from 2-12 intact, follows commands, speech not dysarthric Assessment and plan Patient is 75 years old male with past medical history of diastolic CHF, chronic back pain, hypertension, type 2 diabetes presented to hospital with increased shortness of breath. Also patient was found to have elevated troponin, he d eclined transfer to upper-level facility for cardiac catheterization. Combined systolic and diastolic CHF Echo shows Normal LV size with borderline LVH and global left ventricular systolic dysfunction with estimated LVEF 35 to 40%, likely advanced diastolic dysfunction. Right ventricle was poorly seen.Moderate mitral and tricuspid insufficiency. Severe pulmonary hypertension was not demonstrated during prior echocardiogram Continue lisinopril according to modular set crew member recommendation I changed Lasix IV to torsemide p.o. Patient refused IV Lasix We will continue to monitor I's and O's Fluid restriction to 1500 cc Follow-up with modular set crew member in the outpatient settings Continue carvedilol and spironolactone daily BNP mildly improved today. Elevated troponin Trending down Most likely secondary to acute CHF exacerbation. Unlikely NSTEMI according to cardiology's opinion Continue to monitor Patient refused cardiac catheterization. Cardiology team recommended Plavix. Patient has allergy for aspirin Continue statin, beta-blockers and Plavix Continue to monitor EKG Hyponatremia Most likely secondary to CHF exacerbation however there is concern for SIADH, given urine sodium level and urine osmolality. I decreased the dose of sertraline Fluid restriction Continue to monitor Hypertension Cardiology team restarted lisinopril Type 2 diabetes Glucose level under control Controlled with diet BPH Continue home meds Peripheral neuropathy Continue home meds Hyperlipidemia Continue statin Electrolytes imbalance Replaced VS,Fishbone, I+O VS, Fishbone, I+O Laboratory Tests 11/05/20 05:01 Vital Signs Date Time Temp Pulse Resp B/P (MAP) Pulse Ox O2 Delivery O2 Flow Rate FiO2 11/05/20 12:18 3.0 11/05/20 08:34 98.1 88 19 116/56 (76) 96 Nasal Cannula I&O- Last 24 Hours up to 6 AM 11/05/20 05:59 Intake Total 1580 ml Output Total 2350 ml Balance -770 ml JOSSY RODRIGUEZ DO Nov 05, 2020 16:19
[2020-11-05] MEDS: TORSEMIDE 20 MG TAB PO SCH (17:20)
[2020-11-05] MEDS: SPIRONOLACTONE 12.5MG PER 1/2 TABLET PO SCH (21:43)
[2020-11-05] MEDS: FINASTERIDE 5 MG TAB PO SCH (21:43)
[2020-11-05] MEDS: LURASIDONE HCL 40 MG TAB (LATUDA) PO SCH (21:54)
[2020-11-05] MEDS: TERAZOSIN 5MG CAPSULE PO SCH (21:54)
[2020-11-05 22:00] VITALS: BP 110/68
[2020-11-06 05:58] LABS: HEMATOCRIT 33.8 % (42.0-52.0); HEMOGLOBIN 11.6 g/dl (13.5-17.5); MEAN CORPUSCULAR HEMOGLOBIN 32.3 pg (27.0-33.0); MEAN CORPUSCULAR HGB CONC 34.3 g/dl (32.0-36.5); MEAN CORPUSCULAR VOLUME 94.2 fl (80.0-96.0); PLATELET COUNT, AUTOMATED 352 10^3/uL (150-450); RED BLOOD COUNT 3.59 10^6/uL (4.30-6.10); WHITE BLOOD COUNT 8.7 10^3/uL (4.0-10.0)
[2020-11-06 06:00] VITALS: BP 133/77
[2020-11-06 06:25] LABS: BLOOD UREA NITROGEN 28 MG/DL (7-18); CALCIUM LEVEL 8.4 MG/DL (8.8-10.2); CARBON DIOXIDE LEVEL 39 MEQ/L (21-32); CHLORIDE LEVEL 85 MEQ/L (98-107); CREATININE FOR GFR 1.05 MG/DL (0.70-1.30); GLOMERULAR FILTRATION RATE > 60.0 (>42); GLUCOSE, FASTING 100 MG/DL (70-100); POTASSIUM SERUM 3.5 MEQ/L (3.5-5.1); SODIUM LEVEL 130 MEQ/L (136-145)
[2020-11-06] MEDS: SENNA 8.6 MG TAB (SENOKOT) PO SCH ×2 (08:50→20:01)
[2020-11-06] MEDS: ENOXAPARIN 40MG/0.4ML SYRINGE (J1650 PER 10MG) SC SCH (08:50)
[2020-11-06] MEDS: TORSEMIDE 20 MG TAB PO SCH ×2 (08:50→16:11)
[2020-11-06] MEDS: GABAPENTIN 300 MG CAP PO SCH ×3 (08:50→20:00)
[2020-11-06] MEDS: metOLazone 5 MG TAB PO SCH (08:51)
[2020-11-06] MEDS: OMEPRAZOLE 20 MG CAP PO SCH (08:51)
[2020-11-06] MEDS: DOCUSATE SODIUM 100MG CAPSULE PO SCH ×2 (08:51→20:00)
[2020-11-06] MEDS: guaiFENesin ER 600 MG TAB PO SCH ×2 (08:51→20:00)
[2020-11-06] MEDS: SERTRALINE 100 MG TAB PO SCH (08:51)
[2020-11-06] MEDS: ATORVASTATIN 20 MG TAB PO SCH (08:51)
[2020-11-06] MEDS: CLOPIDOGREL 75 MG TAB PO SCH (08:51)
[2020-11-06] MEDS: CARVedilol 3.125 MG TAB PO SCH (08:56)
[2020-11-06] MEDS: ACETAMINOPHEN TAB 650MG DOSE (2X325MG) PO PRN (11:53)
--- NOTE | 2020-11-06 16:16 | IPNPDOC ---
Text Note Date of Service The patient was seen on 11/06/20. NOTE Subjective: No any acute events overnight. Patient denied fever, chills, chest pain, palpitations. Objective: GENERAL APPEARANCE: NAD HEENT: no scleral icterus, plus JVD, EOMI CARDIOVASCULAR: S1S2 LUNGS: Diminished lung sounds bilaterally ABDOMEN: soft & not tender w palpation MUSCULOSKELETAL: no cyanosis, +1 swelling INTEGUMENT: no generalized pallor NEUROLOGICAL: cranial nerve function from 2-12 intact, follows commands, speech not dysarthric Assessment and plan Patient is 75 years old male with past medical history of diastolic CHF, chronic back pain, hypertension, type 2 diabetes presented to hospital with increased shortness of breath. Also patient was found to have elevated troponin, he declined transfer to upper-level facility for cardiac catheterization. Combined systolic and diastolic CHF Echo shows Normal LV size with borderline LVH and global left ventricular systolic dysfunction with estimated LVEF 35 to 40%, likely advanced diastolic dysfunction. Right ventricle was poorly seen.Moderate mitral and tricuspid insufficiency. Severe pulmonary hypertension was not demonstrated during prior echocardiogram Continue lisinopril according to german teacher recommendation I changed Lasix IV to torsemide p.o. Patient refused IV Lasix We will continue to monitor I's and O's Fluid restriction to 1500 cc Follow-up with german teacher in the outpatient settings Continue carvedilol and spironolactone daily BNP mildly improved Elevated troponin Trending down Most likely secondary to acute CHF exacerbation. Unlikely NSTEMI according to cardiology's opinion Continue to monitor Patient refused cardiac catheterization. Cardiology team recommended Plavix. Patient has allergy for aspirin Continue statin, beta-blockers and Plavix Continue to monitor EKG COPD Not in acute exacerbation continue inhalers Hyponatremia Most likely secondary to CHF exacerbation however there is concern for SIADH, given urine sodium level and urine osmolality. I decreased the dose of sertraline Fluid restriction Continue to monitor Improved Hypertension Cardiology team restarted lisinopril Type 2 diabetes Glucose level under control Controlled with diet BPH Continue home meds Peripheral neuropathy Continue home meds Hyperlipidemia Continue statin Electrolytes imbalance Replaced VS,Fishbone, I+O VS, Fishbone, I+O Laboratory Tests 11/06/20 05:34 Vital Signs Date Time Temp Pulse Resp B/P (MAP) Pulse Ox O2 Delivery O2 Flow Rate FiO2 11/06/20 09:00 2.0 11/06/20 08:56 71 110/68 11/06/20 06:00 97.3 18 95 Nasal Cannula I&O- Last 24 Hours up to 6 AM 11/06/20 06:00 Intake Total 930 ml Output Total 1850 ml Balance -920 ml JOSSY RODRIGUEZ DO Nov 06, 2020 16:16
[2020-11-06] MEDS: COMBIVENT RESPIMAT 100-20MCG INHALER 4GM INH SCH (19:27)
[2020-11-06] MEDS: ADVAIR HFA 230/21MCG INHALER INH SCH (19:27)
[2020-11-06] MEDS: CYCLOBENZAPRINE 10MG TABLET PO PRN (20:01)
[2020-11-06] MEDS: FINASTERIDE 5 MG TAB PO SCH (20:01)
[2020-11-06] MEDS: TERAZOSIN 5MG CAPSULE PO SCH (20:01)
[2020-11-06] MEDS: LURASIDONE HCL 40 MG TAB (LATUDA) PO SCH (20:01)
[2020-11-06 20:02] VITALS: BP 115/72
[2020-11-06] MEDS: SPIRONOLACTONE 12.5MG PER 1/2 TABLET PO SCH (20:08)
[2020-11-06 22:00] VITALS: BP 115/72
[2020-11-07] MEDS: COMBIVENT RESPIMAT 100-20MCG INHALER 4GM INH SCH ×3 (01:26→13:16)
[2020-11-07 06:00] VITALS: BP 104/51
[2020-11-07 06:05] LABS: HEMATOCRIT 33.9 % (42.0-52.0); HEMOGLOBIN 11.5 g/dl (13.5-17.5); MEAN CORPUSCULAR HEMOGLOBIN 32.1 pg (27.0-33.0); MEAN CORPUSCULAR HGB CONC 33.9 g/dl (32.0-36.5); MEAN CORPUSCULAR VOLUME 94.7 fl (80.0-96.0); PLATELET COUNT, AUTOMATED 323 10^3/uL (150-450); RED BLOOD COUNT 3.58 10^6/uL (4.30-6.10); WHITE BLOOD COUNT 8.4 10^3/uL (4.0-10.0)
[2020-11-07 06:37] LABS: CALCIUM LEVEL 8.7 MG/DL (8.8-10.2); CREATININE FOR GFR 1.69 MG/DL (0.70-1.30); GLOMERULAR FILTRATION RATE 42.4 (>42)
[2020-11-07] MEDS: ADVAIR HFA 230/21MCG INHALER INH SCH (07:35)
[2020-11-07] MEDS ORDERED: POTASSIUM CHLORIDE 10 MEQ SR TABLET PO ONE (08:15)
[2020-11-07] MEDS: TORSEMIDE 20 MG TAB PO SCH (09:00)
[2020-11-07] MEDS: CARVedilol 3.125 MG TAB PO SCH (09:00)
[2020-11-07] MEDS: ENOXAPARIN 40MG/0.4ML SYRINGE (J1650 PER 10MG) SC SCH (09:06)
[2020-11-07] MEDS: ATORVASTATIN 20 MG TAB PO SCH (09:10)
[2020-11-07] MEDS: DOCUSATE SODIUM 100MG CAPSULE PO SCH (09:10)
[2020-11-07] MEDS: OMEPRAZOLE 20 MG CAP PO SCH (09:11)
[2020-11-07] MEDS: GABAPENTIN 300 MG CAP PO SCH (09:11)
[2020-11-07] MEDS: ACETAMINOPHEN TAB 650MG DOSE (2X325MG) PO PRN (09:11)
[2020-11-07] MEDS: guaiFENesin ER 600 MG TAB PO SCH (09:11)
[2020-11-07] MEDS: SERTRALINE 100 MG TAB PO SCH (09:11)
[2020-11-07] MEDS: SENNA 8.6 MG TAB (SENOKOT) PO SCH (09:11)
[2020-11-07] MEDS: CLOPIDOGREL 75 MG TAB PO SCH (09:11)
[2020-11-07] MEDS ORDERED: CARV3.12 PO (15:08)
[2020-11-07] MEDS ORDERED: TORS20TA2 PO (15:08)
[2020-11-07] MEDS ORDERED: ZOLO100T PO (15:08)
[2020-11-07] MEDS ORDERED: CLOP75TA2 PO (15:08)
[2020-11-07] MEDS ORDERED: ALDA25TA2 PO (15:08)
[2020-11-07] MEDS ORDERED: ATOR1TAB21 PO (15:08)
--- NOTE | 2020-11-07 17:28 | DS.PDOC ---
Discharge Summary General Date of Admission Nov 02, 2020 at 17:56 Date of Discharge 11/07/20 Discharge Summary PROCEDURES PERFORMED DURING STAY: [None]. ADMITTING DIAGNOSES: Combined systolic and diastolic CHF Elevated troponin COPD Hypertension Type 2 diabetes BPH Peripheral neuropathy Hyperlipidemia Hyponatremia Electrolytes imbalance DISCHARGE DIAGNOSES: Combined systolic and diastolic CHF Elevated troponin COPD Hypertension Type 2 diabetes BPH Peripheral neuropathy Hyperlipidemia Hyponatremia Electrolytes imbalance COMPLICATIONS/CHIEF COMPLAINT: Chf, Elevated Troponin. HISTORY OF PRESENT ILLNESS: Patient is 75 years old male with past medical history of diastolic CHF, chronic back pain, hypertension, type 2 diabetes presented to hospital with increased shortness of breath. Also patient was found to have elevated troponin, he declined transfer to upper-level facility for cardiac catheterization. HOSPITAL COURSE: Today patient left the hospital AGAINST MEDICAL ADVICE During the hospital stay the following issue addressed Combined systolic and diastolic CHF Echo shows Normal LV size with borderline LVH and global left ventricular systolic dysfunction with estimated LVEF 35 to 40%, likely advanced diastolic dysfunction. Right ventricle was poorly seen.Moderate mitral and tricuspid insufficiency. Severe pulmonary hypertension was not demonstrated during prior echocardiogram Patient received lisinopril according to agricultural agent recommendation I changed Lasix IV to torsemide p.o. Patient refused IV Lasix Fluid restriction to 1500 cc Follow-up with agricultural agent in the outpatient settings carvedilol and spironolactone daily BNP mildly improved Elevated troponin Trending down Most likely secondary to acute CHF exacerbation. Unlikely NSTEMI according to cardiology's opinion Continue to monitor Patient refused cardiac catheterization. Cardiology team recommended Plavix. Patient has allergy for aspirin Patient received statin, beta-blockers and Plavix Continue to monitor EKG COPD Not in acute exacerbation continue inhalers Hyponatremia Most likely secondary to CHF exacerbation however there is concern for SIADH, given urine sodium level and urine osmolality. I decreased the dose of sertraline Fluid restriction Continue to monitor Improved Hypertension Cardiology team restarted lisinopril Type 2 diabetes Glucose level under control Controlled with diet DISCHARGE MEDICATIONS: Please see below. ALLERGIES: Please see below. PHYSICAL EXAMINATION ON DISCHARGE: VITAL SIGNS: Please see below. GENERAL APPEARANCE: NAD HEENT: no scleral icterus, plus JVD, EOMI CARDIOVASCULAR: S1S2 LUNGS: Diminished lung sounds bilaterally ABDOMEN: soft & not tender w palpation MUSCULOSKELETAL: no cyanosis, +1 swelling INTEGUMENT: no generalized pallor NEUROLOGICAL: cranial nerve function from 2-12 intact, follows commands, speech not dysarthric LABORATORY DATA: Please see below. IMAGING: PROGNOSIS: ACTIVITY: [As tolerated]. DIET: DISCHARGE PLAN: DISPOSITION: . DISCHARGE INSTRUCTIONS: 1. . ITEMS TO FOLLOWUP ON ON OUTPATIENT: 1. . DISCHARGE CONDITION: [Stable]. TIME SPENT ON DISCHARGE: minutes. Vital Signs/I&Os Vital Signs Date Time Temp Pulse Resp B/P (MAP) Pulse Ox O2 Delivery O2 Flow Rate FiO2 11/07/20 14:00 97.6 80 18 96 Nasal Cannula 2.0 11/07/20 06:00 104/51 (68) I&O- Last 24 Hours up to 6 AM 11/07/20 06:00 Intake Total 360 ml Output Total 1050 ml Balance -690 ml Laboratory Data Labs 24H Laboratory Tests 2 11/07/20 05:29: Nucleated Red Blood Cells % (auto) 0.0, Anion Gap 9, Glomerular Filtration Rate 42.4, Calcium Level 8.7L, Magnesium Level 2.0 CBC/BMP Laboratory Tests 11/07/20 05:29 Microbiology Microbiology 11/02/20 Blood Culture - Preliminary, Resulted No Growth after 72 hours. All specime... 11/02/20 Blood Culture - Final, Complete NO GROWTH AFTER 5 DAYS Discharge Medications Scheduled Atorvastatin Calcium (Atorvastatin Calcium) 20 Mg Tablet, 40 MG PO DAILY Carvedilol (Carvedilol) 3.125 Mg Tablet, 3.125 MG PO DAILY Clopidogrel Bisulfate (Clopidogrel) 75 Mg Tablet, 75 MG PO DAILY Docusate Sodium (Docusate Sodium) 100 Mg Capsule, 100 MG PO BID, (Reported) Finasteride (Finasteride) 5 Mg Tablet, 5 MG PO QHS, (Reported) Fluticasone/Umeclidin/Vilanter (Trelegy Ellipta 100-62.5-25) 1 Each Blst.w.dev, 1 PUFF PO DAILY, (Reported) Gabapentin (Gabapentin) 300 Mg Capsule, 600 MG PO TID, (Reported) Lisinopril (Lisinopril) 10 Mg Tablet, 10 MG PO DAILY, (Reported) Lurasidone HCl (Latuda) 120 Mg Tablet, 120 MG PO QHS, (Reported) Melatonin (Melatonin) 3 Mg Tablet, 6 MG PO QHS, (Reported) Multivitamin with Minerals (Multivitamins with Minerals) 1 Each Tablet, 1 TAB PO DAILY, (Reported) Omeprazole (Omeprazole) 20 Mg Capsule.dr, 20 MG PO DAILY, (Reported) Sennosides (Senna) 8.6 Mg Tablet, 2 TAB PO BID, (Reported) Sertraline Hcl (Zoloft) 100 Mg Tablet, 100 MG PO DAILY Spironolactone (Aldactone) 25 Mg Tablet, 12.5 MG PO QHS Terazosin Hcl (Terazosin HCl) 10 Mg Capsule, 20 MG PO QHS, (Reported) Torsemide (Torsemide) 20 Mg Tablet, 20 MG PO BID@,17 Scheduled PRN Acetaminophen (Acetaminophen ER) 650 Mg Tablet.er, 650 MG PO Q8H PRN for PAIN LEVEL 1-6, (Reported) Albuterol Sulfate (Ventolin Hfa) 18 Gm Hfa.aer.ad, 2 PUFFS INH Q4H PRN for SHORTNESS OF BREATH, (Reported) Cyclobenzaprine HCl (Cyclobenzaprine HCl) 10 Mg Tablet, 10 MG PO BID PRN for MUSCLE SPASMS, (Reported) Allergies Coded Allergies: aspirin (Verified Adverse Reaction, Intermediate, BLEEDING ULCER, 11/05/20) JOSSY RODRIGUEZ DO Nov 07, 2020 17:28
== END 2020-11-07 17:40 | disposition left against medical advice (07) | DRG 292 ==
LOC: EDBD 13:39 → EDUNIT# 13:39 → M ED 13:39 → M ED INP 17:56 → ENRESERV 20:26 → M PCU 22:12 → M MSPAV 11-05 15:09
PROVIDERS: ADMIT Family Medicine; ATTEND Internal Medicine
DX: I11.0 Hypertensive heart disease with heart failure (principal); E87.1 Hypo-osmolality and hyponatremia; M54.9 Dorsalgia, unspecified; I50.33 Acute on chronic diastolic (congestive) heart failure; E11.40 Type 2 diabetes mellitus with diabetic neuropathy, unspecified; E78.5 Hyperlipidemia, unspecified; J44.9 Chronic obstructive pulmonary disease, unspecified; N40.0 Benign prostatic hyperplasia without lower urinary tract symptoms; Z79.899 Other long term (current) drug therapy; Z88.6 Allergy status to analgesic agent; Z66 Do not resuscitate; F17.210 Nicotine dependence, cigarettes, uncomplicated

== ENCOUNTER 2021-01-19 23:50 | Inpatient (IN) | payer OTHER ==
[~2021-01-19] VITALS: Ht 177.8 cm; Wt 77.1 kg
[~2021-01-19 23:50] MED LIST changes: +ACET650T15 PO; +ALDA25TA2 PO; +ATOR1TAB21 PO; +CARV3.12 PO; +CLOP75TA2 PO; +CYCL-707 PO; +TORS20TA2 PO
--- OUTSIDE RECORDS SUMMARY | 2021-01-19 23:55 | CCD ---
Author Author [facility] Organization [facility] Address Unknown Phone Unavailable Support Name Relationship Address Phone KIERRA VILLELA Next Of Kin [address] [place] [address] DISABLED Next Of Kin Unknown Unavailable CARLOS VILLELA Next Of Kin [address] [place] [address] RE Next Of Kin Unknown Unavailable YUE VILLELA Next Of Kin [address] [place] [address] TIKA MILLIE Next Of Kin [address] [place] [address] TIKAYUE [facility] [address] [place] [address] Unavailable Re-disclosure Warning The records that you [...] is protected by Article 27-F of the [facility] Public Health law. If you continue you may have access to information: Regarding HIV / AIDS; Provided by facilities licensed or operated by the [facility] Office of Mental Health; or Provided by the [facility] Office for People With Developmental Disabilities. If such information is present, then the following [facility] mandated warning applies: This information [...] law may result in a fine or fpc sentence or both. A general authorization for the release of medical or other information is NOT sufficient authorization for further disc losure. Immunizations Vaccine Date Status Description Data Source(s) COVID-19 VACCINE Moderna 05/04/2020 12:00:00 AM EST completed [facility] Vaccine Series Complete: NOThis Data was Submitted to [facility] Via [employer]. Medications Medication Brand Name Start Date Product Form Dose Route Admi nistrative Instructions Pharmacy Instructions Status Indications Reaction Description Data Source(s) 875-125 mg 05/12/2020 12:00:00 AM EST tablet 20 TAKE ONE TABLET BY MOUTH TWICE A DAY TAKE ONE TABLET BY MOUTH TWICE A DAY SOLD: 05/14/2020 [facility] 10 mg 05/12/2020 12:00:00 AM EST tablet 60 TAKE TWO TABLETS BY MOUTH EVERY DAY TAKE TWO TABLETS BY MOUTH EVERY DAY SOLD: 05/14/2020 [facility] 5-325 mg 05/12/2020 12:00:00 AM EST tablet 10 TAKE 1-2 BY MOUTH EVERY 8 HOURS NEEDED FOR SEVERE PAIN ( PAIN SCALE 8-10) , MAXIMUM DAILY DOSE = 4 TABLETS TAKE 1-2 BY MOUTH EVERY 8 HOURS NEEDE D FOR SEVERE PAIN ( PAIN SCALE 8-10) , MAXIMUM DAILY DOSE = 4 TABLETS SOLD: 05/14/2020 [facility] Insurance Providers Payer name Policy type / Coverage type Policy ID Covered democrat ID Covered democrat's relationship to saavedra Policy Saavedra Plan Information 'S ADMINISTRATION [id number] SP [id number] [employer] [place] CCN [id number] SP [id number] [place] [place] O [id number] O [id number] [facility] [id number] SP [id number] WEST O [id number] S [id number] 'S ADMINISTRATION [id number] SP [id number] [place]/136E O [id number] S [id number] [address] [id number] SP [id number] SELF PAY UNAVAILABLE SP UNAVAILA BLE [address] [id number] SP [id number] Problems, Conditions, and Diagnoses No Information Surgeries/Procedures No Information Results ID Date Data Source [id number] 11/02/2020 03:21:00 PM EDT [facility] Name Value Range Interpretation Code Description Data Amanda rce(s) Supporting Document(s) SARS coronavirus 2 RNA [Presence] in Res piratory specimen by LG with probe detection NEGATIVE [facility] This lab was ordered by [facility] a nd reported by [facility]. ID Date Data Source [id number] 05/07/2020 07:00:00 PM EST [facility] Name Value Range Interpretation Code Description Data Amanda rce(s) Supporting Document(s) SARS-CoV-2 (COVID 19) NEGATIVE - SARS-CoV-2 (COVID19) [facility] This lab was ordered by [facility] a nd reported by [facility]. Procedure Social History No Information
[2021-01-20 00:29] LABS: BASO % 0.4 % (0.0-1.0); EOS # 0.2 10^3/uL (0.0-0.5); EOS % 2.1 % (0.0-3.0); HEMOGLOBIN 11.1 g/dl (13.5-17.5); LYMPH # 1.1 10^3/uL (1.5-5.0); LYMPH % 11.9 % (24.0-44.0); MEAN CORPUSCULAR HEMOGLOBIN 32.7 pg (27.0-33.0); MEAN CORPUSCULAR HGB CONC 32.6 g/dl (32.0-36.5); MEAN CORPUSCULAR VOLUME 100.3 fl (80.0-96.0); MONO # 0.8 10^3/uL (0.0-0.8); MONO % 9.1 % (2.0-8.0); NEUTROPHILS # 6.8 10^3/uL (1.5-8.5); NEUTROPHILS % 76.4 % (36.0-66.0); PLATELET COUNT, AUTOMATED 231 10^3/uL (150-450); RED BLOOD COUNT 3.39 10^6/uL (4.30-6.10); WHITE BLOOD COUNT 8.9 10^3/uL (4.0-10.0)
[2021-01-20 01:24] LABS: RSV AMPLIFICATION NEGATIVE (NEGATIVE)
[2021-01-20 01:59] LABS: ALBUMIN 3.1 GM/DL (3.2-5.2); ALT/SGPT 19 U/L (12-78); BILIRUBIN,DIRECT < 0.1 MG/DL (0.0-0.2); BILIRUBIN,TOTAL 0.3 MG/DL (0.2-1.0); BLOOD UREA NITROGEN 14 MG/DL (7-18); CALCIUM LEVEL 8.3 MG/DL (8.8-10.2); CARBON DIOXIDE LEVEL 29 MEQ/L (21-32); CHLORIDE LEVEL 105 MEQ/L (98-107); CK-MB VALUE MASS 2.3 NG/ML (<3.6); CPK CREATINE PHOSPHOKINASE 61 U/L (39-308); CREATININE FOR GFR 0.84 MG/DL (0.70-1.30); GLOMERULAR FILTRATION RATE > 60.0 (>42); GLUCOSE, FASTING 136 MG/DL (70-100); MB/CK RELATIVE INDEX 3.77 (< OR =4); NT-PRO BNP 5156 PG/ML (<125); POTASSIUM SERUM 3.7 MEQ/L (3.5-5.1); SODIUM LEVEL 140 MEQ/L (136-145); TROPONIN I 0.04 NG/ML (< 0.10)
--- NOTE | 2021-01-20 02:12 | REPVR ---
PROCEDURE INFORMATION: Exam: XR Chest Exam date and time: 01/20/2021 12:47 AM Age: 75 years old Clinical indication: Cough and dyspnea TECHNIQUE: Imaging protocol: XR of the chest. Views: 1 view. COMPARISON: 1. CR PORTABLE CHEST X-RAY 11/02/2020 3:[address] Spine,cervical w/o contrast 05/07/2020 7:53:07 PM 3. CR PORTABLE CHEST X-RAY 05/07/2020 7:22:54 PM FINDINGS: Lungs: There is asymmetric volume loss in the left hemithorax, which has developed since the chest x-ray on 11/02/2020. No lung consolidation is identified. There are chronic increased interstitial markings in both lungs with probable bullous changes in the right lung base, which are stable compared to the prior chest x-ray on 11/02/2020. Pleural spaces: Unremarkable. No pleural effusion. No pneumothorax. Heart/Mediastinum: Unremarkable. No cardiomegaly. Vasculature: There are atherosclerotic calcifications of the aortic arch. Bones/joints: Unremarkable. IMPRESSION: 1. No radiographic evidence for pneumonia. 2. Asymmetric volume loss in the left hemithorax, which has developed since the chest x-ray on 11/02/2020. 3. Chronic increased interstitial markings in both lungs with probable bullous changes in the right lung base, which are stable compared to the prior chest x-ray on 11/02/2020. Electronically signed by: Barry Keith On 01/20/2021 02:11:34 AM
--- OUTSIDE RECORDS SUMMARY | 2021-01-20 02:14 | CCD ---
Author Author [facility] Organization [facility] Address Unknown Phone Unavailable Support Name Relationship Address Phone KIERRA VILLELA Next Of [place] [address] [place] [address] DISABLED Next Of Kin Unknown Unavailable CARLOS VILLELA Next Of Kin [address] [address] RE Next Of Kin Unknown Unavailable YUE VILLELA Next Of Kin [address] [place] [address] TIKA MILLIE Next Of Kin [address] [place] [address] TIKAYUE [facility] [address] [place] [address] Unavailable Re-disclosure Warning The records that you [...] is protected by Article 27-F of the [facility] Public Health law. If you continue you may have access to information: Regarding HIV / AIDS; Provided by facilities licensed or operated by the [facility] Office of Mental Health; or Provided by the [facility] Office for People With Developmental Disabilities. If such information is present, then the following [facility] mandated warning applies: This information [...] law may result in a fine or fci sentence or both. A general authorization for the release of medical or other information is NOT sufficient authorization for further disc losure. Immunizations Vaccine Date Status Description Data Source(s) COVID-19 VACCINE Moderna 05/04/2020 12:00:00 AM EST completed [facility] Vaccine Series Complete: NOThis Data was Submitted to [facility] Via [employer]. Medications Medication Brand Name Start Date Product [...] DAILY DOSE = 4 TABLETS SOLD: 05/14/2020 [facility] Insurance Providers Payer name Policy type / Coverage type Policy ID Covered democrat ID Covered democrat's relationship to saavedra Policy Saavedra Plan Information 'S ADMINISTRATION [id number] SP [id number] [place] [place] CCN [id number] SP [id number] [place] O [id number] O [id number] [facility] [id number] SP [id number] WEST O [id number] S [id number] 52 'S ADMINISTRATION [id number] SP [id number] [place]/136E O [id number] S [id number] [address] [id number] SP [id number] SELF PAY UNAVAILABLE SP UNAVAILA BLE [address] [id number] SP [id number] Problems, Conditions, and Diagnoses No Information Surgeries/Procedures No Information Results ID Date Data Source [id number] 11/02/2020 03:21:00 PM EDT [facility] Name Value Range Interpretation Code Description Data Amanda rce(s) Supporting Document(s) SARS coronavirus 2 RNA [Presence] in Res piratory specimen by LG with probe detection NEGATIVE [facility] This lab was ordered by [facility] a nd reported by [facility]. ID Date Data Source [id number] 05/07/2020 07:00:00 PM EST [facility] Name Value Range Interpretation Code Description Data Amanda rce(s) Supporting Document(s) SARS-CoV-2 (COVID 19) NEGATIVE - SARS-CoV-2 (COVID19) [facility] This lab was ordered by [facility] a nd reported by [facility]. Procedure Social History No Information
[2021-01-20] MEDS ORDERED: FUROSEMIDE 40MG/4ML VIAL (J1940) IV ONE (02:25)
--- OUTSIDE RECORDS SUMMARY | 2021-01-20 02:45 | CCD ---
Author Author [facility] Organization [facility] Address Unknown Phone Unavailable Support Name Relationship Address Phone KIERRA VILLELA Next [place] [address] [place] [address] DISABLED Next Of Kin Unknown Unavailable CARLOS VILLELA Next Of Kin [address] [place] [address] RE Next Of Kin Unknown Unavailable YUE VILLELA Next Of Kin [address] [place] [address] TIKA MILLIE Next Of Kin [address] [place] [address] TIKAYUE [facility] [address] [place] [address] Unavailable Re-disclosure Warning The records that you [...] is protected by Article 27-F of the [facility] Public Health law. If you continue you may have access to information: Regarding HIV / AIDS; Provided by facilities licensed or operated by the [facility] Office of Mental Health; or Provided by the [facility] Office for People With Developmental Disabilities. If such information is present, then the following [facility] mandated warning applies: This information has been [...] law may result in a fine or assisted sentence or both. A general authorization for the release of medical or other information is NOT sufficient authorization for further disc losure. Immunizations Vaccine Date Status Description Data Source(s) COVID-19 VACCINE Moderna 05/04/2020 12:00:00 AM EST completed [facility] Vaccine Series Complete: NOThis Data was Submitted to [facility] Via [employer]. Medications Medication Brand Name Start Date Product [...] DAILY DOSE = 4 TABLETS SOLD: 05/14/2020 [facility] Insurance Providers Payer name Policy type / Coverage type Policy ID Covered alliance party ID Covered alliance party's relationship to saavedra Policy Saavedra Plan Information 'S ADMINISTRATION [id number] SP [id number] [employer] [place] CCN [id number] SP [id number] [employer] [place] O [id number] O [id number] [facility] [id number] SP [id number] WEST O [id number] S [id number] 52 'S ADMINISTRATION [id number] SP [id number] [place]/136[place] O [id number] S [id number] [id number] SP [id number] SELF PAY UNAVAILABLE SP UNAVAILA BLE [address] [id number] SP [id number] Problems, Conditions, and Diagnoses No Information Surgeries/Procedures No Information Results ID Date Data Source [id number] 11/02/2020 03:21:00 PM EDT [facility] Name Value Range Interpretation Code Description Data Amanda rce(s) Supporting Document(s) SARS coronavirus 2 RNA [Presence] in Res piratory specimen by LG with probe detection NEGATIVE [facility] This lab was ordered by [facility] a nd reported by [facility]. ID Date Data Source [id number] 05/07/2020 07:00:00 PM EST [facility] Name Value Range Interpretation Code Description Data Amanda rce(s) Supporting Document(s) SARS-CoV-2 (COVID 19) NEGATIVE - SARS-CoV-2 (COVID19) [facility] This lab was ordered by [facility] a nd reported by [facility]. Procedure Social History No Information
--- NOTE | 2021-01-20 04:03 | HPEPDOC ---
General Date of Admission Jan 20, 2021 at 02:37 Date of Service: Jan 20, 2021 Attending Physician: JEANNETTE CANAS MD Chief Complaint The patient is a 75-year-old male admitted with a reason for visit of Shortness Of Breath. History of Present Illness History of present illness: Mr. Guillen is a 75 year old male who presented to the emergency department for 1 week of increased shortness of breath, cough, fatigue and increased sputum production. He states that he has been increasingly short of breath while lying in bed and has been coughing up "10 times" as much sputum as he normally does in the last week. He denies a change in the color of his sputum which is consistently clear. He admits to using his albuterol inhaler more in the last week as well. Mr. Guillen lives alone in an apartment and is visited twice a week by a distant relative. He states that he is bed bound for most of the day because he cannot get himself out of bed without assistance. He does not have a way to get to the bathroom and thus urinates on himself in bed multiple times a day. He states that he does not have help to change his sheets and wash his clothes. He receives one meal a day from meals on wheels Tuesday-Tuesday; on the weekends he eats whatever he can afford or find. The patient states that he can ambulate with a can with assistance but relies on his wheelchair and scooter to get around. He admits to having multiple falls in the last year but cannot remember when they happened. He does not believe that he hit his head during these falls. In the ED the patient was found a Pro BNP of 5156 which is around his baseline. Patient was given 40mg IV lasix. Imaging showed increased interstitial markings in both lungs with probable bullous changes in right lung base that are stable. Patient is DNR/DNI. Past medical history: HFpEF EF-75% Type 2 Diabetes Mellitus-Not medically treated Hypertension COPD Benign Prostatic Hyperplasia GERD 6 Bulging discs Past surgical history: Appendectomy Social history: Patient denies smoking in the last two weeks. Was smoking 5 cigarettes a day before that. Patient states he recently drank wine which is unusual for him. Patient denies illicit drug use Patient lives alone in [place] Family history: Review and non contributory Allergies: Aspirin Review of systems: General: denies fevers, chills, or recent change in weight. Admits to feeling fatigued and weak. HEENT: Denies acute changes in vision or hearing, difficulty swallowing, or noticing any new lumps or bumps. Cardiovascular: Patient denies chest pain or palpitations. Pulmonary: admits to increasingly worsening shortness of breath, increased sputum production, and cough Back: admits chronic back pain Abdomen: denies nausea, vomiting, diarrhea, constipation, blood in urine or sputum Extremities: denies swelling in ankles, admits to weakness Physical examination: General: Mr. Guillen is a thin frail appearing man sitting in the ED bed in no acute distress. He appears disheveled and has poor hygiene. HEENT: Normocephalic, atraumatic, poor dentition, mucous membranes appear somewhat dry, no lymphadenopathy noted, neck is supple Cardiovascular: heart sounds are distant, regular rate and rhythm. Pulses 2+ throughout, capillary refill is <2, no JVD noted Pulmonary: Mild expiratory wheezes present after patient coughs, equal air intake bilaterally, no rhonchi or rales noted. Back: patient has a mild thoracic kyphosis Abdomen: soft, nontender to palpation in 4 quadrants, bowel sounds present, no organomegaly. Extremities: No lower extremity edema or cyanosis Psych: patient is alert and oriented x 4 Imagin01/20/21: IMPRESSION: No radiographic evidence for pneumonia. Asymmetric volume loss in the left hemithorax, which has developed since the chest x-ray on 11/02/2020. Chronic increased interstitial markings in both lungs with probable bullous changes in the right lung base, which are stable compared to the prior chest x-ray on 11/02/2020. Assessment:Mr. Guillen is a 75 year old male with past medical history of HFpEF EF-75%, Type 2 Diabetes Mellitus-Not medically treated, Hypertension, COPD, Benign Prostatic Hyperplasia, GERD, and 6 Bulging discs who presented to the emergency department for 1 week of increased shortness of breath, cough, fatigue and increased sputum production. He is being admitted for further workup and treatment for a clinically diagnosed COPD exacerbation. Plan: Acute on chronic COPD exacerbation -clinically diagnosed with increased shortness of breath and increased sputum production -imaging results as above -started prednisone 40mg x 5 days -started doxycycline 100mg BID x 3 days. patient has Q-T prolongation -continue home inhalers -started on duonebs prn q 4 hours -started spiriva and formoterol (laba/lama) -WBC 8.9 -patient has an oxygen saturation of 96% on room air. Disheveled -patient appears to have poor hygiene and is unkept -He lives alone in [place] -PFS consult placed -patient needs home health resources provided to him or placement in an assisted living facility -he is bed bound at home and urinates on himself. He is unable to wash his clothes or bed sheets. -he receives one meal a day from meals on wheels Tuesday-Tuesday and has no source of food on the weekends if he does not have money. Frequent falls secondary to deconditioning -PT/OT consults placed -Patient unable to get out of bed by himself -Requires wheelchair or scooter to get around, can stand and walk short dist ances with assistance of cane or walker. HFpEF EF-75% -Patient does not appear to be fluid overloaded -Pro BNP of 5156 which is around his baseline -cardiac marker panel negative -Last echocardiogram 05/08/20 Type 2 Diabetes Mellitus-Not medically treated -FSBG AC/HS -Continue on hypoglycemic protocol and sliding scale insulin -consistent carbohydrate diet Hypertension -continue lisinopril 10mg COPD -continue home inhaler -consider placing patient on maintenance inhaler (laba/lama) Benign Prostatic Hyperplasia -continue terazosin GERD -continue pantoprazole Back pain -secondary to bulging discs -will continue tylenol for pain DVT prophylaxis: -continue heparin Disposition: Will continue to monitor and treat patient's COPD exacerbation. He will be evaluated by PT/OT/PFS. He ultimately needs home health care, rehabilitation, and/or placement in an assisted living facility. Home Medications Scheduled Cholecalciferol (Vitamin D3) (Vitamin D3) 1,000 Unit Tablet, 1,000 UNITS PO DAILY, (Reported) Docusate Sodium (Docusate Sodium) 100 Mg Capsule, 100 MG PO BID, (Reported) Finasteride (Finasteride) 5 Mg Tablet, 5 MG PO QHS, (Reported) Fluticasone/Umeclidin/Vilanter (Trelegy Ellipta 100-62.5-25) 1 Each Blst.w.dev, 1 PUFF PO DAILY, (Reported) Gabapentin (Gabapentin) 300 Mg Capsule, 600 MG PO TID, (Reported) Lisinopril (Lisinopril) 10 Mg Tablet, 10 MG PO DAILY, (Reported) Lurasidone HCl (Latuda) 120 Mg Tablet, 120 MG PO QHS, (Reported) Melatonin (Melatonin) 3 Mg Tablet, 6 MG PO QHS, (Reported) Multivitamin with Minerals (Multivitamins with Minerals) 1 Each Tablet, 1 TAB PO DAILY, (Reported) Pantoprazole Sodium (Pantoprazole Sodium) 20 Mg Tablet.dr, 20 MG PO DAILY, (Reported) Sertraline Hcl (Zoloft) 100 Mg Tablet, 100 MG PO DAILY, (Reported) Terazosin Hcl (Terazosin HCl) 10 Mg Capsule, 20 MG PO QHS, (Reported) Scheduled PRN Acetaminophen (Acetaminophen ER) 650 Mg Tablet.er, 650 MG PO Q8H PRN for PAIN LEVEL 1-6, (Reported) Albuterol Sulfate (Ventolin Hfa) 18 Gm Hfa.aer.ad, 2 PUFFS INH Q4H PRN for SHORTNESS OF BREATH, (Reported) Cyclobenzaprine HCl (Cyclobenzaprine HCl) 10 Mg Tablet, 10 MG PO BID PRN for MUSCLE SPASMS, (Reported) Allergies Coded Allergies: aspirin (Verified Adverse Reaction, Intermediate, BLEEDING ULCER, 11/05/20) A-FIB/CHADSVASC A-FIB History Current/History of A-Fib/PAF?: No Current PO Anticoag Therapy: No Vital Signs Vital Signs Date Time Temp Pulse Resp B/P (MAP) Pulse Ox O2 Delivery O2 Flow Rate FiO2 01/20/21 02:46 19 177/81 (113) 94 Room Air 01/20/21 02:35 92 01/19/21 23:58 97.3 Laboratory Data Labs 24H Laboratory Tests 2 01/20/21 00:12: Immature Granulocyte % (Auto) 0.1, Neutrophils (%) (Auto) 76.4H, Lymphocytes (%) (Auto) 11.9L, Monocytes (%) (Auto) 9.1H, Eosinophils (%) (Auto) 2.1, Basophils (%) (Auto) 0.4, Neutrophils # (Auto) 6.8, Lymphocytes # (Auto) 1.1L, Monocytes # (Auto) 0.8, Eosinophils # (Auto) 0.2, Basophils # (Auto) 0.0, Nucleated Red Blood Cells % (auto) 0.0, Anion Gap 6L, Glomerular Filtration Rate > 60.0, Calcium Level 8.3L, Total Bilirubin 0.3, Direct Bilirubin < 0.1, Aspartate Amino Transf (AST/SGOT) 14, Alanine Aminotransferase (ALT/SGPT) 19, Alkaline P hosphatase 101, Total Creatine Kinase 61, Creatine Kinase MB 2.3, Creatine Kinase MB Relative Index 3.77, Troponin I 0.04, RD-Vje-R-Type Natriuretic Peptide 5156H, Total Protein 6.0L, Albumin 3.1L, Albumin/Globulin Ratio 1.1, Coronavirus (COVID-19)(PCR) NEGATIVE, Influenza Type A (RT-PCR) NEGATIVE, Influenza Type B (RT-PCR) NEGATIVE, Respiratory Syncytial Virus (PCR) NEGATIVE CBC/BMP Laboratory Tests 01/20/21 00:12 Plan / VTE VTE Prophylaxis Ordered?: Yes GME ATTESTATION GME ATTESTATION My faculty preceptor for this patient encounter was physically present during the encounter and was fully available. All aspects of the patient interview, examination, medical decision making process, and medical care plan development were reviewed and approved by the faculty preceptor. The faculty preceptor is aware and concurs with the plan as stated in the body of this note and will attest to such by his/her cosignature. ATTENDING NOTE INilam, have independently examined this patient and performed my own physical exam, as well as reviewed the documentation and edited where necessary. I have discussed in detail with the resident / student the findings and plan of treatment as documented by the resident / student and edited their note. I agree with their findings and treatment plan and have edited their documentation. I will continue to follow the patient during this hospital stay. RICK LIGHT DO Jan 20, 2021 04:03 JEANNETTE CANAS MD Jan 21, 2021 04:30
[2021-01-20] MEDS ORDERED: MOM 30ML SUSPENSION UDC PO PRN (04:05)
[2021-01-20] MEDS ORDERED: MAALOX 30 ML SUSP *UDC PO PRN (04:05)
[2021-01-20] MEDS ORDERED: GLUCOSE 4GM CHEW TABLET PO PRN (04:25)
[2021-01-20] MEDS ORDERED: GLUCAGON INJ 1MG VIAL SC PRN (04:25)
[2021-01-20] MEDS ORDERED: DEXTROSE 50% 50 ML SYRINGE IV PRN (04:25)
[2021-01-20] MEDS: ACETAMINOPHEN TAB 650MG DOSE (2X325MG) PO PRN ×2 (04:54→17:29)
[2021-01-20 05:12] VITALS: BP 155/85
[2021-01-20 05:55] VITALS: O2SAT 93
[2021-01-20] MEDS ORDERED: IPRATROPIUM 0.5MG/ALBUTEROL 2.5MG INH SOL UD 3ML (DUONEB) NEB PRN (06:00)
--- NOTE | 2021-01-20 06:28 | ECGEPIP ---
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
[2021-01-20] MEDS ORDERED: D31000TA2 PO (06:30)
[2021-01-20] MEDS ORDERED: ZOLO100T PO (06:30)
[2021-01-20] MEDS ORDERED: PANT20TA51 PO (06:30)
[2021-01-20] MEDS ORDERED: HOME MED LIST COMPLETE! XX SCH (06:35)
[2021-01-20] MEDS ORDERED: CYCLOBENZAPRINE 10MG TABLET PO PRN (06:50)
[2021-01-20] MEDS ORDERED: ALBUTEROL 90 MCG/ACT 8GM HFA INHALER INH PRN (06:50)
[2021-01-20 07:17] LABS: BLOOD UREA NITROGEN 13 MG/DL (7-18); CALCIUM LEVEL 8.6 MG/DL (8.8-10.2); CARBON DIOXIDE LEVEL 31 MEQ/L (21-32); CHLORIDE LEVEL 103 MEQ/L (98-107); CREATININE FOR GFR 0.81 MG/DL (0.70-1.30); GLOMERULAR FILTRATION RATE > 60.0 (>42); GLUCOSE, FASTING 124 MG/DL (70-100); POTASSIUM SERUM 3.8 MEQ/L (3.5-5.1); SODIUM LEVEL 139 MEQ/L (136-145)
--- NOTE | 2021-01-20 07:49 | IPNPDOC ---
Text Note Date of Service The patient was seen on 01/20/21. NOTE S: Patient seen and evaluated at bedside this a.m. Patient tells me he has chronic bilateral hip and lower back pain and would like medication for it. Patient also reports significant tiredness and occasional SOB, secondary to difficulty sleeping because of his chronic pain. He tells me his limited ambulation and occasional desaturations are all secondary to his tiredness. Denies weakness. He tells me he does not have difficulty ambulating at home and occasionally uses a cane or wheelchair to assist with mobility. Patient denies being bedbound, and tells me he can "get out of bed with some effort." He tells me he was told that he had "fluid in his lungs" and believes this current hospitalization is due to an exacerbation of his "congestive heart failure." Reports productive cough which patient tells me he is "annoyed" by and would like to stop coughing. Of note, patient cannot quantify or describe what he is coughing up, but denies hemoptysis. Denies chest pain, difficulty breathing, abdominal pain, nausea, vomiting, changes in urination/bowel movements. O: GEN: Alert, awake, laying in bed, NAD HEENT: NC/AT, EOMI, nares patent, moist mucous membranes CARDIO: RRR, normal heart sounds, no MRG PULM: CTA b/l, wheezing throughout bilaterally, no RR, no accessory muscles used. Patient found to have SpO2 83% RA during examination. ABD: soft, nontender, nondistended, normal BS EXTREMITIES: no edema, normal ROM IMAGING: (01/20) CXR 1. No radiographic evidence for pneumonia. 2. Asymmetric volume loss in the left hemithorax, which has developed since the chest x-ray on 11/02/2020. 3. Chronic increased interstitial markings in both lungs with probable bullous changes in the right lung base, which are stable compared to the prior chest x- ray on 11/02/2020. A/P: Jack is a 75-year-old male past medical history COPD, HFpEF 75% who presents with worsening shortness of breath and productive cough with sputum, who was found to have proBNP 5156 which is at his baseline, now on doxycycline day 1 and prednisone for suspected acute on chronic COPD exacerbation with unchanged symptoms. #Acute on chronic COPD exacerbation-unchanged No leukocytosis. SpO2 93% RA. Of note, patient was found to have SPO2 83% RA during examination, but patient tells me this is due to shortness of breath from talking. Continue duonebs every 4 hours as needed Continue Spiriva Continue prednisone 40 mg (started 01/20, stop date 01/24) Continue doxycycline 100 mg twice daily for anti-inflammatory effects (started 01/20, stop date 01/22) Start Symbicort 2 puff twice daily #Disheveled and deconditioning Continue PT/OT PFS consult pending Of note, patient presented to ED in poor hygiene and unkempt appearance. He does report living at home alone and without assistance. According to admission provider, patient is bedbound and often soils himself due to limited mobility. He is unable to wash his clothes or bed sheets and is dependent on [employer] heels M-F, receiving 1 meal a day and not having a consistent source of food on the weekends. Home health has been involved in this patient's care before but has refused to continue home visits due to poor living conditions. Patient will most likely require home with services or placement in an assisted living facility upon discharge. 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 Last echocardiogram 05/08/2020 #HTN, chronic-stable BP this a.m. 142/71 Continue home lisinopril 10 mg #BPH, chronic-stable Continue home Terazosin 20 mg nightly, finasteride 5 mg nightly #GERD, chronic-stable Continue pantoprazole 20 mg daily #Bipolar disorder, chronic-stable Continue home Zoloft 100 mg daily #DVT Prophylaxis Continue heparin DIET: Consistent carb ACTIVITY: Assisted ambulation only, fall precautions DISPO: Pending clinical improvement as well as PT/OT/PFS eval, patient will most likely need home health vs rehab vs placement in assisted living facility Attending Attestation: I saw and evaluated the patient. I agree with the finding and the plan of care as documented in the residents note. VS,Angelo, I+O VS, Angelo, I+O Laboratory Tests 01/20/21 00:12 01/20/21 06:40 Vital Signs Date Time Temp Pulse Resp B/P (MAP) Pulse Ox O2 Delivery O2 Flow Rate FiO2 01/20/21 05:55 93 Room Air 01/20/21 05:12 97.9 76 18 155/85 (108) I&O- Last 24 Hours up to 6 AM0 01/20/21 06:00 Output Total 1000 ml Balance -1000 ml Modesta Alicea DO Jan 20, 2021 07:49 ELVIA PEREIRA MD Jan 21, 2021 07:38
[2021-01-20] MEDS: TIOTROPIUM INHALER/CAPSULE (SPIRIVA) INH SCH (08:00)
[2021-01-20] MEDS: SYMBICORT 160/4.5MCG INHALER 6GM INH SCH ×2 (08:00→20:14)
[2021-01-20] MEDS ORDERED: FORMOTEROL FUMARATE 20 MCG/2 ML INHALATION SOLUTION (PERFOROMIST) INH SCH (08:00)
[2021-01-20] MEDS: HumaLOG INSULIN (NovoLOG) PER UNIT SC SCH ×4 (08:20→21:00)
[2021-01-20] MEDS: DOXYCYCLINE HYCLATE 100MG TABLET PO SCH ×2 (08:21→21:15)
[2021-01-20] MEDS: GABAPENTIN 300 MG CAP PO SCH ×3 (08:21→21:16)
[2021-01-20] MEDS: PANTOPRAZOLE 20 MG TAB PO SCH (08:21)
[2021-01-20] MEDS: HEPARIN SOD (PORCINE) 5000UNITS/ML 1ML VIAL/SYRINGE SC SCH ×2 (08:21→21:16)
[2021-01-20] MEDS: predniSONE 20 MG TAB PO SCH (08:21)
[2021-01-20] MEDS: SERTRALINE 100 MG TAB PO SCH (08:21)
[2021-01-20] MEDS: DOCUSATE SODIUM 100MG CAPSULE PO SCH ×2 (08:21→21:15)
[2021-01-20 10:30] LABS: BLOOD UREA NITROGEN 14 MG/DL (7-18); CALCIUM LEVEL 8.8 MG/DL (8.8-10.2); CARBON DIOXIDE LEVEL 29 MEQ/L (21-32); CHLORIDE LEVEL 104 MEQ/L (98-107); CREATININE FOR GFR 0.86 MG/DL (0.70-1.30); GLOMERULAR FILTRATION RATE > 60.0 (>42); GLUCOSE, FASTING 123 MG/DL (70-100); POTASSIUM SERUM 3.8 MEQ/L (3.5-5.1); SODIUM LEVEL 140 MEQ/L (136-145)
[2021-01-20 14:00] VITALS: BP 163/95
[2021-01-20 14:15] VITALS: BP 156/92
[2021-01-20 16:49] LABS: BLOOD UREA NITROGEN 19 MG/DL (7-18); CALCIUM LEVEL 8.5 MG/DL (8.8-10.2); CARBON DIOXIDE LEVEL 29 MEQ/L (21-32); CHLORIDE LEVEL 103 MEQ/L (98-107); CREATININE FOR GFR 0.95 MG/DL (0.70-1.30); GLOMERULAR FILTRATION RATE > 60.0 (>42); GLUCOSE, FASTING 186 MG/DL (70-100); POTASSIUM SERUM 3.9 MEQ/L (3.5-5.1); SODIUM LEVEL 135 MEQ/L (136-145)
[2021-01-20] MEDS: FINASTERIDE 5 MG TAB PO SCH (21:15)
[2021-01-20] MEDS: TERAZOSIN 5MG CAPSULE PO SCH (21:16)
[2021-01-20 22:00] VITALS: BP_SYST 112; BP_SYST 113; BP_DIAS 67; BP_DIAS 73
[2021-01-21 06:00] VITALS: BP 146/66
[2021-01-21 06:55] LABS: HEMOGLOBIN 10.5 g/dl (13.5-17.5); MEAN CORPUSCULAR HEMOGLOBIN 32.1 pg (27.0-33.0); MEAN CORPUSCULAR HGB CONC 32.8 g/dl (32.0-36.5); MEAN CORPUSCULAR VOLUME 97.9 fl (80.0-96.0); PLATELET COUNT, AUTOMATED 230 10^3/uL (150-450); RED BLOOD COUNT 3.27 10^6/uL (4.30-6.10); WHITE BLOOD COUNT 5.7 10^3/uL (4.0-10.0)
[2021-01-21 07:10] LABS: BLOOD UREA NITROGEN 19 MG/DL (7-18); CALCIUM LEVEL 8.2 MG/DL (8.8-10.2); CARBON DIOXIDE LEVEL 28 MEQ/L (21-32); CHLORIDE LEVEL 105 MEQ/L (98-107); CREATININE FOR GFR 0.83 MG/DL (0.70-1.30); GLOMERULAR FILTRATION RATE > 60.0 (>42); GLUCOSE, FASTING 97 MG/DL (70-100); POTASSIUM SERUM 3.6 MEQ/L (3.5-5.1); SODIUM LEVEL 139 MEQ/L (136-145)
[2021-01-21] MEDS: HumaLOG INSULIN (NovoLOG) PER UNIT SC SCH ×4 (07:30→21:00)
[2021-01-21] MEDS: TIOTROPIUM INHALER/CAPSULE (SPIRIVA) INH SCH (08:22)
[2021-01-21] MEDS: SYMBICORT 160/4.5MCG INHALER 6GM INH SCH ×2 (08:23→20:56)
[2021-01-21] MEDS: DOXYCYCLINE HYCLATE 100MG TABLET PO SCH ×2 (08:45→21:16)
[2021-01-21] MEDS: HEPARIN SOD (PORCINE) 5000UNITS/ML 1ML VIAL/SYRINGE SC SCH ×2 (08:45→21:00)
[2021-01-21] MEDS: DOCUSATE SODIUM 100MG CAPSULE PO SCH ×2 (08:45→21:16)
[2021-01-21] MEDS: GABAPENTIN 300 MG CAP PO SCH ×3 (08:46→21:15)
[2021-01-21] MEDS: SERTRALINE 100 MG TAB PO SCH (08:46)
[2021-01-21] MEDS: predniSONE 20 MG TAB PO SCH (08:46)
[2021-01-21] MEDS: PANTOPRAZOLE 20 MG TAB PO SCH (08:56)
--- NOTE | 2021-01-21 10:54 | REP ---
INDICATION: copd exacerbation. COMPARISON: Multiple the latest 01/10/2021 at 12:36 a.m. a portable exam TECHNIQUE: PA and lateral FINDINGS: There is cardiomegaly status quo. There is lung field hyperexpansion status quo. There is emphysematous change and interstitial fibrotic change status quo. No acute abnormal opacities have developed. There is no change in the osseous structures. IMPRESSION: Stable appearing chronic changes. <Electronically signed by Larry Nichole > 01/21/21 2526
[2021-01-21 14:00] VITALS: BP 165/76
[2021-01-21 14:56] VITALS: O2SAT 90
--- NOTE | 2021-01-21 16:52 | IPNPDOC ---
Text Note Date of Service The patient was seen on 01/21/21. NOTE S: Patient seen and evaluated at bedside this a.m. Reports chronic right hip pain that has not been properly managed with pain medications. Reports occasional productive cough of clear phlegm, which patient tells me is at his baseline. Denies chest pain, SOB, abdominal pain, nausea, vomiting. Denies additional acute complaints. O: GEN: Alert, awake, laying in bed, NAD HEENT: NC/AT, EOMI, nares patent, moist mucous membranes CARDIO: RRR, normal heart sounds, no MRG PULM: CTA b/l, no WRR, no accessory muscles used ABD: soft, nontender, nondistended, normal BS EXTREMITIES: no edema, normal ROM IMAGING: (01/20) CXR 1. No radiographic evidence for pneumonia. 2. Asymmetric volume loss in the left hemithorax, which has developed since the chest x-ray on 11/02/2020. 3. Chronic increased interstitial markings in both lungs with probable bullous changes in the right lung base, which are stable compared to the prior chest x- ray on 11/02/2020. A/P: Jack is a 75-year-old male past medical history COPD, HFpEF 75% who presents with worsening shortness of breath and productive cough with sputum, who was found to have proBNP 5156 which is at his baseline, now on doxycycline day 2 and prednisone for suspected acute on chronic COPD exacerbation with unchanged symptoms. #Acute on chronic COPD exacerbation- unchanged SpO2 93% RA Continue duonebs every 4 hours as needed Continue Spiriva, Symbicort 2 puff twice daily Continue prednisone 40 mg (started 01/20, stop date 01/24) Continue doxycycline 100 mg twice daily for anti-inflammatory effects (started 01/20, stop date 01/22) #Disheveled and deconditioning Continue PT/OT PFS consult pending Of note, patient presented to ED in poor hygiene and unkempt appearance. He does report living at home alone and without assistance. According to admission provider, patient is bedbound and often soils himself due to limited mobility. He is unable to wash his clothes or bed sheets and is dependent on Meals on Wheels M-F, receiving 1 meal a day and not having a consistent source of food on the weekends. Home health has been involved in this patient's care before but has refused to continue home visits due to poor living conditions. Patient tells me he occasionally uses a cane or wheelchair to assist with mobility. Patient will most likely require home with services or placement upon discharge. 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 #HTN, chronic-stable BP this a.m. 146/66 Continue home lisinopril 10 mg #BPH, chronic-stable Continue home Terazosin 20 mg nightly, finasteride 5 mg nightly #GERD, chronic-stable Continue pantoprazole 20 mg daily #Bipolar disorder, chronic-stable Continue home Zoloft 100 mg daily #DVT Prophylaxis Continue heparin DIET: Consistent carb ACTIVITY: Assisted ambulation only, fall precautions DISPO: Home with services vs rehab, pending clinical improvement Attending Attestation: I saw and evaluated the patient. I agree with the finding and the plan of care as documented in the residents note. VS,Reinierbone, I+O VS, Fishbone, I+O Laboratory Tests 01/21/21 06:01 Vital Signs Date Time Temp Pulse Resp B/P (MAP) Pulse Ox O2 Delivery O2 Flow Rate FiO2 01/21/21 14:56 90 Room Air 01/21/21 08:48 129/60 01/21/21 06:00 97.2 64 16 I&O- Last 24 Hours up to 6 AM 01/21/21 06:00 Intake Total 1690 ml Output Total 1775 ml Balance -85 ml Modesta Alicea DO Jan 21, 2021 16:52 ELVIA PEREIRA MD Jan 22, 2021 06:23
[2021-01-21] MEDS: TERAZOSIN 5MG CAPSULE PO SCH (21:15)
[2021-01-21] MEDS: FINASTERIDE 5 MG TAB PO SCH (21:16)
[2021-01-21 22:00] VITALS: BP 107/71
[2021-01-22] MEDS: ACETAMINOPHEN TAB 650MG DOSE (2X325MG) PO PRN ×2 (04:59→14:52)
[2021-01-22 06:00] VITALS: BP 113/58
[2021-01-22 07:06] LABS: HEMATOCRIT 31.4 % (42.0-52.0); HEMOGLOBIN 10.3 g/dl (13.5-17.5); MEAN CORPUSCULAR HEMOGLOBIN 32.5 pg (27.0-33.0); MEAN CORPUSCULAR HGB CONC 32.8 g/dl (32.0-36.5); MEAN CORPUSCULAR VOLUME 99.1 fl (80.0-96.0); PLATELET COUNT, AUTOMATED 241 10^3/uL (150-450); RED BLOOD COUNT 3.17 10^6/uL (4.30-6.10); WHITE BLOOD COUNT 5.9 10^3/uL (4.0-10.0)
[2021-01-22] MEDS: HumaLOG INSULIN (NovoLOG) PER UNIT SC SCH ×2 (07:30→12:00)
[2021-01-22 07:32] LABS: BLOOD UREA NITROGEN 23 MG/DL (7-18); CALCIUM LEVEL 8.3 MG/DL (8.8-10.2); CARBON DIOXIDE LEVEL 27 MEQ/L (21-32); CHLORIDE LEVEL 106 MEQ/L (98-107); CREATININE FOR GFR 0.85 MG/DL (0.70-1.30); GLOMERULAR FILTRATION RATE > 60.0 (>42); GLUCOSE, FASTING 89 MG/DL (70-100); POTASSIUM SERUM 3.9 MEQ/L (3.5-5.1); SODIUM LEVEL 140 MEQ/L (136-145)
[2021-01-22] MEDS: TIOTROPIUM INHALER/CAPSULE (SPIRIVA) INH SCH (07:53)
[2021-01-22] MEDS: SYMBICORT 160/4.5MCG INHALER 6GM INH SCH (07:54)
[2021-01-22] MEDS: DOXYCYCLINE HYCLATE 100MG TABLET PO SCH (10:34)
[2021-01-22] MEDS: DOCUSATE SODIUM 100MG CAPSULE PO SCH (10:34)
[2021-01-22] MEDS: PANTOPRAZOLE 20 MG TAB PO SCH (10:34)
[2021-01-22] MEDS: SERTRALINE 100 MG TAB PO SCH (10:34)
[2021-01-22] MEDS: predniSONE 20 MG TAB PO SCH (10:34)
[2021-01-22] MEDS: GABAPENTIN 300 MG CAP PO SCH ×2 (10:35→14:51)
[2021-01-22 10:36] VITALS: BP 115/68
[2021-01-22] MEDS: HEPARIN SOD (PORCINE) 5000UNITS/ML 1ML VIAL/SYRINGE SC SCH (10:36)
[2021-01-22 14:00] VITALS: BP 143/62
[2021-01-22] MEDS ORDERED: PRED10TA2 PO ×2 (14:32→15:04)
--- NOTE | 2021-01-22 15:06 | DS.PDOC ---
Discharge Summary General Date of Admission Jan 20, 2021 at 02:37 Date of Discharge 01/22/21 Attending Physician: ELVIA PEREIRA MD Discharge Summary PROCEDURES PERFORMED DURING STAY: None ADMITTING DIAGNOSES: 1. Acute on chronic COPD exacerbation 2. Disheveled 3. Frequent falls 2/2 deconditioning 4. HFpEF 5. Type 2 diabetes mellitus, undiagnosed DISCHARGE DIAGNOSES: 1. Acute on chronic COPD exacerbation 2. Disheveled and deconditioned 3. Prolonged QTC prolongation 4. Possible T2DM COMPLICATIONS/CHIEF COMPLAINT: Shortness Of Breath. HISTORY OF PRESENT ILLNESS: Jack is a 75 year old male who presented to the emergency department with 1 week of increased shortness of breath, cough, fatigue and increased sputum production. He states that he has been increasingly short of breath while lying in bed and has been coughing up "10 times" as much sputum as he normally does in the last week. Denies a change in the color of his sputum which is consistently clear. He admits to using his albuterol inhaler more in the last week as well. Of note, patient lives alone in an apartment and is visited twice a week by a distant relative. He states that he is bed bound for most of the day because he cannot get himself out of bed without assistance. He does not have a way to get to the bathroom and thus urinates on himself in bed multiple times a day. He states that he does not have help to change his sheets and wash his clothes. He receives one meal a day from meals on wheels Tuesday-Tuesday; on the weekends he eats whatever he can afford or find. The patient states that he can ambulate with a cane with assistance but relies on his wheelchair and scooter to get ar ound. He admits to having multiple falls in the last year but cannot remember when they happened. He does not believe that he hit his head during these falls. In the ED the patient was found a Pro BNP of 5156, which is around his baseline. Patient was given 40mg IV lasix. Imaging showed increased interstitial markings in both lungs with probable bullous changes in right lung base that are stable. EKG in ED significant for order line QTC prolongation 479. HOSPITAL COURSE: Patient admitted for possible COPD exacerbation and started on prednisone 40 mg, Symbicort, DuoNeb as needed. He received 3 days of doxycycline 100 mg twice daily. Of note, patient maintaining adequate SPO2 on room air throughout hospitalization. Patient continued to improve and was transitioned to ALC status. PT/OT, PFS were involved in patient's care, given his current living conditions and initial presentation and appearance. Additional chronic medical conditions including chronic pain, possible T2DM, HFpEF, HTN, BPH, GERD, bipolar disorder were adequately managed without complications throughout hospital ization. Patient was stable and medically optimized for discharge. Upon discharge, OT recommended home with services versus rehab. According to PFS, patient is independent with regards to ADLs, despite self-limiting disposition. At baseline, patient is functionally mobile with assistive devices and can complete daily tasks without assistance. Patient's brother has been very active in the patient's care and will continue to be the patient's primary caregiver upon discharge. Patient is recommended to follow-up with his psychiatrist upon discharge, who can then assess patient's capacity with regards to medical decision making. Patient was being seen by home health nurse prior to admission and this service will be resumed upon discharge home. DISCHARGE MEDICATIONS: Please see below. ALLERGIES: Please see below. PHYSICAL EXAMINATION ON DISCHARGE: VITAL SIGNS: Please see below. GENERAL: Alert, awake, laying in bed, NAD HEENT: NC/AT, EOMI, nares patent, moist mucous membranes NECK: Supple CARDIOVASCULAR EXAMINATION: RRR, normal heart sounds, no MRG RESPIRATORY EXAMINATION: CTA bilaterally, no WRR, no accessory muscles used ABDOMINAL EXAMINATION: Soft, nontender, nondistended EXTREMITIES: No edema, normal ROM SKIN: No new abrasions/wounds/bruising NEUROLOGICAL EXAMINATION: No focal neuro deficits PSYCHIATRIC EXAMINATION: No anxious/depressed mood LABORATORY DATA: Please see below. IMAGING: (01/20) CXR 1. No radiographic evidence for pneumonia. 2. Asymmetric volume loss in the left hemithorax, which has developed since the chest x-ray on 11/02/2020. 3. Chronic increased interstitial markings in both lungs with probable bullous changes in the right lung base, which are stable compared to the prior chest x- ray on 11/02/2020. PROGNOSIS: Fair ACTIVITY: As tolerated DIET: Consistent carb, 2 g sodium DISCHARGE PLAN: 1. F/u PCP 2. F/u Psychiatrist DISPOSITION: Home with services DISCHARGE INSTRUCTIONS: 1. Acute on chronic COPD exacerbation Continue prednisone taper Continue home breathing treatments as prescribed ITEMS TO FOLLOWUP ON ON OUTPATIENT: 1. PCP prednisone taper, T2DM vs Prediabetes, hospital f/u 2. Psychiatrist evaluate capacity for medical decision-making DISCHARGE CONDITION: Stable TIME SPENT ON DISCHARGE: 25 minutes. Attending Attestation: I saw and evaluated the patient. I agree with the finding and the plan of care as documented in the residents note. Vital Signs/I&Os Vital Signs Date Time Temp Pulse Resp B/P (MAP) Pulse Ox O2 Delivery O2 Flow Rate FiO2 01/22/21 10:36 115/68 01/22/21 06:00 97.8 76 16 93 Room Air I&O- Last 24 Hours up to 6 AM 01/22/21 06:00 Intake Total 1680 ml Output Total 200 ml Balance 1480 ml Laboratory Data Labs 24H Laboratory Tests 2 01/21/21 17:33: Bedside Glucose (Misc Panel) 121H 01/21/21 20:09: Bedside Glucose (Misc Panel) 109 01/22/21 06:20: Nucleated Red Blood Cells % (auto) 0.0, Anion Gap 7L, Glomerular Filtration Rate > 60.0, Calcium Level 8.3L 01/22/21 11:33: Bedside Glucose (Misc Panel) 94 CBC/BMP Laboratory Tests 01/22/21 06:20 FSBS Laboratory Tests Test 01/21/21 17:33 01/21/21 20:09 01/22/21 11:33 Range/Units Bedside Glucose (Misc Panel) 121 109 94 83-110 MG/DL Discharge Medications Scheduled Cholecalciferol (Vitamin D3) (Vitamin D3) 1,000 Unit Tablet, 1,000 UNITS PO DAILY, (Reported) Docusate Sodium (Docusate Sodium) 100 Mg Capsule, 100 MG PO BID, (Reported) Finasteride (Finasteride) 5 Mg Tablet, 5 MG PO QHS, (Reported) Fluticasone/Umeclidin/Vilanter (Trelegy Ellipta 100-62.5-25) 1 Each Blst.w.dev, 1 PUFF PO DAILY, (Reported) Gabapentin (Gabapentin) 300 Mg Capsule, 600 MG PO TID, (Reported) Lisinopril (Lisinopril) 10 Mg Tablet, 10 MG PO DAILY, (Reported) Lurasidone HCl (Latuda) 120 Mg Tablet, 120 MG PO QHS, (Reported) Melatonin (Melatonin) 3 Mg Tablet, 6 MG PO QHS, (Reported) Multivitamin with Minerals (Multivitamins with Minerals) 1 Each Tablet, 1 TAB PO DAILY, (Reported) Pantoprazole Sodium (Pantoprazole Sodium) 20 Mg Tablet.dr, 20 MG PO DAILY, (Reported) Prednisone (Prednisone) 10 Mg Tablet, 10 MG PO TAPER Take 4 tabs daily x 3 days, then 3 tabs daily x 3 days, then 2 tabs daily x 3 days, then 1 tab daily x 3 days and stop Sertraline Hcl (Zoloft) 100 Mg Tablet, 100 MG PO DAILY, (Reported) Terazosin Hcl (Terazosin HCl) 10 Mg Capsule, 20 MG PO QHS, (Reported) Scheduled PRN Acetaminophen (Acetaminophen ER) 650 Mg Tablet.er, 650 MG PO Q8H PRN for PAIN LEVEL 1-6, (Reported) Albuterol Sulfate (Ventolin Hfa) 18 Gm Hfa.aer.ad, 2 PUFFS INH Q4H PRN for SHORTNESS OF BREATH, (Reported) Cyclobenzaprine HCl (Cyclobenzaprine HCl) 10 Mg Tablet, 10 MG PO BID PRN for MUSCLE SPASMS, (Reported) Allergies Coded Allergies: aspirin (Verified Adverse Reaction, Intermediate, BLEEDING ULCER, 11/05/20) Modesta Alicea DO Jan 22, 2021 15:06 ELVIA PEREIRA MD Jan 23, 2021 06:34
== END 2021-01-22 16:40 | disposition home health service (06) | DRG 191 ==
LOC: M ED 23:50 → M ED INP 01-20 02:37 → M MSPAV 01-20 05:13
PROVIDERS: ADMIT Family Medicine; ATTEND Internal Medicine
DX: J44.1 Chronic obstructive pulmonary disease with (acute) exacerbation (principal); I50.32 Chronic diastolic (congestive) heart failure; I11.0 Hypertensive heart disease with heart failure; R29.6 Repeated falls; R26.89 Other abnormalities of gait and mobility; E11.9 Type 2 diabetes mellitus without complications; N40.0 Benign prostatic hyperplasia without lower urinary tract symptoms; K21.9 Gastro-esophageal reflux disease without esophagitis; F17.210 Nicotine dependence, cigarettes, uncomplicated; Z74.1 Need for assistance with personal care; M51.36 Other intervertebral disc degeneration, lumbar region; Z79.84 Long term (current) use of oral hypoglycemic drugs; Z79.899 Other long term (current) drug therapy; Z88.8 Allergy status to other drugs, medicaments and biological substances; Z20.822 Contact with and (suspected) exposure to COVID-19; Z66 Do not resuscitate; F31.9 Bipolar disorder, unspecified

== ENCOUNTER 2021-05-09 11:50 | Inpatient (IN) | payer OTHER ==
[~2021-05-09] VITALS: Ht 177.8 cm; Wt 84.9 kg
[~2021-05-09 11:50] MED LIST changes: +D31000TA2 PO; -LISI-898 PO; +LISI5TAB11 PO; +PANT20TA51 PO
[2021-05-09 13:09] LABS: BASO % 0.5 % (0.0-1.0); EOS # 0.1 10^3/uL (0.0-0.5); EOS % 1.5 % (0.0-3.0); HEMATOCRIT 37.8 % (42.0-52.0); HEMOGLOBIN 12.3 g/dl (13.5-17.5); LYMPH # 0.5 10^3/uL (1.5-5.0); LYMPH % 8.9 % (24.0-44.0); MEAN CORPUSCULAR HEMOGLOBIN 30.5 pg (27.0-33.0); MEAN CORPUSCULAR HGB CONC 32.5 g/dl (32.0-36.5); MEAN CORPUSCULAR VOLUME 93.8 fl (80.0-96.0); MONO # 0.5 10^3/uL (0.0-0.8); MONO % 8.4 % (2.0-8.0); NEUTROPHILS # 4.9 10^3/uL (1.5-8.5); NEUTROPHILS % 80.4 % (36.0-66.0); PLATELET COUNT, AUTOMATED 145 10^3/uL (150-450); RED BLOOD COUNT 4.03 10^6/uL (4.30-6.10); WHITE BLOOD COUNT 6.1 10^3/uL (4.0-10.0)
[2021-05-09 13:44] LABS: ALBUMIN 3.2 GM/DL (3.2-5.2); ALT/SGPT 35 U/L (12-78); BILIRUBIN,DIRECT 0.1 MG/DL (0.0-0.2); BILIRUBIN,TOTAL 0.3 MG/DL (0.2-1.0); BLOOD UREA NITROGEN 27 MG/DL (7-18); CALCIUM LEVEL 8.8 MG/DL (8.8-10.2); CARBON DIOXIDE LEVEL 27 MEQ/L (21-32); CHLORIDE LEVEL 105 MEQ/L (98-107); CREATININE FOR GFR 0.83 MG/DL (0.70-1.30); FREE T4 1.24 NG/DL (0.76-1.46); GLOMERULAR FILTRATION RATE > 60.0 (>42); GLUCOSE, FASTING 122 MG/DL (70-100); POTASSIUM SERUM 4.4 MEQ/L (3.5-5.1); SODIUM LEVEL 139 MEQ/L (136-145); TOTAL PROTEIN 6.2 GM/DL (6.4-8.2)
[2021-05-09] MEDS ORDERED: cefTRIAXone SOD 1 GM in D5W MINI-BAG PLUS 50 ML IV ONE (15:50)
[2021-05-09] MEDS ORDERED: COMMENTS (16:00)
[2021-05-09] MEDS ORDERED: HOME MED LIST COMPLETE! XX SCH (16:05)
[2021-05-09] MEDS ORDERED: ALBUTEROL SULFATE 2.5 MG/0.5 ML INH NEB SOLN NEB PRN (16:15)
[2021-05-09] MEDS: methylPREDNISolone 125MG 2ML VIAL IV SCH (17:15)
[2021-05-09] MEDS: IPRATROPIUM 0.5MG/ALBUTEROL 2.5MG INH SOL UD 3ML (DUONEB) NEB SCH (20:00)
[2021-05-09] MEDS: DOCUSATE SODIUM 100MG CAPSULE PO SCH (21:00)
[2021-05-09] MEDS: GABAPENTIN 300 MG CAP PO SCH (21:04)
[2021-05-09] MEDS: LURASIDONE HCL 40MG TAB (LATUDA) PO SCH (21:05)
[2021-05-09] MEDS: FINASTERIDE 5 MG TAB PO SCH (21:05)
[2021-05-09] MEDS: HEPARIN SOD (PORCINE) 5000UNITS/ML 1ML VIAL/SYRINGE SQ SCH (21:06)
[2021-05-09] MEDS: SYMBICORT 160/4.5MCG INHALER 6GM INH SCH (21:12)
[2021-05-09] MEDS: TERAZOSIN 5MG CAPSULE PO SCH (21:37)
[2021-05-10] MEDS: methylPREDNISolone 125MG 2ML VIAL IV SCH ×3 (00:59→16:25)
[2021-05-10] MEDS: IPRATROPIUM 0.5MG/ALBUTEROL 2.5MG INH SOL UD 3ML (DUONEB) NEB SCH ×4 (01:15→19:38)
[2021-05-10] MEDS: HEPARIN SOD (PORCINE) 5000UNITS/ML 1ML VIAL/SYRINGE SQ SCH ×3 (06:07→20:37)
[2021-05-10 07:27] LABS: EOS % 0.2 % (0.0-3.0); HEMATOCRIT 36.5 % (42.0-52.0); HEMOGLOBIN 11.9 g/dl (13.5-17.5); LYMPH # 0.3 10^3/uL (1.5-5.0); LYMPH % 4.5 % (24.0-44.0); MEAN CORPUSCULAR HGB CONC 32.6 g/dl (32.0-36.5); MEAN CORPUSCULAR VOLUME 95.1 fl (80.0-96.0); MONO # 0.1 10^3/uL (0.0-0.8); MONO % 1.5 % (2.0-8.0); NEUTROPHILS # 5.5 10^3/uL (1.5-8.5); NEUTROPHILS % 93.5 % (36.0-66.0); PLATELET COUNT, AUTOMATED 147 10^3/uL (150-450); RED BLOOD COUNT 3.84 10^6/uL (4.30-6.10); WHITE BLOOD COUNT 5.8 10^3/uL (4.0-10.0)
[2021-05-10] MEDS: SYMBICORT 160/4.5MCG INHALER 6GM INH SCH ×2 (07:41→19:38)
[2021-05-10 08:06] LABS: ALBUMIN 3.1 GM/DL (3.2-5.2); ALT/SGPT 30 U/L (12-78); BILIRUBIN,TOTAL 0.2 MG/DL (0.2-1.0); BLOOD UREA NITROGEN 27 MG/DL (7-18); CALCIUM LEVEL 8.4 MG/DL (8.8-10.2); CARBON DIOXIDE LEVEL 26 MEQ/L (21-32); CHLORIDE LEVEL 104 MEQ/L (98-107); GLOMERULAR FILTRATION RATE > 60.0 (>42); GLUCOSE, FASTING 175 MG/DL (70-100); MAGNESIUM LEVEL 1.9 MG/DL (1.8-2.4); POTASSIUM SERUM 4.5 MEQ/L (3.5-5.1); SODIUM LEVEL 138 MEQ/L (136-145); TOTAL PROTEIN 6.1 GM/DL (6.4-8.2)
[2021-05-10] MEDS: VITAMIN D 1,000 INTERNATIONAL UNITS TABLET PO SCH (09:00)
[2021-05-10] MEDS: GABAPENTIN 300 MG CAP PO SCH ×3 (09:00→20:37)
[2021-05-10] MEDS: SERTRALINE 100 MG TAB PO SCH (09:00)
[2021-05-10] MEDS: DOCUSATE SODIUM 100MG CAPSULE PO SCH ×2 (09:00→20:38)
[2021-05-10] MEDS: PANTOPRAZOLE 20 MG TAB PO SCH (09:00)
[2021-05-10 10:27] LABS: HEMOGLOBIN A1c 5.8 %
[2021-05-10 13:40] VITALS: BP 126/57
[2021-05-10 16:00] VITALS: BP 124/71
[2021-05-10] MEDS: cefTRIAXone SOD 1 GM in D5W MINI-BAG PLUS 50 ML IV SCH (16:25)
[2021-05-10 20:00] VITALS: BP 127/59
[2021-05-10] MEDS: LURASIDONE HCL 40MG TAB (LATUDA) PO SCH (20:37)
[2021-05-10] MEDS: TERAZOSIN 5MG CAPSULE PO SCH (20:37)
[2021-05-10] MEDS: FINASTERIDE 5 MG TAB PO SCH (20:37)
[2021-05-11] MEDS: methylPREDNISolone 125MG 2ML VIAL IV SCH ×2 (00:33→08:52)
[2021-05-11] MEDS: IPRATROPIUM 0.5MG/ALBUTEROL 2.5MG INH SOL UD 3ML (DUONEB) NEB SCH ×4 (02:00→20:00)
[2021-05-11 05:00] VITALS: BP 125/60
[2021-05-11] MEDS: HEPARIN SOD (PORCINE) 5000UNITS/ML 1ML VIAL/SYRINGE SQ SCH ×3 (05:32→21:31)
[2021-05-11 08:00] VITALS: BP 125/60
[2021-05-11] MEDS: SYMBICORT 160/4.5MCG INHALER 6GM INH SCH ×2 (08:51→20:00)
[2021-05-11] MEDS: GABAPENTIN 300 MG CAP PO SCH ×3 (08:52→20:35)
[2021-05-11] MEDS: PANTOPRAZOLE 20 MG TAB PO SCH (08:52)
[2021-05-11] MEDS: SERTRALINE 100 MG TAB PO SCH (08:52)
[2021-05-11] MEDS: DOCUSATE SODIUM 100MG CAPSULE PO SCH ×2 (08:52→20:35)
[2021-05-11] MEDS: VITAMIN D 1,000 INTERNATIONAL UNITS TABLET PO SCH (08:52)
[2021-05-11] MEDS: FUROSEMIDE 10MG PER 1/2 TABLET PO SCH (10:18)
[2021-05-11 12:00] VITALS: BP 120/62
[2021-05-11] MEDS: cefTRIAXone SOD 1 GM in D5W MINI-BAG PLUS 50 ML IV SCH (17:56)
[2021-05-11 20:15] VITALS: BP 131/66
[2021-05-11] MEDS: LURASIDONE HCL 40MG TAB (LATUDA) PO SCH (20:34)
[2021-05-11] MEDS: TERAZOSIN 5MG CAPSULE PO SCH (20:35)
[2021-05-11] MEDS: FINASTERIDE 5 MG TAB PO SCH (20:35)
[2021-05-12] VITALS: BP 100/55
[2021-05-12] MEDS: IPRATROPIUM 0.5MG/ALBUTEROL 2.5MG INH SOL UD 3ML (DUONEB) NEB SCH ×4 (01:56→20:00)
[2021-05-12 04:00] VITALS: BP 126/63
[2021-05-12 04:54] LABS: BASO % 0.1 % (0.0-1.0); EOS # 0.1 10^3/uL (0.0-0.5); HEMATOCRIT 33.8 % (42.0-52.0); HEMOGLOBIN 10.8 g/dl (13.5-17.5); LYMPH # 0.6 10^3/uL (1.5-5.0); MEAN CORPUSCULAR HEMOGLOBIN 31.1 pg (27.0-33.0); MEAN CORPUSCULAR VOLUME 97.4 fl (80.0-96.0); MONO # 0.8 10^3/uL (0.0-0.8); MONO % 11.2 % (2.0-8.0); NEUTROPHILS # 5.4 10^3/uL (1.5-8.5); NEUTROPHILS % 78.4 % (36.0-66.0); PLATELET COUNT, AUTOMATED 162 10^3/uL (150-450); RED BLOOD COUNT 3.47 10^6/uL (4.30-6.10); WHITE BLOOD COUNT 6.9 10^3/uL (4.0-10.0)
[2021-05-12] MEDS: HEPARIN SOD (PORCINE) 5000UNITS/ML 1ML VIAL/SYRINGE SQ SCH ×3 (05:00→22:07)
[2021-05-12 05:14] LABS: BLOOD UREA NITROGEN 44 MG/DL (7-18); CALCIUM LEVEL 9.1 MG/DL (8.8-10.2); CARBON DIOXIDE LEVEL 31 MEQ/L (21-32); CHLORIDE LEVEL 106 MEQ/L (98-107); CREATININE FOR GFR 0.93 MG/DL (0.70-1.30); GLOMERULAR FILTRATION RATE > 60.0 (>42); GLUCOSE, FASTING 77 MG/DL (70-100); MAGNESIUM LEVEL 2.1 MG/DL (1.8-2.4); PHOSPHORUS LEVEL 2.4 MG/DL (2.5-4.9); POTASSIUM SERUM 4.3 MEQ/L (3.5-5.1); SODIUM LEVEL 140 MEQ/L (136-145)
[2021-05-12] MEDS: SYMBICORT 160/4.5MCG INHALER 6GM INH SCH ×2 (07:19→20:00)
[2021-05-12 08:00] VITALS: BP 126/60
[2021-05-12] MEDS: FUROSEMIDE 10MG PER 1/2 TABLET PO SCH (08:36)
[2021-05-12] MEDS: DOCUSATE SODIUM 100MG CAPSULE PO SCH ×2 (08:36→20:35)
[2021-05-12] MEDS: GABAPENTIN 300 MG CAP PO SCH ×3 (08:36→20:31)
[2021-05-12] MEDS: VITAMIN D 1,000 INTERNATIONAL UNITS TABLET PO SCH (08:36)
[2021-05-12] MEDS: PANTOPRAZOLE 20 MG TAB PO SCH (08:36)
[2021-05-12] MEDS: SERTRALINE 100 MG TAB PO SCH (08:37)
[2021-05-12] MEDS ORDERED: methylPREDNISolone 40MG 1ML VIAL IV SCH (09:00)
[2021-05-12 12:00] VITALS: BP 125/62
[2021-05-12] MEDS: cefTRIAXone SOD 1 GM in D5W MINI-BAG PLUS 50 ML IV SCH (15:09)
[2021-05-12 20:00] VITALS: BP 130/91
[2021-05-12] MEDS: LURASIDONE HCL 40MG TAB (LATUDA) PO SCH (20:31)
[2021-05-12] MEDS: TERAZOSIN 5MG CAPSULE PO SCH (20:34)
[2021-05-12] MEDS: FINASTERIDE 5 MG TAB PO SCH (20:35)
[2021-05-12] MEDS: ACETAMINOPHEN TAB 650MG DOSE (2X325MG) PO PRN (20:47)
[2021-05-13] MEDS: IPRATROPIUM 0.5MG/ALBUTEROL 2.5MG INH SOL UD 3ML (DUONEB) NEB SCH ×4 (02:00→17:46)
[2021-05-13 06:00] VITALS: BP 163/77
[2021-05-13] MEDS: HEPARIN SOD (PORCINE) 5000UNITS/ML 1ML VIAL/SYRINGE SQ SCH ×3 (06:15→22:35)
[2021-05-13] MEDS: SYMBICORT 160/4.5MCG INHALER 6GM INH SCH ×2 (08:45→17:46)
[2021-05-13] MEDS: PANTOPRAZOLE 20 MG TAB PO SCH (09:31)
[2021-05-13] MEDS: GABAPENTIN 300 MG CAP PO SCH ×3 (09:31→20:49)
[2021-05-13] MEDS: DOCUSATE SODIUM 100MG CAPSULE PO SCH ×2 (09:31→20:49)
[2021-05-13] MEDS: FUROSEMIDE 10MG PER 1/2 TABLET PO SCH (09:31)
[2021-05-13] MEDS: predniSONE 10 MG TAB PO SCH (09:31)
[2021-05-13] MEDS: VITAMIN D 1,000 INTERNATIONAL UNITS TABLET PO SCH (09:31)
[2021-05-13] MEDS: SERTRALINE 100 MG TAB PO SCH (09:32)
[2021-05-13] MEDS: DOXYCYCLINE HYCLATE 100MG TABLET PO SCH ×2 (11:47→20:49)
[2021-05-13] MEDS: LURASIDONE HCL 40MG TAB (LATUDA) PO SCH (20:48)
[2021-05-13] MEDS: TERAZOSIN 5MG CAPSULE PO SCH (20:48)
[2021-05-13] MEDS: FINASTERIDE 5 MG TAB PO SCH (20:49)
[2021-05-14] MEDS: IPRATROPIUM 0.5MG/ALBUTEROL 2.5MG INH SOL UD 3ML (DUONEB) NEB SCH ×4 (02:50→21:26)
[2021-05-14 05:29] VITALS: BP 183/88
[2021-05-14] MEDS: HEPARIN SOD (PORCINE) 5000UNITS/ML 1ML VIAL/SYRINGE SQ SCH ×3 (05:55→22:14)
[2021-05-14] MEDS: FUROSEMIDE 10MG PER 1/2 TABLET PO SCH ×2 (05:55→09:18)
[2021-05-14] MEDS: SYMBICORT 160/4.5MCG INHALER 6GM INH SCH ×2 (07:41→21:26)
[2021-05-14 08:07] VITALS: BP 125/58
[2021-05-14] MEDS: SERTRALINE 100 MG TAB PO SCH (09:17)
[2021-05-14] MEDS: PANTOPRAZOLE 20 MG TAB PO SCH (09:17)
[2021-05-14] MEDS: VITAMIN D 1,000 INTERNATIONAL UNITS TABLET PO SCH (09:17)
[2021-05-14] MEDS: GABAPENTIN 300 MG CAP PO SCH ×3 (09:18→22:14)
[2021-05-14] MEDS: DOXYCYCLINE HYCLATE 100MG TABLET PO SCH ×2 (09:18→22:13)
[2021-05-14] MEDS: predniSONE 10 MG TAB PO SCH (09:18)
[2021-05-14] MEDS: DOCUSATE SODIUM 100MG CAPSULE PO SCH ×2 (09:19→22:13)
[2021-05-14] MEDS: ACETAMINOPHEN TAB 650MG DOSE (2X325MG) PO PRN (09:26)
[2021-05-14 16:41] VITALS: BP 154/70
[2021-05-14] MEDS: TERAZOSIN 5MG CAPSULE PO SCH (22:13)
[2021-05-14] MEDS: LURASIDONE HCL 40MG TAB (LATUDA) PO SCH (22:14)
[2021-05-14] MEDS: FINASTERIDE 5 MG TAB PO SCH (22:14)
[2021-05-15] MEDS: IPRATROPIUM 0.5MG/ALBUTEROL 2.5MG INH SOL UD 3ML (DUONEB) NEB SCH ×4 (01:50→20:00)
[2021-05-15] MEDS: HEPARIN SOD (PORCINE) 5000UNITS/ML 1ML VIAL/SYRINGE SQ SCH ×3 (05:08→21:09)
[2021-05-15] MEDS: GABAPENTIN 300 MG CAP PO SCH ×3 (07:51→21:08)
[2021-05-15] MEDS: DOXYCYCLINE HYCLATE 100MG TABLET PO SCH ×2 (07:52→21:09)
[2021-05-15] MEDS: VITAMIN D 1,000 INTERNATIONAL UNITS TABLET PO SCH (07:52)
[2021-05-15] MEDS: PANTOPRAZOLE 20 MG TAB PO SCH (07:52)
[2021-05-15] MEDS: DOCUSATE SODIUM 100MG CAPSULE PO SCH ×2 (07:52→21:10)
[2021-05-15] MEDS: predniSONE 10 MG TAB PO SCH (07:52)
[2021-05-15] MEDS: SERTRALINE 100 MG TAB PO SCH (07:52)
[2021-05-15] MEDS: ACETAMINOPHEN TAB 650MG DOSE (2X325MG) PO PRN ×3 (07:53→21:10)
[2021-05-15 08:00] VITALS: BP 126/50
[2021-05-15] MEDS: SYMBICORT 160/4.5MCG INHALER 6GM INH SCH ×2 (08:25→20:46)
[2021-05-15 10:00] VITALS: BP 122/54
[2021-05-15 14:00] VITALS: BP 138/65
[2021-05-15 20:24] VITALS: BP 164/88
[2021-05-15] MEDS: FINASTERIDE 5 MG TAB PO SCH (21:09)
[2021-05-15] MEDS: LURASIDONE HCL 40MG TAB (LATUDA) PO SCH (21:10)
[2021-05-15] MEDS: TERAZOSIN 5MG CAPSULE PO SCH (21:13)
[2021-05-16] MEDS: IPRATROPIUM 0.5MG/ALBUTEROL 2.5MG INH SOL UD 3ML (DUONEB) NEB SCH ×4 (01:14→20:00)
[2021-05-16 06:25] VITALS: BP 140/89
[2021-05-16] MEDS: SYMBICORT 160/4.5MCG INHALER 6GM INH SCH ×2 (06:34→20:10)
[2021-05-16] MEDS: HEPARIN SOD (PORCINE) 5000UNITS/ML 1ML VIAL/SYRINGE SQ SCH ×3 (06:54→21:55)
[2021-05-16] MEDS: PANTOPRAZOLE 20 MG TAB PO SCH (08:30)
[2021-05-16] MEDS: DOCUSATE SODIUM 100MG CAPSULE PO SCH ×2 (08:30→21:56)
[2021-05-16] MEDS: predniSONE 10 MG TAB PO SCH (08:30)
[2021-05-16] MEDS: GABAPENTIN 300 MG CAP PO SCH ×3 (08:30→21:57)
[2021-05-16] MEDS: DOXYCYCLINE HYCLATE 100MG TABLET PO SCH ×2 (08:30→21:56)
[2021-05-16] MEDS: SERTRALINE 100 MG TAB PO SCH (08:30)
[2021-05-16] MEDS: FUROSEMIDE 10MG PER 1/2 TABLET PO SCH (08:30)
[2021-05-16] MEDS: VITAMIN D 1,000 INTERNATIONAL UNITS TABLET PO SCH (08:30)
[2021-05-16] MEDS: ACETAMINOPHEN TAB 650MG DOSE (2X325MG) PO PRN (10:18)
[2021-05-16 14:00] VITALS: BP 120/63
[2021-05-16] MEDS: FLUTICASONE PROP 0.05% NASAL SPRAY 16 GM (FLONASE) NARES SCH (15:19)
[2021-05-16] MEDS: LURASIDONE HCL 40MG TAB (LATUDA) PO SCH (21:56)
[2021-05-16] MEDS: TERAZOSIN 5MG CAPSULE PO SCH (21:57)
[2021-05-16] MEDS: FINASTERIDE 5 MG TAB PO SCH (21:57)
[2021-05-17] MEDS: IPRATROPIUM 0.5MG/ALBUTEROL 2.5MG INH SOL UD 3ML (DUONEB) NEB SCH ×4 (01:31→19:42)
[2021-05-17] MEDS: ACETAMINOPHEN TAB 650MG DOSE (2X325MG) PO PRN ×2 (02:16→22:16)
[2021-05-17] MEDS: HEPARIN SOD (PORCINE) 5000UNITS/ML 1ML VIAL/SYRINGE SQ SCH ×3 (05:35→22:16)
[2021-05-17 06:00] VITALS: BP 138/56
[2021-05-17] MEDS: SYMBICORT 160/4.5MCG INHALER 6GM INH SCH ×2 (08:03→19:42)
[2021-05-17] MEDS: PANTOPRAZOLE 20 MG TAB PO SCH (10:01)
[2021-05-17] MEDS: predniSONE 10 MG TAB PO SCH (10:01)
[2021-05-17] MEDS: GABAPENTIN 300 MG CAP PO SCH ×3 (10:01→22:14)
[2021-05-17] MEDS: DOCUSATE SODIUM 100MG CAPSULE PO SCH ×2 (10:01→22:15)
[2021-05-17] MEDS: FUROSEMIDE 10MG PER 1/2 TABLET PO SCH (10:02)
[2021-05-17] MEDS: SERTRALINE 100 MG TAB PO SCH (10:02)
[2021-05-17] MEDS: DOXYCYCLINE HYCLATE 100MG TABLET PO SCH ×2 (10:02→22:15)
[2021-05-17] MEDS: VITAMIN D 1,000 INTERNATIONAL UNITS TABLET PO SCH (10:02)
[2021-05-17] MEDS: FLUTICASONE PROP 0.05% NASAL SPRAY 16 GM (FLONASE) NARES SCH (10:06)
[2021-05-17] MEDS: LURASIDONE HCL 40MG TAB (LATUDA) PO SCH (22:14)
[2021-05-17] MEDS: FINASTERIDE 5 MG TAB PO SCH (22:15)
[2021-05-17] MEDS: TERAZOSIN 5MG CAPSULE PO SCH (22:15)
[2021-05-18] MEDS: IPRATROPIUM 0.5MG/ALBUTEROL 2.5MG INH SOL UD 3ML (DUONEB) NEB SCH ×4 (02:00→18:36)
[2021-05-18] MEDS: HEPARIN SOD (PORCINE) 5000UNITS/ML 1ML VIAL/SYRINGE SQ SCH ×3 (05:07→21:40)
[2021-05-18 06:00] VITALS: BP 140/81
[2021-05-18] MEDS: SYMBICORT 160/4.5MCG INHALER 6GM INH SCH ×2 (07:32→17:47)
[2021-05-18] MEDS: GABAPENTIN 300 MG CAP PO SCH ×3 (08:21→21:39)
[2021-05-18] MEDS: DOCUSATE SODIUM 100MG CAPSULE PO SCH ×2 (08:22→21:39)
[2021-05-18] MEDS: predniSONE 10 MG TAB PO SCH (08:22)
[2021-05-18] MEDS: PANTOPRAZOLE 20 MG TAB PO SCH (08:22)
[2021-05-18] MEDS: VITAMIN D 1,000 INTERNATIONAL UNITS TABLET PO SCH (08:22)
[2021-05-18] MEDS: SERTRALINE 100 MG TAB PO SCH (08:22)
[2021-05-18] MEDS: DOXYCYCLINE HYCLATE 100MG TABLET PO SCH ×2 (08:22→21:39)
[2021-05-18] MEDS: FUROSEMIDE 10MG PER 1/2 TABLET PO SCH (08:24)
[2021-05-18] MEDS: FLUTICASONE PROP 0.05% NASAL SPRAY 16 GM (FLONASE) NARES SCH (08:24)
[2021-05-18 09:57] VITALS: BP 88/42
[2021-05-18 11:35] VITALS: BP 132/70
[2021-05-18] MEDS: ACETAMINOPHEN TAB 650MG DOSE (2X325MG) PO PRN (11:39)
[2021-05-18 20:58] VITALS: BP 122/77
[2021-05-18] MEDS: FINASTERIDE 5 MG TAB PO SCH (21:38)
[2021-05-18] MEDS: LURASIDONE HCL 40MG TAB (LATUDA) PO SCH (21:39)
[2021-05-18] MEDS: TERAZOSIN 5MG CAPSULE PO SCH (21:39)
[2021-05-19] MEDS: IPRATROPIUM 0.5MG/ALBUTEROL 2.5MG INH SOL UD 3ML (DUONEB) NEB SCH ×2 (01:34→07:12)
[2021-05-19] MEDS: HEPARIN SOD (PORCINE) 5000UNITS/ML 1ML VIAL/SYRINGE SQ SCH (04:42)
[2021-05-19 04:51] VITALS: BP 126/52
[2021-05-19] MEDS: SYMBICORT 160/4.5MCG INHALER 6GM INH SCH (07:30)
[2021-05-19 08:46] VITALS: BP 126/52
[2021-05-19] MEDS: FUROSEMIDE 10MG PER 1/2 TABLET PO SCH (09:23)
[2021-05-19] MEDS: SERTRALINE 100 MG TAB PO SCH (09:24)
[2021-05-19] MEDS: ACETAMINOPHEN TAB 650MG DOSE (2X325MG) PO PRN (09:24)
[2021-05-19] MEDS: PANTOPRAZOLE 20 MG TAB PO SCH (09:25)
[2021-05-19] MEDS: DOCUSATE SODIUM 100MG CAPSULE PO SCH (09:25)
[2021-05-19] MEDS: VITAMIN D 1,000 INTERNATIONAL UNITS TABLET PO SCH (09:25)
[2021-05-19] MEDS: GABAPENTIN 300 MG CAP PO SCH (09:25)
[2021-05-19] MEDS: predniSONE 10 MG TAB PO SCH (09:25)
[2021-05-19] MEDS: DOXYCYCLINE HYCLATE 100MG TABLET PO SCH (09:25)
[2021-05-19 09:28] VITALS: BP 124/50
[2021-05-19] MEDS: FLUTICASONE PROP 0.05% NASAL SPRAY 16 GM (FLONASE) NARES SCH (09:29)
[2021-05-19] MEDS ORDERED: DOXY100T PO (12:21)
[2021-05-19] MEDS ORDERED: FURO20TA2 PO (12:21)
[2021-05-19] MEDS ORDERED: PRED10TA2 PO (12:21)
[2021-05-19] MEDS ORDERED: SPIR-10 PO (12:25)
[2021-05-19] MEDS ORDERED: FLUTISP NARES (12:31)
== END 2021-05-19 13:03 | DRG 689 ==
LOC: M ED 11:50 → M ED INP 15:46 → ENRESERV 05-10 11:00 → M PCU 05-10 13:20 → M MS5PR 05-15 09:49
PROVIDERS: ADMIT Internal Medicine; ATTEND Internal Medicine
DX: N39.0 Urinary tract infection, site not specified (principal); L89.223 Pressure ulcer of left hip, stage 3; J44.1 Chronic obstructive pulmonary disease with (acute) exacerbation; I50.42 Chronic combined systolic (congestive) and diastolic (congestive) heart failure; L89.212 Pressure ulcer of right hip, stage 2; I11.0 Hypertensive heart disease with heart failure; E11.9 Type 2 diabetes mellitus without complications; K21.9 Gastro-esophageal reflux disease without esophagitis; N40.0 Benign prostatic hyperplasia without lower urinary tract symptoms; F17.200 Nicotine dependence, unspecified, uncomplicated; I44.0 Atrioventricular block, first degree; R29.6 Repeated falls; B95.8 Unspecified staphylococcus as the cause of diseases classified elsewhere; Z88.6 Allergy status to analgesic agent; Z79.899 Other long term (current) drug therapy

== ENCOUNTER → 2021-10-15 | Outpatient (REF) | payer OTHER ==
[~2021-10-15] MED LIST changes: +COMMENTS; -D31000TA2 PO; +DOXY100T PO; +FLUTISP NARES; +FURO20TA2 PO; +SPIR-10 PO; +VITA100093 PO
[2021-10-15 09:51] LABS: HEMOGLOBIN 12.2 g/dl (13.5-17.5); MEAN CORPUSCULAR HEMOGLOBIN 33.1 pg (27.0-33.0); MEAN CORPUSCULAR VOLUME 100.3 fl (80.0-96.0); PLATELET COUNT, AUTOMATED 215 10^3/uL (150-450); RED BLOOD COUNT 3.69 10^6/uL (4.30-6.10)
[2021-10-15 10:04] LABS: ALBUMIN 3.6 GM/DL (3.2-5.2); ALT/SGPT 21 U/L (12-78); BILIRUBIN,TOTAL 0.3 MG/DL (0.2-1.0); BLOOD UREA NITROGEN 15 MG/DL (7-18); CALCIUM LEVEL 8.6 MG/DL (8.8-10.2); CARBON DIOXIDE LEVEL 25 MEQ/L (21-32); CHLORIDE LEVEL 103 MEQ/L (98-107); CREATININE FOR GFR 0.95 MG/DL (0.70-1.30); GLOMERULAR FILTRATION RATE > 60.0 (>42); GLUCOSE, FASTING 124 MG/DL (70-100); POTASSIUM SERUM 3.9 MEQ/L (3.5-5.1); SODIUM LEVEL 137 MEQ/L (136-145); TOTAL PROTEIN 6.3 GM/DL (6.4-8.2)
== END ==
LOC: SKLAB4 06:00
PROVIDERS: ATTEND Internal Medicine
DX: J44.9 Chronic obstructive pulmonary disease, unspecified (principal)

== ENCOUNTER → 2021-11-07 | Outpatient (REF) | payer OTHER ==
[2021-11-07 14:09] LABS: HEMATOCRIT 34.2 % (42.0-52.0); HEMOGLOBIN 11.3 g/dl (13.5-17.5); MEAN CORPUSCULAR HEMOGLOBIN 32.8 pg (27.0-33.0); MEAN CORPUSCULAR VOLUME 99.4 fl (80.0-96.0); PLATELET COUNT, AUTOMATED 171 10^3/uL (150-450); RED BLOOD COUNT 3.44 10^6/uL (4.30-6.10); WHITE BLOOD COUNT 5.4 10^3/uL (4.0-10.0)
[2021-11-07 14:43] LABS: ALBUMIN 3.2 GM/DL (3.2-5.2); ALT/SGPT 19 U/L (12-78); BILIRUBIN,TOTAL 0.1 MG/DL (0.2-1.0); BLOOD UREA NITROGEN 17 MG/DL (7-18); CALCIUM LEVEL 7.7 MG/DL (8.8-10.2); CARBON DIOXIDE LEVEL 27 MEQ/L (21-32); CHLORIDE LEVEL 105 MEQ/L (98-107); CREATININE FOR GFR 1.01 MG/DL (0.70-1.30); GLOMERULAR FILTRATION RATE > 60.0 (>42); GLUCOSE, FASTING 124 MG/DL (70-100); POTASSIUM SERUM 4.3 MEQ/L (3.5-5.1); SODIUM LEVEL 137 MEQ/L (136-145); TOTAL PROTEIN 6.1 GM/DL (6.4-8.2)
== END ==
LOC: SKLAB2 11:53
PROVIDERS: ATTEND Internal Medicine
DX: U07.1 COVID-19 (principal)

== ENCOUNTER → 2021-11-09 | Outpatient (REF) | payer OTHER ==
[2021-11-09 15:57] LABS: HEMATOCRIT 36.2 % (42.0-52.0); MEAN CORPUSCULAR HEMOGLOBIN 32.3 pg (27.0-33.0); MEAN CORPUSCULAR HGB CONC 33.1 g/dl (32.0-36.5); MEAN CORPUSCULAR VOLUME 97.6 fl (80.0-96.0); PLATELET COUNT, AUTOMATED 168 10^3/uL (150-450); RED BLOOD COUNT 3.71 10^6/uL (4.30-6.10); WHITE BLOOD COUNT 3.8 10^3/uL (4.0-10.0)
[2021-11-09 16:41] LABS: ALBUMIN 3.1 GM/DL (3.2-5.2); ALT/SGPT 22 U/L (12-78); BILIRUBIN,TOTAL 0.2 MG/DL (0.2-1.0); BLOOD UREA NITROGEN 18 MG/DL (7-18); CALCIUM LEVEL 7.8 MG/DL (8.8-10.2); CARBON DIOXIDE LEVEL 26 MEQ/L (21-32); CHLORIDE LEVEL 103 MEQ/L (98-107); CREATININE FOR GFR 0.91 MG/DL (0.70-1.30); GLOMERULAR FILTRATION RATE > 60.0 (>42); GLUCOSE, FASTING 101 MG/DL (70-100); POTASSIUM SERUM 4.4 MEQ/L (3.5-5.1); SODIUM LEVEL 136 MEQ/L (136-145); TOTAL PROTEIN 6.2 GM/DL (6.4-8.2)
== END ==
LOC: SKLAB2 14:12
PROVIDERS: ATTEND Internal Medicine
DX: U07.1 COVID-19 (principal)

== ENCOUNTER → 2021-11-12 | Outpatient (REF) | payer OTHER ==
[2021-11-13 07:08] LABS: HEMATOCRIT 38.1 % (42.0-52.0); HEMOGLOBIN 12.7 g/dl (13.5-17.5); MEAN CORPUSCULAR HEMOGLOBIN 32.3 pg (27.0-33.0); MEAN CORPUSCULAR HGB CONC 33.3 g/dl (32.0-36.5); MEAN CORPUSCULAR VOLUME 96.9 fl (80.0-96.0); PLATELET COUNT, AUTOMATED 219 10^3/uL (150-450); RED BLOOD COUNT 3.93 10^6/uL (4.30-6.10); WHITE BLOOD COUNT 4.8 10^3/uL (4.0-10.0)
[2021-11-13 07:42] LABS: ALBUMIN 3.4 GM/DL (3.2-5.2); ALT/SGPT 15 U/L (12-78); BILIRUBIN,TOTAL 0.3 MG/DL (0.2-1.0); BLOOD UREA NITROGEN 17 MG/DL (7-18); CALCIUM LEVEL 8.6 MG/DL (8.8-10.2); CARBON DIOXIDE LEVEL 28 MEQ/L (21-32); CHLORIDE LEVEL 101 MEQ/L (98-107); CREATININE FOR GFR 0.97 MG/DL (0.70-1.30); GLOMERULAR FILTRATION RATE > 60.0 (>42); GLUCOSE, FASTING 126 MG/DL (70-100); POTASSIUM SERUM 4.7 MEQ/L (3.5-5.1); SODIUM LEVEL 136 MEQ/L (136-145); TOTAL PROTEIN 6.7 GM/DL (6.4-8.2)
== END ==
LOC: SKLAB2 08:00
PROVIDERS: ATTEND Internal Medicine
DX: U07.1 COVID-19 (principal)

== ENCOUNTER → 2021-11-16 | Outpatient (REF) | payer OTHER ==
[2021-11-16 08:30] LABS: HEMATOCRIT 37.5 % (42.0-52.0); HEMOGLOBIN 12.5 g/dl (13.5-17.5); MEAN CORPUSCULAR HEMOGLOBIN 32.5 pg (27.0-33.0); MEAN CORPUSCULAR HGB CONC 33.3 g/dl (32.0-36.5); MEAN CORPUSCULAR VOLUME 97.4 fl (80.0-96.0); PLATELET COUNT, AUTOMATED 346 10^3/uL (150-450); RED BLOOD COUNT 3.85 10^6/uL (4.30-6.10); WHITE BLOOD COUNT 5.7 10^3/uL (4.0-10.0)
[2021-11-16 09:18] LABS: ALBUMIN 3.4 GM/DL (3.2-5.2); ALT/SGPT 15 U/L (12-78); BILIRUBIN,TOTAL 0.2 MG/DL (0.2-1.0); BLOOD UREA NITROGEN 22 MG/DL (7-18); CALCIUM LEVEL 8.8 MG/DL (8.8-10.2); CARBON DIOXIDE LEVEL 25 MEQ/L (21-32); CHLORIDE LEVEL 100 MEQ/L (98-107); CREATININE FOR GFR 1.01 MG/DL (0.70-1.30); GLOMERULAR FILTRATION RATE > 60.0 (>42); GLUCOSE, FASTING 120 MG/DL (70-100); POTASSIUM SERUM 4.8 MEQ/L (3.5-5.1); SODIUM LEVEL 129 MEQ/L (136-145); TOTAL PROTEIN 6.4 GM/DL (6.4-8.2)
== END ==
LOC: SKLAB2 08:00
PROVIDERS: ATTEND Internal Medicine
DX: U07.1 COVID-19 (principal)

== ENCOUNTER → 2021-11-17 | Outpatient (REF) | payer OTHER ==
[2021-11-17 10:23] LABS: HEMATOCRIT 38.4 % (42.0-52.0); HEMOGLOBIN 12.9 g/dl (13.5-17.5); MEAN CORPUSCULAR HEMOGLOBIN 32.8 pg (27.0-33.0); MEAN CORPUSCULAR HGB CONC 33.6 g/dl (32.0-36.5); MEAN CORPUSCULAR VOLUME 97.7 fl (80.0-96.0); PLATELET COUNT, AUTOMATED 380 10^3/uL (150-450); RED BLOOD COUNT 3.93 10^6/uL (4.30-6.10); WHITE BLOOD COUNT 6.1 10^3/uL (4.0-10.0)
[2021-11-17 11:10] LABS: HEMOGLOBIN A1c 5.8 %
[2021-11-17 11:30] LABS: ALBUMIN 3.5 GM/DL (3.2-5.2); ALT/SGPT 17 U/L (12-78); BILIRUBIN,TOTAL 0.4 MG/DL (0.2-1.0); BLOOD UREA NITROGEN 26 MG/DL (7-18); CALCIUM LEVEL 8.9 MG/DL (8.8-10.2); CARBON DIOXIDE LEVEL 28 MEQ/L (21-32); CHLORIDE LEVEL 105 MEQ/L (98-107); CREATININE FOR GFR 1.07 MG/DL (0.70-1.30); GLOMERULAR FILTRATION RATE > 60.0 (>42); GLUCOSE, FASTING 101 MG/DL (70-100); IRON (FE) 110 UG/DL (65-175); POTASSIUM SERUM 4.9 MEQ/L (3.5-5.1); SODIUM LEVEL 135 MEQ/L (136-145); TOTAL 25(OH) VITAMIN D 29.8 NG/ML (30.0-100.0); TOTAL PROTEIN 6.6 GM/DL (6.4-8.2)
== END ==
LOC: SKLAB4 08:00
PROVIDERS: ATTEND Nurse Practitioner Family
DX: J44.9 Chronic obstructive pulmonary disease, unspecified (principal); I11.0 Hypertensive heart disease with heart failure; I50.9 Heart failure, unspecified; Z79.899 Other long term (current) drug therapy

== ENCOUNTER → 2021-11-19 | Outpatient (REF) | payer OTHER ==
[2021-11-19 09:07] LABS: HEMATOCRIT 36.8 % (42.0-52.0); MEAN CORPUSCULAR HEMOGLOBIN 32.2 pg (27.0-33.0); MEAN CORPUSCULAR HGB CONC 32.6 g/dl (32.0-36.5); MEAN CORPUSCULAR VOLUME 98.7 fl (80.0-96.0); PLATELET COUNT, AUTOMATED 361 10^3/uL (150-450); RED BLOOD COUNT 3.73 10^6/uL (4.30-6.10)
[2021-11-19 09:38] LABS: ALBUMIN 3.3 GM/DL (3.2-5.2); ALT/SGPT 14 U/L (12-78); BILIRUBIN,TOTAL 0.3 MG/DL (0.2-1.0); BLOOD UREA NITROGEN 23 MG/DL (7-18); CALCIUM LEVEL 8.5 MG/DL (8.8-10.2); CARBON DIOXIDE LEVEL 23 MEQ/L (21-32); CHLORIDE LEVEL 108 MEQ/L (98-107); CREATININE FOR GFR 1.24 MG/DL (0.70-1.30); GLOMERULAR FILTRATION RATE > 60.0 (>42); GLUCOSE, FASTING 113 MG/DL (70-100); POTASSIUM SERUM 4.6 MEQ/L (3.5-5.1); SODIUM LEVEL 138 MEQ/L (136-145); TOTAL PROTEIN 6.1 GM/DL (6.4-8.2)
== END ==
LOC: SKLAB2 08:00
PROVIDERS: ATTEND Internal Medicine
DX: U07.1 COVID-19 (principal)

== ENCOUNTER 2022-02-26 12:21 | Emergency (ER) | payer OTHER ==
[~2022-02-26] VITALS: Ht 177.8 cm; Wt 90.0 kg
[2022-02-26] MEDS ORDERED: traMADol 50 MG TAB PO ONE (13:00)
[2022-02-26 15:33] LABS: AMPHETAMINES LEVEL URINE NEGATIVE (NEGATIVE)
[2022-02-26 15:34] LABS: BARBITURATES URINE NEGATIVE (NEGATIVE); BENZODIAZEPINES URINE NEGATIVE (NEGATIVE); CANNABINOIDS URINE NEGATIVE (NEGATIVE); COCAINE METABOLITE URINE NEGATIVE (NEGATIVE); METHADONE URINE NEGATIVE (NEGATIVE); OPIATES URINE NEGATIVE (NEGATIVE); PHENCYCLIDINE URINE NEGATIVE (NEGATIVE)
[2022-02-26 16:22] VITALS: BP 186/96
== END 2022-02-26 18:41 | disposition home or self-care (01) ==
LOC: M ED 12:21
DX: I10 Essential (primary) hypertension (principal); G89.4 Chronic pain syndrome; I50.9 Heart failure, unspecified; E11.9 Type 2 diabetes mellitus without complications; J44.9 Chronic obstructive pulmonary disease, unspecified; E78.5 Hyperlipidemia, unspecified; K21.9 Gastro-esophageal reflux disease without esophagitis; N40.0 Benign prostatic hyperplasia without lower urinary tract symptoms; F25.0 Schizoaffective disorder, bipolar type; F17.200 Nicotine dependence, unspecified, uncomplicated; Z79.899 Other long term (current) drug therapy; Z79.84 Long term (current) use of oral hypoglycemic drugs; Z88.8 Allergy status to other drugs, medicaments and biological substances

== ENCOUNTER → 2022-05-12 | Outpatient (REF) | payer OTHER ==
[2022-05-12 07:14] LABS: HEMATOCRIT 36.9 % (42.0-52.0); HEMOGLOBIN 11.7 g/dl (13.5-17.5); MEAN CORPUSCULAR HEMOGLOBIN 32.5 pg (27.0-33.0); MEAN CORPUSCULAR HGB CONC 31.7 g/dl (32.0-36.5); MEAN CORPUSCULAR VOLUME 102.5 fl (80.0-96.0); PLATELET COUNT, AUTOMATED 205 10^3/uL (150-450); WHITE BLOOD COUNT 6.5 10^3/uL (4.0-10.0)
[2022-05-12 07:42] LABS: ALBUMIN 3.3 G/DL (3.2-5.2); ALKALINE PHOSPHATASE 85 U/L (46-116); ALT/SGPT < 9 U/L (7.0-40); AST/SGOT < 8 U/L (<34); BILIRUBIN,TOTAL 0.2 MG/DL (0.3-1.2); BLOOD UREA NITROGEN 26 MG/DL (9-23); CALCIUM LEVEL 8.4 MG/DL (8.3-10.6); CARBON DIOXIDE LEVEL 29 MMOL/L (20-31); CHLORIDE LEVEL 108 MMOL/L (98-107); CREATININE FOR GFR 1.09 MG/DL (0.70-1.30); GLOMERULAR FILTRATION RATE > 60.0 (>42); GLUCOSE, FASTING 118 MG/DL (74-106); POTASSIUM SERUM 4.2 MMOL/L (3.5-5.1); SODIUM LEVEL 141 MMOL/L (136-145); TOTAL PROTEIN 5.9 G/DL (5.7-8.2)
[2022-05-12 07:44] LABS: TOTAL 25(OH) VITAMIN D 27.6 NG/ML (20.0-100.0)
[2022-05-12 08:27] LABS: HEMOGLOBIN A1c 5.4 % (4.0-6.0)
== END ==
LOC: SKLAB4 12:00
PROVIDERS: ATTEND Internal Medicine
DX: J44.9 Chronic obstructive pulmonary disease, unspecified (principal); Z79.899 Other long term (current) drug therapy

== ENCOUNTER → 2022-11-10 | Outpatient (REF) | payer OTHER ==
[~2022-11-10] MED LIST changes: +FLUT50SP17 NARES; -FLUTISP NARES; +SENN-186 PO; -SENN-80 PO
[2022-11-10 10:37] LABS: HEMATOCRIT 36.6 % (42.0-52.0); HEMOGLOBIN 11.7 g/dl (13.5-17.5); MEAN CORPUSCULAR HEMOGLOBIN 32.8 pg (27.0-33.0); MEAN CORPUSCULAR VOLUME 102.5 fl (80.0-96.0); PLATELET COUNT, AUTOMATED 216 10^3/uL (150-450); RED BLOOD COUNT 3.57 10^6/uL (4.30-6.10); WHITE BLOOD COUNT 5.4 10^3/uL (4.0-10.0)
[2022-11-10 11:08] LABS: ALBUMIN 3.4 G/DL (3.2-5.2); ALKALINE PHOSPHATASE 76 U/L (46-116); ALT/SGPT < 9 U/L (7.0-40); AST/SGOT < 8 U/L (<34); BILIRUBIN,TOTAL 0.3 MG/DL (0.3-1.2); BLOOD UREA NITROGEN 17 MG/DL (9-23); CALCIUM LEVEL 8.6 MG/DL (8.3-10.6); CARBON DIOXIDE LEVEL 26 MMOL/L (20-31); CHLORIDE LEVEL 108 MMOL/L (98-107); CREATININE FOR GFR 1.02 MG/DL (0.70-1.30); GLOMERULAR FILTRATION RATE > 60.0 (>42); GLUCOSE, FASTING 112 MG/DL (74-106); POTASSIUM SERUM 4.2 MMOL/L (3.5-5.1); SODIUM LEVEL 142 MMOL/L (136-145)
[2022-11-10 11:12] LABS: TOTAL 25(OH) VITAMIN D 27.8 NG/ML (20.0-100.0)
== END ==
LOC: SKLAB4 10:20
PROVIDERS: ATTEND Internal Medicine
DX: J44.9 Chronic obstructive pulmonary disease, unspecified (principal); Z79.899 Other long term (current) drug therapy

== ENCOUNTER → 2023-03-31 | Outpatient (REF) | payer OTHER ==
[~2023-03-31] MED LIST changes: -FLUT50SP17 NARES; +FLUTISP NARES; +[UNRECOGNIZED DRUG - CODE] PO; -[UNRECOGNIZED DRUG - CODE] PO
== END ==
LOC: SKLAB4 14:29
PROVIDERS: ATTEND Nurse Practitioner Family
DX: R05.9 Cough, unspecified (principal); R06.2 Wheezing; I50.9 Heart failure, unspecified

== ENCOUNTER → 2023-04-22 | Outpatient (REF) | payer OTHER | LOC: SKLAB4 07:38 | PROVIDERS: ATTEND Nurse Practitioner Family | DX: Z09 Encounter for follow-up examination after completed treatment for conditions other than malignant neoplasm (principal); Z87.01 Personal history of pneumonia (recurrent) ==

== ENCOUNTER → 2023-05-18 | Outpatient (REF) | payer SELFPAY ==
[~2023-05-18] MED LIST changes: -MIRA1POW3 PO; +MIRA33506 PO
[2023-05-18 10:03] LABS: MEAN CORPUSCULAR HEMOGLOBIN 33.1 pg (27.0-33.0); MEAN CORPUSCULAR HGB CONC 31.6 g/dl (32.0-36.5); MEAN CORPUSCULAR VOLUME 104.7 fl (80.0-96.0); PLATELET COUNT, AUTOMATED 194 10^3/uL (150-450); RED BLOOD COUNT 3.63 10^6/uL (4.30-6.10); WHITE BLOOD COUNT 5.8 10^3/uL (4.0-10.0)
[2023-05-18 10:12] LABS: HEMOGLOBIN A1c 5.6 % (4.0-6.0)
[2023-05-18 10:30] LABS: TOTAL 25(OH) VITAMIN D 32.5 NG/ML (20.0-100.0)
[2023-05-18 10:31] LABS: ALBUMIN 3.3 G/DL (3.2-5.2); ALKALINE PHOSPHATASE 74 U/L (46-116); ALT/SGPT < 9 U/L (7.0-40); AST/SGOT 10 U/L (<34); BILIRUBIN,TOTAL 0.3 MG/DL (0.3-1.2); BLOOD UREA NITROGEN 31 MG/DL (9-23); CALCIUM LEVEL 8.3 MG/DL (8.3-10.6); CARBON DIOXIDE LEVEL 27 MMOL/L (20-31); CHLORIDE LEVEL 107 MMOL/L (98-107); CREATININE FOR GFR 1.11 MG/DL (0.70-1.30); GLOMERULAR FILTRATION RATE > 60.0 (>42); GLUCOSE, FASTING 118 MG/DL (74-106); POTASSIUM SERUM 4.3 MMOL/L (3.5-5.1); SODIUM LEVEL 140 MMOL/L (136-145)
== END ==
LOC: SKLAB4 09:52
PROVIDERS: ATTEND Internal Medicine
DX: J44.9 Chronic obstructive pulmonary disease, unspecified (principal); Z79.899 Other long term (current) drug therapy

== ENCOUNTER → 2023-06-30 | Outpatient (REF) | payer SELFPAY ==
[2023-06-30 13:11] LABS: BLOOD UREA NITROGEN 27 MG/DL (9-23); CALCIUM LEVEL 8.3 MG/DL (8.3-10.6); CARBON DIOXIDE LEVEL 26 MMOL/L (20-31); CHLORIDE LEVEL 102 MMOL/L (98-107); CREATININE FOR GFR 1.04 MG/DL (0.70-1.30); GLOMERULAR FILTRATION RATE > 60.0 (>42); GLUCOSE, FASTING 119 MG/DL (74-106); POTASSIUM SERUM 4.5 MMOL/L (3.5-5.1); SODIUM LEVEL 135 MMOL/L (136-145)
== END ==
LOC: SKLAB4 11:50
PROVIDERS: ATTEND Nurse Practitioner Family
DX: R06.00 Dyspnea, unspecified (principal); R91.8 Other nonspecific abnormal finding of lung field; I44.0 Atrioventricular block, first degree

== ENCOUNTER → 2023-11-17 | Outpatient (REF) | payer SELFPAY ==
[2023-11-17 07:05] LABS: HEMATOCRIT 36.5 % (42.0-52.0); HEMOGLOBIN 11.9 g/dl (13.5-17.5); MEAN CORPUSCULAR HGB CONC 32.6 g/dl (32.0-36.5); MEAN CORPUSCULAR VOLUME 98.1 fl (80.0-96.0); PLATELET COUNT, AUTOMATED 206 10^3/uL (150-450); RED BLOOD COUNT 3.72 10^6/uL (4.30-6.10); WHITE BLOOD COUNT 9.3 10^3/uL (4.0-10.0)
[2023-11-17 07:29] LABS: ALBUMIN 3.2 G/DL (3.2-5.2); ALKALINE PHOSPHATASE 92 U/L (46-116); ALT/SGPT 9 U/L (7.0-40); AST/SGOT < 8 U/L (<34); BILIRUBIN,TOTAL 0.4 MG/DL (0.3-1.2); BLOOD UREA NITROGEN 19 MG/DL (9-23); CALCIUM LEVEL 8.4 MG/DL (8.3-10.6); CARBON DIOXIDE LEVEL 26 MMOL/L (20-31); CHLORIDE LEVEL 100 MMOL/L (98-107); CREATININE FOR GFR 0.95 MG/DL (0.70-1.30); GLOMERULAR FILTRATION RATE > 60.0 (>42); GLUCOSE, FASTING 94 MG/DL (74-106); POTASSIUM SERUM 4.1 MMOL/L (3.5-5.1); SODIUM LEVEL 130 MMOL/L (136-145)
[2023-11-17 07:40] LABS: HEMOGLOBIN A1c 5.5 % (4.0-6.0)
== END ==
LOC: SKLAB4 07:00
PROVIDERS: ATTEND Internal Medicine
DX: J44.9 Chronic obstructive pulmonary disease, unspecified (principal); E11.9 Type 2 diabetes mellitus without complications; E55.9 Vitamin D deficiency, unspecified

== ENCOUNTER 2023-12-12 02:40 | Inpatient (IN) | payer OTHER, SELFPAY ==
[~2023-12-12] VITALS: Ht 175.3 cm; Wt 87.0 kg
[~2023-12-12 02:40] MED LIST changes: +GABA-1172 PO; +GABA-1490 PO; -GABA-282 PO; -GABA600T4 PO
[2023-12-12 03:02] LABS: ABG BASE EXCESS -5.6 (-2.0-2.0); ABG HCO3 20.2 MMOL/L (22.0-26.0); ABG PARTIAL PRESSURE CO2 40.7 mmHg (35.0-45.0); ABG PARTIAL PRESSURE O2 64.4 mmHg (75.0-100.0); ABG STANDARD HCO3 19.8 MMOL/L. (22.0-26.0); ABG TOTAL CO2 21.5 MMOL/L (23.0-31.0); ABG pH (ARTERIAL) 7.314 UNITS (7.350-7.450)
[2023-12-12 03:07] LABS: BASO % 0.1 % (0.0-1.0); EOS % 0.1 % (0.0-3.0); HEMATOCRIT 36.7 % (42.0-52.0); HEMOGLOBIN 12.1 g/dl (13.5-17.5); LYMPH # 0.7 10^3/uL (1.5-5.0); LYMPH % 4.6 % (24.0-44.0); MEAN CORPUSCULAR HEMOGLOBIN 32.7 pg (27.0-33.0); MEAN CORPUSCULAR VOLUME 99.2 fl (80.0-96.0); MONO # 0.7 10^3/uL (0.0-0.8); MONO % 4.7 % (2.0-8.0); NEUTROPHILS # 12.6 10^3/uL (1.5-8.5); PLATELET COUNT, AUTOMATED 238 10^3/uL (150-450)
[2023-12-12 03:33] LABS: BILIRUBIN,DIRECT 0.1 MG/DL (<0.4); BILIRUBIN,TOTAL 0.3 MG/DL (0.3-1.2); CALCIUM LEVEL 8.9 MG/DL (8.3-10.6); CREATININE FOR GFR 1.29 MG/DL (0.70-1.30); GLOMERULAR FILTRATION RATE 57.5 (>42); POTASSIUM SERUM 4.7 MMOL/L (3.5-5.1)
[2023-12-12 03:34] LABS: MB/CK RELATIVE INDEX 4.62 (< OR =4)
[2023-12-12] MEDS ORDERED: ERGO500029 PO (05:10)
[2023-12-12] MEDS ORDERED: SPIR-10 PO (05:10)
[2023-12-12] MEDS ORDERED: PRAZ5CAP PO (05:10)
[2023-12-12] MEDS ORDERED: OLAN1TAB20 PO (05:10)
[2023-12-12] MEDS ORDERED: FURO20TA PO (05:10)
[2023-12-12] MEDS ORDERED: MED REC IN PROGRESS XX SCH (05:15)
[2023-12-12] MEDS ORDERED: GLUCAGON INJ 1MG VIAL SC PRN (06:15)
[2023-12-12] MEDS ORDERED: DEXTROSE 50% 50ML SYRINGE IV PRN (06:15)
[2023-12-12] MEDS ORDERED: GLUCOSE 4 GM CHEW PO PRN (06:15)
[2023-12-12] MEDS ORDERED: AIRD1INH3 INH (06:52)
[2023-12-12] MEDS ORDERED: HOME MED LIST COMPLETE! XX SCH (06:55)
[2023-12-12] MEDS ORDERED: MIRALAX *UNIT DOSE* 17GM PACKET PO PRN (07:25)
[2023-12-12] MEDS ORDERED: SENOKOT S TAB PO PRN (07:25)
[2023-12-12 08:05] LABS: HEMOGLOBIN 12.4 g/dl (13.5-17.5); MEAN CORPUSCULAR HEMOGLOBIN 32.2 pg (27.0-33.0); MEAN CORPUSCULAR HGB CONC 32.6 g/dl (32.0-36.5); MEAN CORPUSCULAR VOLUME 98.7 fl (80.0-96.0); PLATELET COUNT, AUTOMATED 238 10^3/uL (150-450); RED BLOOD COUNT 3.85 10^6/uL (4.30-6.10); WHITE BLOOD COUNT 8.5 10^3/uL (4.0-10.0)
[2023-12-12] MEDS: INSULIN LISPRO (NovoLOG) PER UNIT SC SCH ×2 (08:17→21:00)
[2023-12-12] MEDS: SPIRONOLACTONE 25 MG TAB PO SCH (08:17)
[2023-12-12] MEDS: DOXYCYCLINE HYCLATE 100MG TABLET PO SCH (08:18)
[2023-12-12] MEDS: PANTOPRAZOLE 40MG TAB (PROTONIX) PO SCH (08:18)
[2023-12-12] MEDS: DOCUSATE SODIUM 100MG CAPSULE PO SCH (08:18)
[2023-12-12] MEDS: SERTRALINE 100 MG TAB PO SCH (08:18)
[2023-12-12] MEDS: predniSONE 20 MG TAB PO SCH (08:18)
[2023-12-12 08:38] LABS: BLOOD UREA NITROGEN 19 MG/DL (9-23); CALCIUM LEVEL 8.9 MG/DL (8.3-10.6); CARBON DIOXIDE LEVEL 24 MMOL/L (20-31); CHLORIDE LEVEL 99 MMOL/L (98-107); CREATININE FOR GFR 1.13 MG/DL (0.70-1.30); GLOMERULAR FILTRATION RATE > 60.0 (>42); GLUCOSE, FASTING 136 MG/DL (74-106); POTASSIUM SERUM 4.8 MMOL/L (3.5-5.1); SODIUM LEVEL 130 MMOL/L (136-145)
[2023-12-12] MEDS: SYMBICORT 160/4.5MCG INHALER 6GM INH SCH (08:40)
[2023-12-12] MEDS: TIOTROPIUM INHALER/CAPSULE (SPIRIVA) INH SCH (08:41)
[2023-12-12] MEDS ORDERED: PANTOPRAZOLE 40MG VIAL IV SCH (09:00)
[2023-12-12] MEDS ORDERED: SYMBICORT 160/4.5MCG INHALER 6GM INH SCH (09:00)
[2023-12-12] MEDS: HEPARIN SOD (PORCINE) 5000UNITS/ML 1ML VIAL/SYRINGE SC SCH (13:16)
[2023-12-12 21:10] VITALS: BP 198/100; TEMP 97.6; O2SAT 97
[2023-12-12] MEDS: OLANZapine 10 MG TAB PO SCH (21:45)
[2023-12-12] MEDS: FINASTERIDE 5MG TAB PO SCH (21:45)
[2023-12-12] MEDS: LURASIDONE HCL 40MG TAB (LATUDA) PO SCH (21:46)
[2023-12-12] MEDS: PRAZOSIN 1 MG CAP PO SCH (21:46)
[2023-12-12 22:26] VITALS: BP 149/66
[2023-12-13 04:12] VITALS: BP 152/71; TEMP 97.7; O2SAT 96
[2023-12-13 05:13] LABS: HEMATOCRIT 35.2 % (42.0-52.0); HEMOGLOBIN 11.9 g/dl (13.5-17.5); MEAN CORPUSCULAR HEMOGLOBIN 32.6 pg (27.0-33.0); MEAN CORPUSCULAR HGB CONC 33.8 g/dl (32.0-36.5); MEAN CORPUSCULAR VOLUME 96.4 fl (80.0-96.0); PLATELET COUNT, AUTOMATED 246 10^3/uL (150-450); RED BLOOD COUNT 3.65 10^6/uL (4.30-6.10); WHITE BLOOD COUNT 9.8 10^3/uL (4.0-10.0)
[2023-12-13 05:39] LABS: BLOOD UREA NITROGEN 22 MG/DL (9-23); CALCIUM LEVEL 8.5 MG/DL (8.3-10.6); CARBON DIOXIDE LEVEL 25 MMOL/L (20-31); CHLORIDE LEVEL 98 MMOL/L (98-107); CREATININE FOR GFR 0.95 MG/DL (0.70-1.30); GLOMERULAR FILTRATION RATE > 60.0 (>42); GLUCOSE, FASTING 92 MG/DL (74-106); POTASSIUM SERUM 4.6 MMOL/L (3.5-5.1); SODIUM LEVEL 128 MMOL/L (136-145)
[2023-12-13 08:17] VITALS: BP 128/58; TEMP 97; O2SAT 97
[2023-12-13] MEDS: NS 1,000 ML IV SCH (08:37)
[2023-12-13 12:00] VITALS: BP 140/76; TEMP 98.4; O2SAT 96
[2023-12-13] MEDS: ACETAMINOPH W/CODEINE #3 TAB UD PO PRN (18:18)
[2023-12-13 20:36] VITALS: BP 159/71; TEMP 97.4; O2SAT 99
[2023-12-13 21:58] VITALS: BP 161/95; TEMP 97; O2SAT 94
[2023-12-13 23:00] VITALS: O2SAT 94
[2023-12-14] VITALS (13 sets, daily range): BP systolic 121–167; BP diastolic 96–103; TEMP 96.8–97.2; O2SAT 82–94
[2023-12-14 05:52] LABS: HEMATOCRIT 37.6 % (42.0-52.0); HEMOGLOBIN 12.5 g/dl (13.5-17.5); MEAN CORPUSCULAR HEMOGLOBIN 32.2 pg (27.0-33.0); MEAN CORPUSCULAR HGB CONC 33.2 g/dl (32.0-36.5); MEAN CORPUSCULAR VOLUME 96.9 fl (80.0-96.0); PLATELET COUNT, AUTOMATED 227 10^3/uL (150-450); RED BLOOD COUNT 3.88 10^6/uL (4.30-6.10); WHITE BLOOD COUNT 8.3 10^3/uL (4.0-10.0)
[2023-12-14 06:22] LABS: BLOOD UREA NITROGEN 20 MG/DL (9-23); CALCIUM LEVEL 8.7 MG/DL (8.3-10.6); CARBON DIOXIDE LEVEL 24 MMOL/L (20-31); CHLORIDE LEVEL 101 MMOL/L (98-107); GLOMERULAR FILTRATION RATE > 60.0 (>42); GLUCOSE, FASTING 112 MG/DL (74-106); POTASSIUM SERUM 4.4 MMOL/L (3.5-5.1); SODIUM LEVEL 131 MMOL/L (136-145)
[2023-12-15] VITALS (20 sets, daily range): BP systolic 119–200; BP diastolic 64–100; TEMP 96.8–98.1; O2SAT 70–99
[2023-12-15 05:22] LABS: HEMATOCRIT 36.6 % (42.0-52.0); HEMOGLOBIN 12.2 g/dl (13.5-17.5); MEAN CORPUSCULAR HGB CONC 33.3 g/dl (32.0-36.5); MEAN CORPUSCULAR VOLUME 96.1 fl (80.0-96.0); PLATELET COUNT, AUTOMATED 249 10^3/uL (150-450); RED BLOOD COUNT 3.81 10^6/uL (4.30-6.10); WHITE BLOOD COUNT 8.3 10^3/uL (4.0-10.0)
[2023-12-15 05:44] LABS: BLOOD UREA NITROGEN 17 MG/DL (9-23); CALCIUM LEVEL 9.1 MG/DL (8.3-10.6); CARBON DIOXIDE LEVEL 25 MMOL/L (20-31); CHLORIDE LEVEL 104 MMOL/L (98-107); CREATININE FOR GFR 0.88 MG/DL (0.70-1.30); GLOMERULAR FILTRATION RATE > 60.0 (>42); GLUCOSE, FASTING 84 MG/DL (74-106); POTASSIUM SERUM 4.3 MMOL/L (3.5-5.1); SODIUM LEVEL 134 MMOL/L (136-145)
[2023-12-15] MEDS: ALBUTEROL SULFATE 2.5MG/0.5ML INH NEB SOLN NEB PRN (07:43)
[2023-12-15] MEDS ORDERED: LIDOCAINE 1% MDV 20ML VIAL As Ordered ONE (08:13)
[2023-12-15] MEDS: hydrALAZINE 20MG/ML 1ML VIAL IV STA (14:40)
[2023-12-16] VITALS (18 sets, daily range): BP systolic 122–150; BP diastolic 70–88; TEMP 97.4–98.4; O2SAT 91–96
[2023-12-16 07:42] LABS: HEMATOCRIT 37.4 % (42.0-52.0); MEAN CORPUSCULAR HEMOGLOBIN 32.7 pg (27.0-33.0); MEAN CORPUSCULAR HGB CONC 34.8 g/dl (32.0-36.5); PLATELET COUNT, AUTOMATED 301 10^3/uL (150-450); RED BLOOD COUNT 3.98 10^6/uL (4.30-6.10); WHITE BLOOD COUNT 10.5 10^3/uL (4.0-10.0)
[2023-12-16 08:16] LABS: BLOOD UREA NITROGEN 23 MG/DL (9-23); CALCIUM LEVEL 9.1 MG/DL (8.3-10.6); CARBON DIOXIDE LEVEL 23 MMOL/L (20-31); CHLORIDE LEVEL 100 MMOL/L (98-107); CREATININE FOR GFR 1.03 MG/DL (0.70-1.30); GLOMERULAR FILTRATION RATE > 60.0 (>42); GLUCOSE, FASTING 105 MG/DL (74-106); POTASSIUM SERUM 4.2 MMOL/L (3.5-5.1); SODIUM LEVEL 129 MMOL/L (136-145)
[2023-12-16] MEDS: MOM 30ML SUSPENSION UDC PO PRN (12:18)
[2023-12-16] MEDS: NS 1,000 ML IV SCH (18:15)
[2023-12-17] VITALS (17 sets, daily range): BP systolic 130–159; BP diastolic 60–75; TEMP 97.5–98.8; O2SAT 91–96
[2023-12-17 06:29] LABS: HEMATOCRIT 36.5 % (42.0-52.0); HEMOGLOBIN 12.4 g/dl (13.5-17.5); MEAN CORPUSCULAR HEMOGLOBIN 32.3 pg (27.0-33.0); MEAN CORPUSCULAR VOLUME 95.1 fl (80.0-96.0); PLATELET COUNT, AUTOMATED 272 10^3/uL (150-450); RED BLOOD COUNT 3.84 10^6/uL (4.30-6.10); WHITE BLOOD COUNT 8.6 10^3/uL (4.0-10.0)
[2023-12-17 07:02] LABS: BLOOD UREA NITROGEN 31 MG/DL (9-23); CALCIUM LEVEL 8.8 MG/DL (8.3-10.6); CARBON DIOXIDE LEVEL 24 MMOL/L (20-31); CHLORIDE LEVEL 105 MMOL/L (98-107); CREATININE FOR GFR 1.03 MG/DL (0.70-1.30); GLOMERULAR FILTRATION RATE > 60.0 (>42); GLUCOSE, FASTING 92 MG/DL (74-106); POTASSIUM SERUM 3.9 MMOL/L (3.5-5.1); SODIUM LEVEL 132 MMOL/L (136-145)
[2023-12-18] VITALS (13 sets, daily range): BP systolic 121–186; BP diastolic 58–86; TEMP 97.4–99.2; O2SAT 91–96
[2023-12-18 07:55] LABS: HEMATOCRIT 36.4 % (42.0-52.0); HEMOGLOBIN 12.1 g/dl (13.5-17.5); MEAN CORPUSCULAR HEMOGLOBIN 32.1 pg (27.0-33.0); MEAN CORPUSCULAR HGB CONC 33.2 g/dl (32.0-36.5); MEAN CORPUSCULAR VOLUME 96.6 fl (80.0-96.0); PLATELET COUNT, AUTOMATED 257 10^3/uL (150-450); RED BLOOD COUNT 3.77 10^6/uL (4.30-6.10); WHITE BLOOD COUNT 8.2 10^3/uL (4.0-10.0)
[2023-12-18 08:20] LABS: BLOOD UREA NITROGEN 21 MG/DL (9-23); CALCIUM LEVEL 8.4 MG/DL (8.3-10.6); CARBON DIOXIDE LEVEL 25 MMOL/L (20-31); CHLORIDE LEVEL 105 MMOL/L (98-107); CREATININE FOR GFR 1.04 MG/DL (0.70-1.30); GLOMERULAR FILTRATION RATE > 60.0 (>42); GLUCOSE, FASTING 85 MG/DL (74-106); POTASSIUM SERUM 4.5 MMOL/L (3.5-5.1); SODIUM LEVEL 134 MMOL/L (136-145)
[2023-12-18] MEDS: hydrALAZINE 20MG/ML 1ML VIAL IV PRN (13:41)
[2023-12-19] VITALS (13 sets, daily range): BP systolic 116–164; BP diastolic 55–76; TEMP 97.5–98.1; O2SAT 90–95
[2023-12-19 08:00] LABS: HEMATOCRIT 36.8 % (42.0-52.0); HEMOGLOBIN 12.3 g/dl (13.5-17.5); MEAN CORPUSCULAR HEMOGLOBIN 32.4 pg (27.0-33.0); MEAN CORPUSCULAR HGB CONC 33.4 g/dl (32.0-36.5); MEAN CORPUSCULAR VOLUME 96.8 fl (80.0-96.0); PLATELET COUNT, AUTOMATED 286 10^3/uL (150-450); WHITE BLOOD COUNT 7.9 10^3/uL (4.0-10.0)
[2023-12-19 08:23] LABS: BLOOD UREA NITROGEN 20 MG/DL (9-23); CALCIUM LEVEL 8.2 MG/DL (8.3-10.6); CARBON DIOXIDE LEVEL 23 MMOL/L (20-31); CHLORIDE LEVEL 104 MMOL/L (98-107); CREATININE FOR GFR 0.96 MG/DL (0.70-1.30); GLOMERULAR FILTRATION RATE > 60.0 (>42); GLUCOSE, FASTING 90 MG/DL (74-106); POTASSIUM SERUM 3.9 MMOL/L (3.5-5.1); SODIUM LEVEL 133 MMOL/L (136-145)
[2023-12-20] VITALS (26 sets, daily range): BP systolic 99–175; BP diastolic 50–85; TEMP 97–98; O2SAT 92–100
[2023-12-20] MEDS: flumazeniL 0.5MG/5ML VIAL IV STA (10:26)
[2023-12-20] MEDS ORDERED: MIDAZOLAM INJ 2MG/2ML VIAL IV STA (10:26)
[2023-12-20] MEDS ORDERED: BISACODYL 10MG SUPP PR PRN (11:25)
[2023-12-20] MEDS ORDERED: ONDANSETRON 4MG 2ML VIAL IV PRN (11:25)
[2023-12-20] MEDS: D5W/0.9% SODIUM CHLORIDE 1,000 ML IV SCH (11:25)
[2023-12-20] MEDS ORDERED: ACETAMINOPHEN TAB 650MG DOSE (2X325MG) PO PRN (11:25)
[2023-12-20] MEDS: LIDOCAINE 1% MDV 20ML VIAL SC STA ×3 (11:30→11:31)
[2023-12-20] MEDS: MIDAZOLAM INJ 2MG/2ML VIAL IV STA (11:31)
[2023-12-20] MEDS: KETOROLAC 30 MG/ML 1ML VIAL IV SCH (11:51)
[2023-12-20] MEDS: LEVALBUTEROL 1.25MG 0.5ML CONCENTRATE NEB NEB SCH (13:49)
[2023-12-20] MEDS: PERCOCET 5MG/325MG TAB PO PRN (16:13)
[2023-12-21] VITALS (33 sets, daily range): BP systolic 109–154; BP diastolic 55–68; TEMP 97.3–98.2; O2SAT 82–99
[2023-12-21 06:11] LABS: BASO % 0.2 % (0.0-1.0); EOS # 0.2 10^3/uL (0.0-0.5); EOS % 2.5 % (0.0-3.0); HEMATOCRIT 39.6 % (42.0-52.0); HEMOGLOBIN 12.6 g/dl (13.5-17.5); LYMPH # 0.9 10^3/uL (1.5-5.0); LYMPH % 10.1 % (24.0-44.0); MEAN CORPUSCULAR HEMOGLOBIN 33.1 pg (27.0-33.0); MEAN CORPUSCULAR HGB CONC 31.8 g/dl (32.0-36.5); MEAN CORPUSCULAR VOLUME 103.9 fl (80.0-96.0); MONO # 0.8 10^3/uL (0.0-0.8); MONO % 9.2 % (2.0-8.0); NEUTROPHILS # 7.1 10^3/uL (1.5-8.5); NEUTROPHILS % 77.6 % (36.0-66.0); PLATELET COUNT, AUTOMATED 206 10^3/uL (150-450); RED BLOOD COUNT 3.81 10^6/uL (4.30-6.10); WHITE BLOOD COUNT 9.2 10^3/uL (4.0-10.0)
[2023-12-21 06:30] LABS: BLOOD UREA NITROGEN 24 MG/DL (9-23); CALCIUM LEVEL 8.3 MG/DL (8.3-10.6); CARBON DIOXIDE LEVEL 21 MMOL/L (20-31); CHLORIDE LEVEL 107 MMOL/L (98-107); CREATININE FOR GFR 1.01 MG/DL (0.70-1.30); GLOMERULAR FILTRATION RATE > 60.0 (>42); GLUCOSE, FASTING 117 MG/DL (74-106); POTASSIUM SERUM 4.1 MMOL/L (3.5-5.1); SODIUM LEVEL 136 MMOL/L (136-145)
[2023-12-21] MEDS: SENOKOT S TAB PO SCH (09:43)
[2023-12-21] MEDS: LIDOCAINE 5% (LIDODERM) PATCH TD ONE (09:44)
[2023-12-21] MEDS: PERCOCET 5MG/325MG TAB PO PRN (17:39)
[2023-12-22] VITALS (35 sets, daily range): BP systolic 111–161; BP diastolic 58–74; TEMP 97–98; O2SAT 81–96
[2023-12-22 05:58] LABS: BASO % 0.2 % (0.0-1.0); EOS # 0.3 10^3/uL (0.0-0.5); HEMATOCRIT 37.8 % (42.0-52.0); HEMOGLOBIN 12.4 g/dl (13.5-17.5); LYMPH # 0.7 10^3/uL (1.5-5.0); LYMPH % 5.3 % (24.0-44.0); MEAN CORPUSCULAR HEMOGLOBIN 32.6 pg (27.0-33.0); MEAN CORPUSCULAR HGB CONC 32.8 g/dl (32.0-36.5); MEAN CORPUSCULAR VOLUME 99.5 fl (80.0-96.0); MONO # 0.7 10^3/uL (0.0-0.8); MONO % 5.8 % (2.0-8.0); NEUTROPHILS # 10.9 10^3/uL (1.5-8.5); NEUTROPHILS % 86.2 % (36.0-66.0); PLATELET COUNT, AUTOMATED 234 10^3/uL (150-450); WHITE BLOOD COUNT 12.6 10^3/uL (4.0-10.0)
[2023-12-22 06:21] LABS: BLOOD UREA NITROGEN 25 MG/DL (9-23); CALCIUM LEVEL 8.5 MG/DL (8.3-10.6); CARBON DIOXIDE LEVEL 22 MMOL/L (20-31); CHLORIDE LEVEL 108 MMOL/L (98-107); CREATININE FOR GFR 1.05 MG/DL (0.70-1.30); GLOMERULAR FILTRATION RATE > 60.0 (>42); GLUCOSE, FASTING 105 MG/DL (74-106); POTASSIUM SERUM 3.8 MMOL/L (3.5-5.1); SODIUM LEVEL 137 MMOL/L (136-145)
[2023-12-22] MEDS: FUROSEMIDE 100MG/10ML VIAL IV ONE (08:53)
[2023-12-22] MEDS: LEVALBUTEROL 1.25MG 0.5ML CONCENTRATE NEB NEB PRN (23:24)
[2023-12-23] VITALS (128 sets, daily range): BP systolic 43–335; BP diastolic 30–335; TEMP 97.2–101.2; O2SAT 76–98
[2023-12-23] MEDS: FUROSEMIDE 100MG/10ML VIAL IV ONE
[2023-12-23 00:23] LABS: ABG BASE EXCESS -6.7 (-2.0-2.0); ABG HCO3 18.4 MMOL/L (22.0-26.0); ABG O2 SATURATION 91.8 % (95.0-99.0); ABG PARTIAL PRESSURE CO2 35.9 mmHg (35.0-45.0); ABG PARTIAL PRESSURE O2 66.6 mmHg (75.0-100.0); ABG STANDARD HCO3 18.9 MMOL/L. (22.0-26.0); ABG TOTAL CO2 19.5 MMOL/L (23.0-31.0); ABG pH (ARTERIAL) 7.328 UNITS (7.350-7.450)
[2023-12-23] MEDS ORDERED: VANCOMYCIN HCL 1,000 MG, VIAL MATE ADAPTER 1 EACH in D5W 250 ML IV ONE (00:25)
[2023-12-23 00:50] LABS: HEMATOCRIT 39.1 % (42.0-52.0); HEMOGLOBIN 12.9 g/dl (13.5-17.5); MEAN CORPUSCULAR HEMOGLOBIN 32.4 pg (27.0-33.0); MEAN CORPUSCULAR VOLUME 98.2 fl (80.0-96.0); PLATELET COUNT, AUTOMATED 291 10^3/uL (150-450); RED BLOOD COUNT 3.98 10^6/uL (4.30-6.10); WHITE BLOOD COUNT 8.2 10^3/uL (4.0-10.0)
[2023-12-23] MEDS: NOREPINEPHRINE 4MG IN D5 250ML 4 MG in IV 1 EA IV SCH (00:53)
[2023-12-23] MEDS: NS 1,000 ML IV ONE (01:00)
[2023-12-23] MEDS: ACETAMINOPHEN *IV* 1,000 MG in IV 1 EA IV ONE (01:04)
[2023-12-23] MEDS: NS 500 ML IV ONE (01:05)
[2023-12-23 01:15] LABS: BLOOD UREA NITROGEN 30 MG/DL (9-23); CALCIUM LEVEL 8.6 MG/DL (8.3-10.6); CARBON DIOXIDE LEVEL 20 MMOL/L (20-31); CHLORIDE LEVEL 107 MMOL/L (98-107); CREATININE FOR GFR 1.21 MG/DL (0.70-1.30); GLOMERULAR FILTRATION RATE > 60.0 (>42); GLUCOSE, FASTING 178 MG/DL (74-106); POTASSIUM SERUM 4.3 MMOL/L (3.5-5.1); SODIUM LEVEL 137 MMOL/L (136-145)
[2023-12-23] MEDS: LEVALBUTEROL 1.25MG 0.5ML CONCENTRATE NEB NEB SCH (01:20)
[2023-12-23] MEDS: SODIUM CHLORIDE HYPERTONIC 3% 4ML NEB SOL INH SCH (01:20)
[2023-12-23 01:22] LABS: PROCALCITONIN 5.69 ng/ml
[2023-12-23] MEDS: VANCOMYCIN 1,750 MG/350 ML IV BAG *LOAD IV ONE (01:26)
[2023-12-23 01:58] LABS: ATYPICAL LYMPH 2 % (0-5); NEUTROPHILS 66 % (28-66)
[2023-12-23 01:59] LABS: LYMPHOCYTES 9 % (16-44); MONOCYTES 7 % (0-5); PLATELET ESTIMATE NORMAL (NORMAL)
[2023-12-23 02:00] LABS: ANISOCYTOSIS 1+
[2023-12-23] MEDS: VASOPRESSIN INJ 20 UNITS in NS 499 ML IV SCH (02:18)
[2023-12-23] MEDS ORDERED: PIPERACILLIN/TAZOBACTAM SOD 4.5 GM in D5W MINI-BAG PLUS 50 ML IV SCH (03:00)
[2023-12-23] MEDS: PIPERACILLIN/TAZOBACTAM SOD 4.5 GM in D5W MINI-BAG PLUS 50 ML IV SCH (03:25)
[2023-12-23 05:08] LABS: BASO % 0.2 % (0.0-1.0); EOS % 0.2 % (0.0-3.0); HEMATOCRIT 36.2 % (42.0-52.0); HEMOGLOBIN 11.9 g/dl (13.5-17.5); LYMPH # 0.2 10^3/uL (1.5-5.0); MEAN CORPUSCULAR HEMOGLOBIN 33.1 pg (27.0-33.0); MEAN CORPUSCULAR HGB CONC 32.9 g/dl (32.0-36.5); MEAN CORPUSCULAR VOLUME 100.6 fl (80.0-96.0); MONO # 0.3 10^3/uL (0.0-0.8); MONO % 6.4 % (2.0-8.0); NEUTROPHILS % 88.5 % (36.0-66.0); PLATELET COUNT, AUTOMATED 260 10^3/uL (150-450); WHITE BLOOD COUNT 4.5 10^3/uL (4.0-10.0)
[2023-12-23 05:28] LABS: CALCIUM LEVEL 7.8 MG/DL (8.3-10.6); CREATININE FOR GFR 1.32 MG/DL (0.70-1.30); POTASSIUM SERUM 4.3 MMOL/L (3.5-5.1)
[2023-12-23 07:08] LABS: ABG BASE EXCESS -10.7 (-2.0-2.0); ABG HCO3 15.1 MMOL/L (22.0-26.0); ABG O2 SATURATION 91.8 % (95.0-99.0); ABG PARTIAL PRESSURE CO2 33.6 mmHg (35.0-45.0); ABG PARTIAL PRESSURE O2 69.3 mmHg (75.0-100.0); ABG TOTAL CO2 16.1 MMOL/L (23.0-31.0); ABG pH (ARTERIAL) 7.271 UNITS (7.350-7.450)
[2023-12-23] MEDS: HYDROCORTISONE 100MG/2ML VIAL IV STA (08:56)
[2023-12-23] MEDS: LR 1,000 ML IV ONE ×2 (08:59→11:21)
[2023-12-23] MEDS: methylPREDNISolone 40MG 1ML VIAL IV SCH (09:49)
[2023-12-23] MEDS: EPINEPHrine HCL INJ 4 MG in D5W 246 ML IV SCH (10:00)
[2023-12-23] MEDS: GLYCOPYRROLATE INJ 0.2 MG/ML 2 ML VIAL NEB SCH (11:03)
[2023-12-23] MEDS ORDERED: VANCOMYCIN HCL 750 MG, VIAL MATE ADAPTER 1 EACH in D5W 250 ML IV SCH (12:00)
[2023-12-23 12:33] LABS: ABG BASE EXCESS -16.5 (-2.0-2.0); ABG HCO3 13.8 MMOL/L (22.0-26.0); ABG PARTIAL PRESSURE CO2 50.8 mmHg (35.0-45.0); ABG PARTIAL PRESSURE O2 72.6 mmHg (75.0-100.0); ABG TOTAL CO2 15.4 MMOL/L (23.0-31.0)
[2023-12-23 12:34] LABS: ABG pH (ARTERIAL) 7.053 UNITS (7.350-7.450)
[2023-12-23] MEDS: SODIUM BICARBONATE 8.4% INJ 50ML SYRINGE IV STA ×5 (13:00→22:11)
[2023-12-23] MEDS: MIDAZOLAM INJ 2MG/2ML VIAL IV STA (13:01)
[2023-12-23] MEDS: ROCURONIUM BROMIDE 50MG/5ML VIAL IV STA (13:02)
[2023-12-23] MEDS ORDERED: DOBUTamine 500 MG/250 ML BAG IN D5W (2,000 MCG/ML) As Ordered ONE (13:15)
[2023-12-23] MEDS ORDERED: SODIUM BICARBONATE 8.4% INJ 50ML SYRINGE As Ordered ONE (13:18)
[2023-12-23] MEDS: DOBUTamine HCL 500,000 MCG in IV 1 EA IV SCH (14:00)
[2023-12-23] MEDS: VANCOMYCIN 1,250 MG/250 ML IV BAG IV SCH (14:25)
[2023-12-23] MEDS ORDERED: propofoL 1,000 MG in IV 1 EA IV SCH (15:00)
[2023-12-23] MEDS ORDERED: MIDAZOLAM 100MG/100ML-0.9%NACL 100 MG in IV 1 EA IV SCH (15:00)
[2023-12-23 15:48] LABS: ABG BASE EXCESS -8.8 (-2.0-2.0); ABG HCO3 19.6 MMOL/L (22.0-26.0); ABG O2 SATURATION 79.8 % (95.0-99.0); ABG PARTIAL PRESSURE CO2 53.3 mmHg (35.0-45.0); ABG STANDARD HCO3 17.1 MMOL/L. (22.0-26.0); ABG TOTAL CO2 21.3 MMOL/L (23.0-31.0)
[2023-12-23 15:50] LABS: ABG PARTIAL PRESSURE O2 46.3 mmHg (75.0-100.0); ABG pH (ARTERIAL) 7.184 UNITS (7.350-7.450)
[2023-12-23 16:43] LABS: ABG BASE EXCESS -9.9 (-2.0-2.0); ABG HCO3 20.6 MMOL/L (22.0-26.0); ABG O2 SATURATION 75.7 % (95.0-99.0); ABG PARTIAL PRESSURE CO2 69.5 mmHg (35.0-45.0); ABG PARTIAL PRESSURE O2 48.6 mmHg (75.0-100.0); ABG STANDARD HCO3 16.2 MMOL/L. (22.0-26.0); ABG TOTAL CO2 22.7 MMOL/L (23.0-31.0); ABG pH (ARTERIAL) 7.089 UNITS (7.350-7.450)
[2023-12-23] MEDS: HYDROCORTISONE 100MG/2ML VIAL IV SCH (17:14)
[2023-12-23 17:51] LABS: ABG BASE EXCESS -7.1 (-2.0-2.0); ABG HCO3 21.9 MMOL/L (22.0-26.0); ABG O2 SATURATION 76.1 % (95.0-99.0); ABG STANDARD HCO3 18.3 MMOL/L. (22.0-26.0); ABG TOTAL CO2 23.8 MMOL/L (23.0-31.0)
[2023-12-23 17:53] LABS: ABG PARTIAL PRESSURE CO2 62.1 mmHg (35.0-45.0); ABG pH (ARTERIAL) 7.165 UNITS (7.350-7.450)
[2023-12-23 17:55] LABS: ABG PARTIAL PRESSURE O2 45.2 mmHg (75.0-100.0)
[2023-12-23] MEDS: SODIUM BICARBONATE 150 MEQ in D5W 1,000 ML IV SCH (18:18)
[2023-12-23 18:39] LABS: ABG BASE EXCESS -7.6 (-2.0-2.0); ABG HCO3 19.9 MMOL/L (22.0-26.0); ABG O2 SATURATION 74.3 % (95.0-99.0); ABG PARTIAL PRESSURE CO2 49.3 mmHg (35.0-45.0); ABG STANDARD HCO3 17.9 MMOL/L. (22.0-26.0); ABG TOTAL CO2 21.4 MMOL/L (23.0-31.0)
[2023-12-23 18:41] LABS: ABG PARTIAL PRESSURE O2 41.1 mmHg (75.0-100.0); ABG pH (ARTERIAL) 7.224 UNITS (7.350-7.450)
[2023-12-23 19:40] LABS: ABG BASE EXCESS -17.1 (-2.0-2.0); ABG HCO3 13.8 MMOL/L (22.0-26.0); ABG O2 SATURATION 63.3 % (95.0-99.0); ABG PARTIAL PRESSURE CO2 56.6 mmHg (35.0-45.0); ABG TOTAL CO2 15.5 MMOL/L (23.0-31.0)
[2023-12-23 19:41] LABS: ABG PARTIAL PRESSURE O2 41.7 mmHg (75.0-100.0); ABG pH (ARTERIAL) 7.005 UNITS (7.350-7.450)
[2023-12-23] MEDS: FORMOTEROL FUMARATE 20 MCG/2 ML INHALATION SOLUTION (PERFOROMIST) INH SCH (19:51)
[2023-12-23] MEDS: MEROPENEM INJ 1 GM in IV 1 EA IV SCH (21:50)
[2023-12-23 21:54] LABS: ABG BASE EXCESS -20.1 (-2.0-2.0); ABG O2 SATURATION 68.6 % (95.0-99.0); ABG PARTIAL PRESSURE CO2 59.9 mmHg (35.0-45.0); ABG STANDARD HCO3 9.1 MMOL/L. (22.0-26.0); ABG TOTAL CO2 13.9 MMOL/L (23.0-31.0)
[2023-12-23 21:55] LABS: ABG PARTIAL PRESSURE O2 47.4 mmHg (75.0-100.0); ABG pH (ARTERIAL) 6.921 UNITS (7.350-7.450)
[2023-12-23] MEDS: PHENYLEPHRINE HCL INJ 50 MG in D5W 495 ML IV SCH (22:11)
[2023-12-23] MEDS: EPINEPHrine HCL INJ 16 MG in D5W 984 ML IV SCH (22:25)
== END 2023-12-24 07:55 | disposition expired | DRG 208 ==
LOC: M ED 02:40 → M ED INP 05:08 → M PCU 21:09 → M MSPAV 12-13 21:58 → M ICU 12-15 08:23 → M PCU 12-15 19:29 → M ICU 12-23 00:44
PROVIDERS: ADMIT Internal Medicine Pulmonary Disease; ATTEND Internal Medicine
PROC: 0W9930Z Drainage of Right Pleural Cavity with Drainage Device, Percutaneous Approach (ICD-10-PCS; 2023-12-12)
PROC: 0W9930Z Drainage of Right Pleural Cavity with Drainage Device, Percutaneous Approach (ICD-10-PCS; 2023-12-15)
PROC: 0W9930Z Drainage of Right Pleural Cavity with Drainage Device, Percutaneous Approach (ICD-10-PCS; 2023-12-20)
PROC: 5A1935Z Respiratory Ventilation, Less than 24 Consecutive Hours (ICD-10-PCS; principal; 2023-12-23)
PROC: 0BH17EZ Insertion of Endotracheal Airway into Trachea, Via Natural or Artificial Opening (ICD-10-PCS; 2023-12-23)
PROC: 03HY32Z Insertion of Monitoring Device into Upper Artery, Percutaneous Approach (ICD-10-PCS; 2023-12-23)
PROC: 06HM33Z Insertion of Infusion Device into Right Femoral Vein, Percutaneous Approach (ICD-10-PCS; 2023-12-23)
DX: J93.0 Spontaneous tension pneumothorax (principal); J96.01 Acute respiratory failure with hypoxia; J96.02 Acute respiratory failure with hypercapnia; A41.9 Sepsis, unspecified organism; R65.21 Severe sepsis with septic shock; J18.9 Pneumonia, unspecified organism; J69.0 Pneumonitis due to inhalation of food and vomit; G93.41 Metabolic encephalopathy; I50.42 Chronic combined systolic (congestive) and diastolic (congestive) heart failure; J44.1 Chronic obstructive pulmonary disease with (acute) exacerbation; E87.1 Hypo-osmolality and hyponatremia; E87.20 Acidosis, unspecified; N17.9 Acute kidney failure, unspecified; J44.0 Chronic obstructive pulmonary disease with (acute) lower respiratory infection; Z66 Do not resuscitate; I27.29 Other secondary pulmonary hypertension; E11.9 Type 2 diabetes mellitus without complications; I11.0 Hypertensive heart disease with heart failure; I08.0 Rheumatic disorders of both mitral and aortic valves; N40.0 Benign prostatic hyperplasia without lower urinary tract symptoms; K21.9 Gastro-esophageal reflux disease without esophagitis; F32.A Depression, unspecified; M54.50 Low back pain, unspecified; G89.29 Other chronic pain; J98.2 Interstitial emphysema; I46.9 Cardiac arrest, cause unspecified; Z88.6 Allergy status to analgesic agent; Z79.52 Long term (current) use of systemic steroids; Z79.899 Other long term (current) drug therapy; Z87.891 Personal history of nicotine dependence